=== PATIENT | female | born 1965 | race Two or more races ===

== ENCOUNTER 2017-09-03 14:01 | Inpatient (IN) | payer OTHER ==
[2017-09-03] MEDS ORDERED: predniSONE 20 MG TABLET (UD) PO ONE (15:15)
[2017-09-03] MEDS: ALBUTEROL SO4 2.5/IPRATROPIUM 0.5 INH SOL 3 ML VIAL.NEB. NEB SCH ×4 (15:25→16:15)
[2017-09-03] MEDS ORDERED: predniSONE 20 MG TABLET (UD) ONE (15:27)
[2017-09-03 16:11] LABS: BASO # 0.1 # (0.1-1); BASO % 0.5 % (0-2.0); EOS # 0.2 # (0-4.5); EOS % 1.8 % (0-4.5); MCH 25.7 pg (25.7-33.7); MCHC 32.2 g/dl (32.0-36.0); MEAN CELL VOLUME 79.9 fl (80-96); MEAN PLT VOLUME 8.9 fl (7.5-11.1); NEUT # 8.5 # (42.8-82.8); PLATELET COUNT 354 K/MM3 (134-434); RDW 16.3 % (11.6-15.6); WHITE BLOOD COUNT 11.8 K/mm3 (4.0-10.0)
[2017-09-03 16:31] LABS: ALBUMIN 3.8 g/dl (3.4-5.0); ANION GAP 8 (8-16); BILIRUBIN,TOTAL 0.7 mg/dL (0.2-1.0); CALCIUM 9.3 mg/dL (8.5-10.1); CO2 26 mmol/L (21-32); CREATININE 0.7 mg/dL (0.55-1.02); GLUCOSE,RANDOM 96 mg/dL (74-106); SGPT/ALT 38 U/L (12-78); TOT PROT 8.1 g/dl (6.4-8.2)
[2017-09-03 16:33] LABS: ALK PHOS 143 U/L (45-117); TROPONIN I < 0.02 ng/ml (0.00-0.05)
[2017-09-03 16:55] LABS: CPK 99 IU/L (26-192); SGOT/AST 40 U/L (15-37)
[2017-09-03] MEDS ORDERED: CEFTRIAXONE 1 GM in DEXTROSE 5%-WATER - 50 ML IVPB ONE (17:23)
[2017-09-03] MEDS ORDERED: AZITHROMYCIN IVPB 500 MG in DEXTROSE 5%-WATER - 250 ML IVPB ONE (17:24)
--- NOTE | 2017-09-03 17:30 | PDOC ---
History of Present Illness - General Chief Complaint: Shortness of Breath Stated Complaint: DIFFCULTY BREATHING Time Seen by Provider: 09/03/17 14:54 - History of Present Illness Initial Comments: 09/03/17 17:24 " The patient is a 51 year old female with a significant PMH of asthma and emphysema/COPD with 8 prior intubations who presents to the emergency department with four days of chest pain and shortness of breath. The patient describes the chest pain as a 6/10 that is exacerbated by coughing. The patient states her shortness of breath feels like an asthma exacerbation. She endorses subjective fevers at home. Denies productive cough. The patient denies any sick contacts at home. The patient denies headache and dizziness. Denies nausea, vomit, diarrhea and constipation. Denies dysuria, frequency, urgency and hematuria. Denies leg swelling. Denies OCP use. Denies h/o DVT/PE. Allergies: NKA Social history: No reported alcohol, cigarette, or drug use. PCP: Dr. Ibarra" Past History - Past Medical History Allergies/Adverse Reactions: Allergies Allergy/AdvReac Type Severity Reaction Status Date / Time No Known Allergies Allergy Verified 09/03/17 14:21 Home Medications: Ambulatory Orders Albuterol 0.083% Nebulizer Harriett [Ventolin 0.083% Nebulizer Soln -] 1 amp NEB QID #120 amp 07/20/17 Albuterol Sulfate Inhaler - [Ventolin Hfa Inhaler -] 1 - 2 inh PO QID #1 inhaler 07/20/17 Fluticasone Prop 0.05% Nasal [Flonase -] 1 spray NS DAILY #30 bot 07/20/17 Ipratropium 0.02% Nebulizer [Atrovent 0.02% Nebulizer -] 1 amp NEB QID #120 amp 07/20/17 Levothyroxine [Synthroid -] 25 mcg PO DAILY #30 tablet 07/20/17 Loratadine [Claritin] 10 mg PO DAILY #30 tablet 07/20/17 Montelukast Na [Singulair -] 10 mg PO HS #30 tablet 07/20/17 Omeprazole 20 mg PO DAILY 07/20/17 Prednisone [Deltasone -] 20 mg PO DAILY #30 tablet 07/20/17 Salmeterol/Fluticasone [Advair 500Mcg/50Mcg -] 1 inh IH BID #60 inh 07/20/17 Theophylline Anhydrous 300 mg PO BID 07/20/17 Tiotropium [place] [Spiriva] 1 inh PO DAILY 07/20/17 Trazodone HCl 50 mg PO HS 07/20/17 Asthma: Yes COPD: Yes Thyroid Disease: Yes (HYPO) - Suicide/Smoking/Psychosocial Hx Smoking History: Never smoked Hx Alcohol Use: No Drug/Substance Use Hx: No Review of Systems - Review of Systems Comments:: 09/03/17 17:26 "GENERAL/CONSTITUTIONAL: No fever or chills. No weakness. HEAD, EYES, EARS, NOSE AND THROAT: No change in vision. No ear pain or discharge. No sore throat. CARDIOVASCULAR: No chest pain or shortness of breath. RESPIRATORY: (+) Chest pain. (+) SOB. No cough or hemoptysis. GASTROINTESTINAL: No nausea, vomiting, diarrhea or constipation. GENITOURINARY: No dysuria, frequency, or change in urination. MUSCULOSKELETAL: No joint or muscle swelling or pain. No neck or back pain. SKIN: No rash NEUROLOGIC: No headache, vertigo, loss of consciousness, or change in strength/ sensation. ENDOCRINE: No increased thirst. No abnormal weight change. HEMATOLOGIC/LYMPHATIC: No anemia, easy bleeding, or history of blood clots. ALLERGIC/IMMUNOLOGIC: No hives or skin allergy. " *Physical Exam - Vital Signs Last Vital Signs Temp Pulse Resp BP Pulse Ox 99.6 F 78 18 137/77 99 09/03/17 14:22 09/03/17 14:22 09/03/17 14:22 09/03/17 14:22 09/03/17 14:22 - Physical Exam Comments: 09/03/17 17:26 "GENERAL: Awake, alert, and fully oriented, in no acute distress HEAD: No signs of trauma EYES: PERRLA, EOMI, sclera anicteric, conjunctiva clear ENT: Auricles normal inspection, hearing grossly normal, nares patent, oropharynx clear without exudates. Moist mucosa NECK: Nontender, no stepoffs, Normal ROM, supple, no lymphadenopathy, JVD, or masses LUNGS: (+) expiratory Wheezes. No crackles HEART: Regular rate and rhythm, normal S1 and S2, no murmurs, rubs or gallops ABDOMEN: Soft, nontender, normoactive bowel sounds. No guarding, no rebound. No masses EXTREMITIES: Normal range of motion, no edema. No clubbing or cyanosis. No cords, erythema, or tenderness NEUROLOGICAL: Cranial nerves II through XII intact. 5/5 strength and sensation in all extremities, Normal speech, normal gait SKIN: Warm, Dry, normal turgor, no rashes or lesions noted." ED Treatment Course - LABORATORY CBC & Chemistry Diagram: 09/04/17 06:55 09/04/17 06:55 - ADDITIONAL ORDERS Additional order review: Laboratory Results 09/03/17 09/03/17 09/03/17 15:59 15:59 15:59 Sodium 137 Potassium 4.6 Chloride 103 Carbon Dioxide 26 Anion Gap 8 BUN 10 D Creatinine 0.7 Creat Clearance w eGFR > 60 Random Glucose 96 D Calcium 9.3 Total Bilirubin 0.7 D AST 40 H D ALT 38 Alkaline Phosphatase 143 H D Creatine Kinase 99 Cancelled Troponin I < 0.02 Cancelled B-Natriuretic Peptide Cancelled 14.06 Total Protein 8.1 D Albumin 3.8 09/03/17 15:59 RBC 4.83 MCV 79.9 L MCHC 32.2 RDW 16.3 H MPV 8.9 Neutrophils % 72.0 Lymphocytes % 17.2 D Monocytes % 8.5 Eosinophils % 1.8 Basophils % 0.5 - RADIOLOGY Radiology Studies Ordered: Category Date Time Status CHEST PA & LAT [RAD] Stat Radiology 09/03/17 15:13 Completed - Medications Given in the ED: ED Medications Discontinued Medications Generic Name Dose Route Start Last Admin Trade Name Freq PRN Reason Stop Dose Admin Albuterol/Ipratropium 1 amp 09/03/17 15:15 09/03/17 16:15 Duoneb - NEB 09/03/17 16:01 1 amp Q15M MAXIM Administration Prednisone 40 mg 09/03/17 15:15 09/03/17 15:25 Deltasone - PO 09/03/17 15:16 40 mg ONCE ONE Administration Medical Decision Making - Medical Decision Making 09/03/17 17:29 51 F with asthma/COPD presenting with 4 days of chest pain and shortness of breath with subjective fevers. Pt afebrile in ER but with wheezing on exam. Consistent with COPD exacerbation. Also consider PNA given subjective fevers. - Labs - CXR - Nebs, steroids, azithro 09/03/17 19:00 CXR shows new LLL opacities. Will tx for CAP with ceftriaxone/azithro Admit to hospital. Case discussed in detail with admitting physician including history, physical exam and ancillary studies. Admitting physician has assumed care for the patient and will follow all pending diagnostics and complete the evaluation and treatment. *DC/Admit/Observation/Transfer Diagnosis at time of Disposition: PNA (pneumonia) Qualifiers: Pneumonia type: due to unspecified organism Laterality: right Lung location: lower lobe of lung Qualified Code(s): J18.1 - Lobar pneumonia, unspecified organism - Discharge Dispostion Admit: Yes - Referrals - Patient Instructions - Post Discharge Activity - Attestations Physician Attestion: 09/03/17 18:24 I, Dr. Yvon Lau MD, attest that this document has been prepared under my direction and personally reviewed by me in its entirety. I further attest, that it accurately reflects all work, treatment, procedures and medical decision -making performed by me.
[2017-09-03] MEDS ORDERED: AZITHROMYCIN IVPB 250 ML IVPB ONE (17:53)
[2017-09-03] MEDS ORDERED: CEFTRIAXONE 1 GM/50 ML BAG ONE (17:54)
[2017-09-03] MEDS ORDERED: ALBUTEROL SO4 0.083% IH SOL 2.5 MG/3 ML VIAL.NEB. NEB PRN (18:44)
--- NOTE | 2017-09-03 20:47 | PN ---
Teaching Attending Note Name of Resident: Mark Wall ATTENDING PHYSICIAN STATEMENT I saw and evaluated the patient. I reviewed the resident's note and discussed the case with the resident. I agree with the resident's findings and plan as documented. SUBJECTIVE: patient presented for SOB with productive cough, patient was intubated 8 times in the past, last time was in june when she was being evacuated from the [facility] OBJECTIVE: NAD S1 and S2 RRR no edema crackles and wheezing ASSESSMENT AND PLAN: start vancomycin start the patient on zosyn prednisone 40mg PO daily can be methylprednisone 40mg IV if needed, if the patient worsen increase the dose to q8hrs ID consult for nosocomial evaluation c/w home medication
--- NOTE | 2017-09-03 21:13 | HP ---
CHIEF COMPLAINT: Shortness of breath PCP: HISTORY OF PRESENT ILLNESS: 51 yo F significant PMHx of asthma and emphysema/COPD with 8 prior intubations who presents to the emergency department with four days of chest pain and shortness of breath. The patient describes the chest pain as a 6/10 substernal intermittent exacerbated by coughing. She endorses subjective fevers and chills at home. Endorses cough as productive of dark yellow/brown sputum. She was last intubated in Jun when she was evacuated from [place] and had to be helicopter life flighted for further management. Denies MONTOYA, Abdominal pain, nausea, vomiting or sick contacts. ER course was notable for: (1)CXR shows RLL PNA (2)Started on Ceftriaxone and Azithro (3)Breathing treatments with good O2 sats. >90% Recent Travel: PAST MEDICAL HISTORY: asthma and emphysema/COPD with 8 prior intubations PAST SURGICAL HISTORY:none Social History: Smoking:denies Alcohol:denies Drugs: denies Family History: Allergies No Known Allergies Allergy (Verified 09/03/17 14:21) HOME MEDICATIONS: Home Medications Medication Instructions Recorded Albuterol 0.083% Nebulizer Harriett 1 amp NEB QID #120 amp 07/20/17 [Ventolin 0.083% Nebulizer Soln -] Albuterol Sulfate Inhaler - 1 - 2 inh PO QID #1 inhaler 07/20/17 [Ventolin Hfa Inhaler -] Fluticasone Prop 0.05% Nasal 1 spray NS DAILY #30 bot 07/20/17 [Flonase -] Ipratropium 0.02% Nebulizer 1 amp NEB QID #120 amp 07/20/17 [Atrovent 0.02% Nebulizer -] Levothyroxine [Synthroid -] 25 mcg PO DAILY #30 tablet 07/20/17 Loratadine [Claritin] 10 mg PO DAILY #30 tablet 07/20/17 Montelukast Na [Singulair -] 10 mg PO HS #30 tablet 07/20/17 Omeprazole 20 mg PO DAILY 07/20/17 Prednisone [Deltasone -] 20 mg PO DAILY #30 tablet 07/20/17 Salmeterol/Fluticasone [Advair 1 inh IH BID #60 inh 07/20/17 500Mcg/50Mcg -] Theophylline Anhydrous 300 mg PO BID 07/20/17 Tiotropium [place] [Spiriva] 1 inh PO DAILY 07/20/17 Trazodone HCl 50 mg PO HS 07/20/17 REVIEW OF SYSTEMS CONSTITUTIONAL: fever, chills, diaphoresis, generalized weakness, malaise Absent: , loss of appetite, weight change HEENT: Absent: rhinorrhea, nasal congestion, throat pain, throat swelling, difficulty swallowing, mouth swelling, ear pain, eye pain, visual changes CARDIOVASCULAR: chest pain Absent: , syncope, palpitations, irregular heart rate, lightheadedness, peripheral edema RESPIRATORY: cough, shortness of breath, dyspnea with exertion Absent: , orthopnea, wheezing, stridor, hemoptysis GASTROINTESTINAL: Absent: abdominal pain, abdominal distension, nausea, vomiting, diarrhea, constipation, melena, hematochezia GENITOURINARY: Absent: dysuria, frequency, urgency, hesitancy, hematuria, flank pain, genital pain MUSCULOSKELETAL: Absent: myalgia, arthralgia, joint swelling, back pain, neck pain SKIN: Absent: rash, itching, pallor HEMATOLOGIC/IMMUNOLOGIC: Absent: easy bleeding, easy bruising, lymphadenopathy, frequent infections ENDOCRINE: Absent: unexplained weight gain, unexplained weight loss, heat intolerance, cold intolerance NEUROLOGIC: Absent: headache, focal weakness or paresthesias, dizziness, unsteady gait, seizure, mental status changes, bladder or bowel incontinence PSYCHIATRIC: Absent: anxiety, depression, suicidal or homicidal ideation, hallucinations. PHYSICAL EXAMINATION Vital Signs - 24 hr 09/03/17 09/03/17 09/03/17 14:22 18:16 20:51 Temperature 99.6 F Pulse Rate 78 Pulse Rate [ 106 H 72 Right] Respiratory 18 16 18 Rate Blood Pressure 137/77 Blood Pressure 111/76 121/74 [Right Arm] O2 Sat by Pulse 99 97 100 Oximetry (%) GENERAL: AAOx3 moderate distress. HEAD: NC AT EYES: PERRLA, EOMI EARS, NOSE, THROAT: Moist mucous membranes. NECK: Normal range of motion, supple without lymphadenopathy, JVD, or masses. LUNGS: Decrease breath sounds > bases. Left sided crackles. HEART:tachycardic, S1 and S2 normal , No m/g/r ABDOMEN: Soft,obese, NT, ND, BS normal. MUSCULOSKELETAL: Normal range of motion at all joints. No bony deformities or tenderness. No CVA tenderness. LOWER EXTREMITIES: 2+ pulses, warm, well-perfused. No calf tenderness. No peripheral edema. NEUROLOGICAL: Cranial nerves II-XII intact. Normal speech. PSYCHIATRIC: Cooperative. Good eye contact. Appropriate mood and affect. SKIN: Warm, dry, normal turgor, no rashes or lesions noted, normal capillary refill. Laboratory Results - last 24 hr 09/03/17 09/03/17 09/03/17 15:59 15:59 15:59 WBC 11.8 H D RBC 4.83 Hgb 12.4 Hct 38.6 MCV 79.9 L MCH 25.7 MCHC 32.2 RDW 16.3 H Plt Count 354 MPV 8.9 Neutrophils % 72.0 Lymphocytes % 17.2 D Monocytes % 8.5 Eosinophils % 1.8 Basophils % 0.5 Sodium 137 Potassium 4.6 Chloride 103 Carbon Dioxide 26 Anion Gap 8 BUN 10 D Creatinine 0.7 Creat Clearance w eGFR > 60 Random Glucose 96 D Calcium 9.3 Total Bilirubin 0.7 D AST 40 H D ALT 38 Alkaline Phosphatase 143 H D Creatine Kinase Cancelled 99 Troponin I Cancelled < 0.02 B-Natriuretic Peptide 14.06 Total Protein 8.1 D Albumin 3.8 09/03/17 15:59 WBC RBC Hgb Hct MCV MCH MCHC RDW Plt Count MPV Neutrophils % Lymphocytes % Monocytes % Eosinophils % Basophils % Sodium Potassium Chloride Carbon Dioxide Anion Gap BUN Creatinine Creat Clearance w eGFR Random Glucose Calcium Total Bilirubin AST ALT Alkaline Phosphatase Creatine Kinase Troponin I B-Natriuretic Peptide Cancelled Total Protein Albumin ASSESSMENT/PLAN: 51 yo F with PMHx of asthma/ COPD with multiple intubations admitted to med/ surg for managment of acute PNA. Problem List - Problem (1) PNA (pneumonia) Assessment/Plan: Given that she has had multiple intubations most recently within last 2 mo. * Will give one time dose of Vanco and Zosyn * Will consult ID * Solumedrol 40mg IV daily * Duonebs QID * Albuterol PRN * Spiriva * Supplemental O2 PRN maintain SpO2 >90% (2) Asthma exacerbation (3) Hypothyroidism Assessment/Plan: Continue Synthroid 25mcg PO daily. (4) DVT prophylaxis Assessment/Plan: Heparin 5000 units SQ Q8h Visit type - Emergency Visit Emergency Visit: Yes ED Registration Date: 12/22/17 Care time: The patient presented to the Emergency Department on the above date and was hospitalized for further evaluation of their emergent condition. - New Patient This patient is new to me today: Yes Date on this admission: 09/04/17 - Critical Care Critical Care patient: No
[2017-09-03] MEDS ORDERED: VANCOMYCIN 1 GRAM (PRE-DOCKED) 1,000 MG/250 ML BAG IVPB ONE (22:25)
[2017-09-03] MEDS ORDERED: PIPERACIL/TAZOB 3.375 GM 3.375 GM/50 ML PREMIX IVPB ONE (22:26)
[2017-09-03] MEDS ORDERED: VANCOMYCIN 1,000 MG in DEXTROSE 5%-WATER - 250 ML IVPB ONE (22:30)
[2017-09-03] MEDS ORDERED: PT OWN MED DRAWER 7, Y5N ONE (22:40)
[2017-09-04 00:15] VITALS: BMI 32.4
[2017-09-04] MEDS: ALBUTEROL SO4 2.5/IPRATROPIUM 0.5 INH SOL 3 ML VIAL.NEB. NEB SCH ×5 (00:43→23:44)
[2017-09-04] MEDS: guaiFENesin 600 MG TABLET.ER (FP) PO SCH ×3 (00:51→21:24)
[2017-09-04] MEDS: BENZOCAINE/MENTH/CETYLPYRD CL 1 EACH LOZENGE MM PRN ×2 (00:51→06:18)
[2017-09-04] MEDS: LEVOTHYROXINE NA 25 MCG TABLET (FP) PO SCH (06:18)
[2017-09-04] MEDS ORDERED: PT OWN MED DRAWER 7, Y5N ONE ×4 (06:47→20:45)
[2017-09-04 07:45] LABS: BASO % 0.3 % (0-2.0); EOS % 0.3 % (0-4.5); LYMPH # 2.1 (8-40); MCH 25.6 pg (25.7-33.7); MCHC 32.1 g/dl (32.0-36.0); MEAN CELL VOLUME 79.9 fl (80-96); MEAN PLT VOLUME 8.3 fl (7.5-11.1); MONO # 1.1 # (3.8-10.2); NEUT # 7.7 # (42.8-82.8); NEUT % 70.3 % (42.8-82.8); PLATELET COUNT 417 K/MM3 (134-434); RDW 16.3 % (11.6-15.6); WHITE BLOOD COUNT 10.9 K/mm3 (4.0-10.0)
[2017-09-04 08:11] LABS: MAGNESIUM 2.4 mg/dL (1.8-2.4); PHOSPHOROUS 4.1 mg/dL (2.5-4.9)
[2017-09-04 08:15] LABS: ALBUMIN 3.6 g/dl (3.4-5.0); ANION GAP 14 (8-16); CALCIUM 9.5 mg/dL (8.5-10.1); CO2 22 mmol/L (21-32); GLUCOSE,RANDOM 101 mg/dL (74-106)
[2017-09-04 08:18] LABS: ALK PHOS 126 U/L (45-117); BILIRUBIN,TOTAL 0.6 mg/dL (0.2-1.0); CREATININE 0.7 mg/dL (0.55-1.02); SGOT/AST 18 U/L (15-37); SGPT/ALT 37 U/L (12-78); TOT PROT 7.8 g/dl (6.4-8.2)
--- NOTE | 2017-09-04 09:34 | PN ---
Progress Note (short form) - Note Progress Note: ID Consult dictated Acute exacerbation bronchial asthma Possible pneumonia Obtain BC, Sputum c/s, legionella/ pneumococcal ag Repeat CXR Empiric zithromax/ ceftriaxone Bronchodilators/ steroids Declines HIV testing
[2017-09-04] MEDS ORDERED: PANTOPRAZOLE 20 MG TABLET (FP) PO SCH (10:00)
[2017-09-04] MEDS ORDERED: AZITHROMYCIN IVPB 500 MG in DEXTROSE 5%-WATER - 250 ML IVPB SCH (10:00)
[2017-09-04] MEDS ORDERED: TIOTROPIUM BROMIDE 18 MCG/INH (DEVICE W/ 5 CAPSULES) IH SCH (10:00)
[2017-09-04] MEDS ORDERED: methylPREDNISolone NA SUCC 40 MG/1 ML VIAL IVPUSH SCH (10:00)
[2017-09-04] MEDS ORDERED: CEFTRIAXONE 2 GM in DEXTROSE 5%-WATER - 100 ML IVPB SCH (10:00)
[2017-09-04] MEDS: CEFTRIAXONE 2 GM in DEXTROSE 5%-WATER - 100 ML IVPB SCH (10:16)
[2017-09-04] MEDS: LORATADINE 10 MG TABLET PO SCH (10:17)
--- NOTE | 2017-09-04 13:29 | PN ---
Progress Note, Physician History of Present Illness: PULMONARY CONSULTATION DICTATED 09/04/17 IMP CHRONIC PERSISTENT ASTHMA WITH ACUTE EXACERBATION LLL PNEUMONIA PLAN IV STEROIDS INHALED BRONCHODILATORS O2 ANTIBIOTICS SPUTUM C+S CHEST CT MONITOR PEAK FLOW - Current Medication List Current Medications: Active Medications Albuterol Sulfate (Ventolin 0.083% Nebulizer Soln -) 1 amp NEB Q1H PRN PRN Reason: SHORT OF BREATH/WHEEZING Albuterol/Ipratropium (Duoneb -) 1 amp NEB QIDR [facility] Last Admin: 09/04/17 12:03 Dose: 1 amp Benzocaine/Menthol (Cepacol Lozenge -) 1 each MM PRN PRN PRN Reason: SORE THROAT Last Admin: 09/04/17 06:18 Dose: 1 each Guaifenesin (Mucinex -) 600 mg PO BID [facility] Last Admin: 09/04/17 10:16 Dose: 600 mg Heparin Sodium (Porcine) (Heparin -) 5,000 unit SQ TID [facility] Ceftriaxone Sodium 2 gm/ (Dextrose) 100 mls @ 200 mls/hr IVPB DAILY [facility] Last Admin: 09/04/17 10:16 Dose: 200 mls/hr Levofloxacin (Levaquin 500 Mg Premixed Ivpb -) 500 mg in 100 mls @ 100 mls/hr IVPB DAILY [facility] Levothyroxine Sodium (Synthroid -) 25 mcg PO DAILY@0700 [facility] Last Admin: 09/04/17 06:18 Dose: 25 mcg Loratadine (Claritin -) 10 mg PO DAILY [facility] Last Admin: 09/04/17 10:17 Dose: 10 mg Methylprednisolone Sodium Succinate (Solu-Medrol -) 60 mg IVPUSH Q6H-IV MAXIM Montelukast Sodium (Singulair -) 10 mg PO HS [facility] Pantoprazole Sodium (Protonix -) 20 mg PO DAILY@0600 [facility] Trazodone HCl (Desyrel -) 50 mg PO HS [facility] - Objective Vital Signs: Vital Signs Temperature 97.8 F 09/04/17 10:00 Pulse Rate 93 H 09/04/17 10:00 Respiratory Rate 20 09/04/17 10:00 Blood Pressure 114/78 09/04/17 10:00 O2 Sat by Pulse Oximetry (%) 96 09/04/17 09:00 Labs: CBC, BMP 09/04/17 06:55 09/04/17 06:55 Problem List - Problems (1) DVT prophylaxis Code(s): [id number] - (2) Hypothyroidism Code(s): E03.9 - HYPOTHYROIDISM, UNSPECIFIED Qualifiers: Hypothyroidism type: acquired Qualified Code(s): E03.9 - Hypothyroidism, unspecified (3) PNA (pneumonia) Code(s): J18.9 - PNEUMONIA, UNSPECIFIED ORGANISM Qualifiers: Pneumonia type: due to unspecified organism Laterality: right Lung location: lower lobe of lung Qualified Code(s): J18.1 - Lobar pneumonia, unspecified organism (4) Asthma exacerbation Code(s): J45.901 - UNSPECIFIED ASTHMA WITH (ACUTE) EXACERBATION Qualifiers: Asthma severity: severe Asthma persistence: persistent Qualified Code(s) : J45.51 - Severe persistent asthma with (acute) exacerbation
[2017-09-04] MEDS ORDERED: AZITHROMYCIN 250 MG TABLET PO SCH (13:30)
--- NOTE | 2017-09-04 13:33 | PN ---
Progress Note (short form) - Note Progress Note: PULMONARY CONSULTATION DICTATED 09/04/17 IMP CHRONIC PERSISTENT ASTHMA WITH ACUTE EXACERBATION LLL PNEUMONIA HYPOTHYROID PLAN IV STEROIDS INHALED BRONCHODILATORS O2 ANTIBIOTICS SPUTUM C+S CHEST CT MONITOR PEAK FLOW DR DAVIS Problem List - Problems (1) DVT prophylaxis Code(s): [id number] - (2) Hypothyroidism Code(s): E03.9 - HYPOTHYROIDISM, UNSPECIFIED Qualifiers: Hypothyroidism type: acquired Qualified Code(s): E03.9 - Hypothyroidism, unspecified (3) PNA (pneumonia) Code(s): J18.9 - PNEUMONIA, UNSPECIFIED ORGANISM Qualifiers: Pneumonia type: due to unspecified organism Laterality: right Lung location: lower lobe of lung Qualified Code(s): J18.1 - Lobar pneumonia, unspecified organism (4) Asthma exacerbation Code(s): J45.901 - UNSPECIFIED ASTHMA WITH (ACUTE) EXACERBATION Qualifiers: Asthma severity: severe Asthma persistence: persistent Qualified Code(s) : J45.51 - Severe persistent asthma with (acute) exacerbation
[2017-09-04] MEDS: LEVOFLOXACIN 500 MG IVPB 500 MG/100 ML BAG IVPB SCH (14:26)
[2017-09-04] MEDS: methylPREDNISolone NA SUCC 40 MG/1 ML VIAL IVPUSH SCH ×2 (16:21→21:23)
--- NOTE | 2017-09-04 16:26 | PN ---
Physical Exam: SUBJECTIVE: Patient seen and examined Patient comfortably sitting on the bed. OBJECTIVE: Vital Signs Temperature 97.8 F 09/04/17 10:00 Pulse Rate 93 H 09/04/17 10:00 Respiratory Rate 20 09/04/17 10:00 Blood Pressure 114/78 09/04/17 10:00 O2 Sat by Pulse Oximetry (%) 96 09/04/17 09:00 GENERAL: The patient is awake, alert, and fully oriented, in no acute distress. HEAD: Normal with no signs of trauma. EYES: PERRL, extraocular movements intact, sclera anicteric, conjunctiva clear. No ptosis. ENT: Ears normal, nares patent, oropharynx clear without exudates, moist mucous membranes. NECK: Trachea midline, full range of motion, supple. LUNGS: Decreased air entery BL , no wheezes, no crackles, no accessory muscle use. HEART: Regular rate and rhythm, S1, S2 without murmur, rub or gallop. ABDOMEN: Soft, nontender, nondistended, normoactive bowel sounds, no guarding, no rebound, no hepatosplenomegaly, no masses. EXTREMITIES: 2+ pulses, warm, well-perfused, no edema. NEUROLOGICAL: Cranial nerves II through XII grossly intact. Normal speech, gait not observed. PSYCH: Normal mood, normal affect. SKIN: Warm, dry, normal turgor, no rashes or lesions noted Laboratory Results - last 24 hr 09/03/17 09/03/17 09/04/17 15:59 15:59 06:55 WBC 11.8 H D RBC 4.83 Hgb 12.4 Hct 38.6 MCV 79.9 L MCH 25.7 MCHC 32.2 RDW 16.3 H Plt Count 354 MPV 8.9 Neutrophils % 72.0 Lymphocytes % 17.2 D Monocytes % 8.5 Eosinophils % 1.8 Basophils % 0.5 Sodium 137 Potassium 4.6 Chloride 103 Carbon Dioxide 26 Anion Gap 8 BUN 10 D Creatinine 0.7 Creat Clearance w eGFR > 60 Random Glucose 96 D Calcium 9.3 Phosphorus 4.1 Magnesium 2.4 Total Bilirubin 0.7 D AST 40 H D ALT 38 Alkaline Phosphatase 143 H D Creatine Kinase 99 Troponin I < 0.02 B-Natriuretic Peptide 14.06 Total Protein 8.1 D Albumin 3.8 09/04/17 09/04/17 06:55 06:55 WBC 10.9 H RBC 4.56 Hgb 11.7 Hct 36.5 MCV 79.9 L MCH 25.6 L MCHC 32.1 RDW 16.3 H Plt Count 417 MPV 8.3 Neutrophils % 70.3 Lymphocytes % 19.4 Monocytes % 9.7 Eosinophils % 0.3 D Basophils % 0.3 Sodium 140 Potassium 3.9 Chloride 104 Carbon Dioxide 22 Anion Gap 14 BUN 10 Creatinine 0.7 Creat Clearance w eGFR > 60 Random Glucose 101 Calcium 9.5 Phosphorus Magnesium Total Bilirubin 0.6 AST 18 D ALT 37 Alkaline Phosphatase 126 H Creatine Kinase Troponin I B-Natriuretic Peptide Total Protein 7.8 Albumin 3.6 Active Medications Generic Name Dose Route Start Last Admin Trade Name Freq PRN Reason Stop Dose Admin Albuterol Sulfate 1 amp 09/03/17 18:44 Ventolin 0.083% Nebulizer Soln - NEB Q1H PRN SHORT OF BREATH/WHEEZING Albuterol/Ipratropium 1 amp 09/04/17 00:00 09/04/17 12:03 Duoneb - NEB 1 amp QIDR MAXIM Administration Benzocaine/Menthol 1 each 09/04/17 00:26 09/04/17 06:18 Cepacol Lozenge - MM 1 each PRN PRN Administration SORE THROAT Guaifenesin 600 mg 09/04/17 00:30 09/04/17 10:16 Mucinex - PO 600 mg BID MAXIM Administration Heparin Sodium (Porcine) 5,000 unit 09/04/17 22:00 Heparin - SQ TID [facility] Ceftriaxone Sodium 2 gm/ 100 mls @ 200 mls/hr 09/04/17 10:00 09/04/17 10:16 Dextrose IVPB 200 mls/hr DAILY MAXIM Administration Levofloxacin 500 mg in 100 mls @ 100 mls/hr 09/04/17 13:30 09/04/17 14:26 Levaquin 500 Mg Premixed Ivpb - IVPB 100 mls/hr DAILY MAXIM Administration Levothyroxine Sodium 25 mcg 09/04/17 07:00 09/04/17 06:18 Synthroid - PO 25 mcg DAILY@0700 MAXIM Administration Loratadine 10 mg 09/04/17 10:00 09/04/17 10:17 Claritin - PO 10 mg DAILY MAXIM Administration Methylprednisolone Sodium Succinate 60 mg 09/04/17 15:00 09/04/17 16:21 Solu-Medrol - IVPUSH 60 mg Q6H-IV MAXIM Administration Montelukast Sodium 10 mg 09/04/17 22:00 Singulair - PO HS MAXIM Pantoprazole Sodium 20 mg 09/05/17 06:00 Protonix - PO DAILY@0600 MAXIM Trazodone HCl 50 mg 09/04/17 22:00 Desyrel - PO HS MAXIM ASSESSMENT/PLAN: Patient is a 51 yo F with PMHx of asthma/ COPD with multiple intubations admitted to med/surg for managment of acute PNA. As per patient , has been intubated for around 8x # Acute exacerbation of Asthma to continue Levaquin and Rocephin , dc zithromax since patient is having itchiness on IV infusion, discussed with ID to continue with Rocephin and Levaquin. Bronchodilators/ steroids continue # Questionable LLL PNEUMONIA on Rocephin and Levaquin continue, check legionella and strept.pneumonia, will repeat the cxr # HYPOTHYROID continue Synthroid DVT Px: Heparin Visit type - Emergency Visit Emergency Visit: Yes ED Registration Date: 09/03/17 Care time: The patient presented to the Emergency Department on the above date and was hospitalized for further evaluation of their emergent condition. - New Patient This patient is new to me today: Yes Date on this admission: 09/04/17 - Critical Care Critical Care patient: Yes Total Critical Care Time (in minutes): 35 Critical Care Statement: The care of this patient involved high complexity decision making to prevent further life threatening deterioration of the patient 's condition and/or to evaluate & treat vital organ system(s) failure or risk of failure.
--- NOTE | 2017-09-04 16:29 | EKG ---
Test Reason : Blood Pressure : / mmHG Vent. Rate : 107 BPM Atrial Rate : 107 BPM P-R Int : 164 ms QRS Dur : 092 ms QT Int : 352 ms P-R-T Axes : 043 003 026 degrees QTc Int : 469 ms SINUS TACHYCARDIA POSSIBLE LEFT ATRIAL ENLARGEMENT INCOMPLETE RIGHT BUNDLE BRANCH BLOCK BORDERLINE ECG WHEN COMPARED WITH ECG OF 20-JUL-2017 18:43, VENT. RATE HAS INCREASED BY 36 BPM Confirmed by CUCO LINDO MD [id number]) on 09/04/2017 4:28:39 PM Referred By: Confirmed By:CUCO LINDO MD
--- NOTE | 2017-09-04 19:21 | CONS ---
DATE OF CONSULTATION: 09/04/2017 INFECTIOUS DISEASE CONSULTATION HISTORY OF PRESENT ILLNESS: The patient is a 51-year-old diabetic female evaluated for possible pneumonia. She was admitted with a 4-day history of worsening dyspnea, wheeze and sternal chest pain. In addition, she reported cough productive of yellowish sputum. Sh was admitted with a diagnosis of acute exacerbation of bronchial asthma. Chest x-ray, although poor quality film, showed possible right lower lobe infiltrate. She was empirically treated with vancomycin, Zosyn, Zithromax and ceftriaxone. At the present time, she is slightly short of breath and has a cough. She is wheezing. She has a history of bronchial asthma and has had frequent exacerbations. According to the note she has been intubated on 8 occasions in the past. Her last serious exacerbation was in June of 2017. She denies any ill contact. She is a nonsmoker. She denies risk factors for HIV. She was recently in [place]. PAST MEDICAL HISTORY: Positive for asthma, COPD. ALLERGIES: No known drug allergies. MEDICATIONS: Albuterol, DuoNeb, Synthroid, Solu-Medrol, Singulair, Protonix, Spiriva. SOCIAL HISTORY: As per HPI. LABORATORY DATA: White count on admission 11.8, hematocrit 36.5, platelet count 417. BUN 10, creatinine 0.7. PHYSICAL EXAMINATION: General: She is an obese female. Vital signs: Temperature 98.5, blood pressure 109/66, pulse 100 regular, respirations 20 per minute. HEENT: Sclerae anicteric. Oropharynx slight injection. Neck: Supple, no palpable nodes. Heart: S1, S2, tachycardic. Lungs: Bilateral rhonchi and mild wheezing. Abdomen: Obese, soft, nontender. Extremities: Negative for edema. IMPRESSION: 1. Acute exacerbation of bronchial asthma. 2. Possible pneumonia. PLAN: Obtained blood cultures, sputum culture, urine legionella and pneumococcal antigens. Repeat chest x-ray. Continue bronchodilators and corticosteroids, empiric Zithromax and ceftriaxone. The patient declines HIV testing. FANTASMA LUGO M.D. [id number]
[2017-09-04] MEDS: HEPARIN NA (PORCINE) 5,000 UNITS/ML 1ML VIAL SQ SCH (21:24)
[2017-09-04] MEDS: traZODone HCL 50 MG TABLET (FP) PO SCH (21:24)
[2017-09-04] MEDS: MONTELUKAST NA 10 MG TABLET PO SCH (21:47)
[2017-09-05] MEDS: methylPREDNISolone NA SUCC 40 MG/1 ML VIAL IVPUSH SCH ×2 (02:11→09:32)
[2017-09-05] MEDS: HEPARIN NA (PORCINE) 5,000 UNITS/ML 1ML VIAL SQ SCH ×3 (06:06→21:55)
[2017-09-05] MEDS: LEVOTHYROXINE NA 25 MCG TABLET (FP) PO SCH (06:07)
[2017-09-05] MEDS: PANTOPRAZOLE 20 MG TABLET (FP) PO SCH (06:07)
[2017-09-05 06:25] LABS: BASO % 0.1 % (0-2.0); MCH 25.5 pg (25.7-33.7); MCHC 31.9 g/dl (32.0-36.0); MEAN CELL VOLUME 79.8 fl (80-96); MEAN PLT VOLUME 8.5 fl (7.5-11.1); MONO # 0.3 # (3.8-10.2); NEUT # 10.3 # (42.8-82.8); NEUT % 88.6 % (42.8-82.8); PLATELET COUNT 453 K/MM3 (134-434); RDW 16.3 % (11.6-15.6); WHITE BLOOD COUNT 11.6 K/mm3 (4.0-10.0)
[2017-09-05] MEDS: ALBUTEROL SO4 2.5/IPRATROPIUM 0.5 INH SOL 3 ML VIAL.NEB. NEB SCH ×3 (06:50→18:02)
[2017-09-05 06:55] LABS: ALBUMIN 3.4 g/dl (3.4-5.0); ANION GAP 10 (8-16); CALCIUM 9.8 mg/dL (8.5-10.1); CO2 24 mmol/L (21-32); CREATININE 0.7 mg/dL (0.55-1.02); GLUCOSE,RANDOM 154 mg/dL (74-106); SGOT/AST 9 U/L (15-37); SGPT/ALT 33 U/L (12-78)
[2017-09-05 06:56] LABS: ALK PHOS 117 U/L (45-117); BILIRUBIN,TOTAL 0.3 mg/dL (0.2-1.0); TOT PROT 7.4 g/dl (6.4-8.2)
[2017-09-05] MEDS ORDERED: PT OWN MED DRAWER 7, Y5N ONE ×2 (07:01→09:27)
--- NOTE | 2017-09-05 09:21 | PN ---
Teaching Attending Note Name of Resident: Swati Bolanos ATTENDING PHYSICIAN STATEMENT I saw and evaluated the patient. I reviewed the resident's note and discussed the case with the resident. I agree with the resident's findings and plan as documented. SUBJECTIVE: Patient feels shortness of breath on exertion and at rest . feels that she needs an air condition for her to breath. OBJECTIVE: Vital Signs Temperature 98.8 F 09/05/17 08:00 Pulse Rate 89 09/05/17 08:00 Respiratory Rate 18 09/05/17 08:00 Blood Pressure 137/61 09/05/17 08:00 O2 Sat by Pulse Oximetry (%) 94 L 09/05/17 09:00 CBCD WBC 11.6 K/mm3 (4.0-10.0) H 09/05/17 05:55 RBC 4.35 M/mm3 (3.60-5.2) 09/05/17 05:55 Hgb 11.1 GM/dL (10.7-15.3) 09/05/17 05:55 Hct 34.8 % (32.4-45.2) 09/05/17 05:55 MCV 79.8 fl (80-96) L 09/05/17 05:55 MCHC 31.9 g/dl (32.0-36.0) L 09/05/17 05:55 RDW 16.3 % (11.6-15.6) H 09/05/17 05:55 Plt Count 453 K/MM3 (134-434) H 09/05/17 05:55 MPV 8.5 fl (7.5-11.1) 09/05/17 05:55 CMP Sodium 140 mmol/L (136-145) 09/05/17 05:55 Potassium 5.1 mmol/L (3.5-5.1) D 09/05/17 05:55 Chloride 106 mmol/L (98-107) 09/05/17 05:55 Carbon Dioxide 24 mmol/L (21-32) 09/05/17 05:55 Anion Gap 10 (8-16) 09/05/17 05:55 BUN 14 mg/dL (7-18) D 09/05/17 05:55 Creatinine 0.7 mg/dL (0.55-1.02) 09/05/17 05:55 Creat Clearance w eGFR > 60 (>60) 09/05/17 05:55 Random Glucose 154 mg/dL (74-106) H D 09/05/17 05:55 Calcium 9.8 mg/dL (8.5-10.1) 09/05/17 05:55 Total Bilirubin 0.3 mg/dL (0.2-1.0) D 09/05/17 05:55 AST 9 U/L (15-37) L D 09/05/17 05:55 ALT 33 U/L (12-78) 09/05/17 05:55 Alkaline Phosphatase 117 U/L (45-117) 09/05/17 05:55 Total Protein 7.4 g/dl (6.4-8.2) 09/05/17 05:55 Albumin 3.4 g/dl (3.4-5.0) 09/05/17 05:55 CARDIAC ENZYMES Creatine Kinase 99 IU/L (26-192) 09/03/17 15:59 Troponin I < 0.02 ng/ml (0.00-0.05) 09/03/17 15:59 Current Medications Generic Name Dose Route Start Last Admin Trade Name Freq PRN Reason Stop Dose Admin Albuterol Sulfate 1 amp 09/03/17 18:44 Ventolin 0.083% Nebulizer Soln - NEB Q1H PRN SHORT OF BREATH/WHEEZING Albuterol/Ipratropium 1 amp 09/04/17 00:00 09/05/17 06:50 Duoneb - NEB 1 amp QIDR MAXIM Administration Benzocaine/Menthol 1 each 09/04/17 00:26 09/04/17 06:18 Cepacol Lozenge - MM 1 each PRN PRN Administration SORE THROAT Guaifenesin 600 mg 09/04/17 00:30 09/04/17 21:24 Mucinex - PO 600 mg BID MAXIM Administration Heparin Sodium (Porcine) 5,000 unit 09/04/17 22:00 09/05/17 06:06 Heparin - SQ 5,000 unit TID MAXIM Administration Ceftriaxone Sodium 2 gm/ 100 mls @ 200 mls/hr 09/04/17 10:00 09/04/17 10:16 Dextrose IVPB 200 mls/hr DAILY MAXIM Administration Levofloxacin 500 mg in 100 mls @ 100 mls/hr 09/04/17 13:30 09/04/17 14:26 Levaquin 500 Mg Premixed Ivpb - IVPB 100 mls/hr DAILY MAXIM Administration Levothyroxine Sodium 25 mcg 09/04/17 07:00 09/05/17 06:07 Synthroid - PO 25 mcg DAILY@0700 MAXIM Administration Loratadine 10 mg 09/04/17 10:00 09/04/17 10:17 Claritin - PO 10 mg DAILY MAXIM Administration Methylprednisolone Sodium Succinate 60 mg 09/04/17 15:00 09/05/17 02:11 Solu-Medrol - IVPUSH 60 mg Q6H-IV MAXIM Administration Montelukast Sodium 10 mg 09/04/17 22:00 09/04/17 21:47 Singulair - PO 10 mg HS MAXIM Administration Pantoprazole Sodium 20 mg 09/05/17 06:00 09/05/17 06:07 Protonix - PO 20 mg DAILY@0600 MAXIM Administration Trazodone HCl 50 mg 09/04/17 22:00 09/04/17 21:24 Desyrel - PO 50 mg HS MAXIM Administration Home Medications Medication Instructions Recorded Albuterol 0.083% Nebulizer [place] 1 amp NEB QID #120 amp 07/20/17 [Ventolin 0.083% Nebulizer Soln -] Albuterol Sulfate Inhaler - 1 - 2 inh PO QID #1 inhaler 07/20/17 [Ventolin Hfa Inhaler -] Fluticasone Prop 0.05% Nasal 1 spray NS DAILY #30 bot 07/20/17 [Flonase -] Ipratropium 0.02% Nebulizer 1 amp NEB QID #120 amp 07/20/17 [Atrovent 0.02% Nebulizer -] Levothyroxine [Synthroid -] 25 mcg PO DAILY #30 tablet 07/20/17 Loratadine [Claritin] 10 mg PO DAILY #30 tablet 07/20/17 Montelukast Na [Singulair -] 10 mg PO HS #30 tablet 07/20/17 Omeprazole 20 mg PO DAILY 07/20/17 Prednisone [Deltasone -] 20 mg PO DAILY #30 tablet 07/20/17 Salmeterol/Fluticasone [Advair 1 inh IH BID #60 inh 07/20/17 500Mcg/50Mcg -] Theophylline Anhydrous 300 mg PO BID 07/20/17 Tiotropium [place] [Spiriva] 1 inh PO DAILY 07/20/17 Trazodone HCl 50 mg PO HS 07/20/17 PE: Severly diminished air entry BL rest of PE per resident's note CT is pending ASSESSMENT AND PLAN: Patient is a 51 yo F with PMHx of asthma/ COPD with multiple intubations admitted to med/surg for managment of acute PNA. As per patient , has been intubated for around 8x # Acute exacerbation of Asthma ; Continue Levaquin and Rocephin as per ID 's recommendation , dc zithromax since patient is having itchiness on IV infusion, discussed with ID to continue with Rocephin and Levaquin. Bronchodilators/ steroids continue # Questionable LLL PNEUMONIA on Rocephin and Levaquin continue, legionella and strept.pneumonia are neg. for antigen , will repeat the cxr # HYPOTHYROID continue Synthroid DVT Px: Heparin
--- NOTE | 2017-09-05 09:23 | PN ---
Physical Exam: SUBJECTIVE: Patient seen and examined. Reports feeling better. cough improved, but continues to be sob when going to bathroom. No chest pain, fever, chills, abdominal pain, n/v. OBJECTIVE: Vital Signs Period Temp Pulse Resp BP Sys/Gomez Pulse Ox Last 24 Hr 97.5 F-98.8 F 89-100 18-20 114-140/61-78 94-96 GENERAL: nad, aaox3, dyspneic when completing full sentences EYES: sclera anicteric, conjunctiva clear ENT: oropharynx clear without exudates, MMM LUNGS: +airway entry bilaterally, scattered wheezes HEART: rrr, normal s1/s2, no m/r/g ABDOMEN: Soft, ntnd, normoactive bowel sounds LOWER EXTREMITIES: 2+ DP pulses, wwp, no edema NEUROLOGICAL: CN II-XII grossly intact. Normal speech, gait intact. CBC, BMP 09/05/17 05:55 09/05/17 05:55 Hepatic Panel Total Bilirubin 0.3 mg/dL (0.2-1.0) D 09/05/17 05:55 AST 9 U/L (15-37) L D 09/05/17 05:55 ALT 33 U/L (12-78) 09/05/17 05:55 Alkaline Phosphatase 117 U/L (45-117) 09/05/17 05:55 Albumin 3.4 g/dl (3.4-5.0) 09/05/17 05:55 Microbiology 09/04/17 11:05 Blood - Peripheral Venous Blood Culture - Preliminary NO GROWTH OBTAINED AFTER 24 HOURS, INCUBATION TO CONTINUE FOR 4 DAYS. 09/04/17 11:05 Blood - Peripheral Venous Blood Culture - Preliminary NO GROWTH OBTAINED AFTER 24 HOURS, INCUBATION TO CONTINUE FOR 4 DAYS. 09/04/17 12:03 Urine For Antigen Detection Legionella Antigen - Final - NEG 09/04/17 12:03 Urine For Antigen Detection Streptococcus pneumoniae Antigen (M - Final) - NEG Active Medications Albuterol Sulfate (Ventolin 0.083% Nebulizer Soln -) 1 amp NEB Q1H PRN PRN Reason: SHORT OF BREATH/WHEEZING Albuterol/Ipratropium (Duoneb -) 1 amp NEB QIDR MAXIM Last Admin: 09/05/17 11:40 Dose: 1 amp Benzocaine/Menthol (Cepacol Lozenge -) 1 each MM PRN PRN PRN Reason: SORE THROAT Last Admin: 09/05/17 09:33 Dose: 1 each Guaifenesin (Mucinex -) 600 mg PO BID [facility] Last Admin: 09/05/17 09:32 Dose: 600 mg Heparin Sodium (Porcine) (Heparin -) 5,000 unit SQ TID [facility] Last Admin: 09/05/17 06:06 Dose: 5,000 unit Levofloxacin (Levaquin 500 Mg Premixed Ivpb -) 500 mg in 100 mls @ 100 mls/hr IVPB DAILY [facility] Last Admin: 09/05/17 09:32 Dose: 100 mls/hr Levothyroxine Sodium (Synthroid -) 25 mcg PO DAILY@0700 [facility] Last Admin: 09/05/17 06:07 Dose: 25 mcg Loratadine (Claritin -) 10 mg PO DAILY [facility] Last Admin: 09/05/17 09:32 Dose: 10 mg Methylprednisolone Sodium Succinate (Solu-Medrol -) 60 mg IVPUSH Q8H-IV MAXIM Montelukast Sodium (Singulair -) 10 mg PO HS [facility] Last Admin: 09/04/17 21:47 Dose: 10 mg Pantoprazole Sodium (Protonix -) 20 mg PO DAILY@0600 [facility] Last Admin: 09/05/17 06:07 Dose: 20 mg Trazodone HCl (Desyrel -) 50 mg PO HS [facility] Last Admin: 09/04/17 21:24 Dose: 50 mg ASSESSMENT/PLAN: 51yo woman, from [place], with PMH of asthma/ COPD with multiple prior intubations admitted for asthma exacerbation and found to have LLL PNA. #acute asthma exacerbation -Pulm consulted -steroids 60mg IV Q6H -> Q8H -Duo nebs QIDR + Ventolin q1H PRN -Singulair 10mg HS #LLL PNA, Legionella/Strep pneumo neg -ID Consulted. D/c Rocephin, continue Levaquin 500mg qd, Day 2 -Mucinex 600mg BID #hypothyroidism -cont home Synthroid #FEN: PO hydration / lytes wnl / regular diet #PPX -DVT Heparin sq TID -GI - Protonix 20mg daily #DISPO: continue M/S FULL code d/w Dr. Cristobal Bolanos MD PGY1 - Internal Medicine Visit type - Emergency Visit Emergency Visit: No - New Patient This patient is new to me today: Yes Date on this admission: 09/05/17 - Critical Care Critical Care patient: No
[2017-09-05] MEDS: CEFTRIAXONE 2 GM in DEXTROSE 5%-WATER - 100 ML IVPB SCH (09:31)
[2017-09-05] MEDS: guaiFENesin 600 MG TABLET.ER (FP) PO SCH ×2 (09:32→21:54)
[2017-09-05] MEDS: LORATADINE 10 MG TABLET PO SCH (09:32)
[2017-09-05] MEDS: LEVOFLOXACIN 500 MG IVPB 500 MG/100 ML BAG IVPB SCH (09:32)
[2017-09-05] MEDS: BENZOCAINE/MENTH/CETYLPYRD CL 1 EACH LOZENGE MM PRN (09:33)
--- NOTE | 2017-09-05 09:53 | PN ---
Progress Note, Physician Chief Complaint: ID Subjective improvement since admission though chest still tight - Current Medication List Current Medications: Active Medications Albuterol Sulfate (Ventolin 0.083% Nebulizer Soln -) 1 amp NEB Q1H PRN PRN Reason: SHORT OF BREATH/WHEEZING Albuterol/Ipratropium (Duoneb -) 1 amp NEB QIDR [facility] Last Admin: 09/05/17 06:50 Dose: 1 amp Benzocaine/Menthol (Cepacol Lozenge -) 1 each MM PRN PRN PRN Reason: SORE THROAT Last Admin: 09/05/17 09:33 Dose: 1 each Guaifenesin (Mucinex -) 600 mg PO BID [facility] Last Admin: 09/05/17 09:32 Dose: 600 mg Heparin Sodium (Porcine) (Heparin -) 5,000 unit SQ TID [facility] Last Admin: 09/05/17 06:06 Dose: 5,000 unit Levofloxacin (Levaquin 500 Mg Premixed Ivpb -) 500 mg in 100 mls @ 100 mls/hr IVPB DAILY [facility] Last Admin: 09/05/17 09:32 Dose: 100 mls/hr Levothyroxine Sodium (Synthroid -) 25 mcg PO DAILY@0700 [facility] Last Admin: 09/05/17 06:07 Dose: 25 mcg Loratadine (Claritin -) 10 mg PO DAILY [facility] Last Admin: 09/05/17 09:32 Dose: 10 mg Methylprednisolone Sodium Succinate (Solu-Medrol -) 60 mg IVPUSH Q6H-IV [facility] Last Admin: 09/05/17 09:32 Dose: 60 mg Montelukast Sodium (Singulair -) 10 mg PO [facility] Last Admin: 09/04/17 21:47 Dose: 10 mg Pantoprazole Sodium (Protonix -) 20 mg PO DAILY@0600 [facility] Last Admin: 09/05/17 06:07 Dose: 20 mg Trazodone HCl (Desyrel -) 50 mg PO [facility] Last Admin: 09/04/17 21:24 Dose: 50 mg - Objective Vital Signs: Vital Signs Temperature 98.8 F 09/05/17 08:00 Pulse Rate 89 09/05/17 08:00 Respiratory Rate 18 09/05/17 08:00 Blood Pressure 137/61 09/05/17 08:00 O2 Sat by Pulse Oximetry (%) 94 L 09/05/17 09:00 Constitutional: Yes: No Distress Cardiovascular: Yes: S1, S2 Respiratory: Yes: WNL, Regular, CTA Bilaterally, Diminished Gastrointestinal: Yes: WNL, Normal Bowel Sounds, Soft. No: Tenderness Edema: No Labs: CBC, BMP 09/05/17 05:55 09/05/17 05:55 Assessment/Plan Microbiology 09/04/17 12:03 Urine For Antigen Detection Legionella Antigen - Final 09/04/17 12:03 Urine For Antigen Detection Streptococcus pneumoniae Antigen (M - Final Laboratory Tests 09/05/17 09/05/17 05:55 05:55 WBC 11.6 H Hgb 11.1 Plt Count 453 H Creatinine 0.7 Creat Clearance w eGFR > 60 Assessment exacerbation of Asthma? infiltrate on CT some bronchiectasis noted Plan Continue Levofloxacin alone Chuck PALACIO
--- NOTE | 2017-09-05 12:27 | PN ---
Progress Note, Physician History of Present Illness: pulmonary alert,feeling better,less dyspneic,less cough - Current Medication List Current Medications: Active Medications Albuterol Sulfate (Ventolin 0.083% Nebulizer Soln -) 1 amp NEB Q1H PRN PRN Reason: SHORT OF BREATH/WHEEZING Albuterol/Ipratropium (Duoneb -) 1 amp NEB QIDR [facility] Last Admin: 09/05/17 11:40 Dose: 1 amp Benzocaine/Menthol (Cepacol Lozenge -) 1 each MM PRN PRN PRN Reason: SORE THROAT Last Admin: 09/05/17 09:33 Dose: 1 each Guaifenesin (Mucinex -) 600 mg PO BID [facility] Last Admin: 09/05/17 09:32 Dose: 600 mg Heparin Sodium (Porcine) (Heparin -) 5,000 unit SQ TID [facility] Last Admin: 09/05/17 06:06 Dose: 5,000 unit Levofloxacin (Levaquin 500 Mg Premixed Ivpb -) 500 mg in 100 mls @ 100 mls/hr IVPB DAILY [facility] Last Admin: 09/05/17 09:32 Dose: 100 mls/hr Levothyroxine Sodium (Synthroid -) 25 mcg PO DAILY@0700 [facility] Last Admin: 09/05/17 06:07 Dose: 25 mcg Loratadine (Claritin -) 10 mg PO DAILY [facility] Last Admin: 09/05/17 09:32 Dose: 10 mg Methylprednisolone Sodium Succinate (Solu-Medrol -) 60 mg IVPUSH Q6H-IV [facility] Last Admin: 09/05/17 09:32 Dose: 60 mg Montelukast Sodium (Singulair -) 10 mg PO [facility] Last Admin: 09/04/17 21:47 Dose: 10 mg Pantoprazole Sodium (Protonix -) 20 mg PO DAILY@0600 [facility] Last Admin: 09/05/17 06:07 Dose: 20 mg Trazodone HCl (Desyrel -) 50 mg PO [facility] Last Admin: 09/04/17 21:24 Dose: 50 mg - Objective Vital Signs: Vital Signs Temperature 98.8 F 09/05/17 08:00 Pulse Rate 89 09/05/17 08:00 Respiratory Rate 18 09/05/17 08:00 Blood Pressure 137/61 09/05/17 08:00 O2 Sat by Pulse Oximetry (%) 94 L 09/05/17 09:00 Constitutional: Yes: Well Nourished, Calm Eyes: Yes: WNL HENT: Yes: WNL Neck: Yes: WNL Cardiovascular: Yes: Regular Rate and Rhythm, S1, S2 Respiratory: Yes: Wheezes (few scattered wheezes) Gastrointestinal: Yes: Normal Bowel Sounds, Soft Extremities: Yes: WNL Edema: No Labs: CBC, BMP 09/05/17 05:55 09/05/17 05:55 Problem List - Problems (1) DVT prophylaxis Code(s): [id number] - (2) Hypothyroidism Code(s): E03.9 - HYPOTHYROIDISM, UNSPECIFIED Qualifiers: Hypothyroidism type: acquired Qualified Code(s): E03.9 - Hypothyroidism, unspecified (3) PNA (pneumonia) Code(s): J18.9 - PNEUMONIA, UNSPECIFIED ORGANISM Qualifiers: Pneumonia type: due to unspecified organism Laterality: right Lung location: lower lobe of lung Qualified Code(s): J18.1 - Lobar pneumonia, unspecified organism (4) Asthma exacerbation Code(s): J45.901 - UNSPECIFIED ASTHMA WITH (ACUTE) EXACERBATION Qualifiers: Asthma severity: severe Asthma persistence: persistent Qualified Code(s) : J45.51 - Severe persistent asthma with (acute) exacerbation Assessment/Plan IMP CHRONIC PERSISTENT ASTHMA WITH ACUTE EXACERBATION LLL PNEUMONIA HYPOTHYROID PLAN IV STEROIDS WILL REDUCE TO Q8H INHALED BRONCHODILATORS O2 ANTIBIOTICS MONITOR PEAK FLOW DR DAVIS Problem List - Problems (1) DVT prophylaxis Code(s): [id number] - (2) Hypothyroidism Code(s): E03.9 - HYPOTHYROIDISM, UNSPECIFIED Qualifiers: Hypothyroidism type: acquired Qualified Code(s): E03.9 - Hypothyroidism, unspecified (3) PNA (pneumonia) Code(s): J18.9 - PNEUMONIA, UNSPECIFIED ORGANISM Qualifiers: Pneumonia type: due to unspecified organism Laterality: right Lung location: lower lobe of lung Qualified Code(s): J18.1 - Lobar pneumonia, unspecified organism (4) Asthma exacerbation Code(s): J45.901 - UNSPECIFIED ASTHMA WITH (ACUTE) EXACERBATION Qualifiers: Asthma severity: severe Asthma persistence: persistent Qualified Code(s) : J45.51 - Severe persistent asthma with (acute) exacerbation
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
[2017-09-05] MEDS: methylPREDNISolone NA SUCC 125 MG/2 ML VIAL IVPUSH SCH (18:13)
[2017-09-05] MEDS: traZODone HCL 50 MG TABLET (FP) PO SCH (21:54)
[2017-09-05] MEDS: MONTELUKAST NA 10 MG TABLET PO SCH (21:55)
[2017-09-06] MEDS: methylPREDNISolone NA SUCC 125 MG/2 ML VIAL IVPUSH SCH ×3 (02:36→17:53)
[2017-09-06] MEDS: PANTOPRAZOLE 20 MG TABLET (FP) PO SCH (06:17)
[2017-09-06] MEDS: LEVOTHYROXINE NA 25 MCG TABLET (FP) PO SCH (06:17)
[2017-09-06] MEDS: HEPARIN NA (PORCINE) 5,000 UNITS/ML 1ML VIAL SQ SCH ×3 (06:17→22:02)
[2017-09-06] MEDS: ALBUTEROL SO4 2.5/IPRATROPIUM 0.5 INH SOL 3 ML VIAL.NEB. NEB SCH ×5 (07:25→23:03)
[2017-09-06 08:33] LABS: LYMPH # 1.2 (8-40); MCH 24.9 pg (25.7-33.7); MCHC 30.7 g/dl (32.0-36.0); MEAN CELL VOLUME 80.9 fl (80-96); MEAN PLT VOLUME 9.2 fl (7.5-11.1); MONO # 0.6 # (3.8-10.2); NEUT # 14.9 # (42.8-82.8); PLATELET COUNT 399 K/MM3 (134-434); RDW 16.5 % (11.6-15.6); WHITE BLOOD COUNT 16.8 K/mm3 (4.0-10.0)
[2017-09-06 09:06] LABS: ALBUMIN 3.3 g/dl (3.4-5.0); ANION GAP 6 (8-16); CALCIUM 8.8 mg/dL (8.5-10.1); CO2 27 mmol/L (21-32); CREATININE 0.7 mg/dL (0.55-1.02); GLUCOSE,RANDOM 123 mg/dL (74-106); SGOT/AST 7 U/L (15-37); SGPT/ALT 28 U/L (12-78)
[2017-09-06 09:09] LABS: ALK PHOS 104 U/L (45-117); BILIRUBIN,TOTAL 0.3 mg/dL (0.2-1.0); TOT PROT 6.9 g/dl (6.4-8.2)
[2017-09-06] MEDS: LORATADINE 10 MG TABLET PO SCH (10:18)
[2017-09-06] MEDS: guaiFENesin 600 MG TABLET.ER (FP) PO SCH ×2 (10:18→22:02)
[2017-09-06] MEDS: LEVOFLOXACIN 500 MG IVPB 500 MG/100 ML BAG IVPB SCH (10:18)
[2017-09-06 10:35] LABS: ACANTHOCYTES 0; ANISOCYTOSIS 0; BURR CELLS 0; CABBOT RINGS 0; HELMET CELLS 0; HOWELL-JOLLY BODIES 0; HYPOCHROMIA 0; MACROCYTOSIS 0; METAMYELOCYTE 0 % (0-2); MICROCYTOSIS 0; MYELOCYTE 1 % (0-2); OVALOCYTE 0; PLATELET ESTIMATE NORMAL; POIKILOCYTOSIS 0; POLYCHROMASIA 0; REACTIVE LYMPHOCYTES 1 % (0-80); SCHISTOCYTES 0; SPHEROCYTE 0; STOMATOCYTE 0; TARGET CELLS 0; TEAR DROP CELLS 0; TOXIC GRANULATION 0
[2017-09-06] MEDS: BENZOCAINE/MENTH/CETYLPYRD CL 1 EACH LOZENGE MM PRN (10:46)
--- NOTE | 2017-09-06 12:35 | PN ---
Progress Note, Physician History of Present Illness: pulmonary alert,less congested,less cough - Current Medication List Current Medications: Active Medications Albuterol Sulfate (Ventolin 0.083% Nebulizer Soln -) 1 amp NEB Q1H PRN PRN Reason: SHORT OF BREATH/WHEEZING Albuterol/Ipratropium (Duoneb -) 1 amp NEB QIDR [facility] Last Admin: 09/06/17 07:25 Dose: 1 amp Benzocaine/Menthol (Cepacol Lozenge -) 1 each MM PRN PRN PRN Reason: SORE THROAT Last Admin: 09/06/17 10:46 Dose: 1 each Guaifenesin (Mucinex -) 600 mg PO BID [facility] Last Admin: 09/06/17 10:18 Dose: 600 mg Heparin Sodium (Porcine) (Heparin -) 5,000 unit SQ TID [facility] Last Admin: 09/06/17 06:17 Dose: 5,000 unit Levofloxacin (Levaquin 500 Mg Premixed Ivpb -) 500 mg in 100 mls @ 100 mls/hr IVPB DAILY [facility] Last Admin: 09/06/17 10:18 Dose: 100 mls/hr Levothyroxine Sodium (Synthroid -) 25 mcg PO DAILY@0700 [facility] Last Admin: 09/06/17 06:17 Dose: 25 mcg Loratadine (Claritin -) 10 mg PO DAILY [facility] Last Admin: 09/06/17 10:18 Dose: 10 mg Methylprednisolone Sodium Succinate (Solu-Medrol -) 60 mg IVPUSH Q8H-IV [facility] Last Admin: 09/06/17 10:18 Dose: 60 mg Montelukast Sodium (Singulair -) 10 mg PO [facility] Last Admin: 09/05/17 21:55 Dose: 10 mg Pantoprazole Sodium (Protonix -) 20 mg PO DAILY@0600 [facility] Last Admin: 09/06/17 06:17 Dose: 20 mg Trazodone HCl (Desyrel -) 50 mg PO [facility] Last Admin: 09/05/17 21:54 Dose: 50 mg - Objective Vital Signs: Vital Signs Temperature 97.7 F 09/06/17 10:00 Pulse Rate 91 H 09/06/17 10:00 Respiratory Rate 20 09/06/17 10:00 Blood Pressure 129/58 09/06/17 10:00 O2 Sat by Pulse Oximetry (%) 94 L 09/05/17 09:00 Constitutional: Yes: Well Nourished, Calm Eyes: Yes: WNL HENT: Yes: WNL Neck: Yes: WNL Cardiovascular: Yes: Regular Rate and Rhythm, S1, S2 Respiratory: Yes: Wheezes (sterling wheezes and rhonchi) Gastrointestinal: Yes: Normal Bowel Sounds, Soft Extremities: Yes: WNL Edema: No Labs: CBC, BMP 09/06/17 07:00 09/06/17 07:00 Problem List - Problems (1) DVT prophylaxis Code(s): [id number] - (2) Hypothyroidism Code(s): E03.9 - HYPOTHYROIDISM, UNSPECIFIED Qualifiers: Hypothyroidism type: acquired Qualified Code(s): E03.9 - Hypothyroidism, unspecified (3) PNA (pneumonia) Code(s): J18.9 - PNEUMONIA, UNSPECIFIED ORGANISM Qualifiers: Pneumonia type: due to unspecified organism Laterality: right Lung location: lower lobe of lung Qualified Code(s): J18.1 - Lobar pneumonia, unspecified organism (4) Asthma exacerbation Code(s): J45.901 - UNSPECIFIED ASTHMA WITH (ACUTE) EXACERBATION Qualifiers: Asthma severity: severe Asthma persistence: persistent Qualified Code(s) : J45.51 - Severe persistent asthma with (acute) exacerbation Assessment/Plan IMP CHRONIC PERSISTENT ASTHMA WITH ACUTE EXACERBATION IMPROVING LLL PNEUMONIA HYPOTHYROID PLAN TAPER STEROIDS INHALED BRONCHODILATORS O2 ANTIBIOTICS MONITOR PEAK FLOW DR DAVIS Problem List - Problems (1) DVT prophylaxis Code(s): [id number] - (2) Hypothyroidism Code(s): E03.9 - HYPOTHYROIDISM, UNSPECIFIED Qualifiers: Hypothyroidism type: acquired Qualified Code(s): E03.9 - Hypothyroidism, unspecified (3) PNA (pneumonia) Code(s): J18.9 - PNEUMONIA, UNSPECIFIED ORGANISM Qualifiers: Pneumonia type: due to unspecified organism Laterality: right Lung location: lower lobe of lung Qualified Code(s): J18.1 - Lobar pneumonia, unspecified organism (4) Asthma exacerbation Code(s): J45.901 - UNSPECIFIED ASTHMA WITH (ACUTE) EXACERBATION Qualifiers: Asthma severity: severe Asthma persistence: persistent Qualified Code(s) : J45.51 - Severe persistent asthma with (acute) exacerbation
--- NOTE | 2017-09-06 19:10 | PN ---
Progress Note (short form) - Note Progress Note: Patient is slightly better, no wheezing , chest is slightly airated better Vital Signs Temperature 98.3 F 09/06/17 14:20 Pulse Rate 102 H 09/06/17 14:20 Respiratory Rate 20 09/06/17 10:00 Blood Pressure 152/77 09/06/17 14:20 O2 Sat by Pulse Oximetry (%) 100 09/06/17 09:00 GENERAL: The patient is awake, alert, and fully oriented, in mild distress. Fan at her bedside HEAD: Normal with no signs of trauma. EYES: PERRL, extraocular movements intact, sclera anicteric, conjunctiva clear. ENT: Ears normal, oropharynx clear without exudates, moist mucous membranes. NECK: Trachea midline, full range of motion, supple. LUNGS: Decreased air entery BL with slight improvement , no wheezes, no crackles, mild accessory muscle use. HEART: Regular rate and rhythm, S1, S2 without murmur, rub or gallop. ABDOMEN: Soft, nontender, nondistended, normoactive bowel sounds, no guarding, no rebound, no hepatosplenomegaly, no masses. EXTREMITIES: 2+ pulses, warm, well-perfused, no edema. NEUROLOGICAL: Cranial nerves II through XII grossly intact. Normal speech, gait not observed. PSYCH: Normal mood, normal affect. SKIN: Warm, dry, normal turgor, no rashes or lesions noted CBCD WBC 16.8 K/mm3 (4.0-10.0) H D 09/06/17 07:00 RBC 4.47 M/mm3 (3.60-5.2) 09/06/17 07:00 Hgb 11.1 GM/dL (10.7-15.3) 09/06/17 07:00 Hct 36.1 % (32.4-45.2) 09/06/17 07:00 MCV 80.9 fl (80-96) 09/06/17 07:00 MCHC 30.7 g/dl (32.0-36.0) L 09/06/17 07:00 RDW 16.5 % (11.6-15.6) H 09/06/17 07:00 Plt Count 399 K/MM3 (134-434) 09/06/17 07:00 MPV 9.2 fl (7.5-11.1) 09/06/17 07:00 CMP Sodium 140 mmol/L (136-145) 09/06/17 07:00 Potassium 4.7 mmol/L (3.5-5.1) 09/06/17 07:00 Chloride 107 mmol/L (98-107) 09/06/17 07:00 Carbon Dioxide 27 mmol/L (21-32) 09/06/17 07:00 Anion Gap 6 (8-16) L 09/06/17 07:00 BUN 18 mg/dL (7-18) D 09/06/17 07:00 Creatinine 0.7 mg/dL (0.55-1.02) 09/06/17 07:00 Creat Clearance w eGFR > 60 (>60) 09/06/17 07:00 Random Glucose 123 mg/dL (74-106) H D 09/06/17 07:00 Calcium 8.8 mg/dL (8.5-10.1) 09/06/17 07:00 Total Bilirubin 0.3 mg/dL (0.2-1.0) 09/06/17 07:00 AST 7 U/L (15-37) L D 09/06/17 07:00 ALT 28 U/L (12-78) 09/06/17 07:00 Alkaline Phosphatase 104 U/L (45-117) 09/06/17 07:00 Total Protein 6.9 g/dl (6.4-8.2) 09/06/17 07:00 Albumin 3.3 g/dl (3.4-5.0) L 09/06/17 07:00 CARDIAC ENZYMES Creatine Kinase 99 IU/L (26-192) 09/03/17 15:59 Troponin I < 0.02 ng/ml (0.00-0.05) 09/03/17 15:59 Current Medications Generic Name Dose Route Start Last Admin Trade Name Freq PRN Reason Stop Dose Admin Albuterol Sulfate 1 amp 09/03/17 18:44 Ventolin 0.083% Nebulizer Soln - NEB Q1H PRN SHORT OF BREATH/WHEEZING Albuterol/Ipratropium 1 amp 09/04/17 00:00 09/06/17 17:13 Duoneb - NEB 1 amp QIDR MAXIM Administration Benzocaine/Menthol 1 each 09/04/17 00:26 09/06/17 10:46 Cepacol Lozenge - MM 1 each PRN PRN Administration SORE THROAT Guaifenesin 600 mg 09/04/17 00:30 09/06/17 10:18 Mucinex - PO 600 mg BID MAXIM Administration Heparin Sodium (Porcine) 5,000 unit 09/04/17 22:00 09/06/17 14:41 Heparin - SQ 5,000 unit TID MAXIM Administration Levofloxacin 500 mg in 100 mls @ 100 mls/hr 09/04/17 13:30 09/06/17 10:18 Levaquin 500 Mg Premixed Ivpb - IVPB 100 mls/hr DAILY MAXIM Administration Levothyroxine Sodium 25 mcg 09/04/17 07:00 09/06/17 06:17 Synthroid - PO 25 mcg DAILY@0700 MAXIM Administration Loratadine 10 mg 09/04/17 10:00 09/06/17 10:18 Claritin - PO 10 mg DAILY MAXIM Administration Methylprednisolone Sodium Succinate 60 mg 09/05/17 18:00 09/06/17 17:53 Solu-Medrol - IVPUSH 60 mg Q8H-IV MAXIM Administration Montelukast Sodium 10 mg 09/04/17 22:00 09/05/17 21:55 Singulair - PO 10 mg HS MAXIM Administration Pantoprazole Sodium 20 mg 09/05/17 06:00 09/06/17 06:17 Protonix - PO 20 mg DAILY@0600 MAXIM Administration Trazodone HCl 50 mg 09/04/17 22:00 09/05/17 21:54 Desyrel - PO 50 mg HS MAXIM Administration Home Medications Medication Instructions Recorded Albuterol 0.083% Nebulizer Harriett 1 amp NEB QID #120 amp 07/20/17 [Ventolin 0.083% Nebulizer Soln -] Albuterol Sulfate Inhaler - 1 - 2 inh PO QID #1 inhaler 07/20/17 [Ventolin Hfa Inhaler -] Fluticasone Prop 0.05% Nasal 1 spray NS DAILY #30 bot 07/20/17 [Flonase -] Ipratropium 0.02% Nebulizer 1 amp NEB QID #120 amp 07/20/17 [Atrovent 0.02% Nebulizer -] Levothyroxine [Synthroid -] 25 mcg PO DAILY #30 tablet 11/07/17 Loratadine [Claritin] 10 mg PO DAILY #30 tablet 07/20/17 Montelukast Na [Singulair -] 10 mg PO HS #30 tablet 07/20/17 Omeprazole 20 mg PO DAILY 07/20/17 Prednisone [Deltasone -] 20 mg PO DAILY #30 tablet 07/20/17 Salmeterol/Fluticasone [Advair 1 inh IH BID #60 inh 07/20/17 500Mcg/50Mcg -] Theophylline Anhydrous 300 mg PO BID 07/20/17 Tiotropium [place] [Spiriva] 1 inh PO DAILY 07/20/17 Trazodone HCl 50 mg PO HS 07/20/17 A/P: Patient is a 51 yo F with PMHx of asthma/ COPD with multiple intubations admitted to med/surg for managment of acute PNA. As per patient , has been intubated for around 8x # Acute exacerbation of Asthma ; discussed with just to continue with IV Levaquin , no Rocephin , zithromax was discontinued since patient experienced itchiness on IV infusion. Bronchodilators/ steroids continue # Questionable LLL PNEUMONIA on iv Levaquin continue, negative legionella and strept.pneumonia, will repeat the cxr in am. On IV Solu Medrol 60mg IV q8 # HYPOTHYROID continue Synthroid DVT Px: Heparin Visit type - Emergency Visit Emergency Visit: Yes ED Registration Date: 09/03/17 Care time: The patient presented to the Emergency Department on the above date and was hospitalized for further evaluation of their emergent condition. - New Patient This patient is new to me today: No - Critical Care Critical Care patient: No
[2017-09-06] MEDS: MONTELUKAST NA 10 MG TABLET PO SCH (22:01)
[2017-09-06] MEDS: traZODone HCL 50 MG TABLET (FP) PO SCH (22:02)
[2017-09-07] MEDS: methylPREDNISolone NA SUCC 125 MG/2 ML VIAL IVPUSH SCH ×3 (01:56→18:45)
[2017-09-07] MEDS: LEVOTHYROXINE NA 25 MCG TABLET (FP) PO SCH (06:31)
[2017-09-07] MEDS: PANTOPRAZOLE 20 MG TABLET (FP) PO SCH (06:31)
[2017-09-07] MEDS: HEPARIN NA (PORCINE) 5,000 UNITS/ML 1ML VIAL SQ SCH ×3 (06:31→21:37)
[2017-09-07] MEDS: ALBUTEROL SO4 2.5/IPRATROPIUM 0.5 INH SOL 3 ML VIAL.NEB. NEB SCH ×2 (06:45→11:37)
[2017-09-07] MEDS: LEVOFLOXACIN 500 MG IVPB 500 MG/100 ML BAG IVPB SCH (09:43)
[2017-09-07] MEDS: guaiFENesin 600 MG TABLET.ER (FP) PO SCH ×2 (09:43→21:37)
[2017-09-07] MEDS: LORATADINE 10 MG TABLET PO SCH (09:43)
[2017-09-07] MEDS ORDERED: diphenhydrAMINE HCL 25 MG CAPSULE (FP) PO ONE (11:50)
--- NOTE | 2017-09-07 12:58 | PN ---
Progress Note (short form) - Note Progress Note: PULMONARY APPEARS STABLE VSS/AFEBRILE/DYSPHONIA ANICTERIC-JVD DIMINSHED BREATH SOUNDS WITH END EXP WHEEZE S1S2 BS+ OBESE NO EDEMA LABS/MEDS/NOTES/IMAGES/MICRO REVIEWED IMP CHRONIC PERSISTENT ASTHMA WITH ACUTE EXACERBATION IMPROVING MULTIPLE PREVIOUS INTUBATIONS LLL PNEUMONIA HYPOTHYROID PLAN TAPER STEROIDS NEEDED INHALED BRONCHODILATORS O2 ANTIBIOTICS MONITOR PEAK FLOW Mima HAYNES MD
--- NOTE | 2017-09-07 17:21 | PN ---
Physical Exam: SUBJECTIVE: Patient seen and examined. Reports cough improved, still has mild sob. No chest pain, fever, chills, abdominal pain, n/v. OBJECTIVE: Vital Signs Period Temp Pulse Resp BP Sys/Gomez Pulse Ox Last 24 Hr 97.4 F-98.6 F 69-91 18-20 130-150/68-82 98-100 GENERAL: nad, aaox3, completing full sentences without dyspnea EYES: sclera anicteric, conjunctiva clear ENT: oropharynx clear without exudates, MMM LUNGS: +airway entry, scattered expiratory wheezes HEART: rrr, normal s1/s2, no m/r/g ABDOMEN: Soft, ntnd, normoactive bowel sounds LOWER EXTREMITIES: 2+ DP pulses, wwp, no edema NEUROLOGICAL: CN II-XII grossly intact. Normal speech. Microbiology 09/04/17 11:05 Blood - Peripheral Venous Blood Culture - Preliminary - NO GROWTH OBTAINED AFTER 72 HOURS, INCUBATION TO CONTINUE FOR 2 DAYS. 09/04/17 11:05 Blood - Peripheral Venous Blood Culture - Preliminary NO GROWTH OBTAINED AFTER 72 HOURS, INCUBATION TO CONTINUE FOR 2 DAYS. 09/04/17 12:03 Urine For Antigen Detection Legionella Antigen - Final - NEG 09/04/17 12:03 Urine For Antigen Detection Streptococcus pneumoniae Antigen - NEG Active Medications Albuterol Sulfate (Ventolin 0.083% Nebulizer Soln -) 1 amp NEB Q1H PRN PRN Reason: SHORT OF BREATH/WHEEZING Albuterol/Ipratropium (Duoneb -) 1 amp NEB QIDR [facility] Last Admin: 09/07/17 11:37 Dose: 1 amp Benzocaine/Menthol (Cepacol Lozenge -) 1 each MM PRN PRN PRN Reason: SORE THROAT Last Admin: 09/06/17 10:46 Dose: 1 each Guaifenesin (Mucinex -) 600 mg PO BID [facility] Last Admin: 09/07/17 09:43 Dose: 600 mg Heparin Sodium (Porcine) (Heparin -) 5,000 unit SQ TID [facility] Last Admin: 09/07/17 14:39 Dose: 5,000 unit Levofloxacin (Levaquin 500 Mg Premixed Ivpb -) 500 mg in 100 mls @ 100 mls/hr IVPB DAILY [facility] Last Admin: 09/07/17 09:43 Dose: 100 mls/hr Levothyroxine Sodium (Synthroid -) 25 mcg PO DAILY@0700 [facility] Last Admin: 09/07/17 06:31 Dose: 25 mcg Loratadine (Claritin -) 10 mg PO DAILY [facility] Last Admin: 09/07/17 09:43 Dose: 10 mg Methylprednisolone Sodium Succinate (Solu-Medrol -) 60 mg IVPUSH Q8H-IV [facility] Last Admin: 09/07/17 09:44 Dose: 60 mg Montelukast Sodium (Singulair -) 10 mg PO HS [facility] Last Admin: 09/06/17 22:01 Dose: 10 mg Pantoprazole Sodium (Protonix -) 20 mg PO DAILY@0600 [facility] Last Admin: 09/07/17 06:31 Dose: 20 mg Trazodone HCl (Desyrel -) 50 mg PO [facility] Last Admin: 09/06/17 22:02 Dose: 50 mg Zinc Acetate/Diphenhydramine (Benadryl 2% Cream) 1 applic TP DAILY PRN PRN Reason: ITCHINESS ASSESSMENT/PLAN: 51yo woman, from [place], with PMH of asthma/ COPD with multiple prior intubations admitted for asthma exacerbation and found to have LLL PNA. #acute asthma exacerbation, improving, peak flow today: 150, 110, 110 -Pulm consulted -steroids 60mg Q8H -Duo nebs QIDR + Ventolin q1H PRN -Singulair 10mg HS -home Claritin 10mg qd #LLL PNA, Legionella/Strep pneumo neg -ID Consulted. Levaquin 500mg qd, Day 4 -Mucinex 600mg BID #hypothyroidism -cont home Synthroid #FEN: PO hydration / lytes wnl / regular diet #PPX -DVT Heparin sq TID -GI - Protonix 20mg daily #DISPO: continue M/S FULL code d/w Dr. Cristobal Bolanos MD PGY1 - Internal Medicine Visit type - Emergency Visit Emergency Visit: No - New Patient This patient is new to me today: No - Critical Care Critical Care patient: No
--- NOTE | 2017-09-07 18:50 | PN ---
Teaching Attending Note Name of Resident: Swati Bolanos ATTENDING PHYSICIAN STATEMENT I saw and evaluated the patient. I reviewed the resident's note and discussed the case with the resident. I agree with the resident's findings and plan as documented. SUBJECTIVE: Patient feels slightly better, c/o sob on exertion. OBJECTIVE: Vital Signs Temperature 97.7 F 09/07/17 15:49 Pulse Rate 80 09/07/17 15:49 Respiratory Rate 18 09/07/17 15:49 Blood Pressure 130/68 09/07/17 15:49 O2 Sat by Pulse Oximetry (%) 98 09/07/17 10:00 CBCD WBC 16.8 K/mm3 (4.0-10.0) H D 09/06/17 07:00 RBC 4.47 M/mm3 (3.60-5.2) 09/06/17 07:00 Hgb 11.1 GM/dL (10.7-15.3) 09/06/17 07:00 Hct 36.1 % (32.4-45.2) 09/06/17 07:00 MCV 80.9 fl (80-96) 09/06/17 07:00 MCHC 30.7 g/dl (32.0-36.0) L 09/06/17 07:00 RDW 16.5 % (11.6-15.6) H 09/06/17 07:00 Plt Count 399 K/MM3 (134-434) 09/06/17 07:00 MPV 9.2 fl (7.5-11.1) 09/06/17 07:00 CMP Sodium 140 mmol/L (136-145) 09/06/17 07:00 Potassium 4.7 mmol/L (3.5-5.1) 09/06/17 07:00 Chloride 107 mmol/L (98-107) 09/06/17 07:00 Carbon Dioxide 27 mmol/L (21-32) 09/06/17 07:00 Anion Gap 6 (8-16) L 09/06/17 07:00 BUN 18 mg/dL (7-18) D 09/06/17 07:00 Creatinine 0.7 mg/dL (0.55-1.02) 09/06/17 07:00 Creat Clearance w eGFR > 60 (>60) 09/06/17 07:00 Random Glucose 123 mg/dL (74-106) H D 09/06/17 07:00 Calcium 8.8 mg/dL (8.5-10.1) 09/06/17 07:00 Total Bilirubin 0.3 mg/dL (0.2-1.0) 09/06/17 07:00 AST 7 U/L (15-37) L D 09/06/17 07:00 ALT 28 U/L (12-78) 09/06/17 07:00 Alkaline Phosphatase 104 U/L (45-117) 09/06/17 07:00 Total Protein 6.9 g/dl (6.4-8.2) 09/06/17 07:00 Albumin 3.3 g/dl (3.4-5.0) L 09/06/17 07:00 CARDIAC ENZYMES Creatine Kinase 99 IU/L (26-192) 09/03/17 15:59 Troponin I < 0.02 ng/ml (0.00-0.05) 09/03/17 15:59 Current Medications Generic Name Dose Route Start Last Admin Trade Name Freq PRN Reason Stop Dose Admin Albuterol Sulfate 1 amp 09/03/17 18:44 Ventolin 0.083% Nebulizer Soln - NEB Q1H PRN SHORT OF BREATH/WHEEZING Albuterol/Ipratropium 1 amp 09/04/17 00:00 09/07/17 11:37 Duoneb - NEB 1 amp QIDR MAXIM Administration Benzocaine/Menthol 1 each 09/04/17 00:26 09/06/17 10:46 Cepacol Lozenge - MM 1 each PRN PRN Administration SORE THROAT Guaifenesin 600 mg 09/04/17 00:30 09/07/17 09:43 Mucinex - PO 600 mg BID MAXIM Administration Heparin Sodium (Porcine) 5,000 unit 09/04/17 22:00 09/07/17 14:39 Heparin - SQ 5,000 unit TID MAXIM Administration Levofloxacin 500 mg in 100 mls @ 100 mls/hr 09/04/17 13:30 09/07/17 09:43 Levaquin 500 Mg Premixed Ivpb - IVPB 100 mls/hr DAILY MAXIM Administration Levothyroxine Sodium 25 mcg 09/04/17 07:00 09/07/17 06:31 Synthroid - PO 25 mcg DAILY@0700 MAXIM Administration Loratadine 10 mg 09/04/17 10:00 09/07/17 09:43 Claritin - PO 10 mg DAILY MAXIM Administration Methylprednisolone Sodium Succinate 60 mg 09/05/17 18:00 09/07/17 18:45 Solu-Medrol - IVPUSH 60 mg Q8H-IV MAXIM Administration Montelukast Sodium 10 mg 09/04/17 22:00 09/06/17 22:01 Singulair - PO 10 mg HS MAXIM Administration Pantoprazole Sodium 20 mg 09/05/17 06:00 09/07/17 06:31 Protonix - PO 20 mg DAILY@0600 MAXIM Administration Trazodone HCl 50 mg 09/04/17 22:00 09/06/17 22:02 Desyrel - PO 50 mg HS MAXIM Administration Zinc Acetate/Diphenhydramine 1 applic 09/07/17 14:17 09/07/17 18:45 Benadryl 2% Cream TP 1 applic DAILY PRN Administration ITCHINESS Home Medications Medication Instructions Recorded Albuterol Sulfate Inhaler - 1 - 2 inh PO QID #1 inhaler 07/20/17 [Ventolin Hfa Inhaler -] Fluticasone Prop 0.05% Nasal 1 spray NS DAILY #30 bot 07/20/17 [Flonase -] Levothyroxine [Synthroid -] 25 mcg PO DAILY #30 tablet 07/20/17 Loratadine [Claritin] 10 mg PO DAILY #30 tablet 07/20/17 Montelukast Na [Singulair -] 10 mg PO HS #30 tablet 07/20/17 RX: Albuterol 0.083% Nebulizer Harriett 1 amp NEB QID #120 amp 07/20/17 [Ventolin 0.083% Nebulizer Soln -] RX: Ipratropium 0.02% Nebulizer 1 amp NEB QID #120 amp 07/20/17 [Atrovent 0.02% Nebulizer -] RX: Omeprazole 20 mg PO DAILY 07/20/17 RX: Prednisone [Deltasone -] 20 mg PO DAILY #30 tablet 07/20/17 RX: Theophylline Anhydrous 300 mg PO BID 07/20/17 RX: Trazodone HCl 50 mg PO HS 07/20/17 Salmeterol/Fluticasone [Advair 1 inh IH BID #60 inh 07/20/17 500Mcg/50Mcg -] Tiotropium [place] [Spiriva] 1 inh PO DAILY 07/20/17 CXR: retrocardiac density. ASSESSMENT AND PLAN: Patient is a 51 yo F with PMHx of asthma/ COPD with multiple intubations admitted to med/surg for managment of acute PNA. As per patient , has been intubated for around 8x # Acute exacerbation of Asthma ; continue IV Levaquin , no Rocephin , zithromax was discontinued since patient experienced itchiness on IV infusion. Bronchodilators/ steroids continue # Questionable LLL PNEUMONIA on iv Levaquin continue, negative legionella and strept.pneumonia, IV Solu Medrol 60mg IV q8 continue # HYPOTHYROID continue Synthroid DVT Px: Heparin
[2017-09-07] MEDS: MONTELUKAST NA 10 MG TABLET PO SCH (21:37)
[2017-09-07] MEDS: traZODone HCL 50 MG TABLET (FP) PO SCH (21:37)
[2017-09-08] MEDS: methylPREDNISolone NA SUCC 125 MG/2 ML VIAL IVPUSH SCH ×2 (01:18→11:22)
[2017-09-08] MEDS: HEPARIN NA (PORCINE) 5,000 UNITS/ML 1ML VIAL SQ SCH ×3 (05:57→21:27)
[2017-09-08] MEDS: PANTOPRAZOLE 20 MG TABLET (FP) PO SCH (05:57)
[2017-09-08] MEDS: LEVOTHYROXINE NA 25 MCG TABLET (FP) PO SCH (06:01)
[2017-09-08] MEDS: ALBUTEROL SO4 2.5/IPRATROPIUM 0.5 INH SOL 3 ML VIAL.NEB. NEB SCH ×4 (06:40→19:00)
--- NOTE | 2017-09-08 07:36 | PN ---
Physical Exam: SUBJECTIVE: Patient seen and examined. continues to have mild dry cough, breathing slightly improved. No fever, chills, nausea, chest pain. OBJECTIVE: Vital Signs Period Temp Pulse Resp BP Sys/Gomez Pulse Ox Last 24 Hr 97.2 F-98.7 F 70-91 18-21 130-148/67-79 98-98 GENERAL: nad, aaox3, completing full sentences without dyspnea EYES: sclera anicteric, conjunctiva clear ENT: oropharynx clear without exudates, MMM LUNGS: +airway entry, scattered expiratory wheezes HEART: rrr, normal s1/s2, no m/r/g ABDOMEN: Soft, ntnd, normoactive bowel sounds LOWER EXTREMITIES: 2+ DP pulses, wwp, no edema NEUROLOGICAL: CN II-XII grossly intact. Normal speech. CBC, BMP 09/08/17 06:00 09/08/17 06:00 Hepatic Panel Total Bilirubin 0.4 mg/dL (0.2-1.0) D 09/08/17 06:00 AST 10 U/L (15-37) L D 09/08/17 06:00 ALT 39 U/L (12-78) D 09/08/17 06:00 Alkaline Phosphatase 95 U/L (45-117) 09/08/17 06:00 Albumin 3.2 g/dl (3.4-5.0) L 09/08/17 06:00 Active Medications Albuterol Sulfate (Ventolin 0.083% Nebulizer Soln -) 1 amp NEB Q1H PRN PRN Reason: SHORT OF BREATH/WHEEZING Albuterol/Ipratropium (Duoneb -) 1 amp NEB QIDR [facility] Last Admin: 09/08/17 19:00 Dose: 1 amp Benzocaine/Menthol (Cepacol Lozenge -) 1 each MM PRN PRN PRN Reason: SORE THROAT Last Admin: 09/06/17 10:46 Dose: 1 each Guaifenesin (Mucinex -) 600 mg PO BID [facility] Last Admin: 09/08/17 21:27 Dose: 600 mg Heparin Sodium (Porcine) (Heparin -) 5,000 unit SQ TID [facility] Last Admin: 09/08/17 21:27 Dose: 5,000 unit Levofloxacin (Levaquin 500 Mg Premixed Ivpb -) 500 mg in 100 mls @ 100 mls/hr IVPB DAILY [facility] Last Admin: 09/08/17 11:22 Dose: 100 mls/hr Levothyroxine Sodium (Synthroid -) 25 mcg PO DAILY@0700 [facility] Last Admin: 09/08/17 06:01 Dose: 25 mcg Loratadine (Claritin -) 10 mg PO DAILY [facility] Last Admin: 09/08/17 09:53 Dose: 10 mg Methylprednisolone Sodium Succinate (Solu-Medrol -) 20 mg IVPUSH Q8H-IV [facility] Last Admin: 09/08/17 18:30 Dose: 20 mg Montelukast Sodium (Singulair -) 10 mg PO HS [facility] Last Admin: 09/08/17 21:28 Dose: 10 mg Pantoprazole Sodium (Protonix -) 20 mg PO DAILY@0600 [facility] Last Admin: 09/08/17 05:57 Dose: 20 mg Fluticasone/Salmeterol (Advair 100mcg/50mcg -) 1 puff IH BID [facility] Last Admin: 09/08/17 21:28 Dose: 1 puff Trazodone HCl (Desyrel -) 50 mg PO HS [facility] Last Admin: 09/08/17 21:27 Dose: 50 mg Zinc Acetate/Diphenhydramine (Benadryl 2% Cream) 1 applic TP DAILY PRN PRN Reason: ITCHINESS Last Admin: 09/08/17 10:45 Dose: 1 applic ASSESSMENT/PLAN: 51yo woman, from [place], with PMH of asthma/ COPD with multiple prior intubations admitted for asthma exacerbation and found to have LLL PNA. #acute asthma exacerbation, improving, peak flow today: -Pulm consulted -Levofloxacin 500mg daily - Day 5 -steroids tapered 60mg IVP -> 20mg IVP Q8H -Started on Advair 1 puff BID -Duo nebs QIDR + Ventolin q1H PRN -Singulair 10mg HS -home Claritin 10mg qd #LLL PNA, Legionella/Strep pneumo neg -ID Consulted. Levaquin 500mg qd, Day 4 -Mucinex 600mg BID #hypothyroidism -cont home Synthroid #FEN: PO hydration / lytes wnl / regular diet #PPX -DVT Heparin sq TID -GI - Protonix 20mg daily #DISPO: continue M/S FULL code d/w Dr. Kyra Bolanos MD PGY1 - Internal Medicine Visit type - Emergency Visit Emergency Visit: No - New Patient This patient is new to me today: No - Critical Care Critical Care patient: No
[2017-09-08 08:54] LABS: MCH 24.7 pg (25.7-33.7); MCHC 30.6 g/dl (32.0-36.0); MEAN CELL VOLUME 80.8 fl (80-96); MEAN PLT VOLUME 8.2 fl (7.5-11.1); PLATELET COUNT 430 K/MM3 (134-434); RDW 16.3 % (11.6-15.6); WHITE BLOOD COUNT 15.3 K/mm3 (4.0-10.0)
[2017-09-08 09:08] LABS: ALBUMIN 3.2 g/dl (3.4-5.0); ANION GAP 7 (8-16); CALCIUM 8.9 mg/dL (8.5-10.1); CO2 28 mmol/L (21-32); CREATININE 0.7 mg/dL (0.55-1.02); GLUCOSE,RANDOM 116 mg/dL (74-106); SGOT/AST 10 U/L (15-37); SGPT/ALT 39 U/L (12-78)
[2017-09-08 09:11] LABS: ALK PHOS 95 U/L (45-117); BILIRUBIN,TOTAL 0.4 mg/dL (0.2-1.0); TOT PROT 6.5 g/dl (6.4-8.2)
[2017-09-08] MEDS: guaiFENesin 600 MG TABLET.ER (FP) PO SCH ×2 (09:52→21:27)
[2017-09-08] MEDS: LORATADINE 10 MG TABLET PO SCH (09:53)
[2017-09-08] MEDS: LEVOFLOXACIN 500 MG IVPB 500 MG/100 ML BAG IVPB SCH (11:22)
[2017-09-08 13:08] LABS: ANISOCYTOSIS 3+; BAND % 9.3 %; HYPOCHROMIA 0; MACROCYTOSIS 0; METAMYELOCYTE 3 % (0-2); MICROCYTOSIS 3+; MYELOCYTE 3 % (0-2); OVALOCYTE 1+; PLATELET ESTIMATE INCREASED; POIKILOCYTOSIS 1+; POLYCHROMASIA 2+; REACTIVE LYMPHOCYTES 0 % (0-80)
--- NOTE | 2017-09-08 13:36 | PN ---
Progress Note (short form) - Note Progress Note: PULMONARY APPEARS STABLE PEAK FLOW 140 L/M VSS/AFEBRILE/DYSPHONIA ANICTERIC-JVD DIMINSHED BREATH SOUNDS WITH END EXP WHEEZE S1S2 BS+ OBESE NO EDEMA LABS/MEDS/NOTES/IMAGES/MICRO REVIEWED IMP CHRONIC PERSISTENT ASTHMA WITH ACUTE EXACERBATION IMPROVING MULTIPLE PREVIOUS INTUBATIONS LLL PNEUMONIA HYPOTHYROID PLAN TAPER STEROIDS INHALED BRONCHODILATORS O2 ANTIBIOTICS MONITOR PEAK FLOW Mima HAYNES MD
[2017-09-08 13:38] LABS: TOTAL CELLS COUNTED 100
[2017-09-08] MEDS: methylPREDNISolone NA SUCC 40 MG/1 ML VIAL IVPUSH SCH (18:30)
--- NOTE | 2017-09-08 18:59 | PN ---
Teaching Attending Note Name of Resident: Swati Bolanos ATTENDING PHYSICIAN STATEMENT I saw and evaluated the patient. I reviewed the resident's note and discussed the case with the resident. I agree with the resident's findings and plan as documented. SUBJECTIVE: NO fever or chills . SOB has slightly improved OBJECTIVE: NAD CV : RRR Lungs: scattered wheezing Abd: soft, Nt, ND , NL BS Ext: no edema ASSESSMENT AND PLAN: 52 y/o lady with h/o ASthma, h/o intubation, who presented with SOB and was found to have LLL PNA and asthma exa 1- Asthma exacerbation : slightly improved - cont steroids taper - add advair - cont Nebs and singular 2- LLL PNA : - cont levaquin day 5 /7 - leukocytosis worse due to steroids 3- RUL nodule : f/u as out pt 4- hypothyroidism ; cont synthroid DVT px with heparin
[2017-09-08] MEDS ORDERED: PT OWN MED DRAWER 7, Y5N ONE ×2 (21:24→21:25)
[2017-09-08] MEDS: traZODone HCL 50 MG TABLET (FP) PO SCH (21:27)
[2017-09-08] MEDS: FLUTICASONE/SALMETEROL 100 MCG/50 MCG DISKUS IH SCH (21:28)
[2017-09-08] MEDS: MONTELUKAST NA 10 MG TABLET PO SCH (21:28)
[2017-09-09] MEDS: methylPREDNISolone NA SUCC 40 MG/1 ML VIAL IVPUSH SCH ×2 (01:37→10:15)
[2017-09-09] MEDS ORDERED: PT OWN MED DRAWER 7, Y5N ONE ×2 (01:51→10:04)
[2017-09-09] MEDS: LEVOTHYROXINE NA 25 MCG TABLET (FP) PO SCH (06:01)
[2017-09-09] MEDS: HEPARIN NA (PORCINE) 5,000 UNITS/ML 1ML VIAL SQ SCH ×2 (06:01→14:07)
[2017-09-09] MEDS: PANTOPRAZOLE 20 MG TABLET (FP) PO SCH (06:01)
[2017-09-09] MEDS: ALBUTEROL SO4 2.5/IPRATROPIUM 0.5 INH SOL 3 ML VIAL.NEB. NEB SCH ×3 (06:45→11:08)
--- NOTE | 2017-09-09 06:57 | PN ---
Physical Exam: SUBJECTIVE: Patient seen and examined OBJECTIVE: Vital Signs Period Temp Pulse Resp BP Sys/Gomez Pulse Ox Last 24 Hr 97.2 F-99 F 64-82 19-20 120-138/73-77 97-97 GENERAL: The patient is awake, alert, and fully oriented, in no acute distress. HEAD: Normal with no signs of trauma. EYES: PERRL, extraocular movements intact, sclera anicteric, conjunctiva clear. No ptosis. ENT: Ears normal, nares patent, oropharynx clear without exudates, moist mucous membranes. NECK: Trachea midline, full range of motion, supple. LUNGS: Breath sounds equal, clear to auscultation bilaterally, no wheezes, no crackles, no accessory muscle use. HEART: Regular rate and rhythm, S1, S2 without murmur, rub or gallop. ABDOMEN: Soft, nontender, nondistended, normoactive bowel sounds, no guarding, no rebound, no hepatosplenomegaly, no masses. EXTREMITIES: 2+ pulses, warm, well-perfused, no edema. NEUROLOGICAL: Cranial nerves II through XII grossly intact. Normal speech, gait not observed. PSYCH: Normal mood, normal affect. SKIN: Warm, dry, normal turgor, no rashes or lesions noted Laboratory Results - last 24 hr 09/08/17 09/08/17 06:00 06:00 WBC 15.3 H RBC 4.62 Hgb 11.4 Hct 37.3 MCV 80.8 MCH 24.7 L MCHC 30.6 L RDW 16.3 H Plt Count 430 MPV 8.2 D Total Counted 100 Neutrophils % No Result Required. Neutrophils % (Manual) 68.0 Band Neutrophils % 9.3 Lymphocytes % No Result Required. Lymphocytes % (Manual) 11.3 Monocytes % (Manual) 5 Eosinophils % (Manual) 0.0 Basophils % (Manual) 0.0 Myelocytes % (Man) 3 H D Metamyelocytes 3 H D Hypochromia 0 Platelet Estimate Increased Polychromasia 2+ Poikilocytosis 1+ Anisocytosis 3+ Microcytosis 3+ Macrocytosis 0 Ovalocytes 1+ Sodium 140 Potassium 4.3 Chloride 105 Carbon Dioxide 28 Anion Gap 7 L BUN 19 H Creatinine 0.7 Creat Clearance w eGFR > 60 Random Glucose 116 H Calcium 8.9 Total Bilirubin 0.4 D AST 10 L D ALT 39 D Alkaline Phosphatase 95 Total Protein 6.5 Albumin 3.2 L Active Medications Albuterol Sulfate (Ventolin 0.083% Nebulizer Soln -) 1 amp NEB Q1H PRN PRN Reason: SHORT OF BREATH/WHEEZING Albuterol/Ipratropium (Duoneb -) 1 amp NEB QIDR [facility] Last Admin: 09/09/17 06:45 Dose: Not Given Benzocaine/Menthol (Cepacol Lozenge -) 1 each MM PRN PRN PRN Reason: SORE THROAT Last Admin: 09/06/17 10:46 Dose: 1 each Guaifenesin (Mucinex -) 600 mg PO BID [facility] Last Admin: 09/08/17 21:27 Dose: 600 mg Heparin Sodium (Porcine) (Heparin -) 5,000 unit SQ TID [facility] Last Admin: 09/09/17 06:01 Dose: 5,000 unit Levofloxacin (Levaquin 500 Mg Premixed Ivpb -) 500 mg in 100 mls @ 100 mls/hr IVPB DAILY ON LICENSE OF [facility] Last Admin: 09/08/17 11:22 Dose: 100 mls/hr Levothyroxine Sodium (Synthroid -) 25 mcg PO DAILY@0700 ON LICENSE OF [facility] Last Admin: 09/09/17 06:01 Dose: 25 mcg Loratadine (Claritin -) 10 mg PO DAILY ON LICENSE OF [facility] Last Admin: 09/08/17 09:53 Dose: 10 mg Methylprednisolone Sodium Succinate (Solu-Medrol -) 20 mg IVPUSH Q8H-IV ON LICENSE OF [facility] Last Admin: 09/09/17 01:37 Dose: 20 mg Montelukast Sodium (Singulair -) 10 mg PO [facility] Last Admin: 09/08/17 21:28 Dose: 10 mg Pantoprazole Sodium (Protonix -) 20 mg PO DAILY@0600 ON LICENSE OF [facility] Last Admin: 09/09/17 06:01 Dose: 20 mg Fluticasone/Salmeterol (Advair 100mcg/50mcg -) 1 puff IH BID ON LICENSE OF [facility] Last Admin: 09/08/17 21:28 Dose: 1 puff Trazodone HCl (Desyrel -) 50 mg PO HS ON LICENSE OF [facility] Last Admin: 09/08/17 21:27 Dose: 50 mg Zinc Acetate/Diphenhydramine (Benadryl 2% Cream) 1 applic TP DAILY PRN PRN Reason: ITCHINESS Last Admin: 09/08/17 10:45 Dose: 1 applic ASSESSMENT/PLAN:
[2017-09-09 08:11] LABS: ALBUMIN 3.1 g/dl (3.4-5.0); ANION GAP 6 (8-16); CALCIUM 8.5 mg/dL (8.5-10.1); CO2 30 mmol/L (21-32); CREATININE 0.6 mg/dL (0.55-1.02); GLUCOSE,RANDOM 134 mg/dL (74-106); SGOT/AST 9 U/L (15-37); SGPT/ALT 46 U/L (12-78)
[2017-09-09 08:13] LABS: ALK PHOS 95 U/L (45-117); BILIRUBIN,TOTAL 0.4 mg/dL (0.2-1.0); LYMPH # 1.4; MCHC 31.2 g/dl (32.0-36.0); MEAN CELL VOLUME 80.1 fl (80-96); MEAN PLT VOLUME 7.9 fl (7.5-11.1); MONO # 0.9 #; NEUT # 12.5 #; PLATELET COUNT 438 K/MM3 (134-434); RDW 16.2 % (11.6-15.6); TOT PROT 6.2 g/dl (6.4-8.2); WHITE BLOOD COUNT 14.9 K/mm3 (4.0-10.0)
[2017-09-09] MEDS: guaiFENesin 600 MG TABLET.ER (FP) PO SCH (10:15)
[2017-09-09] MEDS: LEVOFLOXACIN 500 MG IVPB 500 MG/100 ML BAG IVPB SCH (10:15)
[2017-09-09] MEDS: FLUTICASONE/SALMETEROL 100 MCG/50 MCG DISKUS IH SCH (10:15)
[2017-09-09] MEDS: LORATADINE 10 MG TABLET PO SCH (10:15)
[2017-09-09 11:21] LABS: ANISOCYTOSIS 2+; BAND % 5.1 %; HYPOCHROMIA 1+; MACROCYTOSIS 0; METAMYELOCYTE 3 % (0-2); MICROCYTOSIS 2+; MYELOCYTE 2 % (0-2); PLATELET ESTIMATE NORMAL; POIKILOCYTOSIS 0; REACTIVE LYMPHOCYTES 0 % (0-80)
--- NOTE | 2017-09-09 12:34 | PN ---
Teaching Attending Note Name of Resident: Swati Bolanso ATTENDING PHYSICIAN STATEMENT I saw and evaluated the patient. I reviewed the resident's note and discussed the case with the resident. I agree with the resident's findings and plan as documented. SUBJECTIVE: No fever or chills. breathing has improved . cont to have anterior chest pain when she coughs . OBJECTIVE: NAD CV : RRR Lungs: scattered wheezing Abd: soft, Nt, ND , NL BS Ext: no edema MS: TTP on anterior chest wall muscles . ASSESSMENT AND PLAN: 52 y/o lady with h/o ASthma, h/o intubation, who presented with SOB and was found to have LLL PNA and asthma exa 1- Asthma exacerbation : significantly improved . - cont steroids taper with prednisone. she takes 20 mg daily chronically. will confirm with her PCP and then taper steroids starting at 60 mg down to her home dose - cont advair at dc - cont Nebs and singular . has NEbs and inhalers as out pt - check pre-post ambulatory pulse ox 2- LLL PNA : - cont levaquin day 6 of abx. can stop . Leukocytosis is a result of steroids ( no fever , or productive cough. no hypoxia ) 3- RUL nodule : f/u as out pt with imaging. pt was made aware of this 4- hypothyroidism ; cont synthroid DC home , pending pre-post ambulatory pulse ox
[2017-09-09 14:38] VITALS: BP 115/40; PULSE 89; TEMP 98.3
--- NOTE | 2017-09-09 15:01 | DS ---
Physical Exam: SUBJECTIVE: Patient seen and examined. Feels breathing has improved. c/o dry cough and chest tightness when coughing. No fever, chills. Able to ambulate to bathroom without dyspnea. Eating and voiding well. OBJECTIVE: Vital Signs Period Temp Pulse Resp BP Sys/Gomez Pulse Ox Last 24 Hr 97.0 F-99 F 64-82 19-20 120-138/70-77 97-97 PHYSICAL EXAM GENERAL: nad, aaox3, completing full sentences without dyspnea EYES: sclera anicteric, conjunctiva clear ENT: oropharynx clear without exudates or erythema, MMM LUNGS: +airway entry, scattered expiratory wheezes HEART: rrr, normal s1/s2, no m/r/g ABDOMEN: Soft, ntnd, normoactive bowel sounds LOWER EXTREMITIES: 2+ DP pulses, wwp, no edema NEUROLOGICAL: CN II-XII grossly intact. Normal speech. LABS CBC, BMP 09/09/17 06:00 09/09/17 06:00 Hepatic Panel Total Bilirubin 0.4 mg/dL (0.2-1.0) 09/09/17 06:00 AST 9 U/L (15-37) L 09/09/17 06:00 ALT 46 U/L (12-78) 09/09/17 06:00 Alkaline Phosphatase 95 U/L (45-117) 09/09/17 06:00 Albumin 3.1 g/dl (3.4-5.0) L 09/09/17 06:00 Microbiology 09/04/17 11:05 Blood - Peripheral Venous Blood Culture - Final NO GROWTH AFTER 5 DAYS INCUBATION 09/04/17 11:05 Blood - Peripheral Venous Blood Culture - Final NO GROWTH AFTER 5 DAYS INCUBATION 09/04/17 12:03 Urine For Antigen Detection Legionella Antigen - Final - NEG 09/04/17 12:03 Urine For Antigen Detection Streptococcus pneumoniae Antigen - NEG IMAGING: Chest CT w/o contrast 09/04/17: There are moderate-sized patchy consolidations left lower lobe suspicious for infiltration as the larger one contains air bronchograms or possibly infectious or inflammatory material within bronchi. Small patchy consolidation right lower lobe similar to left lung findings. 1.5 cm localized airspace disease right upper lobe image #22 1.0 x 0.3 cm nodule right upper lobe image #42 3 mm nodule left lower lobe image #47 There is no mediastinal, axillary or hilar lymphadenopathy. There is no thoracic aortic aneurysm. There is no pericardial or pleural effusion. No adrenal masses are seen. Impression: Patchy consolidations left lower lobe and a smaller one located right lower lobe suspicious for inflammatory or infectious etiology. Localized airspace disease right upper lobe. Small nodules right upper lobe and left lower lobe. Recommend 6 month follow-up. CXR 09/03/17: Comparison: 07/20/2017 chest x-ray. Findings: There are shallow inspiration with low lung volumes, with secondary prominence of the pulmonary vasculature. There are opacities in the left lung base. No evidence of pleural effusion or pneumothorax. There is mild biapical pleural thickening. Prominent cardiac silhouette is stable in size. Normal size and contours of the superior mediastinal silhouette. No abnormal deviation of the trachea. Impression: Shallow inspiration with low lung volumes. Patchy opacities in the left lung base may be atelectasis and/or pneumonia. Please correlate clinically. HOSPITAL COURSE: Date of Admission:09/03/17 Date of Discharge: 09/09/17 Pre-Admission Course: 51yo woman from [place] with PMH of asthma/COPD with 8 reported prior intubations who p/w 4 x days of shortness of breath. She endorses subjective fevers and chills at home. Endorses cough as productive of dark yellow/brown sputum. She was last intubated in Jun when she was evacuated from [place]. Denies MONTOYA, abdominal pain, nausea, vomiting or sick contacts. Subsequent Hospital Course: Patient was found to have CAP pneumonia c/b asthma exacerbation. CT Chest identified consolidations in LLL suspicious for infectious etiology. Patient was placed initially on empiric Ceftriaxone and Azithromycin, however reported itching after the first dose of Azithromycin and was thus discontinued. Legionella and Strep pneumoniae antigens were negative. Patient was given a 6 day course of Levaquin. Her acute asthma exacerbation was managed with IV steroids and she was discharged on a Prednisone taper. She was also treated with Advair, Singulair, her home Claritin, and Duo nebs. Her peak flow was measured daily and on day of discharge was 275 pre and post treatment, which improved from admission peak flows of 170 (calculated ideal 376). Pre and post ambulatory pSaO2 was 98% to 97 % after 6 minutes of flat surface walking prior to discharge. She was afebrile during her admission. Her labs were notable for leukocytosis, which was trending down by discharge, which could be reflective of PNA vs steroid treatment. Patient was given instructions to have her CBC repeated in 3-4 days for follow-up, which she is in agreement. The patient was notified of the lung nodules identified on the CT Chest, and was given instructions to have repeat imaging performed in 6months for follow- up. Consults: Pulmonology - Dr. Jacobo/Dr. Ocampo ID - Dr. Pena/ Dr. Woods Minutes to complete discharge: 45 Discharge Summary Reason For Visit: PNEUMONIA Current Active Problems Asthma exacerbation (Acute) PNA (pneumonia) (Acute) Hypothyroidism (Chronic) Condition: Stable - Instructions Diet, Activity, Other Instructions: You were admitted to the hospital for pneumonia and asthma exacerbation. You were treated with antibiotics (Levaquin) and started on a steroid taper. As discussed, imaging of your lungs also found a small nodule (1 x 0.3cm) in your right upper lobe and a small nodule (3mm) in your left lower lobe. You should have your lungs imaged in 6 months to follow these nodules. Recommendations: -You may resume your regular daily activities and diet as tolerated. Medications: -You may resume your regular home medications, including all your regular asthma medications (Ipatropium inhaler and nebulizer, Ventolin inhaler, Advair, Flonase and Singular as directed). -In addition, take Prednisone (a steroid) daily. Decrease your dose by 5mg every 3 days, following this schedule: 09/10, , 31: Take 60mg daily 09/13 to 09/15: Take 55mg daily 09/16 to 09/18: Take 50mg daily 09/19 to 09/21: Take 45mg daily 09/22 to 09/24: Take 40mg daily 09/25 to 09/27: Take 35mg daily 09/28 to 09/30: Take 30mg daily 10/01 to 10/03: Take 25mg daily 10/04 to 10/06: Take 20mg daily Follow-up: -Get blood work done within the next 3-4 days and have the results faxed to Dr. Contreras's office at . -See Dr. Contreras within 1-2 weeks for post-hospital evaluation. Let the office know about the lung nodule findings. -Make an appointment to see Dr. Jacobo (Pulmonology) in the next 1-2 weeks to discuss your asthma. -You should have repeat imaging in 6 months to follow the lung nodules. Please return to the Emergency Department if you have worsening shortness of breath, fever, chills, or any new or concerning symptoms. Referrals: Lester Jacobo MD [Staff Physician] - Alicia Ibarra MD [Primary Care Provider] - () Disposition: HOME - Home Medications Comprehensive Discharge Medication List: Ambulatory Orders Albuterol 0.083% Nebulizer Harriett [Ventolin 0.083% Nebulizer Soln -] 1 amp NEB QID #120 amp 07/20/17 Albuterol Sulfate Inhaler - [Ventolin HFA Inhaler -] 1 - 2 inh PO QID #1 inhaler 07/20/17 Ipratropium 0.02% Nebulizer [Atrovent 0.02% Nebulizer -] 1 amp NEB QID #120 amp 07/20/17 Levothyroxine [Synthroid -] 25 mcg PO DAILY #30 tablet 07/20/17 Loratadine [Claritin] 10 mg PO DAILY #30 tablet 07/20/17 Montelukast Na [Singulair -] 10 mg PO HS #30 tablet 07/20/17 Omeprazole 20 mg PO DAILY 07/20/17 Salmeterol/Fluticasone [Advair 500Mcg/50Mcg -] 1 inh IH BID #60 inh 07/20/17 Tiotropium [place] [Spiriva] 1 inh PO DAILY 07/20/17 Trazodone HCl 50 mg PO HS 07/20/17 Miscellaneous Drug Not In Syst [Outpatient Lab Test] 1 each ASDIR #1 misc Prednisone [Deltasone -] See Taper PO DAILY #30 tablet 09/09/17 This patient is new to me today: No Emergency Visit: No Critical Care patient: No - Discharge Referral Referred to [facility] No
== END 2017-09-09 15:25 | disposition home health service (06) | DRG 140 ==
LOC: JER 14:01 → OBSVTOIN 18:36 → J6S 18:36 → JERBED 18:57 → UNDOADMOB 18:57 → JERBED 21:16 → J6S 21:16
PROVIDERS: ADMIT Internal Medicine; ATTEND Internal Medicine
PROC: 3E0F7GC Introduction of Other Therapeutic Substance into Respiratory Tract, Via Natural or Artificial Opening (ICD-10-PCS; principal; 2017-09-04)
DX: J44.1 Chronic obstructive pulmonary disease with (acute) exacerbation (principal); J18.9 Pneumonia, unspecified organism; E03.9 Hypothyroidism, unspecified; J45.51 Severe persistent asthma with (acute) exacerbation; E66.8 Other obesity; Z68.32 Body mass index [BMI] 32.0-32.9, adult; R91.1 Solitary pulmonary nodule; D72.828 Other elevated white blood cell count
CPT/HCPCS: 36415; 71020-TC; 71250-TC; 80053; 82550; 83735; 83880; 84100; 84484; 85025; 87040; 87899; 93005; 93010; 94010; 94150; 94640; 94761; 97116-GP; 97161-GP; 99283-25; 99284-25; J1644

== ENCOUNTER 2017-09-15 17:44 | Inpatient (IN) | payer OTHER ==
[2017-09-15 17:58] VITALS: BMI 30.9
--- NOTE | 2017-09-15 17:59 | PDOC ---
Rapid Medical Evaluation Time Seen by Provider: 09/15/17 17:54 Medical Evaluation: Allergies Allergy/AdvReac Type Severity Reaction Status Date / Time No Known Allergies Allergy Verified 09/03/17 14:21 I have performed a brief in-person evaluation of this patient. The patient presents with a chief complaint of: difficulty breathing Pertinent physical exam findings: Respiratory retractions. anterior regan with faint expiratory wheezing. Respiratory rate of 40. I have ordered the following: duoneb x 3, labs, CXR The patient will proceed to the ED for further evaluation. Discharge Disposition - Referrals Referrals: Alicia Ibarra MD [Primary Care Provider] - - Patient Instructions - Post Discharge Activity
[2017-09-15] MEDS ORDERED: methylPREDNISolone NA SUCC 125 MG/2 ML VIAL ONE (18:10)
[2017-09-15] MEDS ORDERED: ALBUTEROL SO4 2.5/IPRATROPIUM 0.5 INH SOL 3 ML VIAL.NEB. NEB ONE ×5 (18:10→18:46)
[2017-09-15] MEDS: ALBUTEROL SO4 2.5/IPRATROPIUM 0.5 INH SOL 3 ML VIAL.NEB. NEB SCH ×3 (18:10→18:25)
[2017-09-15] MEDS ORDERED: methylPREDNISolone NA SUCC 125 MG/2 ML VIAL IVPB ONE (18:18)
[2017-09-15] MEDS ORDERED: MAGNESIUM SULF 50% (8.12 MEQ/2 ML-1 GM VIAL) IVPB ONE (18:18)
[2017-09-15] MEDS ORDERED: SODIUM CHLORIDE 0.9% 1000 ML INFUS.BAG IV ONE ×2 (18:18→21:12)
[2017-09-15 18:35] LABS: BASO % 0.2 % (0-2.0); HEMATOCRIT 40.8 % (32.4-45.2); HEMOGLOBIN 12.7 GM/dL (10.7-15.3); LYMPH % 7.4 % (8-40); MCH 25.3 pg (25.7-33.7); MCHC 31.2 g/dl (32.0-36.0); MEAN PLT VOLUME 9.1 fl (7.5-11.1); MONO % 2.4 % (3.8-10.2); PLATELET COUNT 393 K/MM3 (134-434); RBC 5.04 M/mm3 (3.60-5.2); RDW 17.3 % (11.6-15.6); WHITE BLOOD COUNT 19.4 K/mm3 (4.0-10.0)
[2017-09-15] MEDS ORDERED: MAGNESIUM SULF 50% (8.12 MEQ/2 ML-1 GM VIAL) ONE (18:46)
--- NOTE | 2017-09-15 19:12 | PDOC ---
History of Present Illness - General History Source: Patient, EMS, Old Records Exam Limitations: No Limitations - History of Present Illness Initial Comments: 09/15/17 19:16 The patient is a 52 year old female, with a significant past medical history of hypothyroidism, asthma and emphysema/COPD(with 8 prior intubations), who presents to the emergency department [facility] with shortness of breath since earlier this morning. The patient reports difficulty breathing since earlier this morning, for which she treated herself with 2 Duoneb treatments. She denies any associated chest pain, diaphoresis, or palpitations. She denies any fever, chills, cough, headache, or dizziness. Per EMS the patient was recently admitted to the ED on 09/03/17 for pneumonia and discharged on 09/09/17. Allergies: NKDA Past Surgical History: None reported. Social History: Non smoker. No ETOH or recreational drug use, PCP: Dr. Andrade <Aubrey Richard - Last Filed: 09/15/17 19:16> <Abby Cleary - Last Filed: 09/15/17 21:19> - General Chief Complaint: Respiratory Stated Complaint: SHORTNESS OF BREATH Time Seen by Provider: 09/15/17 17:54 Past History <Aubrey Richard - Last Filed: 09/15/17 19:16> - Past Medical History Asthma: Yes COPD: Yes Thyroid Disease: Yes (HYPO) - Suicide/Smoking/Psychosocial Hx Smoking History: Never smoked Hx Alcohol Use: No Drug/Substance Use Hx: No <Abby Cleary - Last Filed: 09/15/17 21:19> - Past Medical History Allergies/Adverse Reactions: Allergies Allergy/AdvReac Type Severity Reaction Status Date / Time No Known Allergies Allergy Verified 09/15/17 17:58 Home Medications: Ambulatory Orders Albuterol 0.083% Nebulizer Harriett [Ventolin 0.083% Nebulizer Soln -] 1 amp NEB QID #120 amp 07/20/17 Albuterol Sulfate Inhaler - [Ventolin HFA Inhaler -] 1 - 2 inh PO QID #1 inhaler 07/20/17 Ipratropium 0.02% Nebulizer [Atrovent 0.02% Nebulizer -] 1 amp NEB QID #120 amp 07/20/17 Levothyroxine [Synthroid -] 25 mcg PO DAILY #30 tablet 07/20/17 Loratadine [Claritin] 10 mg PO DAILY #30 tablet 07/20/17 Montelukast Na [Singulair -] 10 mg PO HS #30 tablet 07/20/17 Omeprazole 20 mg PO DAILY 07/20/17 Salmeterol/Fluticasone [Advair 500Mcg/50Mcg -] 1 inh IH BID #60 inh 07/20/17 Tiotropium [place] [Spiriva] 1 inh PO DAILY 07/20/17 Trazodone HCl 50 mg PO HS 07/20/17 Miscellaneous Drug Not In Syst [Outpatient Lab Test] 1 each ASDIR #1 misc Prednisone [Deltasone -] See Taper PO DAILY #30 tablet 09/09/17 Review of Systems - Review of Systems Able to Perform ROS?: Yes Comments:: 09/15/17 19:17 GENERAL/CONSTITUTIONAL: No fever or chills. No weakness. HEAD, EYES, EARS, NOSE AND THROAT: No change in vision. No ear pain or discharge. No sore throat. GASTROINTESTINAL: No nausea, vomiting, diarrhea or constipation. GENITOURINARY: No dysuria, frequency, or change in urination. CARDIOVASCULAR: Yes shortness of breath. No chest pain. RESPIRATORY: No cough, wheezing, or hemoptysis. MUSCULOSKELETAL: No joint or muscle swelling or pain. No neck or back pain. SKIN: No rash NEUROLOGIC: No headache, vertigo, loss of consciousness, or change in strength/ sensation. ENDOCRINE: No increased thirst. No abnormal weight change. HEMATOLOGIC/LYMPHATIC: No anemia, easy bleeding, or history of blood clots. ALLERGIC/IMMUNOLOGIC: No hives or skin allergy. <Aubrey Richard - Last Filed: 09/15/17 19:16> *Physical Exam - Vital Signs Last Vital Signs Temp Pulse Resp BP Pulse Ox 98.6 F 99 H 15 146/87 100 09/15/17 17:54 09/15/17 18:56 09/15/17 18:56 09/15/17 18:56 09/15/17 18:56 - Physical Exam Comments: 09/15/17 19:17 Constitutional: Awake, alert, oriented. Respiratory distress. Head: Normocephalic. Atraumatic Eyes: PERRL. EOMI. Conjunctivae are not pale. ENT: Mucous membranes are moist and intact. Posterior pharynx without exudates or erythema. Uvula midline. Neck: Supple. Full ROM. No lymphadenopathy. Cardiovascular: Tachycardic. Regular rhythm. S1, S2 regular. Distal pulses are 2+ and symmetric. Pulmonary/Chest: Diminished breath sounds at the bases bilaterally. Wheezing at the bilateral Apices. Respiratory distress, anxious, nervous, tachypneic, and speaking in one word sentences. No rales or rhonchi. No stridor. Abdominal: Soft and non-distended. There is no tenderness. No rebound, guarding or rigidity. No organomegaly. No palpable masses. Good bowel sounds. Back: No CVA tenderness. Musculoskeletal: No edema. No cyanosis. No clubbing. Full range of motion in all extremities. No calf tenderness. Radial/pedal pulses are intact and 2+ bilaterally Skin: Skin is warm and dry. No petechiae. No purpura. Neurological: Alert and oriented to person, place, and time. Cranial nerves II -XII are grossly intact. Normal speech. Strength is grossly symmetric. No sensory deficits. Psychiatric: Good eye contact. Normal interaction, affect and behavior. <Aubrey Richard - Last Filed: 09/15/17 19:16> - Vital Signs Last Vital Signs Temp Pulse Resp BP Pulse Ox 98.6 F 99 H 15 146/87 100 09/15/17 17:54 09/15/17 18:56 09/15/17 18:56 09/15/17 18:56 09/15/17 18:56 <Abby Cleary - Last Filed: 09/15/17 21:19> Heart Score/ECG Review - ECG Intrepretation Comment:: 09/15/17 19:31 sinus tach at 104, nl axis, nl interval, no acute st/t wave findings, lvh <Abby Cleary - Last Filed: 09/15/17 21:19> ED Treatment Course - LABORATORY CBC & Chemistry Diagram: 09/15/17 18:20 09/15/17 18:20 - ADDITIONAL ORDERS Additional order review: Laboratory Results 09/15/17 09/15/17 18:20 18:20 Sodium Cancelled Potassium Cancelled Chloride Cancelled Carbon Dioxide Cancelled Anion Gap Cancelled BUN Cancelled Creatinine Cancelled Creat Clearance w eGFR Cancelled Random Glucose Cancelled Calcium Cancelled Magnesium Cancelled Total Bilirubin Cancelled AST Cancelled ALT Cancelled Alkaline Phosphatase Cancelled Creatine Kinase Cancelled Troponin I Cancelled B-Natriuretic Peptide Cancelled Total Protein Cancelled Albumin Cancelled 09/15/17 18:20 RBC 5.04 MCV 81.0 MCHC 31.2 L RDW 17.3 H MPV 9.1 D Neutrophils % 90.0 H Lymphocytes % 7.4 L Monocytes % 2.4 L Eosinophils % 0.0 Basophils % 0.2 - Medications Given in the ED: ED Medications Discontinued Medications Generic Name Dose Route Start Last Admin Trade Name Freq PRN Reason Stop Dose Admin Albuterol/Ipratropium 1 amp 09/15/17 18:00 09/15/17 18:25 Duoneb - NEB 09/15/17 18:46 1 amp Q15M MAXIM Administration Albuterol/Ipratropium 1 amp 09/15/17 18:18 09/15/17 18:19 Duoneb - NEB 09/15/17 18:19 1 amp ONCE ONE Administration Albuterol/Ipratropium 1 amp 09/15/17 18:20 09/15/17 18:59 Duoneb - NEB 09/15/17 18:21 1 amp ONCE ONE Administration Magnesium Sulfate 1 gm 09/15/17 18:18 09/15/17 18:59 Magnesium Sulfate IVPB 09/15/17 18:19 1 gm ONCE ONE Administration Methylprednisolone Sodium Succinate 125 mg 09/15/17 18:18 09/15/17 18:19 Solu-Medrol - IVPB 09/15/17 18:19 125 mg ONCE ONE Administration Sodium Chloride 1,000 ml 09/15/17 18:18 09/15/17 19:00 Normal Saline - IV 09/15/17 18:19 1,000 ml ONCE ONE Administration <Aubrey Richard - Last Filed: 09/15/17 19:16> - LABORATORY CBC & Chemistry Diagram: 09/15/17 19:40 09/15/17 18:20 - ADDITIONAL ORDERS Additional order review: Laboratory Results 09/15/17 09/15/17 18:20 18:20 Sodium Cancelled Potassium Cancelled Chloride Cancelled Carbon Dioxide Cancelled Anion Gap Cancelled BUN Cancelled Creatinine Cancelled Creat Clearance w eGFR Cancelled Random Glucose Cancelled Calcium Cancelled Magnesium Cancelled Total Bilirubin Cancelled AST Cancelled ALT Cancelled Alkaline Phosphatase Cancelled Creatine Kinase Cancelled Troponin I Cancelled B-Natriuretic Peptide Cancelled Total Protein Cancelled Albumin Cancelled 09/15/17 18:20 RBC 5.04 MCV 81.0 MCHC 31.2 L RDW 17.3 H MPV 9.1 D Neutrophils % 90.0 H Lymphocytes % 7.4 L Monocytes % 2.4 L Eosinophils % 0.0 Basophils % 0.2 - RADIOLOGY Radiology Studies Ordered: Category Date Time Status CHEST X-RAY PORTABLE* [RAD] Stat Radiology 09/15/17 18:19 Ordered - Medications Given in the ED: ED Medications Discontinued Medications Generic Name Dose Route Start Last Admin Trade Name Freq PRN Reason Stop Dose Admin Albuterol/Ipratropium 1 amp 09/15/17 18:00 09/15/17 18:25 Duoneb - NEB 09/15/17 18:46 1 amp Q15M MAXIM Administration Albuterol/Ipratropium 1 amp 09/15/17 18:18 09/15/17 18:19 Duoneb - NEB 09/15/17 18:19 1 amp ONCE ONE Administration Albuterol/Ipratropium 1 amp 09/15/17 18:20 09/15/17 18:59 Duoneb - NEB 09/15/17 18:21 1 amp ONCE ONE Administration Magnesium Sulfate 1 gm 09/15/17 18:18 09/15/17 18:59 Magnesium Sulfate IVPB 09/15/17 18:19 1 gm ONCE ONE Administration Methylprednisolone Sodium Succinate 125 mg 09/15/17 18:18 09/15/17 18:19 Solu-Medrol - IVPB 09/15/17 18:19 125 mg ONCE ONE Administration Sodium Chloride 1,000 ml 09/15/17 18:18 09/15/17 19:00 Normal Saline - IV 09/15/17 18:19 1,000 ml ONCE ONE Administration <Abby Cleary - Last Filed: 09/15/17 21:19> Medical Decision Making - Critical Care Time Total Critical Care Time (minutes): 30 Critical Care Statement: The care of this patient involved high complexity decision making to prevent further life threatening deterioration of the patient 's condition and/or to evaluate & treat vital organ system(s) failure or risk of failure. - Medical Decision Making 09/15/17 19:22 a/p: 52yo female with sob -hx of COPD that has required intubation in the past -recently in the hospital -will obtain xray -will give nebs x 3 -iv mag -pt in resp distress, speaking in 1 word sentences -will check labs, cultures -will need admission 09/15/17 19:23 suspect COPD exacerbation 09/15/17 20:02 re-eval: pt feeling better will need admission 09/15/17 21:19 pt with end expiratory wheezing, will give another neb discussed with Dr. Cross - accepts pt to service <Abby Cleary - Last Filed: 09/15/17 21:19> *DC/Admit/Observation/Transfer - Attestations Scribe Attestion: 09/15/17 19:17 Documentation prepared by Aubrey Richard, acting as director medical for Abby Cleary DO. <Aubrey Richard - Last Filed: 09/15/17 19:16> - Discharge Dispostion Admit: Yes - Attestations Physician Attestion: 09/15/17 21:19 I, Dr. Abby Cleary DO, attest that this document has been prepared under my direction and personally reviewed by me in its entirety. I further attest, that it accurately reflects all work, treatment, procedures and medical decision -making performed by me. <Abby Cleary - Last Filed: 09/15/17 21:19> Diagnosis at time of Disposition: Asthma exacerbation, Leukocytosis, Respiratory distress, acute - Discharge Dispostion Condition at time of disposition: Guarded - Referrals Referrals: Alicia Ibarra MD [Primary Care Provider] - - Patient Instructions - Post Discharge Activity
[2017-09-15] MEDS ORDERED: PIPERACILLIN/TAZOB 4.5 GM/100 ML PREMIX BAG IVPB ONE (19:23)
[2017-09-15] MEDS ORDERED: VANCOMYCIN 1 GRAM (PRE-DOCKED) 1,000 MG/250 ML BAG IVPB ONE ×2 (19:23→20:33)
[2017-09-15] MEDS ORDERED: PIPERACILLIN/TAZOB 4.5 GM 4.5 GM in DEXTROSE 5%-WATER - 100 ML IVPB ONE (19:30)
[2017-09-15 19:42] LABS: ARTERIAL BLOOD GAS PCO2 37.8 mmHg (35-45); ARTERIAL BLOOD GAS pH 7.41 (7.35-7.45)
[2017-09-15 19:43] LABS: ARTERIAL BLD GAS O2 SATURATION 99.3 % (90-98.9)
[2017-09-15 19:49] LABS: ALLENS TEST POSITIVE; ARTERIAL BLOOD GAS BASE EXCESS -0.1 meq/l (-2-2)
[2017-09-15 20:14] LABS: HEMATOCRIT 37.6 % (32.4-45.2); HEMOGLOBIN 11.9 GM/dL (10.7-15.3); LYMPH % 5.8 % (8-40); MCH 25.4 pg (25.7-33.7); MCHC 31.8 g/dl (32.0-36.0); MEAN CELL VOLUME 79.9 fl (80-96); MEAN PLT VOLUME 8.4 fl (7.5-11.1); MONO % 1.4 % (3.8-10.2); NEUT % 92.8 % (42.8-82.8); PLATELET COUNT 348 K/MM3 (134-434); RDW 16.9 % (11.6-15.6); WHITE BLOOD COUNT 15.3 K/mm3 (4.0-10.0)
[2017-09-15] MEDS ORDERED: PIPERACILLIN/TAZOB 4.5 GM 4.5 GM/100 ML BAG IVPB ONE (20:33)
[2017-09-15] MEDS ORDERED: ALBUTEROL SO4 0.083% IH SOL 2.5 MG/3 ML VIAL.NEB. NEB ONE (21:18)
[2017-09-15 21:21] LABS: ALBUMIN 3.6 g/dl (3.4-5.0); ALK PHOS 97 U/L (45-117); ANION GAP 12 (8-16); BILIRUBIN,TOTAL 0.4 mg/dL (0.2-1.0); BLOOD UREA NITROGEN 15 mg/dL (7-18); CHLORIDE 104 mmol/L (98-107); CO2 21 mmol/L (21-32); CREATININE 0.7 mg/dL (0.55-1.02); GLUCOSE,RANDOM 179 mg/dL (74-106); POTASSIUM 4.2 mmol/L (3.5-5.1); SGOT/AST 11 U/L (15-37); SGPT/ALT 44 U/L (12-78); SODIUM 137 mmol/L (136-145); TOT PROT 6.8 g/dl (6.4-8.2)
[2017-09-16] MEDS ORDERED: ALBUTEROL SO4 0.083% IH SOL 2.5 MG/3 ML VIAL.NEB. NEB PRN (00:05)
[2017-09-16] MEDS ORDERED: ALBUTEROL SO4 2.5/IPRATROPIUM 0.5 INH SOL 3 ML VIAL.NEB. NEB ONE ×3 (00:17→11:22)
--- NOTE | 2017-09-16 00:17 | HP ---
CHIEF COMPLAINT: SOB PCP:Alicia Ibarra HISTORY OF PRESENT ILLNESS: 51 yo F significant PMHx of asthma and emphysema/COPD with 8 prior intubations and hypothyroid presented to the Er with progressively worsening dyspnea since this AM. Did not improve at home with neb treatments which prompted her to the ER. assoc with chills, dyspnea, pleuritic CP, non productive cough, and dry mouth. Was discharged on 09/09/17 with PNA and steroid taper. denies fever, N/V/ C/D, dizzyness or blurred vision currently on steroid taper at home. complete 7 day levaquin course during hospital stay. ER course was notable for: (1)Medrol 125mcg (2)duonebs x4 (3) Recent Travel:none PAST MEDICAL HISTORY:as above PAST SURGICAL HISTORY:none Social History: Smoking:denies Alcohol:denies Drugs: denies Family History:not contributory Allergies No Known Allergies Allergy (Verified 09/15/17 17:58) HOME MEDICATIONS: Home Medications Medication Instructions Recorded Albuterol 0.083% Nebulizer Harriett 1 amp NEB QID #120 amp 07/20/17 [Ventolin 0.083% Nebulizer Soln -] Albuterol Sulfate Inhaler - 1 - 2 inh PO QID #1 inhaler 07/20/17 [Ventolin HFA Inhaler -] Ipratropium 0.02% Nebulizer 1 amp NEB QID #120 amp 07/20/17 [Atrovent 0.02% Nebulizer -] Levothyroxine [Synthroid -] 25 mcg PO DAILY #30 tablet 07/20/17 Loratadine [Claritin] 10 mg PO DAILY #30 tablet 07/20/17 Montelukast Na [Singulair -] 10 mg PO HS #30 tablet 07/20/17 Omeprazole 20 mg PO DAILY 07/20/17 Salmeterol/Fluticasone [Advair 1 inh IH BID #60 inh 07/20/17 500Mcg/50Mcg -] Tiotropium [place] [Spiriva] 1 inh PO DAILY 07/20/17 Trazodone HCl 50 mg PO HS 07/20/17 Miscellaneous Drug Not In Syst 1 each ASDIR #1 misc 09/09/17 [Outpatient Lab Test] Prednisone [Deltasone -] See Taper PO DAILY #30 tablet 09/09/17 REVIEW OF SYSTEMS CONSTITUTIONAL: chills, Absent: fever, diaphoresis, generalized weakness, malaise, loss of appetite, weight change HEENT: Absent: rhinorrhea, nasal congestion, throat pain, throat swelling, difficulty swallowing, mouth swelling, ear pain, eye pain, visual changes CARDIOVASCULAR: chest pain, Absent: syncope, palpitations, irregular heart rate, lightheadedness, peripheral edema RESPIRATORY: shortness of breath, dyspnea with exertion Absent: cough, , orthopnea, wheezing, stridor, hemoptysis GASTROINTESTINAL: Absent: abdominal pain, abdominal distension, nausea, vomiting, diarrhea, constipation, melena, hematochezia GENITOURINARY: Absent: dysuria, frequency, urgency, hesitancy, hematuria, flank pain, genital pain MUSCULOSKELETAL: Absent: myalgia, arthralgia, joint swelling, back pain, neck pain SKIN: Absent: rash, itching, pallor HEMATOLOGIC/IMMUNOLOGIC: Absent: easy bleeding, easy bruising, lymphadenopathy, frequent infections ENDOCRINE: Absent: unexplained weight gain, unexplained weight loss, heat intolerance, cold intolerance NEUROLOGIC: Absent: headache, focal weakness or paresthesias, dizziness, unsteady gait, seizure, mental status changes, bladder or bowel incontinence PSYCHIATRIC: Absent: anxiety, depression, suicidal or homicidal ideation, hallucinations. PHYSICAL EXAMINATION Vital Signs - 24 hr 09/15/17 09/15/17 09/15/17 17:54 18:10 18:56 Temperature 98.6 F Pulse Rate 108 H Pulse Rate [ 107 H 99 H Left Radial] Respiratory 40 H 30 H 15 Rate Blood Pressure 134/76 Blood Pressure 164/91 146/87 [Right Arm] O2 Sat by Pulse 96 100 100 Oximetry (%) GENERAL: Awake, alert, and fully oriented, +tachypnic, +diaphoretic HEAD: Normal with no signs of trauma. EYES: Pupils equal, round and reactive to light, extraocular movements intact, sclera anicteric, conjunctiva clear. No lid lag. EARS, NOSE, THROAT: Ears normal, nares patent, oropharynx clear without exudates. Moist mucous membranes. NECK: Normal range of motion, supple without lymphadenopathy, JVD, or masses. no stridor LUNGS: decrease air entry, no breath sounds bases. Breath sounds equal, clear to auscultation bilaterally. No wheezes, and no crackles. HEART: tachycardic, normal S1 and S2 without murmur, rub or gallop. +chest wall tenderness ABDOMEN: Soft, nontender, not distended, normoactive bowel sounds, no guarding, no rebound, no masses. No hepatomegaly or splenomegaly. MUSCULOSKELETAL: Normal range of motion at all joints. No bony deformities or tenderness. No CVA tenderness. UPPER EXTREMITIES: 2+ pulses, warm, well-perfused. No cyanosis. No clubbing. No peripheral edema. LOWER EXTREMITIES: 2+ pulses, warm, well-perfused. No calf tenderness. No peripheral edema. NEUROLOGICAL: Cranial nerves II-XII intact. Normal speech. Normal gait. PSYCHIATRIC: Cooperative. Good eye contact. Appropriate mood and affect. SKIN: Warm, dry, normal turgor, no rashes or lesions noted, normal capillary refill. Laboratory Results - last 24 hr 09/15/17 09/15/17 09/15/17 18:20 18:20 18:20 WBC RBC Hgb Hct MCV MCH MCHC RDW Plt Count MPV Neutrophils % Lymphocytes % Monocytes % Eosinophils % Basophils % PTT (Actin FS) 22.8 L Anticoagulation Therapy Puncture Site ABG pH ABG pCO2 at Pt Temp ABG pO2 at Pt Temp ABG HCO3 ABG O2 Sat (Measured) ABG O2 Content ABG Base Excess Kenn Test Methemoglobin O2 Delivery Device Oxygen Flow Rate Vent Mode Vent Rate Mechanical Rate PEEP Pressure Support Vent Sodium Cancelled Potassium Cancelled Chloride Cancelled Carbon Dioxide Cancelled Anion Gap Cancelled BUN Cancelled Creatinine Cancelled Creat Clearance w eGFR Cancelled Random Glucose Cancelled Lactic Acid 2.8 H* Calcium Cancelled Magnesium Cancelled Total Bilirubin Cancelled AST Cancelled ALT Cancelled Alkaline Phosphatase Cancelled Creatine Kinase Cancelled Troponin I Cancelled B-Natriuretic Peptide Total Protein Cancelled Albumin Cancelled 09/15/17 09/15/17 09/15/17 18:20 18:20 19:20 WBC 19.4 H D RBC 5.04 Hgb 12.7 Hct 40.8 MCV 81.0 MCH 25.3 L MCHC 31.2 L RDW 17.3 H Plt Count 393 MPV 9.1 D Neutrophils % 90.0 H Lymphocytes % 7.4 L Monocytes % 2.4 L Eosinophils % 0.0 Basophils % 0.2 PTT (Actin FS) Anticoagulation Therapy No Result Required. Puncture Site Right radial ABG pH 7.41 ABG pCO2 at Pt Temp 37.8 ABG pO2 at Pt Temp 219.0 H* ABG HCO3 23.7 ABG O2 Sat (Measured) 99.3 H ABG O2 Content 17.1 ABG Base Excess -0.1 Kenn Test Positive Methemoglobin No Result Required. O2 Delivery Device Aerosol Oxygen Flow Rate 8 Vent Mode No Result Required. Vent Rate No Result Required. Mechanical Rate No Result Required. PEEP 0.0 Pressure Support Vent No Result Required. Sodium Potassium Chloride Carbon Dioxide Anion Gap BUN Creatinine Creat Clearance w eGFR Random Glucose Lactic Acid Calcium Magnesium Total Bilirubin AST ALT Alkaline Phosphatase Creatine Kinase Troponin I B-Natriuretic Peptide Cancelled Total Protein Albumin 09/15/17 09/15/17 19:40 19:40 WBC 15.3 H RBC 4.70 Hgb 11.9 Hct 37.6 MCV 79.9 L MCH 25.4 L MCHC 31.8 L RDW 16.9 H Plt Count 348 MPV 8.4 Neutrophils % 92.8 H Lymphocytes % 5.8 L D Monocytes % 1.4 L Eosinophils % 0.0 Basophils % 0.0 PTT (Actin FS) Anticoagulation Therapy Puncture Site ABG pH ABG pCO2 at Pt Temp ABG pO2 at Pt Temp ABG HCO3 ABG O2 Sat (Measured) ABG O2 Content ABG Base Excess Kenn Test Methemoglobin O2 Delivery Device Oxygen Flow Rate Vent Mode Vent Rate Mechanical Rate PEEP Pressure Support Vent Sodium 137 Potassium 4.2 Chloride 104 Carbon Dioxide 21 D Anion Gap 12 BUN 15 Creatinine 0.7 Creat Clearance w eGFR > 60 Random Glucose 179 H D Lactic Acid Calcium 9.0 Magnesium Total Bilirubin 0.4 AST 11 L D ALT 44 Alkaline Phosphatase 97 Creatine Kinase Troponin I B-Natriuretic Peptide Total Protein 6.8 Albumin 3.6 ASSESSMENT/PLAN: 51 yo F significant PMHx of asthma and emphysema/COPD with 8 prior intubations and hypothyroid presented to the Er with progressively worsening dyspnea since this AM. 1. Acute COPD exacerbation- medicine admission. received Medrol 125mcg, Mg IV, Vanco/Zosyn in the ER. start Medrol 60mg Q6H. will hold abx at this time. f/u CXR, duonebs Q6H and albuterol prn. pulmonary consult. resume inhalers. may need step up in treatment 2. Acute hypoxic respiratory distress- continues to be tachypnic and tachycardic. was on venti mask earlier now saturating 100% on 3L NC. cont supplemental oxygen as needed. 3. Leukocytosis- likley due to steroids and acute phase reactant. labs repeated in the ER. and has returned to labs on discharge 4. Lactic acidosis- due to hypoxia. repeat 5. Pleuritic CP- due to cough. appears pleuritic. motrin prn 6. Multiple pulmonary nodules- largest being 1.5cm in RUL. periodic surveillance 7. Hypothyroid- cont LT4 8. DVT ppx- lovenox Visit type - Emergency Visit Emergency Visit: Yes ED Registration Date: 09/15/17 Care time: The patient presented to the Emergency Department on the above date and was hospitalized for further evaluation of their emergent condition. - New Patient This patient is new to me today: Yes Date on this admission: 09/15/17 - Critical Care Critical Care patient: Yes
[2017-09-16] MEDS: ALBUTEROL SO4 2.5/IPRATROPIUM 0.5 INH SOL 3 ML VIAL.NEB. NEB SCH ×5 (00:23→23:14)
[2017-09-16] MEDS ORDERED: SODIUM CHLORIDE 0.9% 1000 ML INFUS.BAG IV ONE (01:56)
[2017-09-16] MEDS ORDERED: methylPREDNISolone NA SUCC 125 MG/2 ML VIAL ONE ×2 (03:12→14:23)
[2017-09-16] MEDS: methylPREDNISolone NA SUCC 40 MG/1 ML VIAL IVPUSH SCH ×4 (03:20→21:29)
[2017-09-16 06:20] LABS: HEMATOCRIT 32.7 % (32.4-45.2); HEMOGLOBIN 10.5 GM/dL (10.7-15.3); MCHC 32.2 g/dl (32.0-36.0); MEAN CELL VOLUME 80.6 fl (80-96); MEAN PLT VOLUME 8.5 fl (7.5-11.1); PLATELET COUNT 323 K/MM3 (134-434); RBC 4.05 M/mm3 (3.60-5.2); RDW 16.9 % (11.6-15.6); WHITE BLOOD COUNT 13.9 K/mm3 (4.0-10.0)
[2017-09-16 06:44] LABS: ANION GAP 11 (8-16); BLOOD UREA NITROGEN 12 mg/dL (7-18); CALCIUM 8.6 mg/dL (8.5-10.1); CHLORIDE 109 mmol/L (98-107); CO2 22 mmol/L (21-32); CREATININE 0.6 mg/dL (0.55-1.02); GLUCOSE,RANDOM 123 mg/dL (74-106); POTASSIUM 4.4 mmol/L (3.5-5.1); SODIUM 142 mmol/L (136-145)
[2017-09-16] MEDS ORDERED: LEVOTHYROXINE NA 25 MCG TABLET (FP) ONE (07:39)
[2017-09-16] MEDS: LEVOTHYROXINE NA 25 MCG TABLET (FP) PO SCH (07:53)
[2017-09-16] MEDS ORDERED: methylPREDNISolone NA SUCC 40 MG/1 ML VIAL ONE ×2 (07:58→07:59)
[2017-09-16] MEDS ORDERED: ENOXAPARIN NA (PORCINE) 40 MG/0.4 ML DISP.SYRIN SQ ONE (07:58)
[2017-09-16] MEDS ORDERED: PANTOPRAZOLE 40 MG TABLET (FP) ONE (07:58)
[2017-09-16] MEDS: ENOXAPARIN NA (PORCINE) 40 MG/0.4 ML DISP.SYRIN SQ SCH (09:05)
[2017-09-16] MEDS: PANTOPRAZOLE 20 MG TABLET (FP) PO SCH (09:05)
[2017-09-16 09:16] LABS: ANISOCYTOSIS 3+; MACROCYTOSIS 0; PLATELET ESTIMATE NORMAL
[2017-09-16] MEDS: BUDESONIDE/FORMETEROL FUMARATE 160/4.5 mcg INHALER IH SCH (09:56)
[2017-09-16] MEDS ORDERED: TIOTROPIUM BROMIDE 18 MCG/INH (DEVICE W/ 5 CAPSULES) IH SCH (10:00)
[2017-09-16] MEDS ORDERED: ACETAMINOPHEN 325 MG TABLET (FP) PO ONE (11:28)
[2017-09-16] MEDS ORDERED: ACETAMINOPHEN 325 MG TABLET (FP) ONE (12:14)
--- NOTE | 2017-09-16 12:29 | EKG ---
Test Reason : Blood Pressure : / mmHG Vent. Rate : 126 BPM Atrial Rate : 126 BPM P-R Int : 150 ms QRS Dur : 086 ms QT Int : 308 ms P-R-T Axes : 043 -09 031 degrees QTc Int : 446 ms SINUS TACHYCARDIA MINIMAL VOLTAGE CRITERIA FOR LVH, MAY BE NORMAL VARIANT NONSPECIFIC ST ABNORMALITY ABNORMAL ECG WHEN COMPARED WITH ECG OF 03-SEP-2017 18:07, NO SIGNIFICANT CHANGE WAS FOUND Confirmed by IDA PALACIO, MICHAEL ([id number]) on 09/16/2017 12:28:58 PM Referred By: Confirmed By:MICHAEL PRIETO MD
--- NOTE | 2017-09-16 13:10 | CON.PULM ---
Consult Consult Specialty:: PULMONARY Referred by:: EDITA Reason for Consultation:: ASTHMA - History of Present Illness Chief Complaint: COUGH/HOARSENESS OF VOICE/WHEEZE/SOB History of Present Illness: 52 H FEMALE EVACUATED FROM [place] DUE TO HURRICANE. HAS A H/O CHRONIC PERSISTENT ASTHMA WITH 8 PRIOR ETT/MVV, PER PATIENT. RECENT [facility] ADMISSION FOR A/E B.ASTHMA AND CABP. DID WELL AND WAS DISCHARGED TO HOME ON APPROPRIATE MEDICATIONS AND STEROID TAPER. AFTER 3 -5 DAYS SYMPTOMS BEGAN TO RETURN AND NECESSITATED ER RE-EVAL. NOW WITH COUGH/ WHEEZE/SOB AND HOARSENESS OF VOICE. 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 No: O2 Dependent , Pulmonary Embolus, Pulmonary Fibrosis Endocrine: Yes: Hypothyroidism - Alcohol/Substance Use Hx Alcohol Use: No - Smoking History Smoking history: Never smoked - Social History Place of : Other History of Recent Travel: Yes (FROM [place]) Home Medications - Allergies Allergies/Adverse Reactions: Allergies Allergy/AdvReac Type Severity Reaction Status Date / Time No Known Allergies Allergy Verified 09/15/17 17:58 - Home Medications Home Medications: Ambulatory Orders Albuterol 0.083% Nebulizer [place] [Ventolin 0.083% Nebulizer Soln -] 1 amp NEB QID #120 amp 07/20/17 Albuterol Sulfate Inhaler - [Ventolin HFA Inhaler -] 1 - 2 inh PO QID #1 inhaler 07/20/17 Ipratropium 0.02% Nebulizer [Atrovent 0.02% Nebulizer -] 1 amp NEB QID #120 amp 07/20/17 Levothyroxine [Synthroid -] 25 mcg PO DAILY #30 tablet 07/20/17 Loratadine [Claritin] 10 mg PO DAILY #30 tablet 07/20/17 Montelukast Na [Singulair -] 10 mg PO HS #30 tablet 07/20/17 Omeprazole 20 mg PO DAILY 07/20/17 Salmeterol/Fluticasone [Advair 500Mcg/50Mcg -] 1 inh IH BID #60 inh 07/20/17 Tiotropium [place] [Spiriva] 1 inh PO DAILY 07/20/17 Trazodone HCl 50 mg PO HS 07/20/17 Miscellaneous Drug Not In Syst [Outpatient Lab Test] 1 each ASDIR #1 misc Prednisone [Deltasone -] See Taper PO DAILY #30 tablet 09/09/17 Family Disease History - Family Disease History Family History: Unremarkable Review of Systems - Review of Systems Constitutional: denies: Fever Eyes: denies: Blurred Vision HENT: denies: Difficult Swallowing Neck: denies: Decreased ROM Cardiovascular: reports: Chest Pain. denies: Palpitations Respiratory: reports: Cough, Exercise Intolerance, SOB, SOB on Exertion, Wheezing. denies: Hemoptysis Gastrointestinal: denies: Abdominal Pain Genitourinary: denies: Burning Breasts: reports: No Symptoms Reported Physical Exam Vital Sings: Vital Signs Temperature 98.6 F 09/15/17 17:54 Pulse Rate 90 09/16/17 11:21 Respiratory Rate 18 09/16/17 11:21 Blood Pressure 136/95 09/16/17 11:21 O2 Sat by Pulse Oximetry (%) 97 09/16/17 11:21 Eyes: Yes: EOM Intact HENT: Yes: Normocephalic. No: Thrush Neck: Yes: Trachea Midline Cardiovascular: Yes: Regular Rate and Rhythm, S1, S2 Respiratory: Yes: Diminished, Wheezes (END EXP WHEEZES DIFFUSE B/L) Gastrointestinal: Yes: Normal Bowel Sounds Extremities: Yes: WNL Edema: No Neurological: Yes: Alert Labs: CBC, BMP 09/16/17 05:40 09/16/17 05:40 ABG Results ABG pH 7.41 (7.35-7.45) 09/15/17 19:20 ABG pCO2 at Pt Temp 37.8 mmHg (35-45) 09/15/17 19:20 ABG pO2 at Pt Temp 219.0 mmHg (80-100) H* 09/15/17 19:20 ABG HCO3 23.7 meq/L (22-26) 09/15/17 19:20 ABG O2 Sat (Measured) 99.3 % (90-98.9) H 09/15/17 19:20 ABG O2 Content 17.1 % vol (15-22) 09/15/17 19:20 ABG Base Excess -0.1 meq/l (-2-2) 09/15/17 19:20 REST REVIEWED Imaging - Results Chest X-ray: Report Reviewed, Image Reviewed Cat Scan: Report Reviewed, Image Reviewed Problem List - Problems (1) Asthma exacerbation Code(s): J45.901 - UNSPECIFIED ASTHMA WITH (ACUTE) EXACERBATION Qualifiers: (2) Respiratory distress, acute Code(s): R06.03 - ACUTE RESPIRATORY DISTRESS (3) DVT prophylaxis Code(s): JSC6065 - (4) PNA (pneumonia) Code(s): J18.9 - PNEUMONIA, UNSPECIFIED ORGANISM Qualifiers: Pneumonia type: due to unspecified organism Laterality: right Lung location: lower lobe of lung Qualified Code(s): J18.1 - Lobar pneumonia, unspecified organism (5) Hypothyroidism Code(s): E03.9 - HYPOTHYROIDISM, UNSPECIFIED Qualifiers: Hypothyroidism type: acquired Qualified Code(s): E03.9 - Hypothyroidism, unspecified Assessment/Plan RE-ADMISSION FOR ACUTE ON CHRONIC PERSISTENT ASTHMA WITH HOARSENESS OF VOICE RECENT PNEUMONIA ADEQUATELY TREATED MULTIPLE ETT/MVV DUE TO RESP FAILURE THYROID DISEASE R/O VCD RESTART IV STEROIDS/CLARIBEL/LABA/LAMA/ICS ENT EVAL R/O UPPER AIRWAY COMPONENT LOW THRESH-HOLD FOR RESTARTING ANTIBIOTICS CHECK CRP WILL FOLLOW WITH YOU Mima HAYNES MD
[2017-09-16] MEDS ORDERED: ALBUTEROL SO4 0.083% IH SOL 2.5 MG/3 ML VIAL.NEB. NEB ONE (14:23)
--- NOTE | 2017-09-16 14:46 | PN ---
Teaching Attending Note Name of Resident: Swati Bolanos ATTENDING PHYSICIAN STATEMENT I saw and evaluated the patient. I reviewed the resident's note and discussed the case with the resident. I agree with the resident's findings and plan as documented. SUBJECTIVE: Patient feels upset that she is having difficulty with breathing. Was discharged recently, misty.having difficulty with exertion. No fever or chills, no shortness of breath. OBJECTIVE: Vital Signs Temperature 98.6 F 09/15/17 17:54 Pulse Rate 95 H 09/16/17 13:12 Respiratory Rate 18 09/16/17 13:12 Blood Pressure 117/65 09/16/17 13:12 O2 Sat by Pulse Oximetry (%) 97 09/16/17 13:12 CBCD WBC 13.9 K/mm3 (4.0-10.0) H 09/16/17 05:40 RBC 4.05 M/mm3 (3.60-5.2) 09/16/17 05:40 Hgb 10.5 GM/dL (10.7-15.3) L D 09/16/17 05:40 Hct 32.7 % (32.4-45.2) 09/16/17 05:40 MCV 80.6 fl (80-96) 09/16/17 05:40 MCHC 32.2 g/dl (32.0-36.0) 09/16/17 05:40 RDW 16.9 % (11.6-15.6) H 09/16/17 05:40 Plt Count 323 K/MM3 (134-434) 09/16/17 05:40 MPV 8.5 fl (7.5-11.1) 09/16/17 05:40 CMP Sodium 142 mmol/L (136-145) 09/16/17 05:40 Potassium 4.4 mmol/L (3.5-5.1) 09/16/17 05:40 Chloride 109 mmol/L (98-107) H 09/16/17 05:40 Carbon Dioxide 22 mmol/L (21-32) 09/16/17 05:40 Anion Gap 11 (8-16) 09/16/17 05:40 BUN 12 mg/dL (7-18) 09/16/17 05:40 Creatinine 0.6 mg/dL (0.55-1.02) 09/16/17 05:40 Creat Clearance w eGFR > 60 (>60) 09/15/17 19:40 Random Glucose 123 mg/dL (74-106) H D 09/16/17 05:40 Calcium 8.6 mg/dL (8.5-10.1) 09/16/17 05:40 Total Bilirubin 0.4 mg/dL (0.2-1.0) 09/15/17 19:40 AST 11 U/L (15-37) L D 09/15/17 19:40 ALT 44 U/L (12-78) 09/15/17 19:40 Alkaline Phosphatase 97 U/L (45-117) 09/15/17 19:40 Total Protein 6.8 g/dl (6.4-8.2) 09/15/17 19:40 Albumin 3.6 g/dl (3.4-5.0) 09/15/17 19:40 CARDIAC ENZYMES Creatine Kinase Cancelled 09/15/17 18:20 Troponin I Cancelled 09/15/17 18:20 Current Medications Generic Name Dose Route Start Last Admin Trade Name Freq PRN Reason Stop Dose Admin Albuterol Sulfate 1 amp 09/16/17 00:05 09/16/17 14:21 Ventolin 0.083% Nebulizer Soln - NEB 1 amp Q4H PRN Administration SHORT OF BREATH/WHEEZING Albuterol/Ipratropium 1 amp 09/16/17 00:00 09/16/17 11:24 Duoneb - NEB 1 amp QIDR MAXIM Administration Budesonide/Formoterol Fumarate 2 puff 09/16/17 10:00 09/16/17 09:56 Symbicort 160/4.5mcg - IH Not Given BID MAXIM Enoxaparin Sodium 40 mg 09/16/17 10:00 09/16/17 09:05 Lovenox - SQ 40 mg DAILY MAXIM Administration Levothyroxine Sodium 25 mcg 09/16/17 07:00 09/16/17 07:53 Synthroid - PO Not Given DAILY@0700 MAXIM Methylprednisolone Sodium Succinate 60 mg 09/16/17 03:00 09/16/17 14:20 Solu-Medrol - IVPUSH 60 mg Q6H-IV MAXIM Administration Montelukast Sodium 10 mg 09/16/17 22:00 Singulair - PO HS MAXIM Pantoprazole Sodium 20 mg 09/16/17 10:00 09/16/17 09:05 Protonix - PO 20 mg DAILY MAXIM Administration Tiotropium [place] 1 puff 09/16/17 10:00 09/16/17 09:56 Spiriva - IH Not Given DAILY [facility] Home Medications Medication Instructions Recorded Albuterol 0.083% Nebulizer [place] 1 amp NEB QID #120 amp 07/20/17 [Ventolin 0.083% Nebulizer Soln -] Albuterol Sulfate Inhaler - 1 - 2 inh PO QID #1 inhaler 07/20/17 [Ventolin HFA Inhaler -] Ipratropium 0.02% Nebulizer 1 amp NEB QID #120 amp 07/20/17 [Atrovent 0.02% Nebulizer -] Levothyroxine [Synthroid -] 25 mcg PO DAILY #30 tablet 07/20/17 Loratadine [Claritin] 10 mg PO DAILY #30 tablet 07/20/17 Montelukast Na [Singulair -] 10 mg PO HS #30 tablet 07/20/17 Omeprazole 20 mg PO DAILY 07/20/17 Salmeterol/Fluticasone [Advair 1 inh IH BID #60 inh 07/20/17 500Mcg/50Mcg -] Tiotropium [place] [Spiriva] 1 inh PO DAILY 07/20/17 Trazodone HCl 50 mg PO HS 07/20/17 Miscellaneous Drug Not In Syst 1 each ASDIR #1 misc 09/09/17 [Outpatient Lab Test] Prednisone [Deltasone -] See Taper PO DAILY #30 tablet 09/09/17 PE: Decreased BS BL, decreased air entry BL Neuro: AAOx3, NFD rest of PE per resident's note. ASSESSMENT AND PLAN: Patient is a 51 yo Female was discharged recently ,with significant PMHx of asthma and emphysema/COPD with 8 x of intubations in the past. Presented with progressive worsening of dyspnea on exertion. # Acute Exacerbation of COPD : On Solu Medrol 125mg x 1 , followed with 60mg q6 , s/p Vanco/Zosyn in the ER. No further antibiotics for now, since patient was recently discharged home on Levaquin and completed the course. Continue duonebs Q6H and albuterol prn. pulmonary consult. Hold Spiriva for now, since patient is on Duoneb. # Acute hypoxic respiratory distress- due to COPD exacerbation continue nebs for now. was on 100% VM, Outpatient follow up with [facility] director for pulmonary function test, needs close follow up. # Acute Leukocytosis- likely due to steroids. will monitor # Lactic acidosis- due to hypoxia. will repeat the level # Multiple pulmonary nodules- largest being 1.5cm in RUL. periodic surveillance # Hypothyroidism continue Synthroid # Morbid Obesity: patient was encouraged weight loss since is affecting her breathing, will get nutrition consult to help her diet to improve her breathing. DVT ppx- lovenox
--- NOTE | 2017-09-16 16:58 | PN ---
Physical Exam: SUBJECTIVE: Patient seen and examined. c/o dry cough and sob. no fever, chills, or chest pain. OBJECTIVE: Vital Signs Period Temp Pulse Resp BP Sys/Gomez Pulse Ox Last 24 Hr 98.6 F 75-111 15-40 101-164/63-95 95-100 GENERAL: nad, aaox3 EYES: sclera anicteric, conjunctiva clear ENT: oropharynx clear without exudates, MMM LUNGS: decreased airway entry bilaterally HEART: rrr, normal s1/2, no m/r/g ABDOMEN: obese, soft, ntnd LOWER EXTREMITIES: 2+ DP pulses, wwp, no edema CBC, BMP 09/16/17 05:40 09/16/17 05:40 Hepatic Panel Total Bilirubin 0.4 mg/dL (0.2-1.0) 09/15/17 19:40 AST 11 U/L (15-37) L D 09/15/17 19:40 ALT 44 U/L (12-78) 09/15/17 19:40 Alkaline Phosphatase 97 U/L (45-117) 09/15/17 19:40 Albumin 3.6 g/dl (3.4-5.0) 09/15/17 19:40 Active Medications Albuterol Sulfate (Ventolin 0.083% Nebulizer Soln -) 1 amp NEB Q4H PRN PRN Reason: SHORT OF BREATH/WHEEZING Last Admin: 09/16/17 14:21 Dose: 1 amp Albuterol/Ipratropium (Duoneb -) 1 amp NEB QIDR [facility] Last Admin: 09/16/17 17:36 Dose: 1 amp Budesonide/Formoterol Fumarate (Symbicort 160/4.5mcg -) 2 puff IH BID [facility] Last Admin: 09/16/17 09:56 Dose: Not Given Enoxaparin Sodium (Lovenox -) 40 mg SQ DAILY [facility] Last Admin: 09/16/17 09:05 Dose: 40 mg Levothyroxine Sodium (Synthroid -) 25 mcg PO DAILY@0700 [facility] Last Admin: 09/16/17 07:53 Dose: Not Given Methylprednisolone Sodium Succinate (Solu-Medrol -) 60 mg IVPUSH Q6H-IV [facility] Last Admin: 09/16/17 14:20 Dose: 60 mg Montelukast Sodium (Singulair -) 10 mg PO HS MAXIM Pantoprazole Sodium (Protonix -) 20 mg PO DAILY [facility] Last Admin: 09/16/17 09:05 Dose: 20 mg Tiotropium [place] (Spiriva -) 1 puff IH DAILY [facility] Last Admin: 09/16/17 09:56 Dose: Not Given ASSESSMENT/PLAN: 51yo woman with asmtha/COPD with multiple past intubations, recently discharged on steroid taper who presents again with worsening CURRIE and found to have acute asthma exacerbation. #Acute asthma exacerbation -Pulmonology following -Continue solumedrol 60mg IV Q6H -Duo neds QIDR + Ventolin q4h prn -Symbicort 2puffs BID + home Singular -Hold Spiriva while on duo nebs -Received 1xdose Vanc/Zosyn in ED; recently completed 6day course of Levaquin on 09/09, no further abx for now -Daily peak flow measurements #leukocytosis likely 2/2 from steroids -will trend #lactic acidosis likely 2/2 from hypoxia, albuterol -will repeat in AM #hypothyroidism - continue home Synthroid #obesity -marble worker consult #FEN: PO hydration / lytes wnl / regular diet #DVT ppx- lovenox #Dispo: continue M/S Full code d/w Dr. Cristobal Bolanos MD PGY1 - Internal Medicine Visit type - Emergency Visit Emergency Visit: No - New Patient This patient is new to me today: No - Critical Care Critical Care patient: No - Discharge Referral Referred to [facility] No
[2017-09-16] MEDS: MONTELUKAST NA 10 MG TABLET PO SCH (21:29)
[2017-09-16] MEDS ORDERED: traZODone HCL 50 MG TABLET (FP) PO ONE (21:49)
[2017-09-17] MEDS: BUDESONIDE/FORMETEROL FUMARATE 160/4.5 mcg INHALER IH SCH ×3 (00:02→21:49)
[2017-09-17] MEDS: methylPREDNISolone NA SUCC 40 MG/1 ML VIAL IVPUSH SCH ×4 (03:30→21:44)
[2017-09-17] MEDS: LEVOTHYROXINE NA 25 MCG TABLET (FP) PO SCH (06:05)
[2017-09-17] MEDS: ALBUTEROL SO4 2.5/IPRATROPIUM 0.5 INH SOL 3 ML VIAL.NEB. NEB SCH ×4 (06:40→23:35)
[2017-09-17 08:16] LABS: HEMATOCRIT 36.2 % (32.4-45.2); HEMOGLOBIN 11.1 GM/dL (10.7-15.3); MCHC 30.8 g/dl (32.0-36.0); MEAN CELL VOLUME 81.4 fl (80-96); MEAN PLT VOLUME 9.1 fl (7.5-11.1); PLATELET COUNT 295 K/MM3 (134-434); RBC 4.45 M/mm3 (3.60-5.2); RDW 17.4 % (11.6-15.6); WHITE BLOOD COUNT 17.7 K/mm3 (4.0-10.0)
[2017-09-17 08:20] LABS: ANION GAP 10 (8-16); BLOOD UREA NITROGEN 16 mg/dL (7-18); CALCIUM 9.3 mg/dL (8.5-10.1); CHLORIDE 107 mmol/L (98-107); CO2 25 mmol/L (21-32); CREATININE 0.7 mg/dL (0.55-1.02); GLUCOSE,RANDOM 116 mg/dL (74-106); POTASSIUM 4.4 mmol/L (3.5-5.1); SODIUM 142 mmol/L (136-145)
[2017-09-17] MEDS: ENOXAPARIN NA (PORCINE) 40 MG/0.4 ML DISP.SYRIN SQ SCH (09:45)
[2017-09-17] MEDS: PANTOPRAZOLE 20 MG TABLET (FP) PO SCH (09:46)
[2017-09-17] MEDS ORDERED: BENZOCAINE/MENTH/CETYLPYRD CL 1 EACH LOZENGE MM PRN (09:51)
[2017-09-17] MEDS ORDERED: DOCUSATE SODIUM 100 MG CAPSULE (FP) PO ONE (10:30)
[2017-09-17] MEDS ORDERED: POLYETHYLENE GLYCOL 3350 119 GM BTL PO ONE (10:30)
[2017-09-17 11:16] LABS: ANISOCYTOSIS 2+; MACROCYTOSIS 0; PLATELET ESTIMATE NORMAL
--- NOTE | 2017-09-17 11:58 | PN ---
Progress Note, Physician History of Present Illness: PULMONARY ALERT,LESS DYSPNEIC,+COUGH - Current Medication List Current Medications: Active Medications Albuterol Sulfate (Ventolin 0.083% Nebulizer Soln -) 1 amp NEB Q4H PRN PRN Reason: SHORT OF BREATH/WHEEZING Last Admin: 09/16/17 14:21 Dose: 1 amp Albuterol/Ipratropium (Duoneb -) 1 amp NEB QIDR [facility] Last Admin: 09/17/17 06:40 Dose: 1 amp Benzocaine/Menthol (Cepacol Lozenge -) 1 each MM PRN PRN PRN Reason: SORE THROAT Budesonide/Formoterol Fumarate (Symbicort 160/4.5mcg -) 2 puff IH BID [facility] Last Admin: 09/17/17 09:45 Dose: 2 puff Enoxaparin Sodium (Lovenox -) 40 mg SQ DAILY [facility] Last Admin: 09/17/17 09:45 Dose: 40 mg Levothyroxine Sodium (Synthroid -) 25 mcg PO DAILY@0700 [facility] Last Admin: 09/17/17 06:05 Dose: Not Given Methylprednisolone Sodium Succinate (Solu-Medrol -) 60 mg IVPUSH Q6H-IV [facility] Last Admin: 09/17/17 09:45 Dose: 60 mg Montelukast Sodium (Singulair -) 10 mg PO HS [facility] Last Admin: 09/16/17 21:29 Dose: 10 mg Pantoprazole Sodium (Protonix -) 20 mg PO DAILY [facility] Last Admin: 09/17/17 09:46 Dose: 20 mg Tiotropium [place] (Spiriva -) 1 puff IH DAILY [facility] Last Admin: 09/16/17 09:56 Dose: Not Given - Objective Vital Signs: Vital Signs Temperature 98.2 F 09/17/17 08:00 Pulse Rate 104 H 09/17/17 08:00 Respiratory Rate 16 09/17/17 08:00 Blood Pressure 150/88 09/17/17 08:00 O2 Sat by Pulse Oximetry (%) 96 09/16/17 21:00 Constitutional: Yes: Well Nourished, Calm Eyes: Yes: WNL HENT: Yes: WNL Neck: Yes: WNL Cardiovascular: Yes: Regular Rate and Rhythm, S1, S2 Respiratory: Yes: Wheezes (SCATTERED JUAN DANIEL WHEEZES) Gastrointestinal: Yes: Normal Bowel Sounds, Soft Extremities: Yes: WNL Edema: No Labs: CBC, BMP 09/17/17 05:25 09/17/17 05:25 Assessment/Plan Problem List - Problems (1) Asthma exacerbation Code(s): J45.901 - UNSPECIFIED ASTHMA WITH (ACUTE) EXACERBATION Qualifiers: (2) Respiratory distress, acute Code(s): R06.03 - ACUTE RESPIRATORY DISTRESS (3) DVT prophylaxis Code(s): FSR7326 - (4) PNA (pneumonia) Code(s): J18.9 - PNEUMONIA, UNSPECIFIED ORGANISM Qualifiers: Pneumonia type: due to unspecified organism Laterality: right Lung location: lower lobe of lung Qualified Code(s): J18.1 - Lobar pneumonia, unspecified organism (5) Hypothyroidism Code(s): E03.9 - HYPOTHYROIDISM, UNSPECIFIED Qualifiers: Hypothyroidism type: acquired Qualified Code(s): E03.9 - Hypothyroidism, unspecified Assessment/Plan ACUTE ON CHRONIC PERSISTENT ASTHMA WITH HOARSENESS OF VOICE RECENT PNEUMONIA ADEQUATELY TREATED MULTIPLE ETT/MVV DUE TO RESP FAILURE THYROID DISEASE R/O VCD IV STEROIDS SAME DOSE CLARIBEL/LABA/LAMA/ICS ENT EVAL R/O UPPER AIRWAY COMPONENT MONITOR PEAK FLOW DR DAVIS
--- NOTE | 2017-09-17 14:43 | PN ---
Physical Exam: SUBJECTIVE: Patient seen and examined. Feels her breathing is improved since yesterday. Continues to have dry cough. No BM for several days. OBJECTIVE: Vital Signs Period Temp Pulse Resp BP Sys/Gomez Pulse Ox Last 24 Hr 97.6 F-99.3 F 69-104 16-20 115-150/60-88 96-96 GENERAL: nad, aaox3, speaking in full sentences EYES: sclera anicteric, conjunctiva clear ENT: oropharynx clear without exudates, MMM LUNGS: end expiratory wheezing bilaterally, no accessory muscle use HEART: rrr, normal s1/2, no m/r/g ABDOMEN: obese, soft, ntnd, normoactive BS LOWER EXTREMITIES: 2+ DP pulses, wwp, no edema CBC, BMP 09/17/17 05:25 09/17/17 05:25 Hepatic Panel Total Bilirubin 0.4 mg/dL (0.2-1.0) 09/15/17 19:40 AST 11 U/L (15-37) L D 09/15/17 19:40 ALT 44 U/L (12-78) 09/15/17 19:40 Alkaline Phosphatase 97 U/L (45-117) 09/15/17 19:40 Albumin 3.6 g/dl (3.4-5.0) 09/15/17 19:40 Active Medications Albuterol Sulfate (Ventolin 0.083% Nebulizer Soln -) 1 amp NEB Q4H PRN PRN Reason: SHORT OF BREATH/WHEEZING Last Admin: 09/16/17 14:21 Dose: 1 amp Albuterol/Ipratropium (Duoneb -) 1 amp NEB QIDR [facility] Last Admin: 09/17/17 11:25 Dose: 1 amp Benzocaine/Menthol (Cepacol Lozenge -) 1 each MM PRN PRN PRN Reason: SORE THROAT Budesonide/Formoterol Fumarate (Symbicort 160/4.5mcg -) 2 puff IH BID [facility] Last Admin: 09/17/17 09:45 Dose: 2 puff Enoxaparin Sodium (Lovenox -) 40 mg SQ DAILY [facility] Last Admin: 09/17/17 09:45 Dose: 40 mg Levothyroxine Sodium (Synthroid -) 25 mcg PO DAILY@0700 [facility] Last Admin: 09/17/17 06:05 Dose: Not Given Methylprednisolone Sodium Succinate (Solu-Medrol -) 60 mg IVPUSH Q6H-IV [facility] Last Admin: 09/17/17 09:45 Dose: 60 mg Montelukast Sodium (Singulair -) 10 mg PO HS [facility] Last Admin: 09/16/17 21:29 Dose: 10 mg Pantoprazole Sodium (Protonix -) 20 mg PO DAILY [facility] Last Admin: 09/17/17 09:46 Dose: 20 mg ASSESSMENT/PLAN: 51yo woman with asmtha/COPD with multiple past intubations, recently discharged on steroid taper who presents again with worsening CURRIE and found to have acute asthma exacerbation. #Acute asthma exacerbation, peak flow pre&post: 150, 200 (ideal 376) -Pulmonology following -Continue solumedrol 60mg IV Q6H -Duo neds QIDR + Ventolin q4h prn -Symbicort 2puffs BID + home Singular -Hold home Spiriva while on duo nebs -Received 1xdose Vanc/Zosyn in ED; recently completed 6day course of Levaquin on 09/09, no further abx for now -Daily peak flow measurements #?vocal cord dysfunction -ENT consulted #constipation -Miralax BID #leukocytosis likely 2/2 from steroids -will trend #lactic acidosis, resolved, likely 2/2 from hypoxia, albuterol #hypothyroidism - continue home Synthroid #obesity -sodium methylate operator consult #FEN: PO hydration / lytes wnl / regular diet #PPX- -DVT Lovenox -GI - Protonix 20mg PO daily #Dispo: continue M/S Full code d/w Dr. Cristobal Bolanos MD PGY1 - Internal Medicine Visit type - Emergency Visit Emergency Visit: No - New Patient This patient is new to me today: No - Critical Care Critical Care patient: No
--- NOTE | 2017-09-17 20:26 | PN ---
Teaching Attending Note Name of Resident: Swati Bolanos ATTENDING PHYSICIAN STATEMENT I saw and evaluated the patient. I reviewed the resident's note and discussed the case with the resident. I agree with the resident's findings and plan as documented. SUBJECTIVE: Patient is feeling better, but is still having difficulty with breathing. in no acute distress though. OBJECTIVE: Vital Signs Temperature 98.0 F 09/17/17 18:00 Pulse Rate 74 09/17/17 18:00 Respiratory Rate 19 09/17/17 18:00 Blood Pressure 134/72 09/17/17 18:00 O2 Sat by Pulse Oximetry (%) 96 09/17/17 09:00 CBCD WBC 17.7 K/mm3 (4.0-10.0) H 09/17/17 05:25 RBC 4.45 M/mm3 (3.60-5.2) 09/17/17 05:25 Hgb 11.1 GM/dL (10.7-15.3) 09/17/17 05:25 Hct 36.2 % (32.4-45.2) 09/17/17 05:25 MCV 81.4 fl (80-96) 09/17/17 05:25 MCHC 30.8 g/dl (32.0-36.0) L 09/17/17 05:25 RDW 17.4 % (11.6-15.6) H 09/17/17 05:25 Plt Count 295 K/MM3 (134-434) 09/17/17 05:25 MPV 9.1 fl (7.5-11.1) 09/17/17 05:25 CMP Sodium 142 mmol/L (136-145) 09/17/17 05:25 Potassium 4.4 mmol/L (3.5-5.1) 09/17/17 05:25 Chloride 107 mmol/L (98-107) 09/17/17 05:25 Carbon Dioxide 25 mmol/L (21-32) 09/17/17 05:25 Anion Gap 10 (8-16) 09/17/17 05:25 BUN 16 mg/dL (7-18) D 09/17/17 05:25 Creatinine 0.7 mg/dL (0.55-1.02) 09/17/17 05:25 Creat Clearance w eGFR > 60 (>60) 09/15/17 19:40 Random Glucose 116 mg/dL (74-106) H 09/17/17 05:25 Calcium 9.3 mg/dL (8.5-10.1) 09/17/17 05:25 Total Bilirubin 0.4 mg/dL (0.2-1.0) 09/15/17 19:40 AST 11 U/L (15-37) L D 09/15/17 19:40 ALT 44 U/L (12-78) 09/15/17 19:40 Alkaline Phosphatase 97 U/L (45-117) 09/15/17 19:40 Total Protein 6.8 g/dl (6.4-8.2) 09/15/17 19:40 Albumin 3.6 g/dl (3.4-5.0) 09/15/17 19:40 CARDIAC ENZYMES Creatine Kinase Cancelled 09/15/17 18:20 Troponin I Cancelled 09/15/17 18:20 Current Medications Generic Name Dose Route Start Last Admin Trade Name Freq PRN Reason Stop Dose Admin Albuterol Sulfate 1 amp 09/16/17 00:05 09/16/17 14:21 Ventolin 0.083% Nebulizer Soln - NEB 1 amp Q4H PRN Administration SHORT OF BREATH/WHEEZING Albuterol/Ipratropium 1 amp 09/16/17 00:00 09/17/17 18:08 Duoneb - NEB 1 amp QIDR [facility] Administration Benzocaine/Menthol 1 each 09/17/17 09:51 Cepacol Lozenge - MM PRN PRN SORE THROAT Budesonide/Formoterol Fumarate 2 puff 09/16/17 10:00 09/17/17 09:45 Symbicort 160/4.5mcg - IH 2 puff BID [facility] Administration Enoxaparin Sodium 40 mg 09/16/17 10:00 09/17/17 09:45 Lovenox - SQ 40 mg DAILY [facility] Administration Levothyroxine Sodium 25 mcg 09/16/17 07:00 09/17/17 06:05 Synthroid - PO Not Given DAILY@0700 [facility] Methylprednisolone Sodium Succinate 60 mg 09/16/17 03:00 09/17/17 15:49 Solu-Medrol - IVPUSH 60 mg Q6H-IV [facility] Administration Montelukast Sodium 10 mg 09/16/17 22:00 09/16/17 21:29 Singulair - PO 10 mg HS [facility] Administration Pantoprazole Sodium 20 mg 09/16/17 10:00 09/17/17 09:46 Protonix - PO 20 mg DAILY [facility] Administration Polyethylene Glycol 17 gm 09/17/17 22:00 Miralax (For Daily Use) - PO BID [facility] PE: Decreased BS BL , better air entry BL today Neuro: AAOx3, NFD rest of PE per resident's note. ASSESSMENT AND PLAN: Patient is a 51 yo Female was discharged recently ,with significant PMHx of asthma and emphysema/COPD with 8 x of intubations in the past. Presented with progressive worsening of dyspnea on exertion. # Acute Exacerbation of COPD :continue Solu Medrol IV 60mg q6 , will taper down slowly since patient is a complicated COPD given Vanco/Zosyn in the ER. No further antibiotics for now, since patient was recently discharged home on Levaquin and completed the course. Continue duonebs Q6H and albuterol prn. pulmonary consult. continue to hold Spiriva for now upon discharge , we will reorder , since patient is on Duoneb. # Acute hypoxic respiratory distress- due to COPD exacerbation continue nebs for now. on No oxygen right now. Outpatient follow up with news camera person for pulmonary function test, needs close follow up. # Acute Leukocytosis- likely due to steroids. will continue to monitor # Lactic acidosis- resoved due to hypoxia. # Multiple pulmonary nodules- largest being 1.5cm in RUL. periodic surveillance # Hypothyroidism continue Synthroid # Morbid Obesity: patient was encouraged weight loss since is affecting her breathing, will get nutrition consult to help her diet to improve her breathing. DVT ppx- lovenox
[2017-09-17] MEDS: MONTELUKAST NA 10 MG TABLET PO SCH (21:44)
[2017-09-17] MEDS: POLYETHYLENE GLYCOL 3350 119 GM BTL PO SCH (21:44)
[2017-09-17] MEDS: traZODone HCL 50 MG TABLET (FP) PO SCH (23:05)
[2017-09-18] MEDS: methylPREDNISolone NA SUCC 40 MG/1 ML VIAL IVPUSH SCH ×4 (03:44→22:42)
[2017-09-18] MEDS: ALBUTEROL SO4 2.5/IPRATROPIUM 0.5 INH SOL 3 ML VIAL.NEB. NEB SCH ×4 (06:20→23:46)
[2017-09-18] MEDS: LEVOTHYROXINE NA 25 MCG TABLET (FP) PO SCH (06:40)
[2017-09-18 08:29] LABS: HEMATOCRIT 36.2 % (32.4-45.2); HEMOGLOBIN 11.3 GM/dL (10.7-15.3); MCH 25.5 pg (25.7-33.7); MCHC 31.3 g/dl (32.0-36.0); MEAN CELL VOLUME 81.5 fl (80-96); PLATELET COUNT 311 K/MM3 (134-434); RBC 4.44 M/mm3 (3.60-5.2); RDW 17.5 % (11.6-15.6)
[2017-09-18 08:48] LABS: ANION GAP 10 (8-16); BLOOD UREA NITROGEN 19 mg/dL (7-18); CALCIUM 9.3 mg/dL (8.5-10.1); CHLORIDE 104 mmol/L (98-107); CO2 28 mmol/L (21-32); CREATININE 0.7 mg/dL (0.55-1.02); GLUCOSE,RANDOM 121 mg/dL (74-106); POTASSIUM 4.7 mmol/L (3.5-5.1); SODIUM 142 mmol/L (136-145)
[2017-09-18] MEDS ORDERED: PT OWN MED DRAWER 7, Y5N ONE (08:52)
[2017-09-18] MEDS: BUDESONIDE/FORMETEROL FUMARATE 160/4.5 mcg INHALER IH SCH ×2 (09:01→22:43)
[2017-09-18] MEDS: ENOXAPARIN NA (PORCINE) 40 MG/0.4 ML DISP.SYRIN SQ SCH (09:01)
[2017-09-18] MEDS: POLYETHYLENE GLYCOL 3350 119 GM BTL PO SCH ×2 (09:01→22:42)
[2017-09-18] MEDS: PANTOPRAZOLE 20 MG TABLET (FP) PO SCH (09:01)
--- NOTE | 2017-09-18 10:49 | PN ---
Progress Note, Physician History of Present Illness: pulmonary alert,still c/o chest tightness,+ sob - Current Medication List Current Medications: Active Medications Albuterol Sulfate (Ventolin 0.083% Nebulizer Soln -) 1 amp NEB Q4H PRN PRN Reason: SHORT OF BREATH/WHEEZING Last Admin: 09/16/17 14:21 Dose: 1 amp Albuterol/Ipratropium (Duoneb -) 1 amp NEB QIDR [facility] Last Admin: 09/18/17 06:20 Dose: 1 amp Benzocaine/Menthol (Cepacol Lozenge -) 1 each MM PRN PRN PRN Reason: SORE THROAT Budesonide/Formoterol Fumarate (Symbicort 160/4.5mcg -) 2 puff IH BID [facility] Last Admin: 09/18/17 09:01 Dose: 2 puff Enoxaparin Sodium (Lovenox -) 40 mg SQ DAILY [facility] Last Admin: 09/18/17 09:01 Dose: 40 mg Levothyroxine Sodium (Synthroid -) 25 mcg PO DAILY@0700 [facility] Last Admin: 09/18/17 06:40 Dose: 25 mcg Methylprednisolone Sodium Succinate (Solu-Medrol -) 60 mg IVPUSH Q6H-IV [facility] Last Admin: 09/18/17 08:58 Dose: 60 mg Montelukast Sodium (Singulair -) 10 mg PO [facility] Last Admin: 09/17/17 21:44 Dose: 10 mg Pantoprazole Sodium (Protonix -) 20 mg PO DAILY [facility] Last Admin: 09/18/17 09:01 Dose: 20 mg Polyethylene Glycol (Miralax (For Daily Use) -) 17 gm PO BID [facility] Last Admin: 09/18/17 09:01 Dose: 17 gm Trazodone HCl (Desyrel -) 50 mg PO [facility] Last Admin: 09/17/17 23:05 Dose: 50 mg - Objective Vital Signs: Vital Signs Temperature 98.3 F 09/18/17 08:56 Pulse Rate 104 H 09/18/17 08:56 Respiratory Rate 19 09/18/17 08:56 Blood Pressure 136/77 09/18/17 08:56 O2 Sat by Pulse Oximetry (%) 100 09/18/17 08:56 Constitutional: Yes: Well Nourished, Calm Eyes: Yes: WNL HENT: Yes: WNL Neck: Yes: WNL Cardiovascular: Yes: Regular Rate and Rhythm, S1, S2 Respiratory: Yes: Wheezes (scattered sterling wheezes) Gastrointestinal: Yes: Normal Bowel Sounds, Soft Extremities: Yes: WNL Edema: No Labs: CBC, BMP 09/18/17 05:25 09/18/17 05:25 Assessment/Plan Problem List - Problems (1) Asthma exacerbation Code(s): J45.901 - UNSPECIFIED ASTHMA WITH (ACUTE) EXACERBATION Qualifiers: (2) Respiratory distress, acute Code(s): R06.03 - ACUTE RESPIRATORY DISTRESS (3) DVT prophylaxis Code(s): [id number] - (4) PNA (pneumonia) Code(s): J18.9 - PNEUMONIA, UNSPECIFIED ORGANISM Qualifiers: Pneumonia type: due to unspecified organism Laterality: right Lung location: lower lobe of lung Qualified Code(s): J18.1 - Lobar pneumonia, unspecified organism (5) Hypothyroidism Code(s): E03.9 - HYPOTHYROIDISM, UNSPECIFIED Qualifiers: Hypothyroidism type: acquired Qualified Code(s): E03.9 - Hypothyroidism, unspecified Assessment/Plan ACUTE ON CHRONIC PERSISTENT ASTHMA WITH HOARSENESS OF VOICE RECENT PNEUMONIA ADEQUATELY TREATED MULTIPLE ETT/MVV DUE TO RESP FAILURE THYROID DISEASE R/O VCD CONTINUE IV STEROIDS SAME DOSE CLARIBEL/LABA/LAMA/ICS ENT EVAL R/O UPPER AIRWAY COMPONENT MONITOR PEAK FLOW PFTS OUTPATIENT DR DAVIS
--- NOTE | 2017-09-18 13:44 | CONSULT ---
Consult - text type - Consultation Consultation Note: ENT consult CC: OLIVIA HPI: Patient with multiple medical problems including asthma, COPD, bronchiectasis and reflux who reports multiple intubations for exacerbations of chronic pulmonary disease. She also reports cough and hoarseness for the past several months as well as nasal congestion, nasal obstruction (right> left ) and post nasal drip. She reports these symptoms are longstanding. She reports prolonged duration of expiration which she reports feeling in the lungs. ENT consulted by Dr. Jacobo to r/o vocal cord dysfunction. - Current Medication List Current Medications: Active Medications Albuterol Sulfate (Ventolin 0.083% Nebulizer Soln -) 1 amp NEB Q4H PRN PRN Reason: SHORT OF BREATH/WHEEZING Last Admin: 09/16/17 14:21 Dose: 1 amp Albuterol/Ipratropium (Duoneb -) 1 amp NEB QIDR [facility] Last Admin: 09/18/17 06:20 Dose: 1 amp Benzocaine/Menthol (Cepacol Lozenge -) 1 each MM PRN PRN PRN Reason: SORE THROAT Budesonide/Formoterol Fumarate (Symbicort 160/4.5mcg -) 2 puff IH BID [facility] Last Admin: 09/18/17 09:01 Dose: 2 puff Enoxaparin Sodium (Lovenox -) 40 mg SQ DAILY [facility] Last Admin: 09/18/17 09:01 Dose: 40 mg Levothyroxine Sodium (Synthroid -) 25 mcg PO DAILY@0700 [facility] Last Admin: 09/18/17 06:40 Dose: 25 mcg Methylprednisolone Sodium Succinate (Solu-Medrol -) 60 mg IVPUSH Q6H-IV [facility] Last Admin: 09/18/17 08:58 Dose: 60 mg Montelukast Sodium (Singulair -) 10 mg PO [facility] Last Admin: 09/17/17 21:44 Dose: 10 mg Pantoprazole Sodium (Protonix -) 20 mg PO DAILY [facility] Last Admin: 09/18/17 09:01 Dose: 20 mg Polyethylene Glycol (Miralax (For Daily Use) -) 17 gm PO BID [facility] Last Admin: 09/18/17 09:01 Dose: 17 gm Trazodone HCl (Desyrel -) 50 mg PO [facility] Last Admin: 09/17/17 23:05 Dose: 50 mg - Objective Vital Signs: Vital Signs Temperature 98.3 F 09/18/17 08:56 Pulse Rate 104 H 09/18/17 08:56 Respiratory Rate 19 09/18/17 08:56 Blood Pressure 136/77 09/18/17 08:56 O2 Sat by Pulse Oximetry (%) 100 09/18/17 08:56 Constitutional: Yes: Well Nourished, Calm, hoarseness- decreased volume. no stridor Eyes: PERRLA, EOMI HENT: Auricles wnl. NC: DNS to right >> left. Mucosa - mildly-moderately edematous, ITs mildly- moderately edematous. OC/OP: wnl Neck: supple, trachea midline Extremities: Yes: WNL Edema: No Labs: reviewed nasal endoscopy and DFL: pediatric nasolaryngoscope: right nasal cavity with DNS which I was able to pass the flexible scope around. mucosa - mildly- moderately edematous bilaterally, ITs mildly- moderately edematous bilaterally. OMCs and SER with thick mucus slightly yellow but mostly whitish clear and thick. Npx: thick mucus. OPx: wnl. Hypopharynx: arytenoids, epiglottis, valeculla all wnl. There is some mild post cricoid edema ( suggestive of reflux or secondary to post nasal drip) Larynx: Vocal folds mobile bilaterally, no discrete lesions although there is some thickening of the vocal folds and thick mucs on the vocal folds which she clears with swallow. Airways widely patent. Immediate subglottis appears wnl. CBC, BMP 09/18/17 05:25 09/18/17 05:25 Assessment/Plan Problem List - Problems (1) Asthma exacerbation Code(s): J45.901 - UNSPECIFIED ASTHMA WITH (ACUTE) EXACERBATION Qualifiers: (2) Respiratory distress, acute Code(s): R06.03 - ACUTE RESPIRATORY DISTRESS (3) DVT prophylaxis Code(s): [id number] - (4) PNA (pneumonia) Code(s): J18.9 - PNEUMONIA, UNSPECIFIED ORGANISM Qualifiers: Pneumonia type: due to unspecified organism Laterality: right Lung location: lower lobe of lung Qualified Code(s): J18.1 - Lobar pneumonia, unspecified organism (5) Hypothyroidism Code(s): E03.9 - HYPOTHYROIDISM, UNSPECIFIED Qualifiers: Hypothyroidism type: acquired Qualified Code(s): E03.9 - Hypothyroidism, unspecified Assessment/Plan additional ENT problems 1. Rinosinusitis- patient is currently being treated for pneumonia and antibiotics should cover for sinusitis. She is also on singulair which I agree with. She should start high volume saline irrigations (neilmed squeeze bottle) - 1/2 bottle (4 oz in ear nare) tiwce a day and then apply flonase 1 spray each side twice a day. She should cont. this saline and flonase. 2. DNS- f/u as out patient 3. Dysphonia/chronic laryngitis with muscle tension dysphonia- no vocal fold lesions seen. During phonation there is some muscle tension dysphonia (over working of suplagottic muscles) to aid in volume which stress the vocal folds. Recommend voice rest and follow up as out patient. There is also some mild post cricoid edema which is likely secondary to reflux or post nasal drip from rhinosinusitis. Cont reflux medication. She can follow up as out patient for this. I was only also to visualize the immediate subglottis with the laryngoscope, which appeared within normal limits. Although there was no stridor, if there is concern for subglottic stenosis given her multiple intubations, would recommend fine cut CT scan of the neck. If this is done or there are any additional concerns, please contact me. She should also follow up with ENT as an outpatient. Kai Browning Obeo [phone]
--- NOTE | 2017-09-18 17:10 | PN ---
Physical Exam: SUBJECTIVE: Patient seen and examined Patient feels better. Looks happy . OBJECTIVE: Vital Signs Temperature 98.2 F 09/18/17 14:20 Pulse Rate 99 H 09/18/17 14:20 Respiratory Rate 18 09/18/17 14:20 Blood Pressure 125/77 09/18/17 14:20 O2 Sat by Pulse Oximetry (%) 100 09/18/17 08:56 GENERAL: The patient is awake, alert, and fully oriented, in no acute distress. HEAD: Normal with no signs of trauma. EYES: PERRL, extraocular movements intact, sclera anicteric, conjunctiva clear. No ptosis. ENT: Ears normal, nares patent, oropharynx clear without exudates, moist mucous membranes. NECK: Trachea midline, full range of motion, supple. LUNGS:Positive for wheezing now before patient had a silent chest HEART: Regular rate and rhythm, S1, S2 without murmur, rub or gallop. ABDOMEN: Soft, nontender, nondistended, normoactive bowel sounds, no guarding, no rebound, no masses appreciated EXTREMITIES: 2+ pulses, warm, well-perfused, no edema. NEUROLOGICAL: Cranial nerves II through XII grossly intact. Normal speech, gait is stable PSYCH: Normal mood, normal affect. SKIN: Warm, dry, normal turgor, no rashes or lesions noted CBCD WBC 16.0 K/mm3 (4.0-10.0) H 09/18/17 05:25 RBC 4.44 M/mm3 (3.60-5.2) 09/18/17 05:25 Hgb 11.3 GM/dL (10.7-15.3) 09/18/17 05:25 Hct 36.2 % (32.4-45.2) 09/18/17 05:25 MCV 81.5 fl (80-96) 09/18/17 05:25 MCHC 31.3 g/dl (32.0-36.0) L 09/18/17 05:25 RDW 17.5 % (11.6-15.6) H 09/18/17 05:25 Plt Count 311 K/MM3 (134-434) 09/18/17 05:25 MPV 9.0 fl (7.5-11.1) 09/18/17 05:25 CMP Sodium 142 mmol/L (136-145) 09/18/17 05:25 Potassium 4.7 mmol/L (3.5-5.1) 09/18/17 05:25 Chloride 104 mmol/L (98-107) 09/18/17 05:25 Carbon Dioxide 28 mmol/L (21-32) 09/18/17 05:25 Anion Gap 10 (8-16) 09/18/17 05:25 BUN 19 mg/dL (7-18) H 09/18/17 05:25 Creatinine 0.7 mg/dL (0.55-1.02) 09/18/17 05:25 Creat Clearance w eGFR > 60 (>60) 09/15/17 19:40 Random Glucose 121 mg/dL (74-106) H 09/18/17 05:25 Calcium 9.3 mg/dL (8.5-10.1) 09/18/17 05:25 Total Bilirubin 0.4 mg/dL (0.2-1.0) 09/15/17 19:40 AST 11 U/L (15-37) L D 09/15/17 19:40 ALT 44 U/L (12-78) 09/15/17 19:40 Alkaline Phosphatase 97 U/L (45-117) 09/15/17 19:40 Total Protein 6.8 g/dl (6.4-8.2) 09/15/17 19:40 Albumin 3.6 g/dl (3.4-5.0) 09/15/17 19:40 CARDIAC ENZYMES Creatine Kinase Cancelled 09/15/17 18:20 Troponin I Cancelled 09/15/17 18:20 Active Medications Generic Name Dose Route Start Last Admin Trade Name Freq PRN Reason Stop Dose Admin Albuterol Sulfate 1 amp 09/16/17 00:05 09/16/17 14:21 Ventolin 0.083% Nebulizer Soln - NEB 1 amp Q4H PRN Administration SHORT OF BREATH/WHEEZING Albuterol/Ipratropium 1 amp 09/16/17 00:00 09/18/17 11:53 Duoneb - NEB 1 amp QIDR MAXIM Administration Benzocaine/Menthol 1 each 09/17/17 09:51 Cepacol Lozenge - MM PRN PRN SORE THROAT Budesonide/Formoterol Fumarate 2 puff 09/16/17 10:00 01/06/18 09:01 Symbicort 160/4.5mcg - IH 2 puff BID MAXIM Administration Enoxaparin Sodium 40 mg 09/16/17 10:00 09/18/17 09:01 Lovenox - SQ 40 mg DAILY MAXIM Administration Levothyroxine Sodium 25 mcg 09/16/17 07:00 09/18/17 06:40 Synthroid - PO 25 mcg DAILY@0700 MAXIM Administration Methylprednisolone Sodium Succinate 60 mg 09/16/17 03:00 09/18/17 15:49 Solu-Medrol - IVPUSH 60 mg Q6H-IV MAXIM Administration Montelukast Sodium 10 mg 09/16/17 22:00 09/17/17 21:44 Singulair - PO 10 mg HS MAXIM Administration Pantoprazole Sodium 20 mg 09/16/17 10:00 09/18/17 09:01 Protonix - PO 20 mg DAILY MAXIM Administration Polyethylene Glycol 17 gm 09/17/17 22:00 09/18/17 09:01 Miralax (For Daily Use) - PO 17 gm BID MAXIM Administration Trazodone HCl 50 mg 09/17/17 22:15 09/17/17 23:05 Desyrel - PO 50 mg HS MAXIM Administration Home Medications Medication Instructions Recorded Albuterol 0.083% Nebulizer Harriett 1 amp NEB QID #120 amp 07/20/17 [Ventolin 0.083% Nebulizer Soln -] Albuterol Sulfate Inhaler - 1 - 2 inh PO QID #1 inhaler 07/20/17 [Ventolin HFA Inhaler -] Ipratropium 0.02% Nebulizer 1 amp NEB QID #120 amp 07/20/17 [Atrovent 0.02% Nebulizer -] Levothyroxine [Synthroid -] 25 mcg PO DAILY #30 tablet 07/20/17 Loratadine [Claritin] 10 mg PO DAILY #30 tablet 07/20/17 Montelukast Na [Singulair -] 10 mg PO HS #30 tablet 07/20/17 Omeprazole 20 mg PO DAILY 07/20/17 Salmeterol/Fluticasone [Advair 1 inh IH BID #60 inh 07/20/17 500Mcg/50Mcg -] Tiotropium [place] [Spiriva] 1 inh PO DAILY 07/20/17 Trazodone HCl 50 mg PO HS 07/20/17 Miscellaneous Drug Not In Syst 1 each ASDIR #1 misc 09/09/17 [Outpatient Lab Test] Prednisone [Deltasone -] See Taper PO DAILY #30 tablet 09/09/17 Microbiology 09/15/17 18:20 Blood - Peripheral Venous Blood Culture - Preliminary NO GROWTH OBTAINED AFTER 48 HOURS, INCUBATION TO CONTINUE FOR 3 DAYS. 09/15/17 18:20 Blood - Peripheral Venous Blood Culture - Preliminary NO GROWTH OBTAINED AFTER 48 HOURS, INCUBATION TO CONTINUE FOR 3 DAYS. ASSESSMENT/PLAN: Patient is a 51 yo Female was discharged recently ,with significant PMHx of asthma and emphysema/COPD with 8 x of intubations in the past. Presented with progressive worsening of dyspnea on exertion. # Acute Exacerbation of COPD :doing better, continue Solu Medrol IV 60mg q6 , s/ p Vanco/Zosyn in the ER. No further antibiotics for now, since patient was recently discharged home on Levaquin and completed the course. Continue duonebs Q6H and albuterol prn. pulmonary consult. appreciated .Hold Spiriva for now, since patient is on Duoneb. 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 # Acute Leukocytosis- likely due to steroids. will monitor # Lactic acidosis- due to hypoxia. will repeat the level # Multiple pulmonary nodules- largest being 1.5cm in RUL. periodic surveillance # Hypothyroidism continue Synthroid # Morbid Obesity: patient was encouraged weight loss since is affecting her breathing, nutrition assessment and recommendations for weight loss. DVT ppx- lovenox Visit type - Emergency Visit Emergency Visit: Yes ED Registration Date: 09/15/17 Care time: The patient presented to the Emergency Department on the above date and was hospitalized for further evaluation of their emergent condition. - New Patient This patient is new to me today: No - Critical Care Critical Care patient: No
[2017-09-18] MEDS ORDERED: traZODone HCL 50 MG TABLET (FP) PO SCH (22:00)
[2017-09-18] MEDS: traZODone HCL 50 MG TABLET (FP) PO SCH (22:42)
[2017-09-18] MEDS: MONTELUKAST NA 10 MG TABLET PO SCH (22:42)
[2017-09-19] MEDS: methylPREDNISolone NA SUCC 40 MG/1 ML VIAL IVPUSH SCH ×4 (03:55→22:01)
[2017-09-19] MEDS: LEVOTHYROXINE NA 25 MCG TABLET (FP) PO SCH (06:35)
[2017-09-19] MEDS: ALBUTEROL SO4 2.5/IPRATROPIUM 0.5 INH SOL 3 ML VIAL.NEB. NEB SCH ×3 (07:28→23:05)
[2017-09-19] MEDS ORDERED: PT OWN MED DRAWER 7, Y5N ONE ×2 (09:20→21:36)
[2017-09-19] MEDS: ENOXAPARIN NA (PORCINE) 40 MG/0.4 ML DISP.SYRIN SQ SCH (09:28)
[2017-09-19] MEDS: BUDESONIDE/FORMETEROL FUMARATE 160/4.5 mcg INHALER IH SCH ×2 (09:28→22:02)
[2017-09-19] MEDS: PANTOPRAZOLE 20 MG TABLET (FP) PO SCH (09:29)
[2017-09-19] MEDS: POLYETHYLENE GLYCOL 3350 119 GM BTL PO SCH ×2 (09:29→22:03)
--- NOTE | 2017-09-19 10:59 | PN ---
Progress Note, Physician History of Present Illness: pulmonary alert,feeling better,less dyspneic.ENT findings noted - Current Medication List Current Medications: Active Medications Albuterol Sulfate (Ventolin 0.083% Nebulizer Soln -) 1 amp NEB Q4H PRN PRN Reason: SHORT OF BREATH/WHEEZING Last Admin: 09/16/17 14:21 Dose: 1 amp Albuterol/Ipratropium (Duoneb -) 1 amp NEB QIDR [facility] Last Admin: 09/19/17 07:28 Dose: 1 amp Benzocaine/Menthol (Cepacol Lozenge -) 1 each MM PRN PRN PRN Reason: SORE THROAT Budesonide/Formoterol Fumarate (Symbicort 160/4.5mcg -) 2 puff IH BID [facility] Last Admin: 09/19/17 09:28 Dose: 2 puff Enoxaparin Sodium (Lovenox -) 40 mg SQ DAILY [facility] Last Admin: 09/19/17 09:28 Dose: 40 mg Levothyroxine Sodium (Synthroid -) 25 mcg PO DAILY@0700 [facility] Last Admin: 09/19/17 06:35 Dose: 25 mcg Methylprednisolone Sodium Succinate (Solu-Medrol -) 60 mg IVPUSH Q6H-IV [facility] Last Admin: 09/19/17 09:28 Dose: 60 mg Montelukast Sodium (Singulair -) 10 mg PO [facility] Last Admin: 09/18/17 22:42 Dose: 10 mg Pantoprazole Sodium (Protonix -) 20 mg PO DAILY [facility] Last Admin: 09/19/17 09:29 Dose: 20 mg Polyethylene Glycol (Miralax (For Daily Use) -) 17 gm PO BID [facility] Last Admin: 09/19/17 09:29 Dose: 17 gm Trazodone HCl (Desyrel -) 50 mg PO [facility] Last Admin: 09/18/17 22:42 Dose: 50 mg - Objective Vital Signs: Vital Signs Temperature 98.7 F 09/19/17 08:22 Pulse Rate 83 09/19/17 08:22 Respiratory Rate 18 09/19/17 08:22 Blood Pressure 151/78 09/19/17 08:22 O2 Sat by Pulse Oximetry (%) 99 09/19/17 08:10 Constitutional: Yes: Well Nourished, Calm Eyes: Yes: WNL HENT: Yes: WNL Neck: Yes: WNL Cardiovascular: Yes: Regular Rate and Rhythm, S1, S2 Respiratory: Yes: Wheezes Gastrointestinal: Yes: Normal Bowel Sounds, Soft Extremities: Yes: WNL Edema: No Labs: CBC, BMP 09/18/17 05:25 09/18/17 05:25 Assessment/Plan Problem List - Problems (1) Asthma exacerbation Code(s): J45.901 - UNSPECIFIED ASTHMA WITH (ACUTE) EXACERBATION Qualifiers: (2) Respiratory distress, acute Code(s): R06.03 - ACUTE RESPIRATORY DISTRESS (3) DVT prophylaxis Code(s): [id number] - (4) PNA (pneumonia) Code(s): J18.9 - PNEUMONIA, UNSPECIFIED ORGANISM Qualifiers: Pneumonia type: due to unspecified organism Laterality: right Lung location: lower lobe of lung Qualified Code(s): J18.1 - Lobar pneumonia, unspecified organism (5) Hypothyroidism Code(s): E03.9 - HYPOTHYROIDISM, UNSPECIFIED Qualifiers: Hypothyroidism type: acquired Qualified Code(s): E03.9 - Hypothyroidism, unspecified Assessment/Plan ACUTE ON CHRONIC PERSISTENT ASTHMA WITH HOARSENESS OF VOICE RECENT PNEUMONIA ADEQUATELY TREATED MULTIPLE ETT/MVV DUE TO RESP FAILURE THYROID DISEASE R/O VCD CONTINUE IV STEROIDS CLARIBEL/LABA/LAMA/ICS MONITOR PEAK FLOW PFTS OUTPATIENT FLONASE,SALINE NASAL SPRAY DR DAVIS
[2017-09-19] MEDS: FLUTICASONE PROP 0.05% 16 GM NASAL SPRAY NS SCH ×2 (12:16→22:03)
--- NOTE | 2017-09-19 19:18 | PN ---
Progress Note (short form) - Note Progress Note: \ Vital Signs Temperature 98.7 F 09/19/17 08:22 Pulse Rate 83 09/19/17 08:22 Respiratory Rate 18 09/19/17 08:22 Blood Pressure 151/78 09/19/17 08:22 O2 Sat by Pulse Oximetry (%) 99 09/19/17 08:10 GENERAL: The patient is awake, alert, and fully oriented, in no acute distress. HEAD: Normal with no signs of trauma. EYES: PERRL, extraocular movements intact, sclera anicteric, conjunctiva clear. ENT: Ears normal, oropharynx clear without exudates, moist mucous membranes. NECK: Trachea midline, full range of motion, supple. LUNGS:Positive for wheezing posterior chest with better air entry BL. HEART: Regular rate and rhythm, S1, S2 without murmur, rub or gallop. ABDOMEN: Soft, nontender, nondistended, normoactive bowel sounds, no guarding, no rebound, no masses appreciated EXTREMITIES: 2+ pulses, warm, well-perfused, no edema. NEUROLOGICAL: Cranial nerves II through XII grossly intact. Normal speech, gait is stable PSYCH: Normal mood, normal affect. SKIN: Warm, dry, normal turgor, no rashes or lesions noted CBCD WBC 16.0 K/mm3 (4.0-10.0) H 09/18/17 05:25 RBC 4.44 M/mm3 (3.60-5.2) 09/18/17 05:25 Hgb 11.3 GM/dL (10.7-15.3) 09/18/17 05:25 Hct 36.2 % (32.4-45.2) 09/18/17 05:25 MCV 81.5 fl (80-96) 09/18/17 05:25 MCHC 31.3 g/dl (32.0-36.0) L 09/18/17 05:25 RDW 17.5 % (11.6-15.6) H 09/18/17 05:25 Plt Count 311 K/MM3 (134-434) 09/18/17 05:25 MPV 9.0 fl (7.5-11.1) 09/18/17 05:25 CMP Sodium 142 mmol/L (136-145) 09/18/17 05:25 Potassium 4.7 mmol/L (3.5-5.1) 09/18/17 05:25 Chloride 104 mmol/L (98-107) 09/18/17 05:25 Carbon Dioxide 28 mmol/L (21-32) 09/18/17 05:25 Anion Gap 10 (8-16) 09/18/17 05:25 BUN 19 mg/dL (7-18) H 09/18/17 05:25 Creatinine 0.7 mg/dL (0.55-1.02) 09/18/17 05:25 Creat Clearance w eGFR > 60 (>60) 09/15/17 19:40 Random Glucose 121 mg/dL (74-106) H 09/18/17 05:25 Calcium 9.3 mg/dL (8.5-10.1) 09/18/17 05:25 Total Bilirubin 0.4 mg/dL (0.2-1.0) 09/15/17 19:40 AST 11 U/L (15-37) L D 09/15/17 19:40 ALT 44 U/L (12-78) 09/15/17 19:40 Alkaline Phosphatase 97 U/L (45-117) 09/15/17 19:40 Total Protein 6.8 g/dl (6.4-8.2) 09/15/17 19:40 Albumin 3.6 g/dl (3.4-5.0) 09/15/17 19:40 CARDIAC ENZYMES Creatine Kinase Cancelled 09/15/17 18:20 Troponin I Cancelled 09/15/17 18:20 Current Medications Generic Name Dose Route Start Last Admin Trade Name Freq PRN Reason Stop Dose Admin Albuterol Sulfate 1 amp 09/16/17 00:05 09/16/17 14:21 Ventolin 0.083% Nebulizer Soln - NEB 1 amp Q4H PRN Administration SHORT OF BREATH/WHEEZING Albuterol/Ipratropium 1 amp 09/16/17 00:00 09/19/17 12:00 Duoneb - NEB 1 amp QIDR MAXIM Administration Benzocaine/Menthol 1 each 09/17/17 09:51 Cepacol Lozenge - MM PRN PRN SORE THROAT Budesonide/Formoterol Fumarate 2 puff 09/16/17 10:00 09/19/17 09:28 Symbicort 160/4.5mcg - IH 2 puff BID MAXIM Administration Enoxaparin Sodium 40 mg 09/16/17 10:00 09/19/17 09:28 Lovenox - SQ 40 mg DAILY MAXIM Administration Fluticasone Propionate 1 spray 09/19/17 11:00 09/19/17 12:16 Flonase - NS 1 spray BID MAXIM Administration Levothyroxine Sodium 25 mcg 09/16/17 07:00 09/19/17 06:35 Synthroid - PO 25 mcg DAILY@0700 MAXIM Administration Methylprednisolone Sodium Succinate 60 mg 09/16/17 03:00 09/19/17 14:50 Solu-Medrol - IVPUSH 60 mg Q6H-IV MAXIM Administration Montelukast Sodium 10 mg 09/16/17 22:00 09/18/17 22:42 Singulair - PO 10 mg HS MAXIM Administration Pantoprazole Sodium 20 mg 09/16/17 10:00 09/19/17 09:29 Protonix - PO 20 mg DAILY MAXIM Administration Polyethylene Glycol 17 gm 09/17/17 22:00 09/19/17 09:29 Miralax (For Daily Use) - PO 17 gm BID MAXIM Administration Trazodone HCl 50 mg 09/17/17 22:15 09/18/17 22:42 Desyrel - PO 50 mg HS MAXIM Administration Home Medications Medication Instructions Recorded Albuterol 0.083% Nebulizer Harriett 1 amp NEB QID #120 amp 07/20/17 [Ventolin 0.083% Nebulizer Soln -] Albuterol Sulfate Inhaler - 1 - 2 inh PO QID #1 inhaler 07/20/17 [Ventolin HFA Inhaler -] Ipratropium 0.02% Nebulizer 1 amp NEB QID #120 amp 07/20/17 [Atrovent 0.02% Nebulizer -] Levothyroxine [Synthroid -] 25 mcg PO DAILY #30 tablet 07/20/17 Loratadine [Claritin] 10 mg PO DAILY #30 tablet 07/20/17 Montelukast Na [Singulair -] 10 mg PO HS #30 tablet 07/20/17 Omeprazole 20 mg PO DAILY 07/20/17 Salmeterol/Fluticasone [Advair 1 inh IH BID #60 inh 07/20/17 500Mcg/50Mcg -] Tiotropium [place] [Spiriva] 1 inh PO DAILY 07/20/17 Trazodone HCl 50 mg PO HS 07/20/17 Miscellaneous Drug Not In Syst 1 each ASDIR #1 misc 09/09/17 [Outpatient Lab Test] Prednisone [Deltasone -] See Taper PO DAILY #30 tablet 09/09/17 09/15/17 18:20 Blood - Peripheral Venous Blood Culture - Preliminary NO GROWTH OBTAINED AFTER 48 HOURS, INCUBATION TO CONTINUE FOR 3 DAYS. 09/15/17 18:20 Blood - Peripheral Venous Blood Culture - Preliminary NO GROWTH OBTAINED AFTER 48 HOURS, INCUBATION TO CONTINUE FOR 3 DAYS. ASSESSMENT/PLAN: Patient is a 51 yo Female was discharged recently ,with significant PMHx of asthma and emphysema/COPD with 8 x of intubations in the past. Presented with progressive worsening of dyspnea on exertion. # Acute Exacerbation of ASthma :doing better, continue Solu Medrol IV 60mg q6, slow taper since patient has severe ASthma # Acute hypoxic respiratory distress- due to asthma exacerbation continue nebs for now. off oxygen now. 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 Daily peek flow. # Acute Leukocytosis- likely due to steroids. # Lactic acidosis- due to hypoxia. improved # Multiple pulmonary nodules- largest being 1.5cm in RUL. periodic surveillance # Hypothyroidism continue Synthroid # Morbid Obesity: patient was encouraged weight loss since is affecting her breathing, nutrition assessment and recommendations for weight loss. DVT ppx- lovenox Visit type - Emergency Visit Emergency Visit: Yes ED Registration Date: 09/15/17 Care time: The patient presented to the Emergency Department on the above date and was hospitalized for further evaluation of their emergent condition. - New Patient This patient is new to me today: No - Critical Care Critical Care patient: No
[2017-09-19] MEDS: MONTELUKAST NA 10 MG TABLET PO SCH (22:02)
[2017-09-19] MEDS: traZODone HCL 50 MG TABLET (FP) PO SCH (22:02)
[2017-09-20] MEDS: methylPREDNISolone NA SUCC 40 MG/1 ML VIAL IVPUSH SCH ×3 (03:04→18:28)
[2017-09-20] MEDS: ALBUTEROL SO4 2.5/IPRATROPIUM 0.5 INH SOL 3 ML VIAL.NEB. NEB SCH ×3 (06:14→17:05)
[2017-09-20] MEDS: LEVOTHYROXINE NA 25 MCG TABLET (FP) PO SCH (06:24)
[2017-09-20] MEDS: ENOXAPARIN NA (PORCINE) 40 MG/0.4 ML DISP.SYRIN SQ SCH (09:04)
[2017-09-20] MEDS: PANTOPRAZOLE 20 MG TABLET (FP) PO SCH (09:06)
[2017-09-20] MEDS: FLUTICASONE PROP 0.05% 16 GM NASAL SPRAY NS SCH ×2 (09:10→21:38)
[2017-09-20] MEDS: POLYETHYLENE GLYCOL 3350 119 GM BTL PO SCH ×2 (09:10→21:37)
[2017-09-20] MEDS: BUDESONIDE/FORMETEROL FUMARATE 160/4.5 mcg INHALER IH SCH ×2 (09:10→21:38)
--- NOTE | 2017-09-20 13:20 | PN ---
Progress Note (short form) - Note Progress Note: PULMONARY States breathing is slightly improving. +cough nonproductive but still wheezing. Last Vital Signs Temp Pulse Resp BP Pulse Ox 98.4 F 86 20 113/69 99 09/20/17 10:00 09/20/17 10:00 09/20/17 10:00 09/20/17 10:00 09/19/17 22:00 Gen: mildly tachypneic with speaking Heart: RRR Lung: scattered rhonchi, wheezes, poor air entry Abd: soft, nontender Ext: no edema CBC, BMP 09/18/17 05:25 09/18/17 05:25 Active Medications Albuterol Sulfate (Ventolin 0.083% Nebulizer Soln -) 1 amp NEB Q4H PRN PRN Reason: SHORT OF BREATH/WHEEZING Last Admin: 09/16/17 14:21 Dose: 1 amp Albuterol/Ipratropium (Duoneb -) 1 amp NEB QIDR [facility] Last Admin: 09/20/17 11:33 Dose: 1 amp Benzocaine/Menthol (Cepacol Lozenge -) 1 each MM PRN PRN PRN Reason: SORE THROAT Budesonide/Formoterol Fumarate (Symbicort 160/4.5mcg -) 2 puff IH BID [facility] Last Admin: 09/20/17 09:10 Dose: 2 puff Enoxaparin Sodium (Lovenox -) 40 mg SQ DAILY [facility] Last Admin: 09/20/17 09:04 Dose: 40 mg Fluticasone Propionate (Flonase -) 1 spray NS BID [facility] Last Admin: 09/20/17 09:10 Dose: 1 spray Levothyroxine Sodium (Synthroid -) 25 mcg PO DAILY@0700 [facility] Last Admin: 09/20/17 06:24 Dose: 25 mcg Methylprednisolone Sodium Succinate (Solu-Medrol -) 60 mg IVPUSH Q6H-IV [facility] Last Admin: 09/20/17 09:05 Dose: 60 mg Montelukast Sodium (Singulair -) 10 mg PO HS [facility] Last Admin: 09/19/17 22:02 Dose: 10 mg Pantoprazole Sodium (Protonix -) 20 mg PO DAILY [facility] Last Admin: 09/20/17 09:06 Dose: 20 mg Polyethylene Glycol (Miralax (For Daily Use) -) 17 gm PO BID [facility] Last Admin: 09/20/17 09:10 Dose: 17 gm Trazodone HCl (Desyrel -) 50 mg PO HS [facility] Last Admin: 09/19/17 22:02 Dose: 50 mg A/P Acute Asthma Exacerbation Recent Pneumonia Hypothyroidism - can decrease medrol to q8h - inhaled bronchodilators standing and PRN - monitor peak flow - O2 as needed - DVT prophylaxis - agree with pulmonary rehab
--- NOTE | 2017-09-20 16:52 | PN ---
Teaching Attending Note Name of Resident: Swati Bolanos ATTENDING PHYSICIAN STATEMENT I saw and evaluated the patient. I reviewed the resident's note and discussed the case with the resident. I agree with the resident's findings and plan as documented. SUBJECTIVE: Patient looks and feels very sad since Her asthma is not getting better. No nausea or vomiting. OBJECTIVE: Vital Signs Temperature 98.5 F 09/20/17 15:07 Pulse Rate 75 09/20/17 15:07 Respiratory Rate 20 09/20/17 15:07 Blood Pressure 139/72 09/20/17 15:07 O2 Sat by Pulse Oximetry (%) 98 09/20/17 09:00 CBCD WBC 16.0 K/mm3 (4.0-10.0) H 09/18/17 05:25 RBC 4.44 M/mm3 (3.60-5.2) 09/18/17 05:25 Hgb 11.3 GM/dL (10.7-15.3) 09/18/17 05:25 Hct 36.2 % (32.4-45.2) 09/18/17 05:25 MCV 81.5 fl (80-96) 09/18/17 05:25 MCHC 31.3 g/dl (32.0-36.0) L 09/18/17 05:25 RDW 17.5 % (11.6-15.6) H 09/18/17 05:25 Plt Count 311 K/MM3 (134-434) 09/18/17 05:25 MPV 9.0 fl (7.5-11.1) 09/18/17 05:25 CMP Sodium 142 mmol/L (136-145) 09/18/17 05:25 Potassium 4.7 mmol/L (3.5-5.1) 09/18/17 05:25 Chloride 104 mmol/L (98-107) 09/18/17 05:25 Carbon Dioxide 28 mmol/L (21-32) 09/18/17 05:25 Anion Gap 10 (8-16) 09/18/17 05:25 BUN 19 mg/dL (7-18) H 09/18/17 05:25 Creatinine 0.7 mg/dL (0.55-1.02) 09/18/17 05:25 Creat Clearance w eGFR > 60 (>60) 09/15/17 19:40 Random Glucose 121 mg/dL (74-106) H 09/18/17 05:25 Calcium 9.3 mg/dL (8.5-10.1) 09/18/17 05:25 Total Bilirubin 0.4 mg/dL (0.2-1.0) 09/15/17 19:40 AST 11 U/L (15-37) L D 09/15/17 19:40 ALT 44 U/L (12-78) 09/15/17 19:40 Alkaline Phosphatase 97 U/L (45-117) 09/15/17 19:40 Total Protein 6.8 g/dl (6.4-8.2) 09/15/17 19:40 Albumin 3.6 g/dl (3.4-5.0) 09/15/17 19:40 CARDIAC ENZYMES Creatine Kinase Cancelled 09/15/17 18:20 Troponin I Cancelled 09/15/17 18:20 Current Medications Generic Name Dose Route Start Last Admin Trade Name Freq PRN Reason Stop Dose Admin Albuterol Sulfate 1 amp 09/16/17 00:05 09/16/17 14:21 Ventolin 0.083% Nebulizer Soln - NEB 1 amp Q4H PRN Administration SHORT OF BREATH/WHEEZING Albuterol/Ipratropium 1 amp 09/16/17 00:00 09/20/17 11:33 Duoneb - NEB 1 amp QIDR MAXIM Administration Benzocaine/Menthol 1 each 09/17/17 09:51 Cepacol Lozenge - MM PRN PRN SORE THROAT Budesonide/Formoterol Fumarate 2 puff 09/16/17 10:00 09/20/17 09:10 Symbicort 160/4.5mcg - IH 2 puff BID MAXIM Administration Enoxaparin Sodium 40 mg 09/16/17 10:00 09/20/17 09:04 Lovenox - SQ 40 mg DAILY MAXIM Administration Fluticasone Propionate 1 spray 09/19/17 11:00 09/20/17 09:10 Flonase - NS 1 spray BID MAXIM Administration Levothyroxine Sodium 25 mcg 09/16/17 07:00 09/20/17 06:24 Synthroid - PO 25 mcg DAILY@0700 MAXIM Administration Methylprednisolone Sodium Succinate 60 mg 09/20/17 18:00 Solu-Medrol - IVPUSH Q8H-IV MAXIM Montelukast Sodium 10 mg 09/16/17 22:00 09/19/17 22:02 Singulair - PO 10 mg HS MAXIM Administration Pantoprazole Sodium 20 mg 09/16/17 10:00 09/20/17 09:06 Protonix - PO 20 mg DAILY MAXIM Administration Polyethylene Glycol 17 gm 09/17/17 22:00 09/20/17 09:10 Miralax (For Daily Use) - PO 17 gm BID MAXIM Administration Trazodone HCl 50 mg 09/17/17 22:15 09/19/17 22:02 Desyrel - PO 50 mg HS MAXIM Administration Home Medications Medication Instructions Recorded Albuterol 0.083% Nebulizer [place] 1 amp NEB QID #120 amp 07/20/17 [Ventolin 0.083% Nebulizer Soln -] Albuterol Sulfate Inhaler - 1 - 2 inh PO QID #1 inhaler 07/20/17 [Ventolin HFA Inhaler -] Ipratropium 0.02% Nebulizer 1 amp NEB QID #120 amp 07/20/17 [Atrovent 0.02% Nebulizer -] Levothyroxine [Synthroid -] 25 mcg PO DAILY #30 tablet 07/20/17 Loratadine [Claritin] 10 mg PO DAILY #30 tablet 07/20/17 Montelukast Na [Singulair -] 10 mg PO HS #30 tablet 07/20/17 Omeprazole 20 mg PO DAILY 07/20/17 Salmeterol/Fluticasone [Advair 1 inh IH BID #60 inh 07/20/17 500Mcg/50Mcg -] Tiotropium [place] [Spiriva] 1 inh PO DAILY 07/20/17 Trazodone HCl 50 mg PO HS 07/20/17 Miscellaneous Drug Not In Syst 1 each ASDIR #1 misc 09/09/17 [Outpatient Lab Test] Prednisone [Deltasone -] See Taper PO DAILY #30 tablet 09/09/17 09/15/17 18:20 Blood - Peripheral Venous Blood Culture - Preliminary NO GROWTH OBTAINED AFTER 48 HOURS, INCUBATION TO CONTINUE FOR 3 DAYS. 09/15/17 18:20 Blood - Peripheral Venous Blood Culture - Preliminary NO GROWTH OBTAINED AFTER 48 HOURS, INCUBATION TO CONTINUE FOR 3 DAYS. Pe: Chest: decreased breath sounds , positive for wheezing today with decreased air entry rest of PE per resident's note ASSESSMENT/PLAN: Patient is a 51 yo Female was discharged recently ,with significant PMHx of asthma and emphysema/COPD with 8 x of intubations in the past. Presented with progressive worsening of dyspnea on exertion. # Acute Exacerbation of Asthma : mild improvement from admission doing better, continue Solu Medrol IV 60mg q8, slow taper since patient has severe ASthma # Acute hypoxic respiratory distress- due to asthma exacerbation continue nebs for now. off oxygen now. Outpatient follow up with box toe buffer for pulmonary function test, needs close follow up with pulmonary. Daily peek flow. will send her to pulmonary rehab. inpatient for her severe Asthma. # Acute Leukocytosis- likely due to steroids. # Lactic acidosis- due to hypoxia. improved # Multiple pulmonary nodules- largest being 1.5cm in RUL. periodic surveillance # Hypothyroidism continue Synthroid # Morbid Obesity: patient was encouraged weight loss since is affecting her breathing, nutrition assessment and recommendations for weight loss. DVT ppx- lovenox
--- NOTE | 2017-09-20 18:12 | PN ---
Physical Exam: SUBJECTIVE: Patient seen and examined. Feels no improvement in breathing today. Continues to have dry cough. No fever or chills. OBJECTIVE: Vital Signs Period Temp Pulse Resp BP Sys/Gomez Pulse Ox Last 24 Hr 97.5 F-98.5 F 61-86 18-20 113-142/64-75 98-99 GENERAL: aaox3, completing full sentences, mildly dyspneic when speaking EYES: sclera anicteric, conjunctiva clear ENT: oropharynx clear without exudates, MMM LUNGS: decreased airway entry, scattered wheezes, no accessory muscle use HEART: rrr, normal s1/s2, ABDOMEN: obese, soft, ntnd LOWER EXTREMITIES: 2+ DP pulses, wwp, no edema Active Medications Albuterol Sulfate (Ventolin 0.083% Nebulizer Soln -) 1 amp NEB Q4H PRN PRN Reason: SHORT OF BREATH/WHEEZING Last Admin: 09/16/17 14:21 Dose: 1 amp Albuterol/Ipratropium (Duoneb -) 1 amp NEB QIDR [facility] Last Admin: 09/20/17 17:05 Dose: 1 amp Benzocaine/Menthol (Cepacol Lozenge -) 1 each MM PRN PRN PRN Reason: SORE THROAT Budesonide/Formoterol Fumarate (Symbicort 160/4.5mcg -) 2 puff IH BID [facility] Last Admin: 09/20/17 09:10 Dose: 2 puff Enoxaparin Sodium (Lovenox -) 40 mg SQ DAILY [facility] Last Admin: 09/20/17 09:04 Dose: 40 mg Fluticasone Propionate (Flonase -) 1 spray NS BID [facility] Last Admin: 09/20/17 09:10 Dose: 1 spray Levothyroxine Sodium (Synthroid -) 25 mcg PO DAILY@0700 [facility] Last Admin: 09/20/17 06:24 Dose: 25 mcg Methylprednisolone Sodium Succinate (Solu-Medrol -) 60 mg IVPUSH Q8H-IV MAXIM Montelukast Sodium (Singulair -) 10 mg PO HS [facility] Last Admin: 09/19/17 22:02 Dose: 10 mg Pantoprazole Sodium (Protonix -) 20 mg PO DAILY [facility] Last Admin: 09/20/17 09:06 Dose: 20 mg Polyethylene Glycol (Miralax (For Daily Use) -) 17 gm PO BID [facility] Last Admin: 09/20/17 09:10 Dose: 17 gm Trazodone HCl (Desyrel -) 50 mg PO [facility] Last Admin: 09/19/17 22:02 Dose: 50 mg ASSESSMENT/PLAN: 51yo woman with asmtha/COPD with multiple past intubations, recently discharged on steroid taper who presents again with worsening CURRIE and found to have acute asthma exacerbation. #Acute asthma exacerbation -Pulmonology following -Solumedrol 60mg IV Q6H --> Q8H today -Duo neds QIDR + Ventolin q4h prn -Symbicort 2puffs BID + home Singular -Hold home Spiriva while on duo nebs -Daily peak flow measurements -daily Flonase #deviated nasal septum -ENT consulted, f/u OP #constipation- Miralax BID #leukocytosis likely 2/2 from steroids -will trend #lactic acidosis, resolved, likely 2/2 from hypoxia #hypothyroidism - continue home Synthroid #obesity -auditor supervisor consult #FEN: PO hydration / lytes wnl / regular diet #PPX -DVT Lovenox -GI - Protonix 20mg PO daily #Dispo: continue M/S Full code d/w Dr. Cristobal Bolanos MD PGY1 - Internal Medicine Visit type - Emergency Visit Emergency Visit: No - New Patient This patient is new to me today: No - Critical Care Critical Care patient: No
[2017-09-20] MEDS ORDERED: ALBUTEROL SO4 0.083% IH SOL 2.5 MG/3 ML VIAL.NEB. NEB PRN (18:55)
[2017-09-20] MEDS ORDERED: PIPERACILLIN/TAZOB 4.5 GM/100 ML PREMIX BAG IVPB ONE (18:55)
[2017-09-20] MEDS ORDERED: BENZOCAINE/MENTH/CETYLPYRD CL 1 EACH LOZENGE MM PRN (18:55)
[2017-09-20] MEDS ORDERED: PIPERACILLIN/TAZOB 4.5 GM 4.5 GM in DEXTROSE 5%-WATER - 100 ML IVPB ONE (19:15)
[2017-09-20] MEDS: MONTELUKAST NA 10 MG TABLET PO SCH (21:37)
[2017-09-20] MEDS: traZODone HCL 50 MG TABLET (FP) PO SCH (21:37)
[2017-09-21] MEDS: ALBUTEROL SO4 2.5/IPRATROPIUM 0.5 INH SOL 3 ML VIAL.NEB. NEB SCH ×5 (00:05→20:10)
[2017-09-21] MEDS: methylPREDNISolone NA SUCC 40 MG/1 ML VIAL IVPUSH SCH ×3 (02:11→17:46)
[2017-09-21] MEDS: LEVOTHYROXINE NA 25 MCG TABLET (FP) PO SCH (06:02)
[2017-09-21] MEDS ORDERED: PT OWN MED DRAWER 7, Y5N ONE (09:29)
[2017-09-21] MEDS: ENOXAPARIN NA (PORCINE) 40 MG/0.4 ML DISP.SYRIN SQ SCH (09:33)
[2017-09-21] MEDS: PANTOPRAZOLE 20 MG TABLET (FP) PO SCH (09:33)
[2017-09-21] MEDS: POLYETHYLENE GLYCOL 3350 119 GM BTL PO SCH ×2 (09:34→21:41)
[2017-09-21] MEDS: FLUTICASONE PROP 0.05% 16 GM NASAL SPRAY NS SCH ×2 (09:35→21:42)
[2017-09-21] MEDS: BUDESONIDE/FORMETEROL FUMARATE 160/4.5 mcg INHALER IH SCH ×2 (09:36→21:43)
--- NOTE | 2017-09-21 10:37 | PN ---
Physical Exam: SUBJECTIVE: Patient seen and examined. Breathing slightly improved since yesterday. Continues to have dry cough and reproducible CP with cough. OBJECTIVE: Vital Signs Period Temp Pulse Resp BP Sys/Gomez Pulse Ox Last 24 Hr 97.6 F-98.5 F 66-92 20-22 124-139/70-76 95 GENERAL: aaox3, mildly dyspneic when speaking EYES: sclera anicteric, conjunctiva clear ENT: oropharynx clear without exudates, MMM LUNGS: decreased airway entry, better than yesterday, bilateral expiratory wheezes, no accessory muscle use HEART: rrr, normal s1/s2, ABDOMEN: obese, soft, ntnd LOWER EXTREMITIES: 2+ DP pulses, wwp, no edema ASSESSMENT/PLAN: 51yo woman with asmtha/COPD with multiple past intubations, recently discharged on steroid taper who presents again with worsening CURRIE and found to have acute asthma exacerbation. #Acute asthma exacerbation -ECHO to r/o cardiac etiology -Pulmonology following -Solumedrol 60mg IV Q8H today -Duo neds QIDR + Ventolin q4h prn -Symbicort 2puffs BID + home Singular -Hold home Spiriva while on duo nebs -Daily peak flow measurements -daily Flonase #deviated nasal septum -ENT consulted, f/u OP #constipation- Miralax BID #leukocytosis likely 2/2 from steroids -will trend #lactic acidosis, resolved, likely 2/2 from hypoxia #hypothyroidism - continue home Synthroid #obesity -blanket washer consult #FEN: PO hydration / lytes wnl / regular diet #PPX -DVT Lovenox -GI - Protonix 20mg PO daily #Dispo: accepted to [place] for pulm rehab, awaiting bed availability Full code d/w Dr. Cristobal Bolanos MD PGY1 - Internal Medicine Visit type - Emergency Visit Emergency Visit: No - New Patient This patient is new to me today: No - Critical Care Critical Care patient: No
--- NOTE | 2017-09-21 10:59 | PN ---
Teaching Attending Note Name of Resident: Swati Bolanos ATTENDING PHYSICIAN STATEMENT I saw and evaluated the patient. I reviewed the resident's note and discussed the case with the resident. I agree with the resident's findings and plan as documented. SUBJECTIVE: Peak flow is 200 today. Continues to have difficulty breathing. OBJECTIVE: Vital Signs Temperature 97.7 F 09/21/17 10:00 Pulse Rate 74 09/21/17 10:00 Respiratory Rate 20 09/21/17 10:00 Blood Pressure 147/81 09/21/17 10:00 O2 Sat by Pulse Oximetry (%) 95 09/20/17 21:00 CBCD WBC 16.0 K/mm3 (4.0-10.0) H 09/18/17 05:25 RBC 4.44 M/mm3 (3.60-5.2) 09/18/17 05:25 Hgb 11.3 GM/dL (10.7-15.3) 09/18/17 05:25 Hct 36.2 % (32.4-45.2) 09/18/17 05:25 MCV 81.5 fl (80-96) 09/18/17 05:25 MCHC 31.3 g/dl (32.0-36.0) L 09/18/17 05:25 RDW 17.5 % (11.6-15.6) H 09/18/17 05:25 Plt Count 311 K/MM3 (134-434) 09/18/17 05:25 MPV 9.0 fl (7.5-11.1) 09/18/17 05:25 CMP Sodium 142 mmol/L (136-145) 09/18/17 05:25 Potassium 4.7 mmol/L (3.5-5.1) 09/18/17 05:25 Chloride 104 mmol/L (98-107) 09/18/17 05:25 Carbon Dioxide 28 mmol/L (21-32) 09/18/17 05:25 Anion Gap 10 (8-16) 09/18/17 05:25 BUN 19 mg/dL (7-18) H 09/18/17 05:25 Creatinine 0.7 mg/dL (0.55-1.02) 09/18/17 05:25 Creat Clearance w eGFR > 60 (>60) 09/15/17 19:40 Random Glucose 121 mg/dL (74-106) H 09/18/17 05:25 Calcium 9.3 mg/dL (8.5-10.1) 09/18/17 05:25 Total Bilirubin 0.4 mg/dL (0.2-1.0) 09/15/17 19:40 AST 11 U/L (15-37) L D 09/15/17 19:40 ALT 44 U/L (12-78) 09/15/17 19:40 Alkaline Phosphatase 97 U/L (45-117) 09/15/17 19:40 Total Protein 6.8 g/dl (6.4-8.2) 09/15/17 19:40 Albumin 3.6 g/dl (3.4-5.0) 09/15/17 19:40 CARDIAC ENZYMES Creatine Kinase Cancelled 09/15/17 18:20 Troponin I Cancelled 09/15/17 18:20 Current Medications Generic Name Dose Route Start Last Admin Trade Name Freq PRN Reason Stop Dose Admin Albuterol Sulfate 1 amp 09/20/17 18:55 Ventolin 0.083% Nebulizer Soln - NEB Q4H PRN SHORT OF BREATH/WHEEZING Albuterol/Ipratropium 1 amp 09/21/17 08:55 Duoneb - NEB RQID MAXIM Benzocaine/Menthol 1 each 09/20/17 18:55 Cepacol Lozenge - MM PRN PRN SORE THROAT Budesonide/Formoterol Fumarate 2 puff 09/20/17 22:00 09/21/17 09:36 Symbicort 160/4.5mcg - IH 2 puff BID MAXIM Administration Enoxaparin Sodium 40 mg 09/21/17 10:00 09/21/17 09:33 Lovenox - SQ 40 mg DAILY MAXIM Administration Fluticasone Propionate 1 spray 09/19/17 11:00 09/21/17 09:35 Flonase - NS 1 spray BID MAXIM Administration Levothyroxine Sodium 25 mcg 09/21/17 07:00 09/21/17 06:02 Synthroid - PO 25 mcg DAILY@0700 MAXIM Administration Methylprednisolone Sodium Succinate 60 mg 09/20/17 18:00 09/21/17 09:33 Solu-Medrol - IVPUSH 60 mg Q8H-IV MAXIM Administration Montelukast Sodium 10 mg 09/20/17 22:00 09/20/17 21:37 Singulair - PO 10 mg HS MAXIM Administration Pantoprazole Sodium 20 mg 09/21/17 10:00 09/21/17 09:33 Protonix - PO 20 mg DAILY MAXIM Administration Polyethylene Glycol 17 gm 09/20/17 22:00 09/21/17 09:34 Miralax (For Daily Use) - PO 17 grams BID MAXIM Administration Trazodone HCl 50 mg 09/20/17 22:00 09/20/17 21:37 Desyrel - PO 50 mg HS MAXIM Administration Home Medications Medication Instructions Recorded Albuterol 0.083% Nebulizer [place] 1 amp NEB QID #120 amp 07/20/17 [Ventolin 0.083% Nebulizer Soln -] Albuterol Sulfate Inhaler - 1 - 2 inh PO QID #1 inhaler 07/20/17 [Ventolin HFA Inhaler -] Ipratropium 0.02% Nebulizer 1 amp NEB QID #120 amp 07/20/17 [Atrovent 0.02% Nebulizer -] Levothyroxine [Synthroid -] 25 mcg PO DAILY #30 tablet 07/20/17 Loratadine [Claritin] 10 mg PO DAILY #30 tablet 07/20/17 Montelukast Na [Singulair -] 10 mg PO HS #30 tablet 07/20/17 Omeprazole 20 mg PO DAILY 07/20/17 Salmeterol/Fluticasone [Advair 1 inh IH BID #60 inh 07/20/17 500Mcg/50Mcg -] Tiotropium [place] [Spiriva] 1 inh PO DAILY 07/20/17 Trazodone HCl 50 mg PO HS 07/20/17 Miscellaneous Drug Not In Syst 1 each ASDIR #1 misc 09/09/17 [Outpatient Lab Test] Prednisone [Deltasone -] See Taper PO DAILY #30 tablet 09/09/17 Chest: decreased breath sounds , positive for wheezing today with decreased air entry rest of PE per resident's note ASSESSMENT/PLAN: Patient is a 51 yo Female was discharged recently ,with significant PMHx of asthma and emphysema/COPD with 8 x of intubations in the past. Presented with progressive worsening of dyspnea on exertion. # Acute Exacerbation of Asthma : mild improvement from admission doing better, continue Solu Medrol IV 60mg q8, slow taper since patient has severe ASthma AND added luciano 24 400mg po daily. Do not give with miralax at least 4 hrs apart, discussed with pulmonary to try to give luciano 24 and monitor level in 3 days check. # Acute hypoxic respiratory distress- due to asthma exacerbation continue nebs for now. off oxygen now. Outpatient follow up with mica machine operator for pulmonary function test, needs close follow up with pulmonary. Daily peek flow. will send her to pulmonary rehab. inpatient for her severe Asthma. # Acute Leukocytosis- likely due to steroids. # Lactic acidosis- due to hypoxia. improved # Multiple pulmonary nodules- largest being 1.5cm in RUL. periodic surveillance # Hypothyroidism continue Synthroid # Morbid Obesity: patient was encouraged weight loss since is affecting her breathing, nutrition assessment and recommendations for weight loss. DVT ppx- lovenox will get echo. has placement at [place] re[facility], monitor if the patient stable for discharge in am
[2017-09-21] MEDS: THEOPHYLLINE ANHYDROUS 200 MG CAP.ER.24H PO SCH (15:39)
--- NOTE | 2017-09-21 16:18 | PN ---
Progress Note (short form) - Note Progress Note: PULMONARY States breathing about the same. +cough nonproductive but still wheezing. Peak flow done at bedside 190. CT chest done not read but appears to have residual infiltrate vs atelectasis in LLL. Last Vital Signs Temp Pulse Resp BP Pulse Ox 98.0 F 81 20 121/54 95 09/21/17 14:55 09/21/17 14:55 09/21/17 10:00 09/21/17 14:55 09/20/17 21:00 Gen: mildly tachypneic with speaking Heart: RRR Lung: scattered rhonchi, wheezes, poor air entry Abd: soft, nontender Ext: no edema CBC, BMP 09/18/17 05:25 09/18/17 05:25 Active Medications Albuterol Sulfate (Ventolin 0.083% Nebulizer Soln -) 1 amp NEB Q4H PRN PRN Reason: SHORT OF BREATH/WHEEZING Albuterol/Ipratropium (Duoneb -) 1 amp NEB RQID [facility] Last Admin: 09/21/17 10:40 Dose: 1 amp Benzocaine/Menthol (Cepacol Lozenge -) 1 each MM PRN PRN PRN Reason: SORE THROAT Budesonide/Formoterol Fumarate (Symbicort 160/4.5mcg -) 2 puff IH BID [facility] Last Admin: 09/21/17 09:36 Dose: 2 puff Enoxaparin Sodium (Lovenox -) 40 mg SQ DAILY [facility] Last Admin: 09/21/17 09:33 Dose: 40 mg Fluticasone Propionate (Flonase -) 1 spray NS BID [facility] Last Admin: 09/21/17 09:35 Dose: 1 spray Levothyroxine Sodium (Synthroid -) 25 mcg PO DAILY@0700 [facility] Last Admin: 09/21/17 06:02 Dose: 25 mcg Methylprednisolone Sodium Succinate (Solu-Medrol -) 60 mg IVPUSH Q8H-IV [facility] Last Admin: 09/21/17 09:33 Dose: 60 mg Montelukast Sodium (Singulair -) 10 mg PO HS [facility] Last Admin: 09/20/17 21:37 Dose: 10 mg Pantoprazole Sodium (Protonix -) 20 mg PO DAILY [facility] Last Admin: 09/21/17 09:33 Dose: 20 mg Polyethylene Glycol (Miralax (For Daily Use) -) 17 gm PO BID [facility] Last Admin: 09/21/17 09:34 Dose: 17 grams Theophylline ([place]-24) 400 mg PO DAILY [facility] Last Admin: 09/21/17 15:39 Dose: 400 mg Trazodone HCl (Desyrel -) 50 mg PO HS [facility] Last Admin: 09/20/17 21:37 Dose: 50 mg A/P Acute Asthma Exacerbation Recent Pneumonia Hypothyroidism - f/u official CT chest reading - slow medrol taper - started on theophyilline, monitor levels - inhaled bronchodilators standing and PRN - monitor peak flow - O2 as needed - DVT prophylaxis - agree with pulmonary rehab
[2017-09-21] MEDS: traZODone HCL 50 MG TABLET (FP) PO SCH (21:41)
[2017-09-21] MEDS: MONTELUKAST NA 10 MG TABLET PO SCH (21:41)
[2017-09-22] MEDS: methylPREDNISolone NA SUCC 40 MG/1 ML VIAL IVPUSH SCH ×3 (01:56→18:04)
[2017-09-22] MEDS: LEVOTHYROXINE NA 25 MCG TABLET (FP) PO SCH (06:38)
--- NOTE | 2017-09-22 07:03 | PN ---
Physical Exam: SUBJECTIVE: Patient seen and examined. Feels breathing is improved. Continue to have dry cough with associated chest tightness . No fever or chills. OBJECTIVE: Vital Signs Period Temp Pulse Resp BP Sys/Gomez Pulse Ox Last 24 Hr 97.7 F-98.1 F 74-81 19-20 116-147/54-81 97 GENERAL: aaox3, mildly dyspneic when speaking EYES: sclera anicteric, conjunctiva clear ENT: oropharynx clear without exudates, MMM LUNGS: improved airway entry BL, bilateral expiratory wheezes, no accessory muscle use HEART: rrr, normal s1/s2, ABDOMEN: obese, soft, ntnd LOWER EXTREMITIES: 2+ DP pulses, wwp, no edema CBC, BMP 09/22/17 07:00 09/22/17 07:00 Hepatic Panel Total Bilirubin 0.4 mg/dL (0.2-1.0) 09/15/17 19:40 AST 11 U/L (15-37) L D 09/15/17 19:40 ALT 44 U/L (12-78) 09/15/17 19:40 Alkaline Phosphatase 97 U/L (45-117) 09/15/17 19:40 Albumin 3.6 g/dl (3.4-5.0) 09/15/17 19:40 Active Medications Albuterol Sulfate (Ventolin 0.083% Nebulizer Soln -) 1 amp NEB Q4H PRN PRN Reason: SHORT OF BREATH/WHEEZING Benzocaine/Menthol (Cepacol Lozenge -) 1 each MM PRN PRN PRN Reason: SORE THROAT Budesonide/Formoterol Fumarate (Symbicort 160/4.5mcg -) 2 puff IH BID [facility] Last Admin: 09/22/17 22:19 Dose: 2 puff Enoxaparin Sodium (Lovenox -) 40 mg SQ DAILY [facility] Last Admin: 09/22/17 09:50 Dose: 40 mg Fluticasone Propionate (Flonase -) 1 spray NS BID [facility] Last Admin: 09/22/17 22:20 Dose: 1 spray Levothyroxine Sodium (Synthroid -) 25 mcg PO DAILY@0700 [facility] Last Admin: 09/22/17 06:38 Dose: 25 mcg Methylprednisolone Sodium Succinate (Solu-Medrol -) 60 mg IVPUSH Q8H-IV [facility] Last Admin: 09/22/17 18:04 Dose: 60 mg Montelukast Sodium (Singulair -) 10 mg PO HS [facility] Last Admin: 09/22/17 22:19 Dose: 10 mg Pantoprazole Sodium (Protonix -) 20 mg PO DAILY [facility] Last Admin: 09/22/17 09:51 Dose: 20 mg Polyethylene Glycol (Miralax (For Daily Use) -) 17 gm PO BID [facility] Last Admin: 09/22/17 22:19 Dose: 17 grams Theophylline ([place]-24) 400 mg PO DAILY [facility] Last Admin: 09/22/17 09:51 Dose: 400 mg Tiotropium [place] (Spiriva -) 1 puff IH DAILY [facility] Last Admin: 09/22/17 15:54 Dose: 1 puff Trazodone HCl (Desyrel -) 50 mg PO HS [facility] Last Admin: 09/22/17 22:19 Dose: 50 mg ASSESSMENT/PLAN: 51yo woman with asmtha/COPD with multiple past intubations, recently discharged on steroid taper who presents again with worsening CURRIE and found to have acute asthma exacerbation. #Acute asthma exacerbation -Pulmonology following -c/w steroid 60mg IV Q8H -Duo neds QIDR + Ventolin q4h prn -Symbicort 2puffs BID + home Singular -Hold home Spiriva while on duo nebs -Daily peak flow measurements -daily Flonase -Theophylline 400mg daily -> will check level in next 1-2 days, goal 5-6 #deviated nasal septum -ENT consulted, f/u OP #constipation- Miralax BID #leukocytosis likely 2/2 from steroids -will trend #lactic acidosis, resolved, likely 2/2 from hypoxia #hypothyroidism - continue home Synthroid #obesity -sole painter consult #FEN: PO hydration / lytes wnl / regular diet #PPX -DVT Lovenox -GI - Protonix 20mg PO daily #Dispo: continue M/S, will d/c to [facility] for pulm rehab Full code d/w Dr. Kyra Bolanos MD PGY1 - Internal Medicine Visit type - Emergency Visit Emergency Visit: No - New Patient This patient is new to me today: No - Critical Care Critical Care patient: No
[2017-09-22] MEDS: ALBUTEROL SO4 2.5/IPRATROPIUM 0.5 INH SOL 3 ML VIAL.NEB. NEB SCH ×2 (08:10→12:14)
[2017-09-22 08:56] LABS: HEMATOCRIT 36.9 % (32.4-45.2); HEMOGLOBIN 11.4 GM/dL (10.7-15.3); MCH 25.2 pg (25.7-33.7); MEAN CELL VOLUME 81.1 fl (80-96); MEAN PLT VOLUME 9.1 fl (7.5-11.1); PLATELET COUNT 294 K/MM3 (134-434); RBC 4.55 M/mm3 (3.60-5.2); RDW 17.4 % (11.6-15.6); WHITE BLOOD COUNT 11.4 K/mm3 (4.0-10.0)
[2017-09-22 09:15] LABS: CHLORIDE 103 mmol/L (98-107); POTASSIUM 4.6 mmol/L (3.5-5.1); SODIUM 140 mmol/L (136-145)
[2017-09-22 09:23] LABS: ANION GAP 12 (8-16); BLOOD UREA NITROGEN 16 mg/dL (7-18); CALCIUM 9.1 mg/dL (8.5-10.1); CO2 25 mmol/L (21-32); CREATININE 0.5 mg/dL (0.55-1.02); GLUCOSE,RANDOM 144 mg/dL (74-106)
[2017-09-22] MEDS: FLUTICASONE PROP 0.05% 16 GM NASAL SPRAY NS SCH ×2 (09:49→22:20)
[2017-09-22] MEDS: ENOXAPARIN NA (PORCINE) 40 MG/0.4 ML DISP.SYRIN SQ SCH (09:50)
[2017-09-22] MEDS: BUDESONIDE/FORMETEROL FUMARATE 160/4.5 mcg INHALER IH SCH ×2 (09:50→22:19)
[2017-09-22] MEDS: POLYETHYLENE GLYCOL 3350 119 GM BTL PO SCH ×2 (09:51→22:19)
[2017-09-22] MEDS: PANTOPRAZOLE 20 MG TABLET (FP) PO SCH (09:51)
[2017-09-22] MEDS: THEOPHYLLINE ANHYDROUS 200 MG CAP.ER.24H PO SCH (09:51)
--- NOTE | 2017-09-22 14:40 | PN ---
Progress Note, Physician History of Present Illness: pulmonary alert,less dyspneic,still congested. peak flow 200cc - Current Medication List Current Medications: Active Medications Albuterol Sulfate (Ventolin 0.083% Nebulizer Soln -) 1 amp NEB Q4H PRN PRN Reason: SHORT OF BREATH/WHEEZING Albuterol/Ipratropium (Duoneb -) 1 amp NEB RQID [facility] Last Admin: 09/22/17 12:14 Dose: 1 amp Benzocaine/Menthol (Cepacol Lozenge -) 1 each MM PRN PRN PRN Reason: SORE THROAT Budesonide/Formoterol Fumarate (Symbicort 160/4.5mcg -) 2 puff IH BID [facility] Last Admin: 09/22/17 09:50 Dose: 2 puff Enoxaparin Sodium (Lovenox -) 40 mg SQ DAILY [facility] Last Admin: 09/22/17 09:50 Dose: 40 mg Fluticasone Propionate (Flonase -) 1 spray NS BID [facility] Last Admin: 09/22/17 09:49 Dose: 1 spray Levothyroxine Sodium (Synthroid -) 25 mcg PO DAILY@0700 [facility] Last Admin: 09/22/17 06:38 Dose: 25 mcg Methylprednisolone Sodium Succinate (Solu-Medrol -) 60 mg IVPUSH Q8H-IV [facility] Last Admin: 09/22/17 09:50 Dose: 60 mg Montelukast Sodium (Singulair -) 10 mg PO HS [facility] Last Admin: 09/21/17 21:41 Dose: 10 mg Pantoprazole Sodium (Protonix -) 20 mg PO DAILY [facility] Last Admin: 09/22/17 09:51 Dose: 20 mg Polyethylene Glycol (Miralax (For Daily Use) -) 17 gm PO BID [facility] Last Admin: 09/22/17 09:51 Dose: 17 grams Theophylline ([place]-24) 400 mg PO DAILY [facility] Last Admin: 09/22/17 09:51 Dose: 400 mg Trazodone HCl (Desyrel -) 50 mg PO HS [facility] Last Admin: 09/21/17 21:41 Dose: 50 mg - Objective Vital Signs: Vital Signs Temperature 98.5 F 09/22/17 06:05 Pulse Rate 67 09/22/17 06:05 Respiratory Rate 18 09/22/17 06:05 Blood Pressure 122/66 09/22/17 06:05 O2 Sat by Pulse Oximetry (%) 97 09/21/17 22:00 Constitutional: Yes: Well Nourished, Calm Eyes: Yes: WNL HENT: Yes: WNL Neck: Yes: WNL Cardiovascular: Yes: Regular Rate and Rhythm, S1, S2 Respiratory: Yes: Wheezes (scattered sterling wheezes) Gastrointestinal: Yes: Normal Bowel Sounds, Soft Extremities: Yes: WNL Edema: No Labs: CBC, BMP 09/22/17 07:00 09/22/17 07:00 Assessment/Plan Problem List - Problems (1) Asthma exacerbation Code(s): J45.901 - UNSPECIFIED ASTHMA WITH (ACUTE) EXACERBATION Qualifiers: (2) Respiratory distress, acute Code(s): R06.03 - ACUTE RESPIRATORY DISTRESS (3) DVT prophylaxis Code(s): QNX3058 - (4) PNA (pneumonia) Code(s): J18.9 - PNEUMONIA, UNSPECIFIED ORGANISM Qualifiers: Pneumonia type: due to unspecified organism Laterality: right Lung location: lower lobe of lung Qualified Code(s): J18.1 - Lobar pneumonia, unspecified organism (5) Hypothyroidism Code(s): E03.9 - HYPOTHYROIDISM, UNSPECIFIED Qualifiers: Hypothyroidism type: acquired Qualified Code(s): E03.9 - Hypothyroidism, unspecified Assessment/Plan ACUTE ON CHRONIC PERSISTENT ASTHMA WITH HOARSENESS OF VOICE RECENT PNEUMONIA ADEQUATELY TREATED MULTIPLE ETT/MVV DUE TO RESP FAILURE THYROID DISEASE R/O VCD IV STEROIDS Symbicort 160/4.5 2 puff bid Spiriva MONITOR PEAK FLOW PFTS OUTPATIENT FLONASE,SALINE NASAL SPRAY DR DAVIS
[2017-09-22] MEDS: TIOTROPIUM BROMIDE 18 MCG/INH (DEVICE W/ 5 CAPSULES) IH SCH (15:54)
--- NOTE | 2017-09-22 20:15 | PN ---
Teaching Attending Note Name of Resident: Swati Bolanos ATTENDING PHYSICIAN STATEMENT I saw and evaluated the patient. I reviewed the resident's note and discussed the case with the resident. I agree with the resident's findings and plan as documented. SUBJECTIVE: SOB is better , pain in chest with cough only OBJECTIVE: NAD CV : RRR Lungs: scattered wheezing, good air entery Abd: soft, Nt, ND , NL BS Ext: no edema ASSESSMENT AND PLAN: 52 y/o lady with h/o ASthma, h/o intubation, recent PNA who presented with SOB and was found to have asthma exa 1- Asthma exacerbation : improved . cont steroids , Nebs and inhalers Patchy air space infiltrates are improved form befoer , no evidence of clinical PNA 2- RUL nodule : f/u as out pt with imaging. pt was made aware of this 3- hypothyroidism ; cont synthroid 4- calcified lesion in R hepatic lobe, will f/u as out pt HLOC
[2017-09-22] MEDS: traZODone HCL 50 MG TABLET (FP) PO SCH (22:19)
[2017-09-22] MEDS: MONTELUKAST NA 10 MG TABLET PO SCH (22:19)
[2017-09-23] MEDS: methylPREDNISolone NA SUCC 40 MG/1 ML VIAL IVPUSH SCH ×3 (02:35→21:17)
[2017-09-23] MEDS: LEVOTHYROXINE NA 25 MCG TABLET (FP) PO SCH (06:08)
--- NOTE | 2017-09-23 07:05 | PN ---
Physical Exam: SUBJECTIVE: Patient seen and examined. Breathing continuing to improve. persistent cough with associated chest pain. no fever or chills. only very small BMs for the past several days, feels constipated OBJECTIVE: Vital Signs Period Temp Pulse Resp BP Sys/Gomez Pulse Ox Last 24 Hr 97.8 F-98.6 F 70-90 18-20 112-124/61-65 96-98 GENERAL: aaox3, nad, completing sentences without tachypnea EYES: sclera anicteric, conjunctiva clear ENT: oropharynx clear without exudates, MMM LUNGS: improved airway entry BL, bilateral expiratory wheezes, no accessory muscle use HEART: rrr, normal s1/s2, ABDOMEN: obese, soft, mildly distended with diffuse discomfort to palpation, normoactive BS LOWER EXTREMITIES: 2+ DP pulses, wwp, no edema Laboratory Results - last 24 hr 09/22/17 09/22/17 07:00 07:00 WBC 11.4 H RBC 4.55 Hgb 11.4 Hct 36.9 MCV 81.1 MCH 25.2 L MCHC 31.0 L RDW 17.4 H Plt Count 294 MPV 9.1 Sodium 140 Potassium 4.6 Chloride 103 Carbon Dioxide 25 Anion Gap 12 BUN 16 Creatinine 0.5 L D Random Glucose 144 H Calcium 9.1 Active Medications Albuterol Sulfate (Ventolin 0.083% Nebulizer Soln -) 1 amp NEB Q4H PRN PRN Reason: SHORT OF BREATH/WHEEZING Benzocaine/Menthol (Cepacol Lozenge -) 1 each MM PRN PRN PRN Reason: SORE THROAT Budesonide/Formoterol Fumarate (Symbicort 160/4.5mcg -) 2 puff IH BID [facility] Last Admin: 09/22/17 22:19 Dose: 2 puff Enoxaparin Sodium (Lovenox -) 40 mg SQ DAILY [facility] Last Admin: 09/22/17 09:50 Dose: 40 mg Fluticasone Propionate (Flonase -) 1 spray NS BID [facility] Last Admin: 09/22/17 22:20 Dose: 1 spray Levothyroxine Sodium (Synthroid -) 25 mcg PO DAILY@0700 [facility] Last Admin: 09/23/17 06:08 Dose: 25 mcg Methylprednisolone Sodium Succinate (Solu-Medrol -) 60 mg IVPUSH Q8H-IV [facility] Last Admin: 09/23/17 02:35 Dose: 60 mg Montelukast Sodium (Singulair -) 10 mg PO HS [facility] Last Admin: 09/22/17 22:19 Dose: 10 mg Pantoprazole Sodium (Protonix -) 20 mg PO DAILY [facility] Last Admin: 09/22/17 09:51 Dose: 20 mg Polyethylene Glycol (Miralax (For Daily Use) -) 17 gm PO BID [facility] Last Admin: 09/22/17 22:19 Dose: 17 grams Theophylline ([place]-24) 400 mg PO DAILY [facility] Last Admin: 09/22/17 09:51 Dose: 400 mg Tiotropium [place] (Spiriva -) 1 puff IH DAILY [facility] Last Admin: 09/22/17 15:54 Dose: 1 puff Trazodone HCl (Desyrel -) 50 mg PO [facility] Last Admin: 09/22/17 22:19 Dose: 50 mg ASSESSMENT/PLAN: 51yo woman with asmtha/COPD with multiple past intubations, recently discharged on steroid taper who presents again with worsening CURRIE and found to have acute asthma exacerbation. #Acute asthma exacerbation -Pulmonology following -c/w steroid 60mg IV Q8H -Duo neds QIDR + Ventolin q4h prn -Symbicort 2puffs BID + home Singular -Hold home Spiriva while on duo nebs -Daily peak flow measurements -daily Flonase -Theophylline 400mg daily -> will check level tomorrow #deviated nasal septum -ENT consulted, f/u OP #constipation -c/w Miralax BID + Ducolax and Pericolace today #leukocytosis likely 2/2 from steroids -will trend #lactic acidosis, resolved, likely 2/2 from hypoxia #hypothyroidism - continue home Synthroid #obesity -csm consultant consult #FEN: PO hydration / lytes wnl / regular diet #PPX -DVT Lovenox -GI - Protonix 20mg PO daily #Dispo: continue M/S, will d/c to [facility] for pulm rehab Full code d/w Dr. Kyra Bolanos MD PGY1 - Internal Medicine Visit type - Emergency Visit Emergency Visit: No - New Patient This patient is new to me today: No - Critical Care Critical Care patient: No
[2017-09-23] MEDS ORDERED: PT OWN MED DRAWER 7, Y5N ONE ×3 (10:32→21:07)
[2017-09-23] MEDS: ENOXAPARIN NA (PORCINE) 40 MG/0.4 ML DISP.SYRIN SQ SCH (10:39)
[2017-09-23] MEDS: TIOTROPIUM BROMIDE 18 MCG/INH (DEVICE W/ 5 CAPSULES) IH SCH (10:40)
[2017-09-23] MEDS: PANTOPRAZOLE 20 MG TABLET (FP) PO SCH (10:41)
[2017-09-23] MEDS: POLYETHYLENE GLYCOL 3350 119 GM BTL PO SCH ×2 (10:42→22:27)
[2017-09-23] MEDS: FLUTICASONE PROP 0.05% 16 GM NASAL SPRAY NS SCH ×2 (10:45→21:17)
[2017-09-23] MEDS: BUDESONIDE/FORMETEROL FUMARATE 160/4.5 mcg INHALER IH SCH ×2 (10:45→21:17)
--- NOTE | 2017-09-23 11:14 | PN ---
Progress Note (short form) - Note Progress Note: PULMONARY States that chest is finally feeling looser. Still some nonproductive cough and wheezing. Peak flow done at bedside 190. Last Vital Signs Temp Pulse Resp BP Pulse Ox 97.9 F 70 20 122/62 96 09/23/17 05:51 09/23/17 05:51 09/23/17 05:51 09/23/17 05:51 09/22/17 21:00 Gen: less tachypneic with speaking Heart: RRR Lung: scattered rhonchi, wheezes, better air entry Abd: soft, nontender Ext: no edema CBC, BMP 09/22/17 07:00 09/22/17 07:00 Active Medications Albuterol Sulfate (Ventolin 0.083% Nebulizer Soln -) 1 amp NEB Q4H PRN PRN Reason: SHORT OF BREATH/WHEEZING Benzocaine/Menthol (Cepacol Lozenge -) 1 each MM PRN PRN PRN Reason: SORE THROAT Budesonide/Formoterol Fumarate (Symbicort 160/4.5mcg -) 2 puff IH BID [facility] Last Admin: 09/23/17 10:45 Dose: 2 puff Enoxaparin Sodium (Lovenox -) 40 mg SQ DAILY [facility] Last Admin: 09/23/17 10:39 Dose: 40 mg Fluticasone Propionate (Flonase -) 1 spray NS BID [facility] Last Admin: 09/23/17 10:45 Dose: 1 spray Levothyroxine Sodium (Synthroid -) 25 mcg PO DAILY@0700 [facility] Last Admin: 09/23/17 06:08 Dose: 25 mcg Methylprednisolone Sodium Succinate (Solu-Medrol -) 60 mg IVPUSH Q8H-IV [facility] Last Admin: 09/23/17 10:39 Dose: 60 mg Montelukast Sodium (Singulair -) 10 mg PO HS [facility] Last Admin: 09/22/17 22:19 Dose: 10 mg Pantoprazole Sodium (Protonix -) 20 mg PO DAILY [facility] Last Admin: 09/23/17 10:41 Dose: 20 mg Polyethylene Glycol (Miralax (For Daily Use) -) 17 gm PO BID [facility] Last Admin: 09/23/17 10:42 Dose: 17 grams Theophylline ([place]-24) 400 mg PO DAILY [facility] Last Admin: 09/22/17 09:51 Dose: 400 mg Tiotropium [place] (Spiriva -) 1 puff IH DAILY [facility] Last Admin: 09/23/17 10:40 Dose: 1 puff Trazodone HCl (Desyrel -) 50 mg PO HS [facility] Last Admin: 09/22/17 22:19 Dose: 50 mg A/P Acute Asthma Exacerbation Recent Pneumonia Hypothyroidism - slow medrol taper - started on theophyilline, monitor levels - inhaled bronchodilators standing and PRN - monitor peak flow - O2 as needed - DVT prophylaxis - for pulmonary rehab
[2017-09-23] MEDS ORDERED: BISACODYL 5 MG TABLET.DR (FP) PO ONE (14:45)
[2017-09-23] MEDS: SENNOSIDES/DOCUSATE COMBO (SENNA PLUS) TABLET (UD) PO SCH ×2 (15:33→21:17)
--- NOTE | 2017-09-23 17:40 | PN ---
Teaching Attending Note Name of Resident: Swati Bolanos ATTENDING PHYSICIAN STATEMENT I saw and evaluated the patient. I reviewed the resident's note and discussed the case with the resident. I agree with the resident's findings and plan as documented. SUBJECTIVE: SOB has improved OBJECTIVE: NAD CV : RRR Lungs: prolonged exp phase , good air entery Ext: no edema ASSESSMENT AND PLAN: 52 y/o lady with h/o ASthma, h/o intubation, recent PNA who presented with SOB and was found to have asthma exa 1- Asthma exacerbation : improved . decrease steroids dose , cont Nebs and inhalers cont thyophilins . level tomorrow Patchy air space infiltrates are improved form before , no evidence of clinical PNA 2- RUL nodule : f/u as out pt with imaging. 3- hypothyroidism ; cont synthroid 4- calcified lesion in R hepatic lobe, will f/u as out pt possible dc tomorrow to pulm rehab
[2017-09-23] MEDS: THEOPHYLLINE ANHYDROUS 200 MG CAP.ER.24H PO SCH (18:02)
[2017-09-23] MEDS: MONTELUKAST NA 10 MG TABLET PO SCH (21:17)
[2017-09-23] MEDS: traZODone HCL 50 MG TABLET (FP) PO SCH (21:17)
[2017-09-24] MEDS: LEVOTHYROXINE NA 25 MCG TABLET (FP) PO SCH (06:40)
--- NOTE | 2017-09-24 06:55 | PN ---
Physical Exam: SUBJECTIVE: Patient seen and examined. Breathing has improved. No fever or chills. Persistent cough. Still has not had a large BM. OBJECTIVE: Vital Signs Period Temp Pulse Resp BP Sys/Gomez Pulse Ox Last 24 Hr 97.8 F-99.1 F 72-117 18-20 128-141/69-80 96-97 GENERAL: aaox3, nad, completing sentences without dyspnea EYES: sclera anicteric, conjunctiva clear ENT: oropharynx clear without exudates, MMM LUNGS: good airway entry, prolonged expiratory phase HEART: rrr, normal s1/s2, ABDOMEN: obese, soft, mildly distended with diffuse discomfort to palpation, normoactive BS LOWER EXTREMITIES: 2+ DP pulses, wwp, no edema Laboratory Tests 09/17/17 09/24/17 05:25 06:30 Theophylline 10.510 THO Screen Negative Active Medications Albuterol Sulfate (Ventolin 0.083% Nebulizer Soln -) 1 amp NEB Q4H PRN PRN Reason: SHORT OF BREATH/WHEEZING Last Admin: 09/23/17 18:34 Dose: 1 amp Albuterol/Ipratropium (Duoneb -) 1 amp NEB Q6H PRN PRN Reason: SHORTNESS OF BREATH Bacitracin (Bacitracin -) 1 applic TP BID [facility] Last Admin: 09/24/17 13:14 Dose: 1 applic Benzocaine/Menthol (Cepacol Lozenge -) 1 each MM PRN PRN PRN Reason: SORE THROAT Budesonide/Formoterol Fumarate (Symbicort 160/4.5mcg -) 2 puff IH BID [facility] Last Admin: 09/24/17 10:08 Dose: 2 puff Enoxaparin Sodium (Lovenox -) 40 mg SQ DAILY [facility] Last Admin: 09/24/17 10:14 Dose: 40 mg Fluticasone Propionate (Flonase -) 1 spray NS BID [facility] Last Admin: 09/24/17 10:10 Dose: 1 spray Levothyroxine Sodium (Synthroid -) 25 mcg PO DAILY@0700 [facility] Last Admin: 09/24/17 06:40 Dose: 25 mcg Methylprednisolone Sodium Succinate (Solu-Medrol -) 40 mg IVPUSH BID [facility] Stop: 09/24/17 23:59 Last Admin: 01/12/18 10:14 Dose: 40 mg Montelukast Sodium (Singulair -) 10 mg PO HS [facility] Last Admin: 09/23/17 21:17 Dose: 10 mg Pantoprazole Sodium (Protonix -) 20 mg PO DAILY [facility] Last Admin: 09/24/17 10:10 Dose: 20 mg Polyethylene Glycol (Miralax (For Daily Use) -) 17 gm PO BID [facility] Last Admin: 09/24/17 09:49 Dose: 17 grams Prednisone (Deltasone -) 60 mg PO DAILY [facility] Senna/Docusate Sodium (Pericolace -) 1 tablet PO BID [facility] Last Admin: 09/24/17 10:10 Dose: 1 tablet Theophylline ([place]-24) 300 mg PO DAILY [facility] Last Admin: 09/24/17 17:29 Dose: Not Given Tiotropium [place] (Spiriva -) 1 puff IH DAILY [facility] Last Admin: 09/24/17 10:08 Dose: 1 puff Trazodone HCl (Desyrel -) 50 mg PO HS [facility] Last Admin: 09/23/17 21:17 Dose: 50 mg ASSESSMENT/PLAN: 51yo woman with asmtha/COPD with multiple past intubations, recently discharged on steroid taper who presents again with worsening CURRIE and found to have acute asthma exacerbation. #Acute asthma exacerbation -Pulmonology following -decrease steroids to 60mg PO daily. Will d/c 10mg taper q5 days. -Duo neds QIDR + Ventolin q4h prn -Symbicort 2puffs BID + home Singular -Hold home Spiriva while on duo nebs -Daily peak flow measurements -daily Flonase -Theophylline level 10.5 (goal 5-6). Will decrease 300mg daily and recheck in 2- 3 days. #deviated nasal septum -ENT consulted, f/u OP #constipation, no BM yet. Will add Lactulose -c/w Miralax BID + Ducolax and Pericolace today #leukocytosis likely 2/2 from steroids -will trend #lactic acidosis, resolved, likely 2/2 from hypoxia #hypothyroidism - continue home Synthroid #obesity -advertising columnist consult #FEN: PO hydration / lytes wnl / regular diet #PPX -DVT Lovenox -GI - Protonix 20mg PO daily #Dispo: going to [facility] for pulm rehab tomorrow Full code d/w Dr. Kyra Bolanos MD PGY1 - Internal Medicine Visit type - Emergency Visit Emergency Visit: No - New Patient This patient is new to me today: No - Critical Care Critical Care patient: No
[2017-09-24 08:32] LABS: HEMATOCRIT 38.9 % (32.4-45.2); HEMOGLOBIN 12.2 GM/dL (10.7-15.3); MCH 25.2 pg (25.7-33.7); MCHC 31.4 g/dl (32.0-36.0); MEAN CELL VOLUME 80.3 fl (80-96); MEAN PLT VOLUME 8.7 fl (7.5-11.1); PLATELET COUNT 328 K/MM3 (134-434); RBC 4.84 M/mm3 (3.60-5.2); RDW 17.3 % (11.6-15.6); WHITE BLOOD COUNT 13.6 K/mm3 (4.0-10.0)
[2017-09-24] MEDS: POLYETHYLENE GLYCOL 3350 119 GM BTL PO SCH ×2 (09:49→22:59)
[2017-09-24] MEDS ORDERED: THEOPHYLLINE ANHYDROUS 100 MG CAP.ER.24H PO SCH (10:00)
[2017-09-24] MEDS ORDERED: PT OWN MED DRAWER 7, Y5N ONE ×2 (10:06→22:42)
[2017-09-24] MEDS: BUDESONIDE/FORMETEROL FUMARATE 160/4.5 mcg INHALER IH SCH ×2 (10:08→22:58)
[2017-09-24] MEDS: TIOTROPIUM BROMIDE 18 MCG/INH (DEVICE W/ 5 CAPSULES) IH SCH (10:08)
[2017-09-24] MEDS: FLUTICASONE PROP 0.05% 16 GM NASAL SPRAY NS SCH ×2 (10:10→22:58)
[2017-09-24] MEDS: SENNOSIDES/DOCUSATE COMBO (SENNA PLUS) TABLET (UD) PO SCH ×2 (10:10→22:48)
[2017-09-24] MEDS: PANTOPRAZOLE 20 MG TABLET (FP) PO SCH (10:10)
[2017-09-24] MEDS: ENOXAPARIN NA (PORCINE) 40 MG/0.4 ML DISP.SYRIN SQ SCH (10:14)
[2017-09-24] MEDS: methylPREDNISolone NA SUCC 40 MG/1 ML VIAL IVPUSH SCH ×2 (10:14→22:48)
[2017-09-24] MEDS ORDERED: LACTULOSE 20 GM/30 ML UDC (FOR ORAL USE ONLY) PO ONE (12:55)
[2017-09-24] MEDS: BACITRACIN 15 GM TUBE TOPICAL OINTMENT TP SCH ×2 (13:14→22:20)
--- NOTE | 2017-09-24 13:59 | PN ---
Progress Note (short form) - Note Progress Note: PULMONARY AWAKE/ALERT VSS/AFEBRILE ANICTERIC NO STRIDOR BILATERAL EXP RHONCHI S1S2 BS+ OBESE NO EDEMA LABS/IMAGES/MEDS/NOTES REVIEWED Acute Asthma Exacerbation Recent Pneumonia Hypothyroidism - slow medrol taper - started on theophyilline, monitor levels - inhaled bronchodilators standing and PRN - monitor peak flow - O2 as needed - DVT prophylaxis - for pulmonary rehab Mima HAYNES MD Problem List - Problems (1) Asthma exacerbation Code(s): J45.901 - UNSPECIFIED ASTHMA WITH (ACUTE) EXACERBATION Qualifiers: (2) Respiratory distress, acute Code(s): R06.03 - ACUTE RESPIRATORY DISTRESS (3) DVT prophylaxis Code(s): KJH2258 - (4) PNA (pneumonia) Code(s): J18.9 - PNEUMONIA, UNSPECIFIED ORGANISM Qualifiers: Pneumonia type: due to unspecified organism Laterality: right Lung location: lower lobe of lung Qualified Code(s): J18.1 - Lobar pneumonia, unspecified organism (5) Hypothyroidism Code(s): E03.9 - HYPOTHYROIDISM, UNSPECIFIED Qualifiers: Hypothyroidism type: acquired Qualified Code(s): E03.9 - Hypothyroidism, unspecified
[2017-09-24] MEDS: THEOPHYLLINE ANHYDROUS 100 MG CAP.ER.24H PO SCH (17:29)
--- NOTE | 2017-09-24 19:25 | PN ---
Teaching Attending Note Name of Resident: Swati Bolanos ATTENDING PHYSICIAN STATEMENT I saw and evaluated the patient. I reviewed the resident's note and discussed the case with the resident. I agree with the resident's findings and plan as documented. SUBJECTIVE: No fever or chills , feels better . OBJECTIVE: NAD CV : RRR Lungs: prolonged exp phase , good air entery Ext: no edema ASSESSMENT AND PLAN: 52 y/o lady with h/o ASthma, h/o intubation, recent PNA who presented with SOB and was found to have asthma exa 1- Asthma exacerbation: improved . cont Nebs and inhalers switch to po steroids at 60 and taper slowly to base line of 20 mg daily. thyophiline level noted, decrease dose to 30 and recheck in few days 2- RUL nodule: f/u as out pt with imaging. 3- Hypothyroidism; cont synthroid 4- Calcified lesion in R hepatic lobe, will f/u as out pt has a bed in am at rehab
[2017-09-24] MEDS ORDERED: ALBUTEROL SO4 2.5/IPRATROPIUM 0.5 INH SOL 3 ML VIAL.NEB. NEB PRN ×2 (19:35→19:37)
[2017-09-24] MEDS: MONTELUKAST NA 10 MG TABLET PO SCH (22:48)
[2017-09-24] MEDS: traZODone HCL 50 MG TABLET (FP) PO SCH (22:48)
[2017-09-25] MEDS: LEVOTHYROXINE NA 25 MCG TABLET (FP) PO SCH (06:33)
[2017-09-25] MEDS: ENOXAPARIN NA (PORCINE) 40 MG/0.4 ML DISP.SYRIN SQ SCH (10:13)
[2017-09-25] MEDS: predniSONE 20 MG TABLET (UD) PO SCH (10:13)
[2017-09-25] MEDS: PANTOPRAZOLE 20 MG TABLET (FP) PO SCH (10:13)
[2017-09-25] MEDS: SENNOSIDES/DOCUSATE COMBO (SENNA PLUS) TABLET (UD) PO SCH ×2 (10:13→22:18)
[2017-09-25] MEDS: BACITRACIN 15 GM TUBE TOPICAL OINTMENT TP SCH ×2 (10:14→21:50)
[2017-09-25] MEDS ORDERED: PT OWN MED DRAWER 7, Y5N ONE (10:20)
[2017-09-25] MEDS: THEOPHYLLINE ANHYDROUS 100 MG CAP.ER.24H PO SCH (10:21)
[2017-09-25] MEDS: BUDESONIDE/FORMETEROL FUMARATE 160/4.5 mcg INHALER IH SCH ×2 (10:25→22:18)
[2017-09-25] MEDS: TIOTROPIUM BROMIDE 18 MCG/INH (DEVICE W/ 5 CAPSULES) IH SCH (10:26)
[2017-09-25] MEDS: FLUTICASONE PROP 0.05% 16 GM NASAL SPRAY NS SCH ×2 (10:26→22:18)
[2017-09-25] MEDS: POLYETHYLENE GLYCOL 3350 119 GM BTL PO SCH ×2 (10:41→22:18)
--- NOTE | 2017-09-25 12:43 | PN ---
Physical Exam: SUBJECTIVE: Patient seen and examined. Offers no complaints. Breathing continues to improve. No fever or chills. No large BM yet. OBJECTIVE: Vital Signs Period Temp Pulse Resp BP Sys/Gomez Pulse Ox Last 24 Hr 97.7 F-99.1 F 63-100 16-19 109-126/52-66 99 GENERAL: aaox3, nad, completing sentences without dyspnea EYES: sclera anicteric, conjunctiva clear ENT: oropharynx clear without exudates, MMM LUNGS: good airway entry, prolonged expiratory phase, no wheezes HEART: rrr, normal s1/s2, ABDOMEN: obese, soft, mildly distended with diffuse discomfort to palpation, normoactive BS LOWER EXTREMITIES: 2+ DP pulses, wwp, no edema Active Medications Albuterol Sulfate (Ventolin 0.083% Nebulizer Soln -) 1 amp NEB Q4H PRN PRN Reason: SHORT OF BREATH/WHEEZING Last Admin: 09/23/17 18:34 Dose: 1 amp Albuterol/Ipratropium (Duoneb -) 1 amp NEB Q6H PRN PRN Reason: SHORTNESS OF BREATH Bacitracin (Bacitracin -) 1 applic TP BID [facility] Last Admin: 09/25/17 10:14 Dose: 1 applic Benzocaine/Menthol (Cepacol Lozenge -) 1 each MM PRN PRN PRN Reason: SORE THROAT Budesonide/Formoterol Fumarate (Symbicort 160/4.5mcg -) 2 puff IH BID [facility] Last Admin: 09/25/17 10:25 Dose: 2 puff Enoxaparin Sodium (Lovenox -) 40 mg SQ DAILY [facility] Last Admin: 09/25/17 10:13 Dose: 40 mg Fluticasone Propionate (Flonase -) 1 spray NS BID [facility] Last Admin: 09/25/17 10:26 Dose: 1 spray Levothyroxine Sodium (Synthroid -) 25 mcg PO DAILY@0700 [facility] Last Admin: 09/25/17 06:33 Dose: 25 mcg Montelukast Sodium (Singulair -) 10 mg PO HS [facility] Last Admin: 09/24/17 22:48 Dose: 10 mg Pantoprazole Sodium (Protonix -) 20 mg PO DAILY [facility] Last Admin: 09/25/17 10:13 Dose: 20 mg Polyethylene Glycol (Miralax (For Daily Use) -) 17 gm PO BID [facility] Last Admin: 09/25/17 10:41 Dose: Not Given Prednisone (Deltasone -) 60 mg PO DAILY [facility] Last Admin: 09/25/17 10:13 Dose: 60 mg Senna/Docusate Sodium (Pericolace -) 1 tablet PO BID [facility] Last Admin: 09/25/17 10:13 Dose: 1 tablet Theophylline ([place]-24) 300 mg PO DAILY [facility] Last Admin: 09/25/17 10:21 Dose: 300 mg Tiotropium [place] (Spiriva -) 1 puff IH DAILY [facility] Last Admin: 09/25/17 10:26 Dose: 1 puff Trazodone HCl (Desyrel -) 50 mg PO HS [facility] Last Admin: 09/24/17 22:48 Dose: 50 mg ASSESSMENT/PLAN: 51yo woman with asmtha/COPD with multiple past intubations, recently discharged on steroid taper who presents again with worsening CURRIE and found to have acute asthma exacerbation. #Acute asthma exacerbation -Pulmonology following -decrease steroids to 60mg PO daily. Will d/c 10mg taper q5 days. -Duo neds QIDR + Ventolin q4h prn -Symbicort 2puffs BID + home Singular -Hold home Spiriva while on duo nebs -Daily peak flow measurements -daily Flonase -Theophylline level 10.5 (goal 5-6). Will decrease 300mg daily and recheck in 2- 3 days. #deviated nasal septum -ENT consulted, f/u OP #constipation, no BM yet. Will add Lactulose -c/w Miralax BID + Ducolax and Pericolace today #leukocytosis likely 2/2 from steroids -will trend #lactic acidosis, resolved, likely 2/2 from hypoxia #hypothyroidism - continue home Synthroid #obesity -bi solutions architect consult #FEN: PO hydration / lytes wnl / regular diet #PPX -DVT Lovenox -GI - Protonix 20mg PO daily #Dispo: [facility], awaiting when bed will become re-available Full code d/w Dr. Kyra Bolanos MD PGY1 - Internal Medicine Visit type - Emergency Visit Emergency Visit: No - New Patient This patient is new to me today: No - Critical Care Critical Care patient: No
[2017-09-25] MEDS ORDERED: BISACODYL 5 MG TABLET.DR (FP) PO ONE (14:00)
--- NOTE | 2017-09-25 14:08 | PN ---
Progress Note (short form) - Note Progress Note: PULMONARY Breathing continues to slowly improve. Cough and wheezing less. Last Vital Signs Temp Pulse Resp BP Pulse Ox 97.9 F 81 17 109/57 99 09/25/17 10:00 09/25/17 10:00 09/25/17 10:00 09/25/17 10:00 09/24/17 21:00 Gen: less tachypneic with speaking Heart: RRR Lung: better air entry, no wheezes appreciated Abd: soft, nontender Ext: no edema CBC, BMP 09/24/17 06:30 09/22/17 07:00 Active Medications Albuterol Sulfate (Ventolin 0.083% Nebulizer Soln -) 1 amp NEB Q4H PRN PRN Reason: SHORT OF BREATH/WHEEZING Last Admin: 09/23/17 18:34 Dose: 1 amp Albuterol/Ipratropium (Duoneb -) 1 amp NEB Q6H PRN PRN Reason: SHORTNESS OF BREATH Bacitracin (Bacitracin -) 1 applic TP BID [facility] Last Admin: 09/25/17 10:14 Dose: 1 applic Benzocaine/Menthol (Cepacol Lozenge -) 1 each MM PRN PRN PRN Reason: SORE THROAT Budesonide/Formoterol Fumarate (Symbicort 160/4.5mcg -) 2 puff IH BID [facility] Last Admin: 09/25/17 10:25 Dose: 2 puff Enoxaparin Sodium (Lovenox -) 40 mg SQ DAILY [facility] Last Admin: 09/25/17 10:13 Dose: 40 mg Fluticasone Propionate (Flonase -) 1 spray NS BID [facility] Last Admin: 09/25/17 10:26 Dose: 1 spray Levothyroxine Sodium (Synthroid -) 25 mcg PO DAILY@0700 [facility] Last Admin: 09/25/17 06:33 Dose: 25 mcg Montelukast Sodium (Singulair -) 10 mg PO HS [facility] Last Admin: 09/24/17 22:48 Dose: 10 mg Pantoprazole Sodium (Protonix -) 20 mg PO DAILY [facility] Last Admin: 09/25/17 10:13 Dose: 20 mg Polyethylene Glycol (Miralax (For Daily Use) -) 17 gm PO BID [facility] Last Admin: 09/25/17 10:41 Dose: Not Given Prednisone (Deltasone -) 60 mg PO DAILY [facility] Last Admin: 09/25/17 10:13 Dose: 60 mg Senna/Docusate Sodium (Pericolace -) 1 tablet PO BID [facility] Last Admin: 09/25/17 10:13 Dose: 1 tablet Theophylline ([place]-24) 300 mg PO DAILY [facility] Last Admin: 09/25/17 10:21 Dose: 300 mg Tiotropium [place] (Spiriva -) 1 puff IH DAILY [facility] Last Admin: 09/25/17 10:26 Dose: 1 puff Trazodone HCl (Desyrel -) 50 mg PO HS [facility] Last Admin: 09/24/17 22:48 Dose: 50 mg A/P Acute Asthma Exacerbation Recent Pneumonia Hypothyroidism - prednisone taper - continue theophyilline for now, monitor levels - inhaled bronchodilators standing and PRN - monitor peak flow - O2 as needed - DVT prophylaxis - for pulmonary rehab
--- NOTE | 2017-09-25 15:02 | PN ---
Teaching Attending Note Name of Resident: Swati Bolanos ATTENDING PHYSICIAN STATEMENT I saw and evaluated the patient. I reviewed the resident's note and discussed the case with the resident. I agree with the resident's findings and plan as documented. SUBJECTIVE: no fever or chills. SOB improved OBJECTIVE: NAD CV: RRR Lungs: prolonged exp phase , good air entery Ext: no edema ASSESSMENT AND PLAN: 52 y/o lady with h/o ASthma, h/o intubation, recent PNA who presented with SOB and was found to have asthma exa 1- Asthma exacerbation: improved . cont Nebs and inhalers cont prednisone 60 ( day 2) and taper slowly to base line of 20 mg daily. thyophiline 300 mg daily check level in 2-3 days 2- RUL nodule: f/u as out pt with imaging. 3- Hypothyroidism; cont synthroid 4- Calcified lesion in R hepatic lobe, will f/u as out pt pending dc to rehab
[2017-09-25] MEDS: MONTELUKAST NA 10 MG TABLET PO SCH (22:18)
[2017-09-25] MEDS: traZODone HCL 50 MG TABLET (FP) PO SCH (22:18)
[2017-09-26] MEDS: LEVOTHYROXINE NA 25 MCG TABLET (FP) PO SCH (06:53)
[2017-09-26] MEDS ORDERED: PT OWN MED DRAWER 7, Y5N ONE (09:42)
[2017-09-26] MEDS: BUDESONIDE/FORMETEROL FUMARATE 160/4.5 mcg INHALER IH SCH ×2 (10:06→21:50)
[2017-09-26] MEDS: TIOTROPIUM BROMIDE 18 MCG/INH (DEVICE W/ 5 CAPSULES) IH SCH (10:06)
[2017-09-26] MEDS: PANTOPRAZOLE 20 MG TABLET (FP) PO SCH (10:07)
[2017-09-26] MEDS: predniSONE 20 MG TABLET (UD) PO SCH (10:07)
[2017-09-26] MEDS: SENNOSIDES/DOCUSATE COMBO (SENNA PLUS) TABLET (UD) PO SCH ×2 (10:07→21:47)
[2017-09-26] MEDS: BACITRACIN 15 GM TUBE TOPICAL OINTMENT TP SCH ×2 (10:08→21:48)
[2017-09-26] MEDS: ENOXAPARIN NA (PORCINE) 40 MG/0.4 ML DISP.SYRIN SQ SCH (10:09)
[2017-09-26] MEDS: THEOPHYLLINE ANHYDROUS 100 MG CAP.ER.24H PO SCH (10:09)
[2017-09-26] MEDS: FLUTICASONE PROP 0.05% 16 GM NASAL SPRAY NS SCH ×2 (10:11→21:50)
[2017-09-26] MEDS: POLYETHYLENE GLYCOL 3350 119 GM BTL PO SCH ×2 (10:11→21:47)
--- NOTE | 2017-09-26 13:30 | PN ---
Progress Note (short form) - Note Progress Note: PULMONARY Breathing continues to slowly improve. Cough and wheezing less. Ambulates to bathroom. Last Vital Signs Temp Pulse Resp BP Pulse Ox 98.2 F 83 20 121/61 98 09/26/17 09:00 09/26/17 09:00 09/26/17 09:00 09/26/17 09:00 09/25/17 21:00 Gen: less tachypneic with speaking Heart: RRR Lung: better air entry, no wheezes appreciated Abd: soft, nontender Ext: no edema CBC, BMP 09/24/17 06:30 09/22/17 07:00 Active Medications Albuterol Sulfate (Ventolin 0.083% Nebulizer Soln -) 1 amp NEB Q4H PRN PRN Reason: SHORT OF BREATH/WHEEZING Last Admin: 09/23/17 18:34 Dose: 1 amp Albuterol/Ipratropium (Duoneb -) 1 amp NEB Q6H PRN PRN Reason: SHORTNESS OF BREATH Bacitracin (Bacitracin -) 1 applic TP BID [facility] Last Admin: 09/26/17 10:08 Dose: 1 applic Benzocaine/Menthol (Cepacol Lozenge -) 1 each MM PRN PRN PRN Reason: SORE THROAT Budesonide/Formoterol Fumarate (Symbicort 160/4.5mcg -) 2 puff IH BID [facility] Last Admin: 09/26/17 10:06 Dose: 2 puff Enoxaparin Sodium (Lovenox -) 40 mg SQ DAILY [facility] Last Admin: 09/26/17 10:09 Dose: 40 mg Fluticasone Propionate (Flonase -) 1 spray NS BID [facility] Last Admin: 09/26/17 10:11 Dose: 1 spray Levothyroxine Sodium (Synthroid -) 25 mcg PO DAILY@0700 [facility] Last Admin: 09/26/17 06:53 Dose: 25 mcg Montelukast Sodium (Singulair -) 10 mg PO HS [facility] Last Admin: 09/25/17 22:18 Dose: 10 mg Pantoprazole Sodium (Protonix -) 20 mg PO DAILY [facility] Last Admin: 09/26/17 10:07 Dose: 20 mg Polyethylene Glycol (Miralax (For Daily Use) -) 17 gm PO BID [facility] Last Admin: 09/26/17 10:11 Dose: 17 grams Prednisone (Deltasone -) 60 mg PO DAILY [facility] Last Admin: 09/26/17 10:07 Dose: 60 mg Senna/Docusate Sodium (Pericolace -) 1 tablet PO BID [facility] Last Admin: 09/26/17 10:07 Dose: 1 tablet Theophylline ([place]-24) 300 mg PO DAILY [facility] Last Admin: 09/26/17 10:09 Dose: 300 mg Tiotropium [place] (Spiriva -) 1 puff IH DAILY [facility] Last Admin: 09/26/17 10:06 Dose: 1 puff Trazodone HCl (Desyrel -) 50 mg PO HS [facility] Last Admin: 09/25/17 22:18 Dose: 50 mg A/P Acute Asthma Exacerbation Recent Pneumonia Hypothyroidism - slow prednisone taper - continue theophyilline for now, monitor levels - inhaled bronchodilators standing and PRN - monitor peak flow - O2 as needed - DVT prophylaxis - awaiting pulmonary rehab placement
--- NOTE | 2017-09-26 16:04 | PN ---
Progress Note (short form) - Note Progress Note: Subjective: no fever or chills. SOB improved Objective: Vital Signs: Last Vital Signs Temp Pulse Resp BP Pulse Ox 98.2 F 83 20 121/61 98 09/26/17 09:00 09/26/17 09:00 09/26/17 09:00 09/26/17 09:00 09/25/17 21:00 Physical Exam: NAD CV: RRR Lungs: prolonged exp phase , good air entery Ext: no edema ASSESSMENT AND PLAN: 52 y/o lady with h/o ASthma, h/o intubation, recent PNA who presented with SOB and was found to have asthma exa 1- Asthma exacerbation: improved. cont Nebs and inhalers cont prednisone 60 ( day3) and taper slowly to base line of 20 mg daily. thyophiline 300 mg daily check level in 2 days 2- RUL nodule: f/u as out pt with imaging. 3- Hypothyroidism; cont synthroid 4- Calcified lesion in R hepatic lobe, will f/u as out pt pending dc to pulm rehab Visit type - Emergency Visit Emergency Visit: Yes ED Registration Date: 09/15/17 Care time: The patient presented to the Emergency Department on the above date and was hospitalized for further evaluation of their emergent condition. - New Patient This patient is new to me today: No - Critical Care Critical Care patient: No
[2017-09-26] MEDS: traZODone HCL 50 MG TABLET (FP) PO SCH (21:47)
[2017-09-26] MEDS: MONTELUKAST NA 10 MG TABLET PO SCH (21:47)
[2017-09-27 05:41] VITALS: TEMP 97.8
[2017-09-27] MEDS: LEVOTHYROXINE NA 25 MCG TABLET (FP) PO SCH (06:43)
[2017-09-27] MEDS: SENNOSIDES/DOCUSATE COMBO (SENNA PLUS) TABLET (UD) PO SCH (10:01)
[2017-09-27] MEDS: PANTOPRAZOLE 20 MG TABLET (FP) PO SCH (10:01)
[2017-09-27] MEDS: predniSONE 20 MG TABLET (UD) PO SCH (10:01)
[2017-09-27] MEDS: POLYETHYLENE GLYCOL 3350 119 GM BTL PO SCH (10:02)
[2017-09-27] MEDS: ENOXAPARIN NA (PORCINE) 40 MG/0.4 ML DISP.SYRIN SQ SCH (10:02)
[2017-09-27] MEDS: THEOPHYLLINE ANHYDROUS 100 MG CAP.ER.24H PO SCH (10:05)
[2017-09-27] MEDS: BUDESONIDE/FORMETEROL FUMARATE 160/4.5 mcg INHALER IH SCH (10:05)
[2017-09-27] MEDS: FLUTICASONE PROP 0.05% 16 GM NASAL SPRAY NS SCH (10:06)
[2017-09-27] MEDS: TIOTROPIUM BROMIDE 18 MCG/INH (DEVICE W/ 5 CAPSULES) IH SCH (10:06)
[2017-09-27 11:18] VITALS: BP 123/60; PULSE 81
--- NOTE | 2017-09-27 16:27 | PN ---
Teaching Attending Note Name of Resident: Lucas Candelario ATTENDING PHYSICIAN STATEMENT I saw and evaluated the patient. I reviewed the resident's note and discussed the case with the resident. I agree with the resident's findings and plan as documented. SUBJECTIVE: No fever or chills . has SOB , walking in hallway OBJECTIVE: NAD CV: RRR Lungs: prolonged exp phase , good air entry Ext: no edema ASSESSMENT AND PLAN: 52 y/o lady with h/o ASthma, h/o intubation, recent PNA who presented with SOB and was found to have asthma exa 1- Asthma exacerbation: improved. cont Nebs and inhalers cont prednisone taper after dc thyophiline 300 mg daily level in am 2- RUL nodule: f/u as out pt with imaging. 3- Hypothyroidism; cont synthroid 4- Calcified lesion in R hepatic lobe, will f/u as out pt dc to pulm rehab . f/u with ENT and PUlm
--- NOTE | 2017-09-27 18:29 | DS ---
Physical Exam: SUBJECTIVE: Patient seen and examined at bedside. Patient States that she has no chest pain or shortness of breath. She is scheduled to go to pulmonary rehab today. OBJECTIVE: Vital Signs Period Temp Pulse Resp BP Sys/Gomez Pulse Ox Last 24 Hr 97.8 F-98.4 F 60-81 18-18 116-142/60-76 PHYSICAL EXAM GENERAL: The patient is awake, alert, and fully oriented, in no acute distress. HEAD: Normal with no signs of trauma. EYES: PERRL, extraocular movements intact, sclera anicteric, conjunctiva clear. ENT: Ears normal, nares patent, oropharynx clear without exudates, moist mucous membranes. NECK: Trachea midline, full range of motion, supple. LUNGS: Breath sounds equal, clear to auscultation bilaterally, no wheezes, no crackles, no accessory muscle use. HEART: Regular rate and rhythm, S1, S2 without murmur, rub or gallop. ABDOMEN: Soft, nontender, nondistended, normoactive bowel sounds, no guarding, no rebound, no hepatosplenomegaly, no masses. EXTREMITIES: 2+ pulses, warm, well-perfused, no edema. NEUROLOGICAL: Cranial nerves II through XII grossly intact. Normal speech, gait not observed. PSYCH: Normal mood, normal affect. SKIN: Warm, dry, normal turgor, no rashes or lesions noted. HOSPITAL COURSE: Date of Admission:09/15/17 52 year old female with a past medical history of asthma, COPD, multiple intubations presented to the hospital with shortness of breath, cough, and wheezing. Patient was treated with steroids, duonebs, symbicort, theophylline. Patient's hospital course consisted of 11 days inpatient of the aforementioned treatment. Patient began to improve and was discharged to a pulmonary rehab facility for ongoing treatment. Date of Discharge: 09/27/17 Minutes to complete discharge: 35 Discharge Summary Reason For Visit: ACUTE RESPIRATORY DISTRESS Condition: Improved - Instructions Diet, Activity, Other Instructions: You were admitted to the hospital for shortness of breath and found to have acute asthma exacerbation. You are being transferred to [facility], where your will receive pulmonary rehabilitation. Follow their recommendations for diet, activity, and medications. Medications: Below is a list of medications that you should continue taking. Please follow the recommendations at [facility] if they decide to make adjustments. -Prednisone taper. Decrease your dose by 10mg every 5 days. You will be starting at 50 mg and decrease to 20mg. Then stay on 20mg daily. Discuss with your Plan Nurse when to stop taking this medication. -Albuterol Nebulizer every 4 hours as needed -Spiriva 1 puff daily -Symbicort (160/4.5mcg) 2 puffs twice per day -Singulair 10 mg daily at bed time -Protonix 20 mg daily -Synthroid 25 mcg daily in the morning -Desyrel 50 mg at bed time -For constipation: Take Pericolace 1 tablet twice per day and MiraLax 1 packet ( 17gm) twice per day. Continue taking until you have a BM every 1-2 days. -Theophylline 300 mg daily -Give yourself saline flushes in each nostril twice per day. You can use a Neilmed squeeze bottle filled jail (4oz) for each nostril. Then apply Flonase 1 spray each nostril twice per day. Follow-ups: -You need to have a blood test to check the level of Theophylline on Wednesday. Your dose of Theophylline may be adjusted based on the level. ( level need to be 5-6) -Make an appointment to see Dr. Jacobo (Pulmonology) 1-2 weeks after you are discharged from rehab. You need to have pulmonary function tests (PFTs). Several small pulmonary nodules were found in your lungs. You should have repeat imaging in 6 months to follow these nodules. -Make an appointment to see Dr. Contreras, your primary care physician, 1-2 weeks for post-hospitalization evaluation. As discussed, a small calcification was found in your liver. Let Dr. Contreras know about this finding and the lung nodules. -Make an appointment to see Dr. Spears (ear, nose, and throat doctor) to further discuss your post-nasal drip and deviated septum. This may improve your breathing. -It is also recommended that you see an Gate Attendant, which may also help with your breathing. Make an appointment with Dr. Westfall (Gate Attendant) to get allergy testing, which may help with your breathing. Please return to the Emergency Department if you have worsening shortness of breath, fever, chills, have persistent nausea or recurrent vomiting, or have new or worsening symptoms. Referrals: Lester Jacobo MD [Staff Physician] - Shari Westfall MD [Staff Physician] - Alicia Ibarra MD [Primary Care Provider] - Lucas Spears MD [Staff Physician] - Disposition: ALF FACILITY - Home Medications Comprehensive Discharge Medication List: Ambulatory Orders Albuterol 0.083% Nebulizer [place] [Ventolin 0.083% Nebulizer Soln -] 1 amp NEB QID #120 amp 07/20/17 Albuterol Sulfate Inhaler - [Ventolin HFA Inhaler -] 1 - 2 inh PO QID #1 inhaler 07/20/17 Levothyroxine [Synthroid -] 25 mcg PO DAILY #30 tablet 07/20/17 Loratadine [Claritin] 10 mg PO DAILY #30 tablet 07/20/17 Montelukast Na [Singulair -] 10 mg PO HS #30 tablet 07/20/17 Omeprazole 20 mg PO DAILY 07/20/17 Tiotropium [place] [Spiriva] 1 inh PO DAILY 07/20/17 Trazodone HCl 50 mg PO HS 07/20/17 Budesonide/Formeterol Fumarate [SYMBICORT 160/4.5mcg -] 2 puff IH BID inhaler 09/27/17 Polyethylene Glycol 3350 [Miralax 119 gm Btl -] 17 gm PO BID bottle 09/27/17 Prednisone [Deltasone -] 50 mg PO DAILY tablet 09/27/17 Sennosides/Docusate Sodium [Pericolace -] 1 tablet PO BID tablet 09/27/17 Theophylline Anhydrous [[place]-24] 300 mg PO DAILY cap.er.24h 09/27/17 This patient is new to me today: Yes Date on this admission: 09/27/17 Emergency Visit: No Critical Care patient: No - Discharge Referral Referred to [facility] No
== END 2017-09-27 13:18 | DRG 140 ==
LOC: JER 17:44 → JERBED 21:19 → J4W 09-16 14:59 → J6S 09-19 16:11
PROVIDERS: ADMIT Internal Medicine; ATTEND Internal Medicine
DX: J44.1 Chronic obstructive pulmonary disease with (acute) exacerbation (principal); E87.2 Acidosis; J45.31 Mild persistent asthma with (acute) exacerbation; E66.01 Morbid (severe) obesity due to excess calories; Z68.30 Body mass index [BMI] 30.0-30.9, adult; R06.03 Acute respiratory distress; R09.02 Hypoxemia; E03.9 Hypothyroidism, unspecified; J32.9 Chronic sinusitis, unspecified; D72.828 Other elevated white blood cell count; T38.0X5A Adverse effect of glucocorticoids and synthetic analogues, initial encounter; R07.89 Other chest pain; R91.8 Other nonspecific abnormal finding of lung field; Z87.01 Personal history of pneumonia (recurrent); K59.00 Constipation, unspecified; J37.0 Chronic laryngitis; R49.0 Dysphonia; J34.2 Deviated nasal septum; N28.89 Other specified disorders of kidney and ureter
CPT/HCPCS: 36415; 36600; 71045-TC; 71250-TC; 80048; 80053; 80198; 82375; 82803; 83050; 83605; 85025; 85027; 85730; 86038; 87040; 93005; 93010; 93306-TC; 94150; 94640; 94761; 97116-GP; 97161-GP; 99285-25

== ENCOUNTER 2018-07-23 12:58 | Emergency (ER) | payer OTHER ==
[2018-07-23 13:07] VITALS: BP 99/43; PULSE 81; TEMP 97.9; BMI 29.2
[2018-07-23] MEDS ORDERED: IBUPROFEN 400 MG TABLET (FP) PO ONE ×2 (13:55→14:02)
[2018-07-23] MEDS ORDERED: DIPHTH,PERTUSS(ACELL),TET 0.5 ML DISP.SYRIN IM ONE (13:55)
--- NOTE | 2018-07-23 14:01 | PDOC ---
History of Present Illness - General Chief Complaint: Wound Stated Complaint: CUT ON THE LEFT FINGER Time Seen by Provider: 07/23/18 13:12 History Source: Patient Exam Limitations: Clinical Condition - History of Present Illness Initial Comments: 07/23/18 14:02 Patient with no significant past medication present with complaint of laceration to distal aspect of left index finger yesterday with a cooking knife. Patient denies numbness or tingling sensation to fingers. Patient denies any other symptoms Timing/Duration: 24 hours Past History - Past Medical History Allergies/Adverse Reactions: Allergies Allergy/AdvReac Type Severity Reaction Status Date / Time No Known Allergies Allergy Verified 07/23/18 13:03 Home Medications: Ambulatory Orders Albuterol 0.083% Nebulizer [place] [Ventolin 0.083% Nebulizer Soln -] 1 amp NEB QID #120 amp 07/20/17 Albuterol Sulfate Inhaler - [Ventolin HFA Inhaler -] 1 - 2 inh PO QID #1 inhaler 07/20/17 Levothyroxine [Synthroid -] 25 mcg PO DAILY #30 tablet 07/20/17 Loratadine [Claritin] 10 mg PO DAILY #30 tablet 07/20/17 Montelukast Na [Singulair -] 10 mg PO HS #30 tablet 07/20/17 Omeprazole 20 mg PO DAILY 07/20/17 Tiotropium [place] [Spiriva] 1 inh PO DAILY 07/20/17 traZODone HCL [Trazodone HCl] 50 mg PO HS 07/20/17 Budesonide/Formeterol Fumarate [SYMBICORT 160/4.5mcg -] 2 puff IH BID inhaler 09/27/17 Polyethylene Glycol 3350 [Miralax 119 gm Btl -] 17 gm PO BID bottle 09/27/17 Sennosides/Docusate Sodium [Pericolace -] 1 tablet PO BID tablet 09/27/17 Theophylline Anhydrous [[place]-24] 300 mg PO DAILY cap.er.24h 09/27/17 predniSONE [Deltasone -] 50 mg PO DAILY tablet 09/27/17 Cephalexin Monohydrate [Keflex -] 500 mg PO BID 7 Days #14 capsule 07/23/18 Ibuprofen 800 mg PO Q8H PRN #20 tablet 07/23/18 Asthma: Yes COPD: Yes Thyroid Disease: Yes (HYPO) - Suicide/Smoking/Psychosocial Hx Smoking History: Unknown if ever smoked Hx Alcohol Use: No Drug/Substance Use Hx: No Review of Systems - Review of Systems Able to Perform ROS?: Yes Is the patient limited Macedonian proficient: No Constitutional: No: Weakness Respiratory: No: Symptoms reported Cardiac (ROS): No: Symptoms Reported ABD/GI: No: Symptoms Reported Musculoskeletal: Yes: Joint Swelling (distal index finger), Muscle Pain (over laceration area to left index finger). No: Joint Pain, Muscle Weakness Integumentary: Yes: Other (laceration to distal left index finger) Neurological: No: Numbness, Paresthesia All Other Systems: Reviewed and Negative *Physical Exam - Vital Signs Last Vital Signs Temp Pulse Resp BP Pulse Ox 97.9 F 81 18 99/43 L 98 07/23/18 13:04 07/23/18 13:04 07/23/18 13:04 07/23/18 13:04 07/23/18 13:04 - Physical Exam Comments: 07/23/18 14:04 GENERAL: Well developed, well nourished. Awake and alert. No acute distress. CARDIOVASCULAR: Regular rate and rhythm. No murmurs, rubs, or gallops. Distal pulses are 2+ and symmetric. PULMONARY: No evidence of respiratory distress. Lungs clear to auscultation bilaterally. No wheezing, rales or rhonchi. ABDOMINAL: Soft. Non-tender. Non-distended. No rebound or guarding. No organomegaly. Normoactive bowel sounds. SKIN: 2cm linear laceration to dorsal aspect of distal phalange of left index finger. no active bleeding from site NEUROLOGICAL: Alert, awake, appropriate. normal sensory sensation to finger PSYCHIATRIC: Cooperative. Good eye contact. Appropriate mood and affect. General Appearance: Yes: Nourished, Appropriately Dressed. No: Apparent Distress Procedures - Laceration/Wound Repair Left Posterior Distal Dorsal Finger 2nd digit Wound Length: to 2.5 cm (2cm) Wound Explored: clean, no foreign body present Wound's Depth, Shape: superficial Irrigated w/ Saline: Yes Betadine Prep: Yes Wound Repaired With: Steri-strips, Dermabond Layer Closure: No Sterile Dressing Applied: Yes Splint Applied: No Sling Applied: No Medical Decision Making - Medical Decision Making 07/23/18 14:03 Patient with no significant past medication present with complaint of laceration to distal aspect of left index finger yesterday with a cooking knife. Exam significant for 2 cm superficial linear laceration to dorsal aspect of distal phalanx of left index finger. Wound cleaned with Betadine and closed with Dermabond given over 24 hours of laceration. Tetanus vaccine given. Ibuprofen 800 mg by mouth given for pain. Wound closed with Steri-Strip.patient discharged home on Keflex Abx 07/23/18 14:07 *DC/Admit/Observation/Transfer Diagnosis at time of Disposition: Laceration of left index finger w/o foreign body w/o damage to nail Qualifiers: Encounter type: initial encounter Qualified Code(s): S61.211A - Laceration without foreign body of left index finger without damage to nail, initial encounter - Discharge Dispostion Disposition: HOME Condition at time of disposition: Stable Decision to Admit order: No - Prescriptions Prescriptions: Cephalexin Monohydrate [Keflex -] 500 mg PO BID 7 Days #14 capsule Ibuprofen 800 mg PO Q8H PRN #20 tablet PRN Reason: pain - Referrals Referrals: Kojo White MD [Primary Care Provider] - - Patient Instructions Printed Discharge Instructions: DI for Wound Infection Additional Instructions: take prescribed medication as prescribed. apply neosporin to wound after today twice/day until healed - Post Discharge Activity
== END 2018-07-23 14:09 | disposition home or self-care (01) ==
LOC: JERFT 12:58
PROC: 3E0234Z Introduction of Serum, Toxoid and Vaccine into Muscle, Percutaneous Approach (ICD-10-PCS; principal; 2018-07-23)
PROC: 0HQGXZZ Repair Left Hand Skin, External Approach (ICD-10-PCS; 2018-07-23)
DX: S61.211A Laceration without foreign body of left index finger without damage to nail, initial encounter (principal); W26.0XXA Contact with knife, initial encounter; Y93.89 Activity, other specified; Y92.89 Other specified places as the place of occurrence of the external cause; Y99.8 Other external cause status
CPT/HCPCS: 12001; 90471; 90715; 99281-25

== ENCOUNTER 2021-09-21 02:57 | Inpatient (IN) | payer MEDICARE, OTHER ==
[2021-09-21] MEDS ORDERED: ALBUTEROL SO4 2.5/IPRATROPIUM 0.5 INH SOL 3 ML VIAL.NEB. NEB ONE (03:28)
[2021-09-21] MEDS: ALBUTEROL SO4 2.5/IPRATROPIUM 0.5 INH SOL 3 ML VIAL.NEB. NEB SCH ×3 (03:41→03:45)
[2021-09-21] MEDS ORDERED: MAGNESIUM SULF 50% (8.12 MEQ/2 ML-1 GM VIAL) IVPB ONE (03:42)
[2021-09-21 03:45] LABS: HEMATOCRIT 31.8 % (32.4-45.2); HEMOGLOBIN 10.6 GM/dL (10.7-15.3); MCH 27.9 pg (25.7-33.7); MCHC 33.5 g/dl (32.0-36.0); MEAN CELL VOLUME 83.4 fl (80-96); MEAN PLT VOLUME 7.2 fl (7.5-11.1); PLATELET COUNT 520 10^3/uL (134-434); RBC 3.82 M/mm3 (3.60-5.2); RDW 15.4 % (11.6-15.6); WHITE BLOOD COUNT 16.7 K/mm3 (4.0-10.0)
[2021-09-21 04:18] LABS: CALCIUM 8.7 mg/dL (8.5-10.1)
[2021-09-21 04:19] LABS: ALBUMIN 2.7 g/dl (3.4-5.0); BLOOD UREA NITROGEN 10.3 mg/dL (7-18)
[2021-09-21 04:22] LABS: CREATININE 0.7 mg/dL (0.55-1.3)
[2021-09-21 04:24] LABS: BILIRUBIN,TOTAL 0.9 mg/dL (0.2-1); TOT PROT 7.2 g/dl (6.4-8.2)
[2021-09-21 04:29] LABS: ANISOCYTOSIS 2+; MACROCYTOSIS 0; PLATELET ESTIMATE INCREASED; TARGET CELLS 1+
[2021-09-21 05:00] LABS: VENOUS BASE EXCESS 0.6 mmol/L (-2-2); VENOUS O2 SATURATION 79.3 % (70-80); VENOUS PCO2 33.2 mmHg (38-52); VENOUS PH 7.472 (7.310-7.410)
[2021-09-21] MEDS ORDERED: ALBUTEROL SO4 0.083% IH SOL 2.5 MG/3 ML VIAL.NEB. NEB PRN (09:16)
[2021-09-21] MEDS ORDERED: DEXAMETHASONE SOD PHOSPHATE 4 MG/1 ML VIAL IVPUSH ONE (09:45)
[2021-09-21] MEDS ORDERED: DEXAMETHASONE SOD PHOSPHATE 10 MG/1 ML VIAL ONE (09:54)
[2021-09-21] MEDS ORDERED: AZITHROMYCIN IVPB 500 MG/250 ML BAG IVPB ONE (09:55)
[2021-09-21] MEDS ORDERED: methylPREDNISolone NA SUCC 40 MG/1 ML VIAL IVPUSH SCH (10:00)
[2021-09-21] MEDS: AZITHROMYCIN IVPB 500 MG/250 ML BAG IVPB SCH (10:04)
[2021-09-21] MEDS ORDERED: REMDESIVIR 200 MG in SODIUM CHLORIDE 250 ML IVPB ONE (11:00)
[2021-09-21] MEDS ORDERED: FAMOTIDINE 20 MG/50 ML IVPB 20 MG/50 ML MG IVPB ONE ×2 (11:03→20:19)
[2021-09-21] MEDS: FAMOTIDINE 20 MG/50 ML IVPB 20 MG/50 ML MG IVPB SCH ×2 (11:06→21:46)
[2021-09-21 11:44] LABS: ARTERIAL BLD GAS O2 SATURATION 99.2 % (95-98); ARTERIAL BLOOD GAS BASE EXCESS 0.1 mmol/L (-2-2); ARTERIAL BLOOD GAS PO2 157.8 mmHg (80-100); ARTERIAL BLOOD GAS pH 7.483 (7.350-7.450)
[2021-09-21 11:46] LABS: ALLENS TEST POSITIVE
[2021-09-21 11:47] LABS: VENT MODE S/T; VENT RATE 12
[2021-09-21] MEDS ORDERED: HEPARIN NA (PORCINE) 5,000 UNITS/ML 1ML VIAL ONE ×2 (15:11→20:19)
[2021-09-21] MEDS ORDERED: ASCORBIC ACID 500 MG TABLET (FP) ONE ×2 (15:11→20:19)
[2021-09-21] MEDS ORDERED: ZINC SULFATE 220 MG CAPSULE (FP) ONE ×2 (15:11→20:19)
[2021-09-21] MEDS: ASCORBIC ACID 500 MG TABLET (FP) PO SCH ×2 (15:32→21:46)
[2021-09-21] MEDS: ZINC SULFATE 220 MG CAPSULE (FP) PO SCH ×2 (15:32→21:46)
[2021-09-21] MEDS: HEPARIN NA (PORCINE) 5,000 UNITS/ML 1ML VIAL SQ SCH ×2 (15:32→21:46)
[2021-09-21] MEDS ORDERED: MELATONIN 5 MG TABLETS ONE (21:43)
[2021-09-21] MEDS: MELATONIN 5 MG TABLETS PO PRN (21:46)
[2021-09-22] MEDS ORDERED: HEPARIN NA (PORCINE) 5,000 UNITS/ML 1ML VIAL ONE ×3 (06:34→22:03)
[2021-09-22] MEDS: HEPARIN NA (PORCINE) 5,000 UNITS/ML 1ML VIAL SQ SCH ×3 (06:40→23:28)
[2021-09-22 07:47] LABS: BASO % 0.1 % (0-2.0); HEMATOCRIT 30.2 % (32.4-45.2); HEMOGLOBIN 9.8 GM/dL (10.7-15.3); INR 1.26 (0.83-1.09); LYMPH % 6.8 % (8-40); MCH 27.2 pg (25.7-33.7); MCHC 32.4 g/dl (32.0-36.0); MEAN CELL VOLUME 83.9 fl (80-96); MEAN PLT VOLUME 7.7 fl (7.5-11.1); MONO % 7.5 % (3.8-10.2); NEUT % 85.6 % (42.8-82.8); PLATELET COUNT 567 10^3/uL (134-434); PROTHROMBIN TIME (PATIENT) 14.5 SEC (9.7-13.0); RDW 15.3 % (11.6-15.6); WHITE BLOOD COUNT 15.9 K/mm3 (4.0-10.0)
[2021-09-22 08:05] LABS: ALBUMIN 2.5 g/dl (3.4-5.0); BLOOD UREA NITROGEN 15.6 mg/dL (7-18); CALCIUM 9.1 mg/dL (8.5-10.1); MAGNESIUM 3.3 mg/dL (1.8-2.4)
[2021-09-22 08:08] LABS: CREATININE 0.5 mg/dL (0.55-1.3); PHOSPHOROUS 3.6 mg/dL (2.5-4.9)
[2021-09-22 08:10] LABS: BILIRUBIN,TOTAL 0.4 mg/dL (0.2-1); TOT PROT 6.8 g/dl (6.4-8.2)
[2021-09-22] MEDS ORDERED: ZINC SULFATE 220 MG CAPSULE (FP) ONE ×2 (08:21→22:03)
[2021-09-22] MEDS ORDERED: ASCORBIC ACID 500 MG TABLET (FP) ONE ×2 (08:21→22:03)
[2021-09-22] MEDS ORDERED: DEXAMETHASONE SOD PHOSPHATE 10 MG/1 ML VIAL ONE (08:21)
[2021-09-22] MEDS ORDERED: AZITHROMYCIN IVPB 500 MG/250 ML BAG IVPB ONE (08:22)
[2021-09-22] MEDS ORDERED: FAMOTIDINE 20 MG/50 ML IVPB 20 MG/50 ML MG IVPB ONE ×2 (08:22→22:03)
[2021-09-22] MEDS: ZINC SULFATE 220 MG CAPSULE (FP) PO SCH ×2 (09:00→23:28)
[2021-09-22] MEDS: DEXAMETHASONE SOD PHOSPHATE 4 MG/1 ML VIAL IVPUSH SCH (09:00)
[2021-09-22] MEDS: FAMOTIDINE 20 MG/50 ML IVPB 20 MG/50 ML MG IVPB SCH ×2 (09:00→23:28)
[2021-09-22] MEDS: ASCORBIC ACID 500 MG TABLET (FP) PO SCH ×2 (09:00→23:28)
[2021-09-22] MEDS: AZITHROMYCIN IVPB 500 MG/250 ML BAG IVPB SCH (09:20)
[2021-09-22] MEDS ORDERED: ALBUTEROL SO4 HFA INHALER IH ONE (12:09)
[2021-09-22] MEDS: ALBUTEROL SO4 HFA INHALER IH PRN (12:14)
[2021-09-22] MEDS ORDERED: REMDESIVIR 100 MG in SODIUM CHLORIDE 250 ML IVPB SCH (15:00)
[2021-09-22] MEDS ORDERED: ALBUTEROL SO4 HFA INHALER IH PRN (15:41)
[2021-09-22] MEDS ORDERED: MONTELUKAST NA 10 MG TABLET ONE (22:03)
[2021-09-22] MEDS: MONTELUKAST NA 10 MG TABLET PO SCH (23:28)
[2021-09-22] MEDS: FLUTICASONE PROP 0.05% 16 GM NASAL SPRAY NS SCH (23:28)
[2021-09-22] MEDS ORDERED: MELATONIN 5 MG TABLETS ONE (23:29)
[2021-09-22] MEDS: MELATONIN 5 MG TABLETS PO PRN (23:31)
[2021-09-23] MEDS: ALBUTEROL SO4 HFA INHALER IH PRN (01:40)
[2021-09-23 01:49] VITALS: BMI 32.1
[2021-09-23] MEDS: HEPARIN NA (PORCINE) 5,000 UNITS/ML 1ML VIAL SQ SCH ×2 (05:58→14:41)
[2021-09-23 07:33] LABS: HEMATOCRIT 27.4 % (32.4-45.2); HEMOGLOBIN 9.3 GM/dL (10.7-15.3); MCH 28.4 pg (25.7-33.7); MEAN CELL VOLUME 83.6 fl (80-96); MEAN PLT VOLUME 7.3 fl (7.5-11.1); PLATELET COUNT 448 10^3/uL (134-434); RBC 3.28 M/mm3 (3.60-5.2); RDW 15.2 % (11.6-15.6); WHITE BLOOD COUNT 9.4 K/mm3 (4.0-10.0)
[2021-09-23 08:11] LABS: CALCIUM 8.6 mg/dL (8.5-10.1)
[2021-09-23 08:12] LABS: BLOOD UREA NITROGEN 18.3 mg/dL (7-18); MAGNESIUM 2.8 mg/dL (1.8-2.4)
[2021-09-23 08:14] LABS: CREATININE 0.5 mg/dL (0.55-1.3)
[2021-09-23 08:15] LABS: PHOSPHOROUS 3.4 mg/dL (2.5-4.9)
[2021-09-23 08:16] LABS: ALBUMIN 2.3 g/dl (3.4-5.0); BILIRUBIN,TOTAL 0.4 mg/dL (0.2-1); TOT PROT 5.8 g/dl (6.4-8.2)
[2021-09-23] MEDS ORDERED: PT OWN MED DRAWER 7, Y5N ONE (09:19)
[2021-09-23] MEDS: DEXAMETHASONE SOD PHOSPHATE 4 MG/1 ML VIAL IVPUSH SCH (09:34)
[2021-09-23] MEDS: FAMOTIDINE 20 MG/50 ML IVPB 20 MG/50 ML MG IVPB SCH ×2 (09:34→21:30)
[2021-09-23] MEDS: ZINC SULFATE 220 MG CAPSULE (FP) PO SCH ×2 (09:34→21:30)
[2021-09-23] MEDS: ASCORBIC ACID 500 MG TABLET (FP) PO SCH ×2 (09:34→21:30)
[2021-09-23] MEDS: AZITHROMYCIN IVPB 500 MG/250 ML BAG IVPB SCH (09:35)
[2021-09-23] MEDS: FLUTICASONE/UMECLIDIN/VILANTER(200-62.5-25 TRELEGY ELLIPTA) INAHLER IH SCH ×2 (09:35→10:08)
[2021-09-23] MEDS ORDERED: MINERAL OIL/PETROLAT/WATER TOPICAL CREAM 113 GM JAR TP PRN (09:47)
[2021-09-23] MEDS ORDERED: REMDESIVIR 100 MG in SODIUM CHLORIDE 250 ML IVPB SCH (15:00)
[2021-09-23] MEDS: ALBUTEROL SO4 HFA INHALER IH SCH ×2 (16:01→21:30)
[2021-09-23] MEDS: FLUTICASONE PROP 0.05% 16 GM NASAL SPRAY NS SCH (21:30)
[2021-09-23] MEDS: MELATONIN 5 MG TABLETS PO PRN (21:30)
[2021-09-23] MEDS: MONTELUKAST NA 10 MG TABLET PO SCH (21:30)
[2021-09-24] MEDS ORDERED: MINERAL OIL/PETROLAT/WATER TOPICAL CREAM 113 GM JAR TP PRN (00:14)
[2021-09-24] MEDS ORDERED: MELATONIN 5 MG TABLETS PO PRN (00:14)
[2021-09-24] MEDS: ALBUTEROL SO4 HFA INHALER IH SCH ×4 (09:21→21:58)
[2021-09-24 09:50] LABS: HEMATOCRIT 28.6 % (32.4-45.2); HEMOGLOBIN 9.2 GM/dL (10.7-15.3); MCH 27.5 pg (25.7-33.7); MCHC 32.2 g/dl (32.0-36.0); MEAN CELL VOLUME 85.3 fl (80-96); MEAN PLT VOLUME 7.7 fl (7.5-11.1); PLATELET COUNT 458 10^3/uL (134-434); RBC 3.36 M/mm3 (3.60-5.2); RDW 15.8 % (11.6-15.6); WHITE BLOOD COUNT 6.4 K/mm3 (4.0-10.0)
[2021-09-24] MEDS ORDERED: AZITHROMYCIN IVPB 500 MG/250 ML BAG IVPB SCH (10:00)
[2021-09-24] MEDS ORDERED: DEXAMETHASONE SOD PHOSPHATE 4 MG/1 ML VIAL IVPUSH SCH (10:00)
[2021-09-24 10:01] LABS: ALBUMIN 2.4 g/dl (3.4-5.0); BLOOD UREA NITROGEN 18.2 mg/dL (7-18); CALCIUM 8.6 mg/dL (8.5-10.1); MAGNESIUM 2.9 mg/dL (1.8-2.4)
[2021-09-24 10:04] LABS: CREATININE 0.6 mg/dL (0.55-1.3); PHOSPHOROUS 3.6 mg/dL (2.5-4.9)
[2021-09-24 10:06] LABS: BILIRUBIN,TOTAL 0.2 mg/dL (0.2-1); TOT PROT 5.7 g/dl (6.4-8.2)
[2021-09-24] MEDS: DEXAMETHASONE SOD PHOSPHATE 4 MG/1 ML VIAL IVPUSH SCH ×2 (10:07→21:59)
[2021-09-24] MEDS: FAMOTIDINE 20 MG/50 ML IVPB 20 MG/50 ML MG IVPB SCH ×2 (10:08→22:00)
[2021-09-24] MEDS: ASCORBIC ACID 500 MG TABLET (FP) PO SCH ×2 (10:08→21:59)
[2021-09-24] MEDS: ENOXAPARIN NA (PORCINE) 40 MG/0.4 ML DISP.SYRIN SQ SCH (10:08)
[2021-09-24] MEDS: ZINC SULFATE 220 MG CAPSULE (FP) PO SCH ×2 (10:08→21:59)
[2021-09-24] MEDS: FLUTICASONE/UMECLIDIN/VILANTER(200-62.5-25 TRELEGY ELLIPTA) INAHLER IH SCH (11:23)
[2021-09-24] MEDS: REMDESIVIR 100 MG in SODIUM CHLORIDE 250 ML IVPB SCH (15:43)
[2021-09-24] MEDS ORDERED: MONTELUKAST NA 10 MG TABLET PO SCH (22:00)
[2021-09-24] MEDS ORDERED: FLUTICASONE PROP 0.05% 16 GM NASAL SPRAY NS SCH (22:00)
[2021-09-25] MEDS: ALBUTEROL SO4 HFA INHALER IH SCH ×3 (08:30→15:13)
[2021-09-25 09:05] LABS: HEMATOCRIT 32.8 % (32.4-45.2); HEMOGLOBIN 10.6 GM/dL (10.7-15.3); MCH 27.3 pg (25.7-33.7); MCHC 32.2 g/dl (32.0-36.0); MEAN PLT VOLUME 7.6 fl (7.5-11.1); PLATELET COUNT 553 10^3/uL (134-434); RBC 3.86 M/mm3 (3.60-5.2); RDW 15.8 % (11.6-15.6); WHITE BLOOD COUNT 9.3 K/mm3 (4.0-10.0)
[2021-09-25 09:44] LABS: BLOOD UREA NITROGEN 15.8 mg/dL (7-18)
[2021-09-25 09:45] LABS: CALCIUM 9.4 mg/dL (8.5-10.1)
[2021-09-25 09:47] LABS: CREATININE 0.5 mg/dL (0.55-1.3)
[2021-09-25] MEDS ORDERED: AZITHROMYCIN 500 MG TABLET PO SCH (10:00)
[2021-09-25] MEDS ORDERED: FAMOTIDINE 10 MG TABLET PO SCH (10:00)
[2021-09-25] MEDS ORDERED: DEXAMETHASONE 4 MG TABLET (FP) PO SCH (10:00)
[2021-09-25 10:03] LABS: ERYTHROCYTE SEDIMENTATION RATE 62 mm/hr (0-30)
[2021-09-25] MEDS: ZINC SULFATE 220 MG CAPSULE (FP) PO SCH (11:04)
[2021-09-25] MEDS: FLUTICASONE/UMECLIDIN/VILANTER(200-62.5-25 TRELEGY ELLIPTA) INAHLER IH SCH (11:04)
[2021-09-25] MEDS: ENOXAPARIN NA (PORCINE) 40 MG/0.4 ML DISP.SYRIN SQ SCH (11:04)
[2021-09-25] MEDS: ASCORBIC ACID 500 MG TABLET (FP) PO SCH (11:04)
[2021-09-25] MEDS ORDERED: POLYETHYLENE GLYCOL (HEALTHYLAX) 3350 17 GM PACKET PO ONE (11:15)
[2021-09-25 14:37] VITALS: BP 105/57; PULSE 68; TEMP 98.1
[2021-09-25] MEDS: REMDESIVIR 100 MG in SODIUM CHLORIDE 250 ML IVPB SCH (15:13)
== END 2021-09-25 20:34 | disposition home or self-care (01) | DRG 177 ==
LOC: JER 02:57 → JERBED 06:04 → J4W 09-23 01:36 → J8W 09-23 23:44
PROVIDERS: ADMIT Internal Medicine; ATTEND Internal Medicine
PROC: XW033E5 Introduction of Remdesivir Anti-infective into Peripheral Vein, Percutaneous Approach, New Technology Group 5 (ICD-10-PCS; principal; 2021-09-21)
DX: U07.1 COVID-19 (principal); J12.82 Pneumonia due to coronavirus disease 2019; J45.901 Unspecified asthma with (acute) exacerbation; E03.9 Hypothyroidism, unspecified; R07.9 Chest pain, unspecified; R05.9 Cough, unspecified; E66.9 Obesity, unspecified; Z68.32 Body mass index [BMI] 32.0-32.9, adult
CPT/HCPCS: 36415; 36600; 71045-TC-FY; 80048; 80053; 82550; 82607; 82728; 82747; 82803; 83010; 83540; 83550; 83615; 83735; 84100; 84439; 84443; 84484; 85014; 85025; 85027; 85045; 85379; 85610; 85651; 85730; 86140; 93005; 93010; 94660; 99285-25; C9399; C9803; J1644; U0003; U0005

== ENCOUNTER 2022-08-26 15:51 | Inpatient (IN) | payer MEDICARE, OTHER ==
[2022-08-26] MEDS ORDERED: TERBUTALINE SULFATE 1 MG/1 ML VIAL SQ ONE ×2 (16:05→16:33)
[2022-08-26] MEDS ORDERED: MAGNESIUM SULF 50% (8.12 MEQ/2 ML-1 GM VIAL) IVPB ONE (16:05)
[2022-08-26 16:18] VITALS: BMI 34.0
[2022-08-26] MEDS ORDERED: MAGNESIUM SULFATE IN WATER 2 GM/50 ML IVPB IVPB ONE (16:33)
[2022-08-26 17:12] LABS: BASO % 0.5 % (0-2.0); EOS % 0.5 % (0-4.5); HEMATOCRIT 37.7 % (32.4-45.2); HEMOGLOBIN 12.1 GM/dL (10.7-15.3); LYMPH % 28.8 % (8-40); MCH 26.5 pg (25.7-33.7); MCHC 32.1 g/dl (32.0-36.0); MEAN CELL VOLUME 82.6 fl (80-96); MEAN PLT VOLUME 9.1 fl (7.5-11.1); MONO % 7.9 % (3.8-10.2); NEUT % 62.3 % (42.8-82.8); PLATELET COUNT 374 10^3/uL (134-434); RBC 4.56 M/mm3 (3.60-5.2); RDW 16.3 % (11.6-15.6); WHITE BLOOD COUNT 10.4 K/mm3 (4.0-10.0)
[2022-08-26 17:14] LABS: VENOUS BASE EXCESS -0.3 mmol/L (-2-2); VENOUS O2 SATURATION 80.4 % (70-80); VENOUS PCO2 38.4 mmHg (38-52); VENOUS PH 7.415 (7.310-7.410)
[2022-08-26 17:37] LABS: ALBUMIN 3.5 g/dl (3.4-5.0); BLOOD UREA NITROGEN 11.6 mg/dL (7-18); CALCIUM 9.2 mg/dL (8.5-10.1); MAGNESIUM 2.2 mg/dL (1.8-2.4)
[2022-08-26 17:41] LABS: CREATININE 0.6 mg/dL (0.55-1.3)
[2022-08-26 17:42] LABS: BILIRUBIN,TOTAL 0.3 mg/dL (0.2-1)
[2022-08-26] MEDS ORDERED: ACETAMINOPHEN 325 MG TABLET (FP) PO PRN (21:58)
[2022-08-27] MEDS ORDERED: MONTELUKAST NA 10 MG TABLET PO ONE ×2 (00:47→04:15)
[2022-08-27] MEDS ORDERED: MELATONIN 5 MG TABLETS PO ONE (00:48)
[2022-08-27] MEDS: ALBUTEROL SO4 2.5/IPRATROPIUM 0.5 INH SOL 3 ML VIAL.NEB. NEB PRN ×3 (00:52→15:01)
[2022-08-27] MEDS: BUDESONIDE/FORMETEROL FUMARATE 160/4.5 mcg INHALER IH SCH ×3 (05:54→22:18)
[2022-08-27 09:58] LABS: BASO % 0.2 % (0-2.0); HEMATOCRIT 33.9 % (32.4-45.2); HEMOGLOBIN 10.9 GM/dL (10.7-15.3); LYMPH % 14.1 % (8-40); MCH 26.4 pg (25.7-33.7); MCHC 32.2 g/dl (32.0-36.0); MEAN PLT VOLUME 8.9 fl (7.5-11.1); MONO % 8.7 % (3.8-10.2); PLATELET COUNT 377 10^3/uL (134-434); RBC 4.14 M/mm3 (3.60-5.2); RDW 16.1 % (11.6-15.6); WHITE BLOOD COUNT 10.9 K/mm3 (4.0-10.0)
[2022-08-27 11:10] LABS: ACTIVATED PTT 16.6 SECONDS (25.2-36.5)
[2022-08-27] MEDS ORDERED: ALPRAZolam 0.25 MG TABLET PO ONE (11:22)
[2022-08-27 11:27] LABS: INR 1.06 (0.83-1.09); PROTHROMBIN TIME (PATIENT) 12.2 SEC (9.7-13.0)
[2022-08-27] MEDS: methylPREDNISolone NA SUCC 40 MG/1 ML VIAL IVPUSH SCH (11:33)
[2022-08-27] MEDS: TIOTROPIUM BROMIDE 2.5 MCG (SPIRIVA) RESPIMAT INHALER IH SCH (11:41)
[2022-08-27] MEDS: ENOXAPARIN NA (PORCINE) 40 MG/0.4 ML DISP.SYRIN SQ SCH (11:41)
[2022-08-27 12:58] LABS: BLOOD UREA NITROGEN 11.4 mg/dL (7-18); CALCIUM 9.4 mg/dL (8.5-10.1); CREATININE 0.5 mg/dL (0.55-1.3); MAGNESIUM 2.5 mg/dL (1.8-2.4); PHOSPHOROUS 3.4 mg/dL (2.5-4.9)
[2022-08-27] MEDS ORDERED: BENZOCAINE/MENTHOL (CHLORASEPTIC ) LOZENGE MM PRN (16:42)
[2022-08-27] MEDS ORDERED: MELATONIN 5 MG TABLETS PO PRN (21:00)
[2022-08-27] MEDS: MONTELUKAST NA 10 MG TABLET PO SCH (22:18)
[2022-08-27] MEDS: SENNOSIDES 8.6MG TABLET (FP) PO SCH (22:18)
[2022-08-28] MEDS: methylPREDNISolone NA SUCC 40 MG/1 ML VIAL IVPUSH SCH (09:26)
[2022-08-28] MEDS: TIOTROPIUM BROMIDE 2.5 MCG (SPIRIVA) RESPIMAT INHALER IH SCH (09:34)
[2022-08-28] MEDS: BUDESONIDE/FORMETEROL FUMARATE 160/4.5 mcg INHALER IH SCH ×2 (09:34→21:34)
[2022-08-28] MEDS: ENOXAPARIN NA (PORCINE) 40 MG/0.4 ML DISP.SYRIN SQ SCH (09:37)
[2022-08-28 10:28] LABS: BASO % 0.3 % (0-2.0); EOS % 0.3 % (0-4.5); HEMATOCRIT 33.5 % (32.4-45.2); HEMOGLOBIN 11.1 GM/dL (10.7-15.3); LYMPH % 27.1 % (8-40); MCH 27.5 pg (25.7-33.7); MCHC 33.2 g/dl (32.0-36.0); MEAN CELL VOLUME 82.8 fl (80-96); MEAN PLT VOLUME 8.6 fl (7.5-11.1); MONO % 6.6 % (3.8-10.2); NEUT % 65.7 % (42.8-82.8); PLATELET COUNT 338 10^3/uL (134-434); RBC 4.05 M/mm3 (3.60-5.2); RDW 16.7 % (11.6-15.6); WHITE BLOOD COUNT 9.7 K/mm3 (4.0-10.0)
[2022-08-28 11:12] LABS: BLOOD UREA NITROGEN 15.2 mg/dL (7-18); CALCIUM 9.2 mg/dL (8.5-10.1)
[2022-08-28 11:13] LABS: MAGNESIUM 2.4 mg/dL (1.8-2.4); PHOSPHOROUS 2.7 mg/dL (2.5-4.9)
[2022-08-28 11:15] LABS: CREATININE 0.7 mg/dL (0.55-1.3)
[2022-08-28] MEDS: POLYETHYLENE GLYCOL (HEALTHYLAX) 3350 17 GM PACKET PO SCH (17:37)
[2022-08-28] MEDS: SENNOSIDES 8.6MG TABLET (FP) PO SCH (21:34)
[2022-08-28] MEDS: PANTOPRAZOLE 40 MG TABLET PO SCH (21:34)
[2022-08-28] MEDS: MONTELUKAST NA 10 MG TABLET PO SCH (21:34)
[2022-08-28] MEDS ORDERED: BUDESONIDE/FORMETEROL FUMARATE 160/4.5 mcg INHALER IH SCH (22:00)
[2022-08-29] MEDS: ALBUTEROL SO4 2.5/IPRATROPIUM 0.5 INH SOL 3 ML VIAL.NEB. NEB PRN (03:14)
[2022-08-29] MEDS ORDERED: methylPREDNISolone NA SUCC 40 MG/1 ML VIAL IVPUSH SCH (10:00)
[2022-08-29] MEDS ORDERED: FAMOTIDINE 40 MG TABLET PO SCH (10:00)
[2022-08-29] MEDS ORDERED: PATIENT'S OWN MEDICATION (NON-FORMULARY) (Linaclotide [Linzess] 290 MCG Capsule) PO SCH (10:00)
[2022-08-29] MEDS: PANTOPRAZOLE 40 MG TABLET PO SCH (11:09)
[2022-08-29] MEDS: ENOXAPARIN NA (PORCINE) 40 MG/0.4 ML DISP.SYRIN SQ SCH (11:09)
[2022-08-29] MEDS: BUDESONIDE/FORMETEROL FUMARATE 160/4.5 mcg INHALER IH SCH (11:10)
[2022-08-29] MEDS: TIOTROPIUM BROMIDE 2.5 MCG (SPIRIVA) RESPIMAT INHALER IH SCH (11:10)
[2022-08-29 13:29] VITALS: BP 120/60; PULSE 70; RESP 18; TEMP 98.6
[2022-08-29] MEDS: POLYETHYLENE GLYCOL (HEALTHYLAX) 3350 17 GM PACKET PO SCH (16:45)
[2022-08-29] MEDS ORDERED: INSULIN (LEVEMIR) 100 UNITS/ML UNITS SQ ONE (18:45)
[2022-08-29] MEDS ORDERED: ATORVASTATIN CA 10 MG TABLET (FP) PO SCH (22:00)
[2022-08-29] MEDS ORDERED: FLUTICASONE PROP 0.05% 16 GM NASAL SPRAY NS SCH (22:00)
== END 2022-08-29 18:23 | disposition home or self-care (01) | DRG 189 ==
LOC: JER 15:51 → JERBED 17:58 → J7W 21:23
PROVIDERS: ADMIT Internal Medicine; ATTEND Internal Medicine
DX: J96.01 Acute respiratory failure with hypoxia (principal); J45.901 Unspecified asthma with (acute) exacerbation; J44.1 Chronic obstructive pulmonary disease with (acute) exacerbation; E03.9 Hypothyroidism, unspecified; D72.829 Elevated white blood cell count, unspecified
CPT/HCPCS: 0241U-QW; 36415; 71045-TC-FY; 71275-TC; 80048; 80053; 82803; 83735; 84100; 84443; 84481; 84484; 85025; 85610; 85730; 93005; 93010; 94640; 94660; 97116-GP; 97161-GP; 99285-25; Q9967

== ENCOUNTER 2022-12-01 11:20 | Inpatient (IN) | payer MEDICARE, OTHER ==
[2022-12-01] MEDS ORDERED: methylPREDNISolone NA SUCC 125 MG/2 ML VIAL IVPUSH ONE (11:54)
[2022-12-01] MEDS ORDERED: ACETAMINOPHEN 1000 MG/100 ML BAG IVPB ONE (11:57)
[2022-12-01] MEDS ORDERED: methylPREDNISolone NA SUCC 125 MG/2 ML VIAL ONE (12:14)
[2022-12-01] MEDS ORDERED: ALBUTEROL SO4 2.5/IPRATROPIUM 0.5 INH SOL 3 ML VIAL.NEB. NEB ONE ×2 (12:14→17:11)
[2022-12-01] MEDS ORDERED: ACETAMINOPHEN INJECTION 100 ML IVPB ONE (12:14)
[2022-12-01] MEDS: ALBUTEROL SO4 2.5/IPRATROPIUM 0.5 INH SOL 3 ML VIAL.NEB. NEB SCH ×4 (13:00→20:00)
[2022-12-01] MEDS ORDERED: CEFTRIAXONE 1,000 MG in DEXTROSE 5%-WATER - 50 ML IVPB ONE (14:10)
[2022-12-01] MEDS ORDERED: ALBUTEROL SO4 0.083% IH SOL 2.5 MG/3 ML VIAL.NEB. NEB ONE (14:11)
[2022-12-01] MEDS: ALBUTEROL SO4 0.083% IH SOL 2.5 MG/3 ML VIAL.NEB. NEB SCH ×4 (14:20→15:00)
[2022-12-01] MEDS ORDERED: CEFTRIAXONE 1 GM/50 ML BAG ONE (14:21)
[2022-12-01 14:27] LABS: VENOUS BASE EXCESS -0.3 mmol/L (-2-2); VENOUS O2 SATURATION 98.7 % (70-80); VENOUS PCO2 36.6 mmHg (38-52); VENOUS PH 7.429 (7.310-7.410)
[2022-12-01 14:31] LABS: ARTERIAL BLOOD GAS BASE EXCESS -0.2 mmol/L (-2-2); ARTERIAL BLOOD GAS PO2 149.9 mmHg (80-100); ARTERIAL BLOOD GAS pH 7.414 (7.350-7.450)
[2022-12-01 14:32] LABS: BASO % 0.2 % (0-2.0); EOS % 0.9 % (0-4.5); HEMATOCRIT 34.7 % (32.4-45.2); HEMOGLOBIN 11.3 GM/dL (10.7-15.3); LYMPH % 31.4 % (8-40); MCH 26.5 pg (25.7-33.7); MCHC 32.7 g/dl (32.0-36.0); MEAN CELL VOLUME 81.1 fl (80-96); MEAN PLT VOLUME 7.7 fl (7.5-11.1); MONO % 10.5 % (3.8-10.2); PLATELET COUNT 401 10^3/uL (134-434); RBC 4.28 M/mm3 (3.60-5.2); RDW 16.2 % (11.6-15.6); WHITE BLOOD COUNT 8.1 K/mm3 (4.0-10.0)
[2022-12-01 14:53] LABS: CALCIUM 8.6 mg/dL (8.5-10.1)
[2022-12-01 14:54] LABS: ALBUMIN 3.2 g/dl (3.4-5.0); BLOOD UREA NITROGEN 8.4 mg/dL (7-18)
[2022-12-01 14:57] LABS: CREATININE 0.5 mg/dL (0.55-1.3)
[2022-12-01 14:59] LABS: BILIRUBIN,TOTAL 0.3 mg/dL (0.2-1); TOT PROT 6.8 g/dl (6.4-8.2)
[2022-12-01] MEDS ORDERED: SODIUM CHLORIDE 1,000 ML IV SCH (15:45)
[2022-12-01] MEDS ORDERED: ALBUTEROL SO4 0.083% IH SOL 2.5 MG/3 ML VIAL.NEB. NEB PRN (15:48)
[2022-12-01] MEDS ORDERED: methylPREDNISolone NA SUCC 40 MG/1 ML VIAL ONE (17:11)
[2022-12-01] MEDS ORDERED: DOXYCYCLINE HYCLATE 100 MG CAPSULE PO ONE (17:11)
[2022-12-01] MEDS: methylPREDNISolone NA SUCC 40 MG/1 ML VIAL IVPUSH SCH (17:27)
[2022-12-01] MEDS: DOXYCYCLINE HYCLATE 100 MG CAPSULE PO SCH (17:27)
[2022-12-01] MEDS: BUDESONIDE/FORMETEROL FUMARATE 160/4.5 mcg INHALER IH SCH (22:13)
[2022-12-02] MEDS: methylPREDNISolone NA SUCC 40 MG/1 ML VIAL IVPUSH SCH ×3 (01:50→18:42)
[2022-12-02] MEDS: ALBUTEROL SO4 2.5/IPRATROPIUM 0.5 INH SOL 3 ML VIAL.NEB. NEB SCH ×6 (04:00→20:29)
[2022-12-02 08:21] LABS: HEMATOCRIT 32.1 % (32.4-45.2); HEMOGLOBIN 10.6 GM/dL (10.7-15.3); MCH 26.7 pg (25.7-33.7); MCHC 33.1 g/dl (32.0-36.0); MEAN CELL VOLUME 80.6 fl (80-96); PLATELET COUNT 419 10^3/uL (134-434); RBC 3.98 M/mm3 (3.60-5.2); RDW 16.1 % (11.6-15.6); WHITE BLOOD COUNT 11.2 K/mm3 (4.0-10.0)
[2022-12-02 08:42] LABS: BLOOD UREA NITROGEN 10.8 mg/dL (7-18)
[2022-12-02 08:43] LABS: MAGNESIUM 2.2 mg/dL (1.8-2.4)
[2022-12-02 08:45] LABS: CREATININE 0.6 mg/dL (0.55-1.3); PHOSPHOROUS 3.1 mg/dL (2.5-4.9)
[2022-12-02 08:47] LABS: BILIRUBIN,TOTAL 0.3 mg/dL (0.2-1); TOT PROT 6.7 g/dl (6.4-8.2)
[2022-12-02] MEDS ORDERED: PANTOPRAZOLE SODIUM 40 MG VIAL IVPUSH SCH (10:00)
[2022-12-02 10:27] LABS: ANISOCYTOSIS 0; MACROCYTOSIS 0
[2022-12-02] MEDS: ENOXAPARIN NA (PORCINE) 40 MG/0.4 ML DISP.SYRIN SQ SCH (10:30)
[2022-12-02] MEDS: DOXYCYCLINE HYCLATE 100 MG CAPSULE PO SCH ×2 (10:31→18:43)
[2022-12-02] MEDS: BUDESONIDE/FORMETEROL FUMARATE 160/4.5 mcg INHALER IH SCH ×2 (10:31→21:34)
[2022-12-02] MEDS ORDERED: guaiFENesin/D-METHORPHAN HB 10 ML UNIT-DOSE CUPS PO PRN (10:35)
[2022-12-02 14:49] VITALS: BMI 33.3
[2022-12-02] MEDS: LORATADINE 10 MG TABLET PO SCH (18:43)
[2022-12-03] MEDS: ALBUTEROL SO4 2.5/IPRATROPIUM 0.5 INH SOL 3 ML VIAL.NEB. NEB SCH ×6 (00:32→20:05)
[2022-12-03] MEDS: methylPREDNISolone NA SUCC 40 MG/1 ML VIAL IVPUSH SCH (01:41)
[2022-12-03 07:39] LABS: HEMATOCRIT 31.8 % (32.4-45.2); HEMOGLOBIN 10.6 GM/dL (10.7-15.3); MCHC 33.4 g/dl (32.0-36.0); MEAN CELL VOLUME 80.9 fl (80-96); MEAN PLT VOLUME 7.5 fl (7.5-11.1); PLATELET COUNT 446 10^3/uL (134-434); RBC 3.94 M/mm3 (3.60-5.2); RDW 16.4 % (11.6-15.6); WHITE BLOOD COUNT 15.4 K/mm3 (4.0-10.0)
[2022-12-03 07:58] LABS: CALCIUM 9.3 mg/dL (8.5-10.1)
[2022-12-03 07:59] LABS: ALBUMIN 3.2 g/dl (3.4-5.0); BLOOD UREA NITROGEN 16.3 mg/dL (7-18); MAGNESIUM 2.6 mg/dL (1.8-2.4)
[2022-12-03] MEDS ORDERED: predniSONE 20 MG TABLET (UD) PO SCH (08:00)
[2022-12-03 08:01] LABS: PHOSPHOROUS 3.5 mg/dL (2.5-4.9)
[2022-12-03 08:02] LABS: CREATININE 0.6 mg/dL (0.55-1.3)
[2022-12-03 08:03] LABS: BILIRUBIN,TOTAL 0.3 mg/dL (0.2-1); TOT PROT 6.8 g/dl (6.4-8.2)
[2022-12-03 08:41] LABS: ANISOCYTOSIS 0
[2022-12-03] MEDS: DOXYCYCLINE HYCLATE 100 MG CAPSULE PO SCH ×2 (09:40→17:02)
[2022-12-03] MEDS: PANTOPRAZOLE 40 MG TABLET PO SCH (09:40)
[2022-12-03] MEDS: predniSONE 40 MG, predniSONE 10 MG PO SCH ×2 (09:40→22:06)
[2022-12-03] MEDS: LORATADINE 10 MG TABLET PO SCH (09:40)
[2022-12-03] MEDS: ENOXAPARIN NA (PORCINE) 40 MG/0.4 ML DISP.SYRIN SQ SCH (09:40)
[2022-12-03] MEDS: BUDESONIDE/FORMETEROL FUMARATE 160/4.5 mcg INHALER IH SCH ×2 (09:41→22:07)
[2022-12-03] MEDS: DOCUSATE SODIUM 100 MG CAPSULE (FP) PO SCH ×2 (10:14→22:06)
[2022-12-04] MEDS: ALBUTEROL SO4 2.5/IPRATROPIUM 0.5 INH SOL 3 ML VIAL.NEB. NEB SCH ×5 (07:40→20:00)
[2022-12-04 07:44] LABS: HEMOGLOBIN 10.9 GM/dL (10.7-15.3); MCH 26.8 pg (25.7-33.7); MCHC 33.2 g/dl (32.0-36.0); MEAN CELL VOLUME 80.7 fl (80-96); MEAN PLT VOLUME 7.4 fl (7.5-11.1); PLATELET COUNT 458 10^3/uL (134-434); RBC 4.08 M/mm3 (3.60-5.2); RDW 16.2 % (11.6-15.6); WHITE BLOOD COUNT 13.9 K/mm3 (4.0-10.0)
[2022-12-04 07:59] LABS: ALBUMIN 3.2 g/dl (3.4-5.0); CALCIUM 9.2 mg/dL (8.5-10.1)
[2022-12-04 08:00] LABS: BLOOD UREA NITROGEN 18.1 mg/dL (7-18); MAGNESIUM 2.5 mg/dL (1.8-2.4)
[2022-12-04 08:03] LABS: CREATININE 0.7 mg/dL (0.55-1.3)
[2022-12-04 08:04] LABS: BILIRUBIN,TOTAL 0.3 mg/dL (0.2-1); TOT PROT 6.9 g/dl (6.4-8.2)
[2022-12-04 08:57] LABS: ANISOCYTOSIS 0; MACROCYTOSIS 0
[2022-12-04] MEDS: PANTOPRAZOLE 40 MG TABLET PO SCH (10:05)
[2022-12-04] MEDS: LORATADINE 10 MG TABLET PO SCH (10:05)
[2022-12-04] MEDS: ENOXAPARIN NA (PORCINE) 40 MG/0.4 ML DISP.SYRIN SQ SCH (10:05)
[2022-12-04] MEDS: predniSONE 20 MG TABLET (UD) PO SCH ×2 (10:05→21:04)
[2022-12-04] MEDS: DOXYCYCLINE HYCLATE 100 MG CAPSULE PO SCH ×2 (10:05→18:48)
[2022-12-04] MEDS: BUDESONIDE/FORMETEROL FUMARATE 160/4.5 mcg INHALER IH SCH ×2 (10:06→21:04)
[2022-12-04] MEDS: DOCUSATE SODIUM 100 MG CAPSULE (FP) PO SCH ×2 (10:06→21:04)
[2022-12-04] MEDS ORDERED: FLU VACC QS2022-23(6MOS UP)/PF 60 MCG/0.5 ML SYRINGE IM ONE (14:00)
[2022-12-05] MEDS: ALBUTEROL SO4 2.5/IPRATROPIUM 0.5 INH SOL 3 ML VIAL.NEB. NEB SCH ×3 (08:19→16:02)
[2022-12-05 09:03] VITALS: RESP 18
[2022-12-05] MEDS: DOXYCYCLINE HYCLATE 100 MG CAPSULE PO SCH ×2 (09:35→17:12)
[2022-12-05] MEDS: ENOXAPARIN NA (PORCINE) 40 MG/0.4 ML DISP.SYRIN SQ SCH (09:35)
[2022-12-05] MEDS: PANTOPRAZOLE 40 MG TABLET PO SCH (09:36)
[2022-12-05] MEDS: predniSONE 20 MG TABLET (UD) PO SCH (09:36)
[2022-12-05] MEDS: LORATADINE 10 MG TABLET PO SCH (09:36)
[2022-12-05] MEDS: DOCUSATE SODIUM 100 MG CAPSULE (FP) PO SCH (09:36)
[2022-12-05] MEDS: BUDESONIDE/FORMETEROL FUMARATE 160/4.5 mcg INHALER IH SCH (09:37)
[2022-12-05 14:29] VITALS: BP 126/73; PULSE 99; TEMP 98
== END 2022-12-05 18:00 | disposition home or self-care (01) | DRG 191 ==
LOC: JER 11:20 → JERBED 14:10 → J7W 18:02
PROVIDERS: ADMIT Internal Medicine; ATTEND Internal Medicine
DX: J44.1 Chronic obstructive pulmonary disease with (acute) exacerbation (principal); J45.41 Moderate persistent asthma with (acute) exacerbation; E03.9 Hypothyroidism, unspecified; E66.9 Obesity, unspecified; Z68.32 Body mass index [BMI] 32.0-32.9, adult
CPT/HCPCS: 0241U-QW; 36415; 36600; 71045-TC-FY; 80053; 82550; 82803; 82962; 83735; 84100; 84443; 84484; 85025; 93005; 93010; 94010; 94150; 94640; 94761; 99285-25

== ENCOUNTER 2024-03-23 19:24 | Inpatient (IN) | payer OTHER ==
[2024-03-23 19:27] VITALS: BMI 29.2
[2024-03-23] MEDS ORDERED: ALBUTEROL SO4 2.5/IPRATROPIUM 0.5 INH SOL 3 ML VIAL.NEB. NEB ONE ×2 (19:28→19:33)
[2024-03-23] MEDS ORDERED: MAGNESIUM SULFATE IN WATER 2 GM/50 ML IVPB IVPB ONE (19:50)
[2024-03-23] MEDS ORDERED: methylPREDNISolone NA SUCC 125 MG/2 ML VIAL ONE (19:55)
[2024-03-23 20:03] LABS: VENOUS BASE EXCESS -1.6 mmol/L (-2-2); VENOUS O2 SATURATION 95.8 % (70-80); VENOUS PCO2 39.2 mmHg (38-52); VENOUS PH 7.389 (7.310-7.410)
[2024-03-23 20:09] LABS: BASO % 0.9 % (0-2.0); EOS % 0.8 % (0-4.5); HEMATOCRIT 38.4 % (32.4-45.2); HEMOGLOBIN 12.7 GM/dL (10.7-15.3); MCH 28.3 pg (25.7-33.7); MCHC 33.2 g/dl (32.0-36.0); MEAN CELL VOLUME 85.4 fl (80-96); MEAN PLT VOLUME 8.8 fl (7.5-11.1); MONO % 8.1 % (3.8-10.2); NEUT % 59.2 % (42.8-82.8); PLATELET COUNT 319 10^3/uL (134-434); RDW 15.6 % (11.6-15.6); WHITE BLOOD COUNT 8.5 K/mm3 (4.0-10.0)
[2024-03-23 20:24] LABS: POTASSIUM 4.4 mmol/L (3.5-5.1)
[2024-03-23 20:26] LABS: ALBUMIN 3.7 g/dl (3.4-5.0); BLOOD UREA NITROGEN 9.9 mg/dL (7-18); CALCIUM 9.3 mg/dL (8.5-10.1)
[2024-03-23 20:30] LABS: BILIRUBIN,TOTAL 0.3 mg/dL (0.2-1); CREATININE 0.7 mg/dL (0.55-1.3)
[2024-03-23] MEDS: MAGNESIUM SULF 50% (8.12 MEQ/2 ML-1 GM VIAL) IVPB ONE (20:34)
[2024-03-23] MEDS: methylPREDNISolone NA SUCC 125 MG/2 ML VIAL IVPB ONE (20:34)
[2024-03-23 21:30] LABS: VENOUS BASE EXCESS -2.3 mmol/L (-2-2); VENOUS O2 SATURATION 78.1 % (70-80); VENOUS PCO2 41.4 mmHg (38-52); VENOUS PH 7.362 (7.310-7.410)
[2024-03-24] MEDS ORDERED: ALBUTEROL SO4 2.5/IPRATROPIUM 0.5 INH SOL 3 ML VIAL.NEB. NEB PRN ×2 (03:12→14:40)
[2024-03-24] MEDS ORDERED: methylPREDNISolone NA SUCC 40 MG/1 ML VIAL ONE ×2 (03:49→10:19)
[2024-03-24] MEDS ORDERED: ALBUTEROL SO4 HFA INHALER IH ONE (03:49)
[2024-03-24] MEDS: ALBUTEROL SO4 HFA INHALER IH SCH (03:57)
[2024-03-24] MEDS: methylPREDNISolone NA SUCC 40 MG/1 ML VIAL IVPUSH SCH (03:57)
[2024-03-24] MEDS: ACETAMINOPHEN 1000 MG/100 ML BAG IVPB ONE (05:27)
[2024-03-24] MEDS: ALBUTEROL SO4 2.5/IPRATROPIUM 0.5 INH SOL 3 ML VIAL.NEB. NEB SCH ×2 (05:28→21:00)
[2024-03-24 06:40] LABS: HEMATOCRIT 36.7 % (32.4-45.2); HEMOGLOBIN 12.2 GM/dL (10.7-15.3); MCH 28.9 pg (25.7-33.7); MCHC 33.4 g/dl (32.0-36.0); MEAN CELL VOLUME 86.7 fl (80-96); MEAN PLT VOLUME 8.4 fl (7.5-11.1); PLATELET COUNT 285 10^3/uL (134-434); RBC 4.23 M/mm3 (3.60-5.2); RDW 15.8 % (11.6-15.6); WHITE BLOOD COUNT 6.7 K/mm3 (4.0-10.0)
[2024-03-24 06:55] LABS: POTASSIUM 4.4 mmol/L (3.5-5.1)
[2024-03-24 06:56] LABS: ALBUMIN 3.5 g/dl (3.4-5.0); BLOOD UREA NITROGEN 11.3 mg/dL (7-18); CALCIUM 8.9 mg/dL (8.5-10.1); MAGNESIUM 2.1 mg/dL (1.8-2.4)
[2024-03-24 06:59] LABS: CREATININE 0.9 mg/dL (0.55-1.3); PHOSPHOROUS 1.7 mg/dL (2.5-4.9)
[2024-03-24 07:01] LABS: BILIRUBIN,TOTAL 0.4 mg/dL (0.2-1); TOT PROT 6.9 g/dl (6.4-8.2)
[2024-03-24 08:53] LABS: ANISOCYTOSIS 0; MACROCYTOSIS 0
[2024-03-24] MEDS ORDERED: TIOTROPIUM BROMIDE 2.5 MCG (SPIRIVA) RESPIMAT INHALER IH SCH (10:00)
[2024-03-24] MEDS ORDERED: ALBUTEROL SO4 2.5/IPRATROPIUM 0.5 INH SOL 3 ML VIAL.NEB. NEB ONE ×2 (10:18→14:07)
[2024-03-24] MEDS ORDERED: DOCUSATE SODIUM 100 MG CAPSULE (FP) PO ONE (10:19)
[2024-03-24] MEDS ORDERED: PANTOPRAZOLE 40 MG TABLET PO ONE (10:19)
[2024-03-24] MEDS ORDERED: ENOXAPARIN NA (PORCINE) 40 MG/0.4 ML DISP.SYRIN SQ ONE (10:19)
[2024-03-24] MEDS: PANTOPRAZOLE 40 MG TABLET PO SCH (10:32)
[2024-03-24] MEDS: ENOXAPARIN NA (PORCINE) 40 MG/0.4 ML DISP.SYRIN SQ SCH (10:32)
[2024-03-24] MEDS: BUDESONIDE/FORMETEROL FUMARATE 160/4.5 mcg INHALER IH SCH (10:32)
[2024-03-24] MEDS: DOCUSATE SODIUM 100 MG CAPSULE (FP) PO SCH (10:32)
[2024-03-24] MEDS ORDERED: ACETAMINOPHEN 325 MG TABLET (FP) PO PRN (14:39)
[2024-03-24] MEDS: ATORVASTATIN CA 10 MG TABLET (FP) PO SCH (21:49)
[2024-03-24] MEDS: MONTELUKAST NA 10 MG TABLET PO SCH (21:49)
[2024-03-25 07:53] LABS: MCHC 32.4 g/dl (32.0-36.0); MEAN CELL VOLUME 86.5 fl (80-96); MEAN PLT VOLUME 9.2 fl (7.5-11.1); PLATELET COUNT 332 10^3/uL (134-434); RBC 4.28 M/mm3 (3.60-5.2); RDW 16.3 % (11.6-15.6); WHITE BLOOD COUNT 20.5 K/mm3 (4.0-10.0)
[2024-03-25 07:56] LABS: POTASSIUM 4.4 mmol/L (3.5-5.1)
[2024-03-25 07:57] LABS: CALCIUM 9.4 mg/dL (8.5-10.1)
[2024-03-25 07:58] LABS: BLOOD UREA NITROGEN 13.1 mg/dL (7-18)
[2024-03-25 08:01] LABS: CREATININE 0.9 mg/dL (0.55-1.3)
[2024-03-25 09:59] LABS: ANISOCYTOSIS 0; MACROCYTOSIS 0
[2024-03-25] MEDS: ARTIFICIAL TEARS OPHTHALMIC DROPS OU PRN (11:32)
[2024-03-25] MEDS: TIOTROPIUM BROMIDE 2.5 MCG (SPIRIVA) RESPIMAT INHALER IH SCH (13:28)
[2024-03-25] MEDS ORDERED: MAGNESIUM HYDROX 2400MG/30ML ORAL SUSPENSION 30 ML CUP PO PRN (18:07)
[2024-03-25] MEDS: POLYETHYLENE GLYCOL (HEALTHYLAX) 3350 17 GM PACKET PO SCH (20:39)
[2024-03-25] MEDS: SENNOSIDES/DOCUSATE COMBO (SENNA PLUS) TABLET (UD) PO SCH (22:31)
[2024-03-26 08:02] LABS: BASO % 0.1 % (0-2.0); HEMATOCRIT 35.8 % (32.4-45.2); HEMOGLOBIN 11.5 GM/dL (10.7-15.3); LYMPH % 7.4 % (8-40); MCH 27.7 pg (25.7-33.7); MCHC 32.2 g/dl (32.0-36.0); MEAN CELL VOLUME 85.9 fl (80-96); MEAN PLT VOLUME 8.7 fl (7.5-11.1); MONO % 3.9 % (3.8-10.2); NEUT % 88.6 % (42.8-82.8); PLATELET COUNT 300 10^3/uL (134-434); RBC 4.17 M/mm3 (3.60-5.2); RDW 16.2 % (11.6-15.6); WHITE BLOOD COUNT 15.7 K/mm3 (4.0-10.0)
[2024-03-26 08:15] LABS: POTASSIUM 4.3 mmol/L (3.5-5.1)
[2024-03-26 08:17] LABS: BLOOD UREA NITROGEN 15.2 mg/dL (7-18); CALCIUM 9.1 mg/dL (8.5-10.1); MAGNESIUM 2.4 mg/dL (1.8-2.4)
[2024-03-26 08:20] LABS: CREATININE 0.6 mg/dL (0.55-1.3); PHOSPHOROUS 3.4 mg/dL (2.5-4.9)
[2024-03-26] MEDS: ALBUTEROL SO4 0.083% IH SOL 2.5 MG/3 ML VIAL.NEB. NEB PRN (20:50)
[2024-03-26] MEDS: methylPREDNISolone NA SUCC 40 MG/1 ML VIAL IVPUSH SCH (22:41)
[2024-03-28] MEDS ORDERED: INSULIN ASPART SLIDING SCALE (NOVOLOG) 1 VIAL SQ ONE (06:53)
[2024-03-28 08:54] LABS: HEMATOCRIT 36.6 % (32.4-45.2); HEMOGLOBIN 12.4 GM/dL (10.7-15.3); MCH 28.7 pg (25.7-33.7); MCHC 33.8 g/dl (32.0-36.0); MEAN CELL VOLUME 84.9 fl (80-96); MEAN PLT VOLUME 9.1 fl (7.5-11.1); PLATELET COUNT 295 10^3/uL (134-434); RBC 4.32 M/mm3 (3.60-5.2); RDW 15.9 % (11.6-15.6); WHITE BLOOD COUNT 9.8 K/mm3 (4.0-10.0)
[2024-03-28 09:14] LABS: POTASSIUM 4.2 mmol/L (3.5-5.1)
[2024-03-28 09:25] LABS: CALCIUM 9.4 mg/dL (8.5-10.1)
[2024-03-28 09:26] LABS: BLOOD UREA NITROGEN 15.3 mg/dL (7-18)
[2024-03-28] MEDS: ALBUTEROL SO4 0.083% IH SOL 2.5 MG/3 ML VIAL.NEB. NEB SCH (09:27)
[2024-03-28 09:32] LABS: CREATININE 0.6 mg/dL (0.55-1.3)
[2024-03-28] MEDS: predniSONE 20 MG TABLET (UD) PO SCH (10:29)
[2024-03-29 07:49] LABS: HEMATOCRIT 35.4 % (32.4-45.2); HEMOGLOBIN 11.6 GM/dL (10.7-15.3); MCH 28.4 pg (25.7-33.7); MCHC 32.8 g/dl (32.0-36.0); MEAN CELL VOLUME 86.7 fl (80-96); MEAN PLT VOLUME 8.8 fl (7.5-11.1); PLATELET COUNT 300 10^3/uL (134-434); RBC 4.08 M/mm3 (3.60-5.2); RDW 16.2 % (11.6-15.6); WHITE BLOOD COUNT 9.8 K/mm3 (4.0-10.0)
[2024-03-29 08:16] LABS: BLOOD UREA NITROGEN 15.9 mg/dL (7-18); CALCIUM 9.2 mg/dL (8.5-10.1); MAGNESIUM 2.4 mg/dL (1.8-2.4)
[2024-03-29 08:19] LABS: CREATININE 0.6 mg/dL (0.55-1.3)
[2024-03-29] MEDS ORDERED: predniSONE 20 MG TABLET (UD) PO SCH (13:13)
[2024-03-29 15:48] VITALS: RESP 18
[2024-03-29 18:21] VITALS: BP 130/75; PULSE 88; TEMP 97.6
== END 2024-03-29 19:45 | disposition home or self-care (01) | DRG 203 ==
LOC: JER 19:24 → JERBED 21:01 → OBSVTOIN 03-24 03:14 → J4W 03-24 16:27
PROVIDERS: ADMIT Internal Medicine; ATTEND Internal Medicine
DX: J45.41 Moderate persistent asthma with (acute) exacerbation (principal); E78.5 Hyperlipidemia, unspecified; G47.33 Obstructive sleep apnea (adult) (pediatric); R06.03 Acute respiratory distress; R73.9 Hyperglycemia, unspecified; D72.829 Elevated white blood cell count, unspecified
CPT/HCPCS: 36415; 71046-TC-FY; 80048; 80053; 82803; 83605; 83735; 84100; 84484; 85025; 85027; 93005; 93010; 93306-TC; 94150; 94640; 94761; 99285-25; G0378; J0131

== ENCOUNTER 2024-03-30 12:08 | Inpatient (IN) | payer OTHER ==
[2024-03-30] MEDS: ALBUTEROL SO4 2.5/IPRATROPIUM 0.5 INH SOL 3 ML VIAL.NEB. NEB ONE ×2 (12:55→17:18)
[2024-03-30] MEDS ORDERED: ALBUTEROL SO4 2.5/IPRATROPIUM 0.5 INH SOL 3 ML VIAL.NEB. NEB ONE ×2 (13:17→17:14)
[2024-03-30 13:37] LABS: HEMATOCRIT 37.1 % (32.4-45.2); HEMOGLOBIN 12.1 GM/dL (10.7-15.3); MCH 27.8 pg (25.7-33.7); MCHC 32.7 g/dl (32.0-36.0); MEAN PLT VOLUME 8.1 fl (7.5-11.1); PLATELET COUNT 322 10^3/uL (134-434); RBC 4.36 M/mm3 (3.60-5.2); RDW 16.1 % (11.6-15.6); WHITE BLOOD COUNT 14.2 K/mm3 (4.0-10.0)
[2024-03-30 14:05] LABS: POTASSIUM 4.4 mmol/L (3.5-5.1)
[2024-03-30 14:07] LABS: ANISOCYTOSIS 0; BLOOD UREA NITROGEN 17.2 mg/dL (7-18); CALCIUM 8.9 mg/dL (8.5-10.1); HELMET CELLS 0; HOWELL-JOLLY BODIES 0; MACROCYTOSIS 0; OVALOCYTE 0; ROULEAU 0; SICKELED CELLS 0; TARGET CELLS 0; TEAR DROP CELLS 0; TOXIC GRANULATION 0
[2024-03-30 14:08] LABS: ALBUMIN 3.2 g/dl (3.4-5.0)
[2024-03-30 14:10] LABS: CREATININE 0.8 mg/dL (0.55-1.3)
[2024-03-30 14:12] LABS: BILIRUBIN,TOTAL 0.2 mg/dL (0.2-1); TOT PROT 6.2 g/dl (6.4-8.2)
[2024-03-30 20:38] VITALS: BMI 32.9
[2024-03-30] MEDS ORDERED: SOD BORATE/BORIC AC/WATER/NACL (EYE WASH) 118 ML BOTTLE OU PRN (23:17)
[2024-03-31] MEDS ORDERED: ALBUTEROL SO4 2.5/IPRATROPIUM 0.5 INH SOL 3 ML VIAL.NEB. NEB PRN (00:12)
[2024-03-31] MEDS: ALBUTEROL SO4 2.5/IPRATROPIUM 0.5 INH SOL 3 ML VIAL.NEB. NEB SCH (01:15)
[2024-03-31] MEDS: methylPREDNISolone NA SUCC 40 MG/1 ML VIAL IVPUSH SCH (01:57)
[2024-03-31] MEDS: ALBUTEROL SO4 2.5/IPRATROPIUM 0.5 INH SOL 3 ML VIAL.NEB. NEB ONE (07:35)
[2024-03-31] MEDS ORDERED: BUDESONIDE/FORMETEROL FUMARATE 160/4.5 mcg INHALER IH SCH (10:00)
[2024-03-31] MEDS: MONTELUKAST NA 10 MG TABLET PO SCH (10:43)
[2024-03-31] MEDS: ENOXAPARIN NA (PORCINE) 40 MG/0.4 ML DISP.SYRIN SQ SCH (10:44)
[2024-03-31] MEDS: PANTOPRAZOLE 40 MG TABLET PO SCH (10:44)
[2024-03-31] MEDS: ARTIFICIAL TEARS OPHTHALMIC DROPS OU PRN (10:44)
[2024-03-31] MEDS: TIOTROPIUM BROMIDE 2.5 MCG (SPIRIVA) RESPIMAT INHALER IH SCH (10:44)
[2024-03-31 10:46] LABS: HEMOGLOBIN 12.1 GM/dL (10.7-15.3); MCH 28.3 pg (25.7-33.7); MCHC 32.8 g/dl (32.0-36.0); MEAN CELL VOLUME 86.2 fl (80-96); MEAN PLT VOLUME 8.4 fl (7.5-11.1); PLATELET COUNT 337 10^3/uL (134-434); RBC 4.29 M/mm3 (3.60-5.2); RDW 16.2 % (11.6-15.6); WHITE BLOOD COUNT 11.5 K/mm3 (4.0-10.0)
[2024-03-31 11:03] LABS: POTASSIUM 4.8 mmol/L (3.5-5.1)
[2024-03-31 11:08] LABS: ALBUMIN 3.3 g/dl (3.4-5.0); BLOOD UREA NITROGEN 14.6 mg/dL (7-18)
[2024-03-31 11:09] LABS: CREATININE 0.7 mg/dL (0.55-1.3)
[2024-03-31 11:10] LABS: BILIRUBIN,TOTAL 0.4 mg/dL (0.2-1); TOT PROT 6.6 g/dl (6.4-8.2)
[2024-03-31] MEDS: FLUTICASONE/UMECLIDIN/VILANTER(100-62.5-25 TRELEGY ELLIPTA) INAHLER IH SCH (13:28)
[2024-03-31] MEDS: ACETAMINOPHEN 325 MG TABLET (FP) PO PRN (18:44)
[2024-03-31] MEDS: SENNOSIDES 8.6MG TABLET (FP) PO ONE (18:44)
[2024-03-31] MEDS: POLYETHYLENE GLYCOL (HEALTHYLAX) 3350 17 GM PACKET PO ONE ×2 (18:45)
[2024-03-31] MEDS: ATORVASTATIN CA 10 MG TABLET (FP) PO SCH (21:46)
[2024-04-01] MEDS: ALBUTEROL SO4 2.5/IPRATROPIUM 0.5 INH SOL 3 ML VIAL.NEB. NEB SCH (11:04)
[2024-04-02 08:39] LABS: HEMATOCRIT 37.8 % (32.4-45.2); HEMOGLOBIN 12.2 GM/dL (10.7-15.3); MCH 27.8 pg (25.7-33.7); MCHC 32.2 g/dl (32.0-36.0); MEAN CELL VOLUME 86.6 fl (80-96); MEAN PLT VOLUME 9.3 fl (7.5-11.1); PLATELET COUNT 315 10^3/uL (134-434); RBC 4.36 M/mm3 (3.60-5.2); WHITE BLOOD COUNT 15.1 K/mm3 (4.0-10.0)
[2024-04-02 08:52] LABS: POTASSIUM 4.7 mmol/L (3.5-5.1)
[2024-04-02 08:55] LABS: CALCIUM 9.5 mg/dL (8.5-10.1)
[2024-04-02 08:56] LABS: BLOOD UREA NITROGEN 18.4 mg/dL (7-18)
[2024-04-02 08:59] LABS: CREATININE 0.7 mg/dL (0.55-1.3)
[2024-04-02 09:50] LABS: ANISOCYTOSIS 0; HELMET CELLS 0; HOWELL-JOLLY BODIES 0; MACROCYTOSIS 0; OVALOCYTE 0; ROULEAU 0; SICKELED CELLS 0; TARGET CELLS 0; TEAR DROP CELLS 0; TOXIC GRANULATION 0
[2024-04-03 08:15] LABS: HEMATOCRIT 35.6 % (32.4-45.2); HEMOGLOBIN 11.5 GM/dL (10.7-15.3); MCH 27.7 pg (25.7-33.7); MCHC 32.2 g/dl (32.0-36.0); MEAN CELL VOLUME 85.8 fl (80-96); MEAN PLT VOLUME 8.2 fl (7.5-11.1); PLATELET COUNT 343 10^3/uL (134-434); RBC 4.15 M/mm3 (3.60-5.2); RDW 15.9 % (11.6-15.6); WHITE BLOOD COUNT 16.7 K/mm3 (4.0-10.0)
[2024-04-03 08:34] LABS: POTASSIUM 4.3 mmol/L (3.5-5.1)
[2024-04-03 08:38] LABS: CALCIUM 9.1 mg/dL (8.5-10.1)
[2024-04-03 08:39] LABS: BLOOD UREA NITROGEN 15.1 mg/dL (7-18)
[2024-04-03 08:42] LABS: CREATININE 0.6 mg/dL (0.55-1.3)
[2024-04-04 09:04] LABS: HEMATOCRIT 36.9 % (32.4-45.2); HEMOGLOBIN 11.9 GM/dL (10.7-15.3); MCH 27.8 pg (25.7-33.7); MCHC 32.3 g/dl (32.0-36.0); MEAN PLT VOLUME 8.1 fl (7.5-11.1); PLATELET COUNT 280 10^3/uL (134-434); RBC 4.29 M/mm3 (3.60-5.2); RDW 16.2 % (11.6-15.6); WHITE BLOOD COUNT 19.7 K/mm3 (4.0-10.0)
[2024-04-04 09:30] LABS: POTASSIUM 4.2 mmol/L (3.5-5.1)
[2024-04-04 09:35] LABS: CALCIUM 9.6 mg/dL (8.5-10.1)
[2024-04-04 09:36] LABS: BLOOD UREA NITROGEN 16.4 mg/dL (7-18)
[2024-04-04 09:39] LABS: CREATININE 0.6 mg/dL (0.55-1.3)
[2024-04-04 10:21] LABS: PLATELET ESTIMATE ADEQUATE
[2024-04-04] MEDS: AZITHROMYCIN IVPB 500 MG/250 ML BAG IVPB SCH (12:01)
[2024-04-04] MEDS: BENZONATATE 200 MG CAPSULE PO SCH (13:43)
[2024-04-04] MEDS: guaiFENesin 200 MG/10 ML 10 ML UNIT-DOSE CUPS PO PRN (15:46)
[2024-04-05] MEDS: ACETAMINOPHEN 325 MG TABLET (FP) PO PRN (01:53)
[2024-04-05 08:17] LABS: HEMATOCRIT 36.5 % (32.4-45.2); HEMOGLOBIN 11.9 GM/dL (10.7-15.3); MCHC 32.6 g/dl (32.0-36.0); MEAN PLT VOLUME 7.9 fl (7.5-11.1); PLATELET COUNT 341 10^3/uL (134-434); RBC 4.24 M/mm3 (3.60-5.2); RDW 15.8 % (11.6-15.6); WHITE BLOOD COUNT 18.3 K/mm3 (4.0-10.0)
[2024-04-05 08:25] LABS: POTASSIUM 4.6 mmol/L (3.5-5.1)
[2024-04-05 08:36] LABS: CALCIUM 9.3 mg/dL (8.5-10.1)
[2024-04-05 08:37] LABS: BLOOD UREA NITROGEN 16.5 mg/dL (7-18)
[2024-04-05 08:40] LABS: CREATININE 0.7 mg/dL (0.55-1.3)
[2024-04-05 10:14] LABS: ANISOCYTOSIS 0; MACROCYTOSIS 0
[2024-04-05 10:15] LABS: PLATELET ESTIMATE ADEQUATE
[2024-04-05] MEDS ORDERED: ALBUTEROL SO4 0.083% IH SOL 2.5 MG/3 ML VIAL.NEB. NEB PRN (11:16)
[2024-04-05] MEDS ORDERED: METHYL SALICYLATE/MENTHOL OINT 30 GM TUBE TP PRN (12:17)
[2024-04-05] MEDS: methylPREDNISolone NA SUCC 40 MG/1 ML VIAL IVPUSH SCH ×2 (12:21→12:22)
[2024-04-06] MEDS: methylPREDNISolone NA SUCC 40 MG/1 ML VIAL IVPUSH SCH (10:23)
[2024-04-07 09:24] LABS: HEMATOCRIT 36.8 % (32.4-45.2); HEMOGLOBIN 12.3 GM/dL (10.7-15.3); MCH 28.2 pg (25.7-33.7); MCHC 33.3 g/dl (32.0-36.0); MEAN CELL VOLUME 84.7 fl (80-96); MEAN PLT VOLUME 8.2 fl (7.5-11.1); PLATELET COUNT 378 10^3/uL (134-434); RBC 4.35 M/mm3 (3.60-5.2); RDW 15.9 % (11.6-15.6); WHITE BLOOD COUNT 15.8 K/mm3 (4.0-10.0)
[2024-04-07 09:51] LABS: POTASSIUM 4.6 mmol/L (3.5-5.1)
[2024-04-07 09:54] LABS: BLOOD UREA NITROGEN 21.3 mg/dL (7-18); CALCIUM 9.4 mg/dL (8.5-10.1)
[2024-04-07 09:58] LABS: CREATININE 0.7 mg/dL (0.55-1.3)
[2024-04-08] MEDS: guaiFENesin/CODEINE 10 ML UNIT-DOSE CUPS PO SCH (14:15)
[2024-04-09] MEDS: methylPREDNISolone NA SUCC 40 MG/1 ML VIAL IVPUSH SCH (10:39)
[2024-04-09] MEDS: NYSTATIN 500,000 UNITS/5 ML SUSPENSION PO SCH (13:15)
[2024-04-10 09:10] LABS: HEMOGLOBIN 12.9 GM/dL (10.7-15.3); MEAN CELL VOLUME 84.8 fl (80-96); MEAN PLT VOLUME 7.8 fl (7.5-11.1); PLATELET COUNT 348 10^3/uL (134-434); RDW 16.1 % (11.6-15.6); WHITE BLOOD COUNT 14.6 K/mm3 (4.0-10.0)
[2024-04-10 09:30] LABS: POTASSIUM 4.2 mmol/L (3.5-5.1)
[2024-04-10 09:32] LABS: BLOOD UREA NITROGEN 20.1 mg/dL (7-18); CALCIUM 9.2 mg/dL (8.5-10.1)
[2024-04-10 09:35] LABS: CREATININE 0.7 mg/dL (0.55-1.3)
[2024-04-10] MEDS ORDERED: BENZOCAINE/MENTHOL 1 EACH LOZENGE MM PRN (13:30)
[2024-04-10] MEDS: BENZOCAINE/MENTH/CETYLPYRD CL 1 EACH LOZENGE MM PRN (21:33)
[2024-04-11] MEDS: FLUCONAZOLE 100 MG TABLET (UD) PO ONE (14:23)
[2024-04-12 08:43] LABS: HEMATOCRIT 36.2 % (32.4-45.2); HEMOGLOBIN 11.9 GM/dL (10.7-15.3); MCHC 32.9 g/dl (32.0-36.0); MEAN CELL VOLUME 85.2 fl (80-96); MEAN PLT VOLUME 7.8 fl (7.5-11.1); PLATELET COUNT 319 10^3/uL (134-434); RBC 4.25 M/mm3 (3.60-5.2); RDW 16.2 % (11.6-15.6); WHITE BLOOD COUNT 14.2 K/mm3 (4.0-10.0)
[2024-04-12 09:07] LABS: POTASSIUM 4.3 mmol/L (3.5-5.1)
[2024-04-12 09:14] LABS: ALBUMIN 3.1 g/dl (3.4-5.0); BLOOD UREA NITROGEN 18.5 mg/dL (7-18)
[2024-04-12 09:16] LABS: CALCIUM 9.2 mg/dL (8.5-10.1)
[2024-04-12 09:17] LABS: CREATININE 0.6 mg/dL (0.55-1.3); MAGNESIUM 2.4 mg/dL (1.8-2.4)
[2024-04-12 09:18] LABS: BILIRUBIN,TOTAL 0.4 mg/dL (0.2-1); TOT PROT 6.1 g/dl (6.4-8.2)
[2024-04-12] MEDS: predniSONE 20 MG TABLET (UD) PO SCH (09:35)
[2024-04-13 07:09] VITALS: TEMP 98.4
[2024-04-13 07:51] LABS: HEMATOCRIT 37.2 % (32.4-45.2); HEMOGLOBIN 12.1 GM/dL (10.7-15.3); MCHC 32.4 g/dl (32.0-36.0); MEAN CELL VOLUME 86.3 fl (80-96); MEAN PLT VOLUME 7.6 fl (7.5-11.1); PLATELET COUNT 302 10^3/uL (134-434); RBC 4.32 M/mm3 (3.60-5.2)
[2024-04-13 08:09] LABS: POTASSIUM 4.6 mmol/L (3.5-5.1)
[2024-04-13 08:12] LABS: ALBUMIN 3.1 g/dl (3.4-5.0); BLOOD UREA NITROGEN 19.4 mg/dL (7-18)
[2024-04-13 08:15] LABS: CREATININE 0.6 mg/dL (0.55-1.3)
[2024-04-13 08:16] LABS: BILIRUBIN,TOTAL 0.4 mg/dL (0.2-1); TOT PROT 6.2 g/dl (6.4-8.2)
[2024-04-13 16:13] VITALS: BP 130/68; PULSE 71; RESP 20
== END 2024-04-13 18:48 | disposition home or self-care (01) | DRG 202 ==
LOC: JER 12:08 → JERBED 18:11 → J7W 19:55 → OBSVTOIN 04-05 14:03 → J5S 04-13 16:00
PROVIDERS: ADMIT Internal Medicine; ATTEND Internal Medicine
DX: J45.41 Moderate persistent asthma with (acute) exacerbation (principal); B37.0 Candidal stomatitis; G47.33 Obstructive sleep apnea (adult) (pediatric); E78.5 Hyperlipidemia, unspecified; K59.00 Constipation, unspecified; E03.9 Hypothyroidism, unspecified; J20.9 Acute bronchitis, unspecified; D72.829 Elevated white blood cell count, unspecified
CPT/HCPCS: 0241U-QW; 36415; 71045-TC-FY; 71250-TC; 80048; 80053; 82103; 83735; 84100; 84484; 85025; 85027; 85379; 87070; 87205; 93005; 93010; 94150; 94640; 97116-GP; 97161-GP; 99285-25; G0378

== ENCOUNTER 2024-07-11 22:11 | Inpatient (IN) | payer OTHER ==
[2024-07-11] MEDS ORDERED: MAGNESIUM SULFATE IN WATER 2 GM/50 ML IVPB IVPB ONE (22:20)
[2024-07-11] MEDS: MAGNESIUM SULF 50% (8.12 MEQ/2 ML-1 GM VIAL) IVPB ONE (22:33)
[2024-07-11] MEDS ORDERED: LEVALBUTEROL HCL 0.63 MG/3 ML VIAL.NEB. IH ONE ×2 (22:33→23:05)
[2024-07-11] MEDS: ALBUTEROL SO4 2.5/IPRATROPIUM 0.5 INH SOL 3 ML VIAL.NEB. NEB SCH (22:34)
[2024-07-11 22:43] LABS: VENOUS BASE EXCESS -3.3 mmol/L (-2-2); VENOUS O2 SATURATION 46.3 % (70-80); VENOUS PH 7.343 (7.310-7.410)
[2024-07-11 22:56] LABS: INR 1.03 (0.83-1.09); PROTHROMBIN TIME (PATIENT) 11.8 SEC (9.7-13.0)
[2024-07-11 22:57] LABS: BASO % 0.5 % (0-2.0); EOS % 1.1 % (0-4.5); HEMATOCRIT 37.8 % (32.4-45.2); HEMOGLOBIN 12.1 GM/dL (10.7-15.3); LYMPH % 15.9 % (8-40); MCH 27.5 pg (25.7-33.7); MCHC 32.1 g/dl (32.0-36.0); MEAN CELL VOLUME 85.7 fl (80-96); MEAN PLT VOLUME 8.7 fl (7.5-11.1); MONO % 5.5 % (3.8-10.2); PLATELET COUNT 330 10^3/uL (134-434); RBC 4.41 M/mm3 (3.60-5.2); WHITE BLOOD COUNT 13.1 K/mm3 (4.0-10.0)
[2024-07-11 22:59] LABS: ACTIVATED PTT 28.1 SECONDS (25.2-36.5)
[2024-07-11] MEDS: LEVALBUTEROL HCL 0.63 MG/3 ML VIAL.NEB. IH SCH (23:00)
[2024-07-11 23:07] LABS: POTASSIUM 3.6 mmol/L (3.5-5.1)
[2024-07-11 23:08] LABS: CALCIUM 9.2 mg/dL (8.5-10.1)
[2024-07-11 23:09] LABS: ALBUMIN 3.7 g/dl (3.4-5.0)
[2024-07-11 23:12] LABS: CREATININE 0.7 mg/dL (0.55-1.3)
[2024-07-11 23:14] LABS: BILIRUBIN,TOTAL 0.4 mg/dL (0.2-1)
[2024-07-11] MEDS ORDERED: AZITHROMYCIN IVPB 500 MG/250 ML BAG IVPB ONE (23:48)
[2024-07-11] MEDS: AZITHROMYCIN IVPB 500 MG in DEXTROSE 5%-WATER - 250 ML IVPB ONE (23:52)
[2024-07-12] MEDS: methylPREDNISolone NA SUCC 125 MG/2 ML VIAL IVPUSH ONE (02:10)
[2024-07-12 02:27] LABS: EPI CELLS 4 /uL (0-25.1); HYALINE CASTS 0 /uL (0-3.1); PH,URINE 6.5 (5.0-8.0); URINE APPEARANCE CLEAR; URINE BACTERIA 14 /uL (0-1359); URINE BILIRUBIN NEGATIVE (NEGATIVE); URINE COLOR YELLOW; URINE GLUCOSE (UA) NEGATIVE (NEGATIVE); URINE KETONE NEGATIVE (NEGATIVE); URINE LEUK ESTERASE TRACE (NEGATIVE); URINE NITRITE NEGATIVE (NEGATIVE); URINE PROTEIN NEGATIVE (NEGATIVE); URINE RBC 6 /uL (0-23.9); URINE UROBILINOGEN 0.2 mg/dL (0.2-1.0); URINE WBC 7 /uL (0-25.8)
[2024-07-12] MEDS ORDERED: methylPREDNISolone NA SUCC 125 MG/2 ML VIAL ONE (02:38)
[2024-07-12 07:15] LABS: HEMATOCRIT 38.7 % (32.4-45.2); HEMOGLOBIN 12.2 GM/dL (10.7-15.3); MCH 27.2 pg (25.7-33.7); MCHC 31.6 g/dl (32.0-36.0); MEAN PLT VOLUME 8.4 fl (7.5-11.1); PLATELET COUNT 327 10^3/uL (134-434); RDW 16.3 % (11.6-15.6); WHITE BLOOD COUNT 14.3 K/mm3 (4.0-10.0)
[2024-07-12 07:29] LABS: POTASSIUM 4.2 mmol/L (3.5-5.1)
[2024-07-12 07:32] LABS: ALBUMIN 3.7 g/dl (3.4-5.0); BLOOD UREA NITROGEN 10.1 mg/dL (7-18)
[2024-07-12 07:34] LABS: CALCIUM 9.7 mg/dL (8.5-10.1)
[2024-07-12 07:35] LABS: PHOSPHOROUS 2.2 mg/dL (2.5-4.9)
[2024-07-12 07:36] LABS: CREATININE 0.9 mg/dL (0.55-1.3)
[2024-07-12 07:37] LABS: BILIRUBIN,TOTAL 0.4 mg/dL (0.2-1); MAGNESIUM 2.4 mg/dL (1.8-2.4); TOT PROT 7.2 g/dl (6.4-8.2)
[2024-07-12] MEDS: PANTOPRAZOLE 40 MG TABLET PO SCH (10:36)
[2024-07-12] MEDS: CEFTRIAXONE 1 G/50 ML PREMIX 50 ML IVPB SCH (10:36)
[2024-07-12] MEDS: BUDESONIDE/FORMETEROL FUMARATE 160/4.5 mcg INHALER IH SCH (10:36)
[2024-07-12] MEDS: methylPREDNISolone NA SUCC 40 MG/1 ML VIAL IVPUSH SCH (10:36)
[2024-07-12] MEDS: ENOXAPARIN NA (PORCINE) 40 MG/0.4 ML DISP.SYRIN SQ SCH (10:36)
[2024-07-12] MEDS: ALBUTEROL SO4 2.5/IPRATROPIUM 0.5 INH SOL 3 ML VIAL.NEB. NEB SCH ×2 (10:36→19:18)
[2024-07-12] MEDS ORDERED: CEFTRIAXONE 1 GM/50 ML BAG ONE (10:44)
[2024-07-12] MEDS ORDERED: ALBUTEROL SO4 2.5/IPRATROPIUM 0.5 INH SOL 3 ML VIAL.NEB. NEB ONE ×3 (10:44→18:59)
[2024-07-12] MEDS ORDERED: AZITHROMYCIN IVPB 500 MG/250 ML BAG IVPB ONE (11:48)
[2024-07-12] MEDS: AZITHROMYCIN IVPB 500 MG/250 ML BAG IVPB SCH (11:50)
[2024-07-12] MEDS ORDERED: ATORVASTATIN CA 10 MG TABLET (FP) ONE (22:42)
[2024-07-12] MEDS ORDERED: MONTELUKAST NA 10 MG TABLET ONE (22:42)
[2024-07-12] MEDS ORDERED: LEVALBUTEROL HCL 0.63 MG/3 ML VIAL.NEB. IH ONE (22:42)
[2024-07-12] MEDS: MONTELUKAST NA 10 MG TABLET PO SCH (22:56)
[2024-07-12] MEDS: ATORVASTATIN CA 10 MG TABLET (FP) PO SCH (22:56)
[2024-07-13] MEDS ORDERED: methylPREDNISolone NA SUCC 40 MG/1 ML VIAL ONE ×2 (01:52→09:10)
[2024-07-13] MEDS ORDERED: ALBUTEROL SO4 2.5/IPRATROPIUM 0.5 INH SOL 3 ML VIAL.NEB. NEB ONE ×2 (07:19→12:11)
[2024-07-13] MEDS ORDERED: PANTOPRAZOLE 40 MG TABLET PO ONE (07:19)
[2024-07-13 08:25] LABS: POTASSIUM 4.2 mmol/L (3.5-5.1)
[2024-07-13 08:27] LABS: CALCIUM 9.7 mg/dL (8.5-10.1)
[2024-07-13 08:28] LABS: ALBUMIN 3.9 g/dl (3.4-5.0); BLOOD UREA NITROGEN 14.2 mg/dL (7-18)
[2024-07-13 08:29] LABS: HEMATOCRIT 38.4 % (32.4-45.2); HEMOGLOBIN 12.2 GM/dL (10.7-15.3); MCHC 31.8 g/dl (32.0-36.0); MEAN CELL VOLUME 84.8 fl (80-96); MEAN PLT VOLUME 9.1 fl (7.5-11.1); PLATELET COUNT 414 10^3/uL (134-434); RBC 4.52 M/mm3 (3.60-5.2); RDW 16.6 % (11.6-15.6); WHITE BLOOD COUNT 24.3 K/mm3 (4.0-10.0)
[2024-07-13 08:31] LABS: CREATININE 0.9 mg/dL (0.55-1.3)
[2024-07-13 08:32] LABS: BILIRUBIN,TOTAL 0.3 mg/dL (0.2-1); TOT PROT 7.6 g/dl (6.4-8.2)
[2024-07-13 09:09] LABS: ANISOCYTOSIS 0; MACROCYTOSIS 0
[2024-07-13] MEDS ORDERED: CEFTRIAXONE 1 GM/50 ML BAG ONE (09:10)
[2024-07-13] MEDS ORDERED: ENOXAPARIN NA (PORCINE) 40 MG/0.4 ML DISP.SYRIN SQ ONE (09:10)
[2024-07-13] MEDS ORDERED: AZITHROMYCIN IVPB 500 MG/250 ML BAG IVPB ONE (09:11)
[2024-07-13 12:42] LABS: MAGNESIUM 2.5 mg/dL (1.8-2.4)
[2024-07-13] MEDS ORDERED: ALBUTEROL SO4 HFA INHALER IH ONE (14:34)
[2024-07-13] MEDS: ALBUTEROL SO4 HFA INHALER IH PRN (14:38)
[2024-07-13] MEDS ORDERED: ALBUTEROL SO4 HFA INHALER IH PRN (15:54)
[2024-07-13 16:32] VITALS: BMI 33.0
[2024-07-13] MEDS: ALBUTEROL SO4 2.5/IPRATROPIUM 0.5 INH SOL 3 ML VIAL.NEB. NEB SCH (17:00)
[2024-07-13] MEDS ORDERED: DOXYCYCLINE HYCLATE 100 MG CAPSULE PO SCH (18:00)
[2024-07-13] MEDS: methylPREDNISolone NA SUCC 40 MG/1 ML VIAL IVPUSH SCH (18:49)
[2024-07-13] MEDS: DOXYCYCLINE HYCLATE 100 MG CAPSULE PO SCH (18:49)
[2024-07-13] MEDS: ATORVASTATIN CA 10 MG TABLET (FP) PO SCH (21:11)
[2024-07-13] MEDS: MONTELUKAST NA 10 MG TABLET PO SCH (21:11)
[2024-07-13] MEDS: BUDESONIDE/FORMETEROL FUMARATE 160/4.5 mcg INHALER IH SCH (21:13)
[2024-07-14] MEDS: PANTOPRAZOLE 40 MG TABLET PO SCH (06:03)
[2024-07-14] MEDS: ENOXAPARIN NA (PORCINE) 40 MG/0.4 ML DISP.SYRIN SQ SCH (09:36)
[2024-07-14] MEDS: CEFTRIAXONE 1 G/50 ML PREMIX 50 ML IVPB SCH (09:45)
[2024-07-14 11:03] LABS: BASO % 0.1 % (0-2.0); HEMATOCRIT 37.4 % (32.4-45.2); LYMPH % 8.7 % (8-40); MCH 27.5 pg (25.7-33.7); MEAN CELL VOLUME 86.1 fl (80-96); MEAN PLT VOLUME 9.1 fl (7.5-11.1); MONO % 3.8 % (3.8-10.2); NEUT % 87.4 % (42.8-82.8); PLATELET COUNT 395 10^3/uL (134-434); RBC 4.34 M/mm3 (3.60-5.2); RDW 16.5 % (11.6-15.6); WHITE BLOOD COUNT 17.5 K/mm3 (4.0-10.0)
[2024-07-14] MEDS ORDERED: ALBUTEROL SO4 0.083% IH SOL 2.5 MG/3 ML VIAL.NEB. NEB PRN (11:09)
[2024-07-14 11:24] LABS: POTASSIUM 4.4 mmol/L (3.5-5.1)
[2024-07-14 11:26] LABS: CALCIUM 9.5 mg/dL (8.5-10.1)
[2024-07-14 11:27] LABS: BLOOD UREA NITROGEN 17.8 mg/dL (7-18)
[2024-07-14 11:30] LABS: CREATININE 0.6 mg/dL (0.55-1.3)
[2024-07-14] MEDS: methylPREDNISolone NA SUCC 40 MG/1 ML VIAL IVPUSH SCH (16:05)
[2024-07-14] MEDS ORDERED: ARTIFICIAL TEARS OPHTHALMIC DROPS OU PRN (19:55)
[2024-07-15 09:46] LABS: HEMATOCRIT 41.5 % (32.4-45.2); HEMOGLOBIN 13.2 GM/dL (10.7-15.3); MCH 27.2 pg (25.7-33.7); MCHC 31.7 g/dl (32.0-36.0); MEAN CELL VOLUME 85.8 fl (80-96); MEAN PLT VOLUME 8.9 fl (7.5-11.1); PLATELET COUNT 446 10^3/uL (134-434); RBC 4.84 M/mm3 (3.60-5.2); RDW 16.2 % (11.6-15.6); WHITE BLOOD COUNT 13.3 K/mm3 (4.0-10.0)
[2024-07-15 10:04] LABS: POTASSIUM 3.9 mmol/L (3.5-5.1)
[2024-07-15 10:39] LABS: ANISOCYTOSIS 0; MACROCYTOSIS 0; OVALOCYTE 1+
[2024-07-15 10:43] LABS: CALCIUM 10.1 mg/dL (8.5-10.1)
[2024-07-15 10:46] LABS: CREATININE 0.8 mg/dL (0.55-1.3)
[2024-07-15 10:47] LABS: BILIRUBIN,TOTAL 0.4 mg/dL (0.2-1); BLOOD UREA NITROGEN 17.3 mg/dL (7-18)
[2024-07-16] MEDS: BENZONATATE 200 MG CAPSULE PO PRN (16:50)
[2024-07-17] MEDS: methylPREDNISolone NA SUCC 40 MG/1 ML VIAL IVPUSH SCH (11:17)
[2024-07-18 09:43] LABS: HEMATOCRIT 37.2 % (32.4-45.2); HEMOGLOBIN 12.2 GM/dL (10.7-15.3); MCH 27.5 pg (25.7-33.7); MCHC 32.9 g/dl (32.0-36.0); MEAN CELL VOLUME 83.7 fl (80-96); MEAN PLT VOLUME 8.3 fl (7.5-11.1); PLATELET COUNT 394 10^3/uL (134-434); RBC 4.45 M/mm3 (3.60-5.2); RDW 16.3 % (11.6-15.6); WHITE BLOOD COUNT 15.3 K/mm3 (4.0-10.0)
[2024-07-18 10:15] LABS: ANISOCYTOSIS 0; MACROCYTOSIS 0
[2024-07-18 10:35] LABS: POTASSIUM 4.3 mmol/L (3.5-5.1)
[2024-07-18 10:55] LABS: ALBUMIN 3.3 g/dl (3.4-5.0)
[2024-07-18 10:57] LABS: CALCIUM 9.1 mg/dL (8.5-10.1)
[2024-07-18 10:58] LABS: MAGNESIUM 2.6 mg/dL (1.8-2.4)
[2024-07-18 11:01] LABS: CREATININE 0.6 mg/dL (0.55-1.3)
[2024-07-18 11:02] LABS: BILIRUBIN,TOTAL 0.4 mg/dL (0.2-1)
[2024-07-18 11:03] LABS: BLOOD UREA NITROGEN 21.3 mg/dL (7-18)
[2024-07-18 11:04] LABS: TOT PROT 6.2 g/dl (6.4-8.2)
[2024-07-19 08:27] LABS: POTASSIUM 4.7 mmol/L (3.5-5.1)
[2024-07-19 08:33] LABS: ALBUMIN 3.2 g/dl (3.4-5.0); CALCIUM 9.1 mg/dL (8.5-10.1); MAGNESIUM 2.6 mg/dL (1.8-2.4)
[2024-07-19 08:36] LABS: BLOOD UREA NITROGEN 17.6 mg/dL (7-18)
[2024-07-19 08:37] LABS: CREATININE 0.6 mg/dL (0.55-1.3)
[2024-07-19 08:38] LABS: BILIRUBIN,TOTAL 0.4 mg/dL (0.2-1); TOT PROT 6.2 g/dl (6.4-8.2)
[2024-07-19 08:40] LABS: HEMATOCRIT 37.5 % (32.4-45.2); HEMOGLOBIN 12.1 GM/dL (10.7-15.3); MCH 27.3 pg (25.7-33.7); MCHC 32.2 g/dl (32.0-36.0); MEAN CELL VOLUME 84.8 fl (80-96); MEAN PLT VOLUME 8.4 fl (7.5-11.1); PLATELET COUNT 368 10^3/uL (134-434); RBC 4.43 M/mm3 (3.60-5.2); RDW 16.1 % (11.6-15.6); WHITE BLOOD COUNT 13.8 K/mm3 (4.0-10.0)
[2024-07-19 09:01] VITALS: BP 120/62; PULSE 85; RESP 17; TEMP 97.5
[2024-07-19 10:00] LABS: ANISOCYTOSIS 0; HELMET CELLS 0; HOWELL-JOLLY BODIES 0; MACROCYTOSIS 0; OVALOCYTE 0; ROULEAU 0; SICKELED CELLS 0; TARGET CELLS 0; TEAR DROP CELLS 0; TOXIC GRANULATION 0
== END 2024-07-19 11:24 | disposition home or self-care (01) | DRG 190 ==
LOC: JER 22:11 → JERBED 23:52 → J8W 07-13 15:25
PROVIDERS: ADMIT Internal Medicine; ATTEND Nurse Practitioner Family
DX: J44.0 Chronic obstructive pulmonary disease with (acute) lower respiratory infection (principal); J18.9 Pneumonia, unspecified organism; J45.901 Unspecified asthma with (acute) exacerbation; J44.1 Chronic obstructive pulmonary disease with (acute) exacerbation; G47.33 Obstructive sleep apnea (adult) (pediatric); E78.5 Hyperlipidemia, unspecified; K21.9 Gastro-esophageal reflux disease without esophagitis; E03.9 Hypothyroidism, unspecified
CPT/HCPCS: 0241U-QW; 36415; 71045-TC-FY; 71250-TC; 80048; 80053; 81003; 82803; 83735; 84100; 85025; 85027; 85610; 85730; 86850; 86900; 86901; 87070; 87086; 87205; 87899; 93005; 93010; 94150; 94640; 94761; 99285-25